=== PATIENT | male | born 1960 | race African-American/Black ===

== ENCOUNTER 2016-11-19 23:02 | Inpatient (IN) | payer OTHER ==
[2016-11-19 23:34] VITALS: BMI 23.3
--- NOTE | 2016-11-19 23:43 | HP ---
COWS - Scale Resting Pulse: 1= [place] 81-100 Sweatin=Flushed/Facial Moisture Restless Observation: 5= Unable to Sit Still Pupil Size: 1= Pupils >than Normal Bone or Joint Aches: 4=Acute Joint/Muscle Pain Runny Nose/ Eye Tearin= None GI Upset > 30mins: 2= Nausea/Diarrhea Tremor Observation: 2= Slight Tremor Visible Yawning Observation: 1= 1-2x During Session Anxiety or Irritability: 2=Irritable/Anxious Goose Flesh Skin: 0=Smooth Skin COWS Score: 20 CIWA Score - CIWA Score Nausea/Vomitin-Mild Nausea/No Vomiting Muscle Tremors: 4-Moderate,w/Arms Extend Anxiety: 4-Mod. Anxious/Guarded Agitation: 4-Moderately Restless Paroxysmal Sweats: 3 Orientation: 2-Disoriented Date<2 days Tacttile Disturbances: 0-None Auditory Disturbances: 0-None Visual Disturbances: 0-None Headache: 0-None Present CIWA-Ar Total Score: 18 Admission ROS [facility] Chief Complaint: C/O WITHDRAWAL SX'S. SEEKING DETOX TXMENT. Allergies/Adverse Reactions: Allergies Allergy/AdvReac Type Severity Reaction Status Date / Time Fish Containing Products Allergy Severe Rash Verified 11/19/16 23:38 penicillin V [Penicillin V] Allergy Intermediate Hives Verified 11/19/16 23:38 Pork/Porcine Containing Allergy Mild Nausea Verified 11/19/16 23:38 Products History of Present Illness: 56 Y.O. MALE WITH ALCOHOLISM/XANAX/ opioid DEPENDENCE ADMITTED FOR DETOX TXMENT. CLIENT IS KNOWN TO [facility]. IT IS NOTED THAT HE SIGNED OUT AMA ON THE LAST 2 VISITS. D/W CLIENT THAT HIS LOS WILL BE 7 DAYS. HE HAS AGREED TO COMPLETE TXMENT. Exam Limitations: No Limitations - Ebola screening Have you traveled outside of the country in the last 21 days: No (N) Have you had contact with anyone from an Ebola affected area: No Have you been sick,other than usual withdrawal symptoms: No Do you have a fever: No - Review of Systems Constitutional: Chills, Loss of Appetite, Malaise, Unintentional Wgt. Loss EENT: reports: Dental Problems (DENTURES) Respiratory: reports: No Symptoms reported Cardiac: reports: No Symptoms Reported GI: reports: Nausea, Poor Appetite, Poor Fluid Intake : reports: No Symptoms Reported Musculoskeletal: reports: Back Pain Integumentary: reports: No Symptoms Reported Neuro: reports: Seizure (R/T DRUG WITHDRAWAL), Tremors Endocrine: reports: No Symptoms Reported Hematology: reports: No Symptoms Reported Psychiatric: reports: Anxious Other Systems: Reviewed and Negative Patient History - Patient Medical History Hx Anemia: No Hx Asthma: No Hx Chronic Obstructive Pulmonary Disease (COPD): No Hx Cancer: No Hx Cardiac Disorders: No Hx Congestive Heart Failure: No Hx Hypertension: Yes (ON NORVASC) Hx Hypercholesterolemia: No Hx Pacemaker: No HX Cerebrovascular Accident: No Hx Seizures: Yes (ETOH/BENZO INDUCED SEIZURE 11/2015) Hx Dementia: No Hx Diabetes: No Hx Gastrointestinal Disorders: Yes (ACID REFLUX) Hx Liver Disease: No Hx Genitourinary Disorders: No Hx Sexually Transmitted Disorders: No Hx Renal Disease (ESRD): No Hx Thyroid Disease: No Hx Human Immunodeficiency Virus (HIV): No Hx Hepatitis C: No Hx Depression: Yes Hx Suicide Attempt: No Hx Bipolar Disorder: No Hx Schizophrenia: No - Patient Surgical History Past Surgical History: Yes Hx Neurologic Surgery: No Hx Cataract Extraction: No Hx Cardiac Surgery: No Hx Lung Surgery: No Hx Breast Surgery: No Hx Breast Biopsy: No Hx Abdominal Surgery: No Hx Appendectomy: No Hx Cholecystectomy: No Hx Genitourinary Surgery: No Hx Section: No Hx Orthopedic Surgery: No Other Surgical History: removal of GI polyps in 1999 Anesthesia Reaction: No - PPD History Previous Implant?: Yes Documented Results: Positive w/o proof Implanted On Prior [facility] Admission?: No Results: CXR ON 12/01/15 PPD to be Administered?: No - Smoking Cessation Smoking history: Current every day smoker Have you smoked in the past 12 months: Yes Aproximately how many cigarettes per day: 30 Cigars Per Day: 0 Hx Chewing Tobacco Use: No Initiated information on smoking cessation: Yes 'Breaking Loose' booklet given: 11/19/16 - Substance & Tx. History Hx Alcohol Use: Yes Hx Substance Use: Yes Substance Use Type: Alcohol, Tranquilizers (XANAX) Hx Substance Use Treatment: Yes ([facility]) - Substances Abused VODKA Route: Oral Frequency: Daily Amount used: 1 LITER Age of first use: 15 Date of Last Use: 11/19/16 XANAX Route: Oral Frequency: Daily Amount used: 6MG Age of first use: 25 Date of Last Use: 11/18/16 OXYCODONE Route: Oral Frequency: Daily Amount used: 80MG Age of first use: 31 Date of Last Use: 11/19/16 COCAINE Route: Inhalation Frequency: 1-3 times last 30 days Amount used: 1GM Age of first use: 19 Date of Last Use: 11/15/16 Family Disease History - Family Disease History Family Disease History: [place]: Grandparent, Other: Father (DEPENDENT ON HEROIN AND ETOH), Mother (ALCOHOLIC AND ) Admission Physical Exam [facility] - Vital Signs Vital Signs: Vital Signs - 24 hr 11/19/16 23:31 Temperature 92.6 F L Pulse Rate 83 Respiratory 20 Rate Blood Pressure 149/93 - Physical General Appearance: Yes: Appropriately Dressed, Irritable, Anxious HEENTM: Yes: EOMI, Normocephalic, Normal Voice, ROMINA, Pharynx Normal Respiratory: Yes: Chest Non-Tender, Lungs Clear, Normal Breath Sounds, No Respiratory Distress, No Accessory Muscle Use Neck: Yes: No masses,lesions,Nodules, Supple, Trachea in good position Breast: Yes: Breast Exam Deferred Cardiology: Yes: Regular Rhythm, Regular Rate, S1, S2 Abdominal: Yes: Normal Bowel Sounds, Non Tender, Soft Genitourinary: Yes: Within Normal Limits Back: Yes: Within Normal Limits Musculoskeletal: Yes: full range of Motion, Gait Steady Extremities: Yes: Normal Capillary Refill, Normal Range of Motion, Non-Tender, Tremors Neurological: Yes: Alert, Motor Strength 5/5 Integumentary: Yes: Normal Color, Warm, Moist Lymphatic: Yes: Within Normal Limits - Diagnostic (1) Alcohol dependence with uncomplicated withdrawal Current Visit: Yes Status: Chronic (2) Nicotine dependence Current Visit: Yes Status: Chronic Qualifiers: Nicotine product type: cigarettes Substance use status: uncomplicated Qualified Code(s): F17.210 - Nicotine dependence, cigarettes, uncomplicated (3) Sedative/hypnotic withdrawal without complication Current Visit: No Status: Acute (4) Withdrawal seizures Current Visit: No Status: Acute Qualifiers: Complication of substance-induced condition: uncomplicated Qualified Code(s): F19.230 - Other psychoactive substance dependence with withdrawal, uncomplicated (5) Essential hypertension Current Visit: Yes Status: Chronic (6) GERD (gastroesophageal reflux disease) Current Visit: Yes Status: Chronic Qualifiers: Esophagitis presence: without esophagitis Qualified Code(s): K21.9 - Gastro-esophageal reflux disease without esophagitis (7) Cocaine dependence Current Visit: Yes Status: Chronic Qualifiers: Substance use status: uncomplicated Qualified Code(s): F14.20 - Cocaine dependence, uncomplicated (8) Opioid dependence with withdrawal Current Visit: Yes Status: Chronic Cleared for Admission S - Detox or Rehab S Level of Care: Medically Managed Detox Regimen/Protocol: Methadone/Valium, Valium S Breath Alcohol Content Breath Alcohol Content: 0.100 Urine Drug Screen - Results Drug Screen Negative: No Urine Drug Screen Results: ANGIE-Cocaine, BZO-Benzodiazepines, OXY-Oxycodone
[2016-11-19] MEDS ORDERED: P-EPHED 60MG/TRIPROLIDI 2.5MG TABLET PO PRN (23:50)
[2016-11-19] MEDS ORDERED: diazePAM 5 MG TABLET PO PRN (23:50)
[2016-11-19] MEDS ORDERED: MAGNESIUM CITRATE 300 ML BOTTLE PO PRN (23:50)
[2016-11-19] MEDS ORDERED: MENTHOL/PHENOL 1 EACH UD MM PRN (23:50)
[2016-11-19] MEDS ORDERED: NICOTINE POLACRILEX 4 MG GUM BC PRN (23:50)
[2016-11-19] MEDS ORDERED: IBUPROFEN 400 MG TABLET (FP) PO PRN (23:50)
[2016-11-19] MEDS ORDERED: LOPERAMIDE HCL 2 MG CAPSULE PO PRN (23:50)
[2016-11-19] MEDS ORDERED: hydrOXYzine PAMOATE 50 MG CAPSULE (FP) PO PRN (23:50)
[2016-11-19] MEDS ORDERED: MAGNESIUM HYDROX 2400MG/30ML ORAL SUSPENSION 30 ML CUP PO PRN (23:50)
[2016-11-19] MEDS ORDERED: ACETAMINOPHEN 325 MG TABLET (FP) PO PRN (23:50)
[2016-11-19] MEDS ORDERED: guaiFENesin/D-METHORPHAN HB 10 ML UNIT-DOSE CUPS PO PRN (23:50)
[2016-11-19] MEDS ORDERED: diazePAM 5 MG TABLET PO ONE (23:50)
[2016-11-20] MEDS ORDERED: METHADONE HCL 10 MG TABLET (FOR DETOX USE ONLY) PO ONE ×2 (00:08→23:00)
[2016-11-20] MEDS ORDERED: diazePAM 5 MG TABLET PO ONE (00:08)
[2016-11-20] MEDS: diphenhydrAMINE HCL 50 MG CAPSULE PO PRN (01:12)
[2016-11-20] MEDS: diazePAM 5 MG TABLET PO SCH ×5 (05:48→22:13)
[2016-11-20] MEDS ORDERED: METHADONE HCL 10 MG TABLET (FOR DETOX USE ONLY) PO SCH (10:00)
--- NOTE | 2016-11-20 10:05 | CONSULT ---
[facility] Psychiatric Consult - Data Date of interview: 11/20/16 Admission source: [facility] Identifying data: This is another admission to [facility] for this 56 y/o AA male seeking detox treatment on for alcohol,cocaine,heroin and benzodiazepine (xanax) dependence.Patient is single,a father of one,domiciled, unemployed and deprived of any source of income.. Substance Abuse History: - Smoking Cessation. Smoking history: Current every day smoker. Have you smoked in the past 12 months: Yes. Aproximately how many cigarettes per day: 30. Cigars Per Day: 0. Hx Chewing Tobacco Use: No. Initiated information on smoking cessation: Yes. 'Breaking Loose' booklet given : 11/19/16. - Substance & Tx. History. Hx Alcohol Use: Yes. Hx Substance Use : Yes. Substance Use Type: Alcohol, Tranquilizers (XANAX). Hx Substance Use Treatment: Yes ([facility]). - Substances Abused. VODKA. Route: Oral. Frequency : Daily. Amount used: 1 LITER. Age of first use: 15. Date of Last Use: . XANAX. Route: Oral. Frequency: Daily. Amount used: 6MG. Age of first use: 25. Date of Last Use: 11/18/16. OXYCODONE. Route: Oral. Frequency: Daily. Amount used: 80MG. Age of first use: 31. Date of Last Use: 11/19/16. COCAINE. Route: Inhalation. Frequency: 1-3 times last 30 days. Amount used: 1GM. Age of first use: 19. Date of Last Use: 11/15/16. Confirmed by the patient in this interview. Medical History: Significant for GERD,hypertension,withdrawal seizures and a history of surgery for removal of intestinal polyps (1999). Psychiatric History: No reported history of psychiatric hospitalizations.Diagnosed with Bipolar Disorder and Sleep Disorder.Patient states that he has resumed OPD care under the supervision of Dr Murray,his psychiatrist at the [facility] in [facility].Medication : seroquel 200 mg/hs.Patient denies history of suicide attempts. Physical/Sexual Abuse/Trauma History: No history. Additional Comment: Urine Drug Screen Results: ANGIE-Cocaine, BZO-Benzodiazepines , OXY-Oxycodone.Noted. Mental Status Exam - Mental Status Exam Alert and Oriented to: Time, Place, Person Cognitive Function: Good Patient Appearance: Well Groomed Mood: Anxious, Apprehensive, Hopeful Affect: Mood Congruent Patient Behavior: Fatigued, Appropriate, Cooperative Speech Pattern: Clear Voice Loudness: Normal Thought Process: Goal Oriented Thought Disorder: Not Present Hallucinations: Denies Suicidal Ideation: Denies Homicidal Ideation: Denies Insight/Judgement: Poor Sleep: Poorly, Difficulty falling asleep Appetite: Good Muscle strength/Tone: Normal Gait/Station: Normal Psychiatric Findings - Problem List ([place] 1, 2,3) (1) Alcohol dependence with uncomplicated withdrawal Current Visit: Yes Status: Acute (2) Opioid dependence with withdrawal Current Visit: Yes Status: Chronic (3) Sedative/hypnotic withdrawal without complication Current Visit: No Status: Acute (4) Nicotine dependence Current Visit: Yes Status: Acute Qualifiers: Nicotine product type: cigarettes Substance use status: uncomplicated Qualified Code(s): F17.210 - Nicotine dependence, cigarettes, uncomplicated (5) Cocaine dependence, uncomplicated Current Visit: Yes Status: Acute (6) Bipolar disorder Current Visit: Yes Status: Chronic Comment: By history. (7) Drug-induced mood disorder Current Visit: Yes Status: Suspected (8) Essential hypertension Current Visit: Yes Status: Chronic (9) GERD (gastroesophageal reflux disease) Current Visit: Yes Status: Chronic Qualifiers: Esophagitis presence: without esophagitis Qualified Code(s): K21.9 - Gastro-esophageal reflux disease without esophagitis (10) Alopecia Current Visit: Yes Status: Chronic (11) Eczema Current Visit: Yes Status: Chronic Qualifiers: Eczema type: flexural Qualified Code(s): L20.82 - Flexural eczema (12) History of seizure Current Visit: No Status: Suspected (13) Insomnia Current Visit: Yes Status: Chronic - Initial Treatment Plan Initial Treatment Plan: Psychoeducation.Detoxification.Seroquel 200 mg po hs.Side effects/benefits discussed with the patient.He agrees with this plan.Observation.
[2016-11-20 10:15] LABS: MCH 29.5 pg (25.7-33.7); MCHC 32.8 g/dl (32.0-35.9); MEAN CELL VOLUME 89.9 fl (80-96); MEAN PLT VOLUME 7.7 fl (7.5-11.1); PLATELET COUNT 196 K/MM3 (134-434); RDW 14.8 % (11.9-15.9); WHITE BLOOD COUNT 4.1 K/mm3 (4.0-10.0)
[2016-11-20 10:17] LABS: URINE APPEARANCE CLEAR; URINE BILIRUBIN NEGATIVE (NEGATIVE); URINE BLOOD NEGATIVE (NEGATIVE); URINE COLOR YELLOW; URINE GLUCOSE (UA) NEGATIVE (NEGATIVE); URINE KETONE NEGATIVE (NEGATIVE); URINE LEUK ESTERASE NEGATIVE (NEGATIVE); URINE NITRITE NEGATIVE (NEGATIVE); URINE PROTEIN NEGATIVE (NEGATIVE); URINE UROBILINOGEN NEGATIVE E.U./dl (0.2-1.0)
[2016-11-20 10:25] LABS: ALBUMIN 4.1 g/dl (3.4-5.0); ALK PHOS 58 U/L (45-117); ANION GAP 10 (8-16); BILIRUBIN,TOTAL 0.5 mg/dL (0.2-1.0); CALCIUM 8.4 mg/dL (8.5-10.1); CO2 30 mmol/L (21-32); CREATININE 0.9 mg/dL (0.7-1.3); GLUCOSE,RANDOM 77 mg/dL (74-106); SGOT/AST 15 U/L (15-37); SGPT/ALT 29 U/L (12-78)
[2016-11-20] MEDS: PANTOPRAZOLE 40 MG TABLET (FP) PO SCH (10:44)
[2016-11-20] MEDS: diazePAM 5 MG TABLET PO PRN ×2 (10:45→17:31)
[2016-11-20] MEDS: amLODIPine BESYLATE 10 MG TABLET (FP) PO SCH (10:45)
[2016-11-20] MEDS: PRENATAL VITAMINS W/ FOLIC ACID TABLET (FP) PO SCH (10:45)
[2016-11-20] MEDS: NICOTINE 21 MG/24 HOURS TOPICAL PATCH TD SCH (10:46)
--- NOTE | 2016-11-20 12:26 | PN ---
[facility] CIWA - CIWA Score Nausea/Vomitin-Mild Nausea/No Vomiting Muscle Tremors: 4-Moderate,w/Arms Extend Anxiety: 3 Agitation: 3 Paroxysmal Sweats: 3 Orientation: 0-Oriented Tacttile Disturbances: 0-None Auditory Disturbances: 0-None Visual Disturbances: 0-None Headache: 0-None Present CIWA-Ar Total Score: 14 [facility] COWS - Scale Resting Pulse: 0= [place] 80 or Below Sweatin=Flushed/Facial Moisture Restless Observation: 1= Difficult to Sit Still Pupil Size: 0= Normal to Room Light Bone or Joint Aches: 2= Severe Diffuse Aches Runny Nose/ Eye Tearin= Runny Nose/Eyes GI Upset > 30mins: 2= Nausea/Diarrhea Tremor Observation of Outstretched Hands: 2= Slight Tremor Visible Yawning Observation: 1= 1-2x During Session Anxiety or Irritability: 2=Irritable/Anxious Goose Flesh Skin: 0=Smooth Skin COWS Score: 14 [facility] Progress Note (SOAP) Subjective: Anxiety,tremors,sweating,interrupted sleep,restless. Objective: 11/20/16 12:25 Vital Signs - 8 hr 11/20/16 11/20/16 06:29 10:41 Temperature 97.5 F L 97.0 F L Pulse Rate 80 80 Respiratory 18 18 Rate Blood Pressure 136/92 127/84 Laboratory Tests 11/20/16 11/20/16 11/20/16 07:50 07:50 07:50 WBC 4.1 RBC 4.62 Hgb 13.6 Hct 41.6 MCV 89.9 MCHC 32.8 RDW 14.8 Plt Count 196 D MPV 7.7 Sodium 141 Potassium 3.5 Chloride 101 Carbon Dioxide 30 Anion Gap 10 BUN 10 D Creatinine 0.9 Creat Clearance w eGFR > 60 Random Glucose 77 D Calcium 8.4 L Total Bilirubin 0.5 AST 15 D ALT 29 D Alkaline Phosphatase 58 Total Protein 7.0 Albumin 4.1 Urine Color Urine Appearance Urine pH Ur Specific [place] Urine Protein Urine Glucose (UA) Urine Ketones Urine Blood Urine Nitrite Urine Bilirubin Urine Urobilinogen Ur Leukocyte Esterase RPR Titer Nonreactive 11/20/16 08:20 WBC RBC Hgb Hct MCV MCHC RDW Plt Count MPV Sodium Potassium Chloride Carbon Dioxide Anion Gap BUN Creatinine Creat Clearance w eGFR Random Glucose Calcium Total Bilirubin AST ALT Alkaline Phosphatase Total Protein Albumin Urine Color Yellow Urine Appearance Clear Urine pH 6.0 Ur Specific [place] 1.018 Urine Protein Negative Urine Glucose (UA) Negative Urine Ketones Negative Urine Blood Negative Urine Nitrite Negative Urine Bilirubin Negative Urine Urobilinogen Negative Ur Leukocyte Esterase Negative RPR Titer labs noted Assessment: 11/20/16 12:25 withdrawal sx. Plan: Continue detox
[2016-11-20] MEDS: HYDROCORTISONE 1% TOPICAL OINT 30 GM TUBE TP SCH ×2 (15:39→22:13)
--- NOTE | 2016-11-20 16:11 | EKG ---
Test Reason : Blood Pressure : / mmHG Vent. Rate : 082 BPM Atrial Rate : 082 BPM P-R Int : 176 ms QRS Dur : 088 ms QT Int : 390 ms P-R-T Axes : 077 -08 057 degrees QTc Int : 455 ms NORMAL SINUS RHYTHM NORMAL ECG NO PREVIOUS ECGS AVAILABLE Confirmed by DEEPA WEBSTER MD ([id number]) on 11/20/2016 4:11:20 PM Referred By: Confirmed By:DEEPA WEBSTER MD
[2016-11-20] MEDS: THIAMINE HCL 100 MG TABLET (FP) PO SCH (22:12)
[2016-11-20] MEDS: QUEtiapine FUMARATE 200 MG TABLET PO SCH (22:12)
[2016-11-21] MEDS: diphenhydrAMINE HCL 50 MG CAPSULE PO PRN (01:03)
[2016-11-21] MEDS: diazePAM 5 MG TABLET PO SCH ×3 (05:35→22:42)
[2016-11-21] MEDS ORDERED: METHADONE HCL 10 MG TABLET (FOR DETOX USE ONLY) PO SCH (10:00)
[2016-11-21] MEDS ORDERED: diazePAM 5 MG TABLET PO SCH (10:00)
[2016-11-21] MEDS: NICOTINE 21 MG/24 HOURS TOPICAL PATCH TD SCH (10:57)
[2016-11-21] MEDS: PANTOPRAZOLE 40 MG TABLET (FP) PO SCH (10:57)
[2016-11-21] MEDS: amLODIPine BESYLATE 10 MG TABLET (FP) PO SCH (10:57)
[2016-11-21] MEDS: PRENATAL VITAMINS W/ FOLIC ACID TABLET (FP) PO SCH (10:57)
[2016-11-21] MEDS: diazePAM 5 MG TABLET PO PRN ×2 (11:01→17:18)
--- NOTE | 2016-11-21 11:23 | PN ---
S CIWA - CIWA Score Nausea/Vomitin-No Nausea/No Vomiting Muscle Tremors: 4-Moderate,w/Arms Extend Anxiety: 4-Mod. Anxious/Guarded Agitation: 4-Moderately Restless Paroxysmal Sweats: 3 Orientation: 0-Oriented Tacttile Disturbances: 0-None Auditory Disturbances: 0-None Visual Disturbances: 0-None Headache: 0-None Present CIWA-Ar Total Score: 15 [facility] COWS - Scale Resting Pulse: 0= [place] 80 or Below Sweatin=Flushed/Facial Moisture Restless Observation: 1= Difficult to Sit Still Pupil Size: 0= Normal to Room Light Bone or Joint Aches: 1= Mild Discomfort Runny Nose/ Eye Tearin= Runny Nose/Eyes GI Upset > 30mins: 2= Nausea/Diarrhea Tremor Observation of Outstretched Hands: 2= Slight Tremor Visible Yawning Observation: 1= 1-2x During Session Anxiety or Irritability: 2=Irritable/Anxious Goose Flesh Skin: 0=Smooth Skin COWS Score: 13 S Progress Note (SOAP) Subjective: Anxiety,tremors,sweating,interrupted sleep,restless Objective: 11/21/16 11:22 Vital Signs - 8 hr 11/21/16 11/21/16 06:43 09:44 Temperature 96.8 F L 96.3 F L Pulse Rate 69 77 Respiratory 18 20 Rate Blood Pressure 119/79 114/78 Laboratory Tests 11/20/16 11/20/16 11/20/16 07:50 07:50 07:50 WBC 4.1 RBC 4.62 Hgb 13.6 Hct 41.6 MCV 89.9 MCHC 32.8 RDW 14.8 Plt Count 196 D MPV 7.7 Sodium 141 Potassium 3.5 Chloride 101 Carbon Dioxide 30 Anion Gap 10 BUN 10 D Creatinine 0.9 Creat Clearance w eGFR > 60 Random Glucose 77 D Calcium 8.4 L Total Bilirubin 0.5 AST 15 D ALT 29 D Alkaline Phosphatase 58 Total Protein 7.0 Albumin 4.1 Urine Color Urine Appearance Urine pH Ur Specific [place] Urine Protein Urine Glucose (UA) Urine Ketones Urine Blood Urine Nitrite Urine Bilirubin Urine Urobilinogen Ur Leukocyte Esterase RPR Titer Nonreactive 11/20/16 08:20 WBC RBC Hgb Hct MCV MCHC RDW Plt Count MPV Sodium Potassium Chloride Carbon Dioxide Anion Gap BUN Creatinine Creat Clearance w eGFR Random Glucose Calcium Total Bilirubin AST ALT Alkaline Phosphatase Total Protein Albumin Urine Color Yellow Urine Appearance Clear Urine pH 6.0 Ur Specific [place] 1.018 Urine Protein Negative Urine Glucose (UA) Negative Urine Ketones Negative Urine Blood Negative Urine Nitrite Negative Urine Bilirubin Negative Urine Urobilinogen Negative Ur Leukocyte Esterase Negative RPR Titer labs noted Assessment: 11/21/16 11:22 withdrawal sx. Plan: continue detox
[2016-11-21] MEDS: HYDROCORTISONE 1% TOPICAL OINT 30 GM TUBE TP SCH ×2 (12:03→22:43)
[2016-11-21] MEDS: QUEtiapine FUMARATE 200 MG TABLET PO SCH (22:42)
[2016-11-21] MEDS: THIAMINE HCL 100 MG TABLET (FP) PO SCH (22:42)
[2016-11-22] MEDS: diazePAM 5 MG TABLET PO PRN (05:28)
[2016-11-22] MEDS ORDERED: METHADONE HCL 5 MG TABLET (FOR DETOX USE ONLY) PO SCH (10:00)
[2016-11-22] MEDS: HYDROCORTISONE 1% TOPICAL OINT 30 GM TUBE TP SCH ×2 (10:53→22:59)
[2016-11-22] MEDS: NICOTINE 21 MG/24 HOURS TOPICAL PATCH TD SCH (10:53)
[2016-11-22] MEDS: PRENATAL VITAMINS W/ FOLIC ACID TABLET (FP) PO SCH (10:54)
[2016-11-22] MEDS: PANTOPRAZOLE 40 MG TABLET (FP) PO SCH (10:54)
[2016-11-22] MEDS: amLODIPine BESYLATE 10 MG TABLET (FP) PO SCH (10:54)
[2016-11-22] MEDS: diazePAM 5 MG TABLET PO SCH ×2 (10:54→22:04)
--- NOTE | 2016-11-22 11:11 | PN ---
[facility] Progress Note (SOAP) Subjective: Sweating,interrupted sleep,restless Objective: 11/22/16 11:10 Vital Signs - 8 hr 11/22/16 11/22/16 11/22/16 03:30 06:34 10:38 Temperature 97.7 F 96.8 F L Pulse Rate 84 83 Respiratory 18 18 18 Rate Blood Pressure 119/82 119/86 Laboratory Last Values WBC 4.1 K/mm3 (4.0-10.0) 11/20/16 07:50 RBC 4.62 M/mm3 (4.00-5.60) 11/20/16 07:50 Hgb 13.6 GM/dL (11.7-16.9) 11/20/16 07:50 Hct 41.6 % (35.4-49) 11/20/16 07:50 MCV 89.9 fl (80-96) 11/20/16 07:50 MCHC 32.8 g/dl (32.0-35.9) 11/20/16 07:50 RDW 14.8 % (11.9-15.9) 11/20/16 07:50 Plt Count 196 K/MM3 (134-434) D 11/20/16 07:50 MPV 7.7 fl (7.5-11.1) 11/20/16 07:50 Sodium 141 mmol/L (136-145) 11/20/16 07:50 Potassium 3.5 mmol/L (3.5-5.1) 11/20/16 07:50 Chloride 101 mmol/L (98-107) 11/20/16 07:50 Carbon Dioxide 30 mmol/L (21-32) 11/20/16 07:50 Anion Gap 10 (8-16) 11/20/16 07:50 BUN 10 mg/dL (7-18) D 11/20/16 07:50 Creatinine 0.9 mg/dL (0.7-1.3) 11/20/16 07:50 Creat Clearance w eGFR > 60 (>60) 11/20/16 07:50 Random Glucose 77 mg/dL (74-106) D 11/20/16 07:50 Calcium 8.4 mg/dL (8.5-10.1) L 11/20/16 07:50 Total Bilirubin 0.5 mg/dL (0.2-1.0) 11/20/16 07:50 AST 15 U/L (15-37) D 11/20/16 07:50 ALT 29 U/L (12-78) D 11/20/16 07:50 Alkaline Phosphatase 58 U/L (45-117) 11/20/16 07:50 Total Protein 7.0 g/dl (6.4-8.2) 11/20/16 07:50 Albumin 4.1 g/dl (3.4-5.0) 11/20/16 07:50 Urine Color Yellow 11/20/16 08:20 Urine Appearance Clear 11/20/16 08:20 Urine pH 6.0 (5.0-8.0) 11/20/16 08:20 Ur Specific [place] 1.018 (1.001-1.035) 11/20/16 08:20 Urine Protein Negative (NEGATIVE) 11/20/16 08:20 Urine Glucose (UA) Negative (NEGATIVE) 11/20/16 08:20 Urine Ketones Negative (NEGATIVE) 11/20/16 08:20 Urine Blood Negative (NEGATIVE) 11/20/16 08:20 Urine Nitrite Negative (NEGATIVE) 11/20/16 08:20 Urine Bilirubin Negative (NEGATIVE) 11/20/16 08:20 Urine Urobilinogen Negative E.U./dl (0.2-1.0) 11/20/16 08:20 Ur Leukocyte Esterase Negative (NEGATIVE) 11/20/16 08:20 RPR Titer Nonreactive (NONREACTIVE) 11/20/16 07:50 labs noted Assessment: 11/22/16 11:11 withdrawal sx. Plan: Continue detox
[2016-11-22] MEDS: MAG HYDROX/AL HYDROX/SIMETH 30 ML UNIT-DOSE CUP PO PRN (20:27)
[2016-11-22] MEDS: QUEtiapine FUMARATE 200 MG TABLET PO SCH (22:03)
[2016-11-22] MEDS: THIAMINE HCL 100 MG TABLET (FP) PO SCH (22:04)
[2016-11-23] MEDS ORDERED: diazePAM 5 MG TABLET PO SCH (10:00)
[2016-11-23] MEDS ORDERED: METHADONE HCL 10 MG TABLET (FOR DETOX USE ONLY) PO SCH (10:00)
[2016-11-23] MEDS: NICOTINE 21 MG/24 HOURS TOPICAL PATCH TD SCH (10:51)
[2016-11-23] MEDS: PANTOPRAZOLE 40 MG TABLET (FP) PO SCH (10:51)
[2016-11-23] MEDS: amLODIPine BESYLATE 10 MG TABLET (FP) PO SCH (10:51)
[2016-11-23] MEDS: HYDROCORTISONE 1% TOPICAL OINT 30 GM TUBE TP SCH ×2 (10:51→22:30)
[2016-11-23] MEDS: diazePAM 5 MG TABLET PO SCH ×2 (10:51→22:31)
[2016-11-23] MEDS: PRENATAL VITAMINS W/ FOLIC ACID TABLET (FP) PO SCH (10:51)
--- NOTE | 2016-11-23 11:47 | PN ---
[facility] Progress Note (SOAP) Subjective: Restlessness, anxious, interrupted sleep, reports feeling better Objective: Vital Signs Temperature 98.3 F 11/23/16 09:52 Pulse Rate 89 11/23/16 09:52 Respiratory Rate 18 11/23/16 09:52 Blood Pressure 111/77 11/23/16 09:52 O2 Sat by Pulse Oximetry (%) Lab Results WBC 4.1 K/mm3 (4.0-10.0) 11/20/16 07:50 RBC 4.62 M/mm3 (4.00-5.60) 11/20/16 07:50 Hgb 13.6 GM/dL (11.7-16.9) 11/20/16 07:50 Hct 41.6 % (35.4-49) 11/20/16 07:50 MCV 89.9 fl (80-96) 11/20/16 07:50 MCHC 32.8 g/dl (32.0-35.9) 11/20/16 07:50 RDW 14.8 % (11.9-15.9) 11/20/16 07:50 Plt Count 196 K/MM3 (134-434) D 11/20/16 07:50 Sodium 141 mmol/L (136-145) 11/20/16 07:50 Potassium 3.5 mmol/L (3.5-5.1) 11/20/16 07:50 Chloride 101 mmol/L (98-107) 11/20/16 07:50 Carbon Dioxide 30 mmol/L (21-32) 11/20/16 07:50 Anion Gap 10 (8-16) 11/20/16 07:50 BUN 10 mg/dL (7-18) D 11/20/16 07:50 Creatinine 0.9 mg/dL (0.7-1.3) 11/20/16 07:50 Random Glucose 77 mg/dL (74-106) D 11/20/16 07:50 Calcium 8.4 mg/dL (8.5-10.1) L 11/20/16 07:50 labs noted Assessment: Withdrawal symptoms Plan: Continue Detox
[2016-11-23] MEDS: MAG HYDROX/AL HYDROX/SIMETH 30 ML UNIT-DOSE CUP PO PRN (22:31)
[2016-11-23] MEDS: QUEtiapine FUMARATE 200 MG TABLET PO SCH (22:31)
[2016-11-23] MEDS: THIAMINE HCL 100 MG TABLET (FP) PO SCH (22:31)
[2016-11-24] MEDS ORDERED: METHADONE HCL 5 MG TABLET (FOR DETOX USE ONLY) PO SCH (06:00)
[2016-11-24 07:03] VITALS: BP 115/81; PULSE 78; TEMP 95.8
[2016-11-24] MEDS ORDERED: METHADONE HCL 10 MG TABLET (FOR DETOX USE ONLY) PO SCH (10:00)
[2016-11-24] MEDS ORDERED: diazePAM 5 MG TABLET PO SCH (10:00)
--- NOTE | 2016-11-24 12:14 | DS ---
[facility] Detox Discharge Summary Admission Date: 11/19/16 Discharge Date: 11/24/16 - History Present History: Alcohol Dependence, Opioid Dependence, Sedative Dependence Pertinent Past History: HTN, GERD, ALCOHOL/BENZO RELATED SEIZURE, POSITIVE PPD - Physical Exam Results Vital Signs: Vital Signs Temperature 95.8 F L 11/24/16 07:02 Pulse Rate 78 11/24/16 07:02 Respiratory Rate 16 11/24/16 07:02 Blood Pressure 115/81 11/24/16 07:02 O2 Sat by Pulse Oximetry (%) Pertinent Admission Physical Exam Findings: WITHDRAWAL SYMPTOMS Laboratory Tests 11/20/16 11/20/16 11/20/16 07:50 07:50 07:50 WBC 4.1 RBC 4.62 Hgb 13.6 Hct 41.6 MCV 89.9 MCHC 32.8 RDW 14.8 Plt Count 196 D MPV 7.7 Sodium 141 Potassium 3.5 Chloride 101 Carbon Dioxide 30 Anion Gap 10 BUN 10 D Creatinine 0.9 Creat Clearance w eGFR > 60 Random Glucose 77 D Calcium 8.4 L Total Bilirubin 0.5 AST 15 D ALT 29 D Alkaline Phosphatase 58 Total Protein 7.0 Albumin 4.1 Urine Color Urine Appearance Urine pH Ur Specific [place] Urine Protein Urine Glucose (UA) Urine Ketones Urine Blood Urine Nitrite Urine Bilirubin Urine Urobilinogen Ur Leukocyte Esterase RPR Titer Nonreactive 11/20/16 08:20 WBC RBC Hgb Hct MCV MCHC RDW Plt Count MPV Sodium Potassium Chloride Carbon Dioxide Anion Gap BUN Creatinine Creat Clearance w eGFR Random Glucose Calcium Total Bilirubin AST ALT Alkaline Phosphatase Total Protein Albumin Urine Color Yellow Urine Appearance Clear Urine pH 6.0 Ur Specific [place] 1.018 Urine Protein Negative Urine Glucose (UA) Negative Urine Ketones Negative Urine Blood Negative Urine Nitrite Negative Urine Bilirubin Negative Urine Urobilinogen Negative Ur Leukocyte Esterase Negative RPR Titer Labs noted - Treatment Hospital Course: Detox Protocol Followed, Detoxed Safely, Responded well, Discharged Condition Good - Medication Discharge Medications: Ambulatory Orders Amlodipine Besylate [Norvasc -] 10 mg PO DAILY 11/30/15 Esomeprazole Mag Trihydrate [Nexium] 40 mg PO DAILY 11/30/15 Quetiapine Fumarate [Seroquel -] 200 mg PO HS #30 tab 08/20/16 Quetiapine Fumarate [Seroquel -] 200 mg PO HS #30 tab 11/20/16 Pantoprazole Sodium [Protonix -] 40 mg PO DAILY #30 tablet.ec 11/23/16 - Diagnosis (1) Sedative/hypnotic withdrawal without complication Status: Acute (2) Withdrawal seizures Status: Acute Qualifiers: Complication of substance-induced condition: uncomplicated Qualified Code(s): F19.230 - Other psychoactive substance dependence with withdrawal, uncomplicated (3) Anxiety and depression Status: Chronic (4) Essential hypertension Status: Chronic (5) GERD (gastroesophageal reflux disease) Status: Chronic Qualifiers: Esophagitis presence: without esophagitis Qualified Code(s): K21.9 - Gastro-esophageal reflux disease without esophagitis (6) Opioid dependence with withdrawal Status: Acute - AMA Did Patient Leave Against Medical Advice: No
[2016-11-25] MEDS ORDERED: METHADONE HCL 5 MG TABLET (FOR DETOX USE ONLY) PO SCH (06:00)
== END 2016-11-24 08:58 | disposition home or self-care (01) | DRG 773 ==
LOC: YASAS 23:02 → Y3N 23:44
PROVIDERS: ADMIT Internal Medicine; ATTEND Internal Medicine
PROC: HZ2ZZZZ Detoxification Services for Substance Abuse Treatment (ICD-10-PCS; principal; 2016-11-24)
DX: F11.23 Opioid dependence with withdrawal (principal); F13.230 Sedative, hypnotic or anxiolytic dependence with withdrawal, uncomplicated; F14.20 Cocaine dependence, uncomplicated; F17.210 Nicotine dependence, cigarettes, uncomplicated; F41.8 Other specified anxiety disorders; G40.509 Epileptic seizures related to external causes, not intractable, without status epilepticus; F31.9 Bipolar disorder, unspecified; I10 Essential (primary) hypertension; K21.9 Gastro-esophageal reflux disease without esophagitis; Z59.0 Homelessness
CPT/HCPCS: 36415; 80053; 81003; 85027; 86593; 93005; 93010

== ENCOUNTER 2017-01-21 15:52 | Inpatient (IN) | payer OTHER ==
[2017-01-21 18:03] VITALS: BMI 21.5
--- NOTE | 2017-01-21 18:22 | HP ---
[id number] 4d 4-Moderate,w/Arms Extend Anxiety: 4-Mod. Anxious/Guarded Agitation: 4-Moderately Restless Paroxysmal Sweats: 1-Minimal Palms Moist Orientation: 1-Uncertain about Date Tacttile Disturbances: 0-None Auditory Disturbances: 0-None Visual Disturbances: 0-None Headache: 0-None Present CIWA-Ar Total Score: 15 Admission ROS S - HPI Chief Complaint: withdrawal sx Allergies/Adverse Reactions: Allergies Allergy/AdvReac Type Severity Reaction Status Date / Time Fish Containing Products Allergy Severe Rash Verified 01/21/17 18:59 penicillin V [Penicillin V] Allergy Intermediate Hives Verified 01/21/17 18:59 Pork/Porcine Containing Allergy Mild Nausea Verified 01/21/17 18:59 Products History of Present Illness: 56 years old male with long history of alcohol cocaine nicotine dependence has hypertension gerd positive ppd and weight loss and depression is admitted to detox alcohol related seizure 2014 Exam Limitations: No Limitations - Ebola screening Have you traveled outside of the country in the last 21 days: No Have you had contact with anyone from an Ebola affected area: No Have you been sick,other than usual withdrawal symptoms: No Do you have a fever: No - Review of Systems Constitutional: Chills, Loss of Appetite, Changes in sleep, Unintentional Wgt. Loss, Unexplained wgt Loss EENT: reports: Dental Problems (upper denture) Respiratory: reports: No Symptoms reported Cardiac: reports: No Symptoms Reported GI: reports: Diarrhea, Nausea, Poor Appetite, Poor Fluid Intake, Indigestion, Abdominal cramping : reports: No Symptoms Reported Musculoskeletal: reports: Back Pain Integumentary: reports: No Symptoms Reported Neuro: reports: Seizure (alcohol induced 2014), Tremors Endocrine: reports: No Symptoms Reported Hematology: reports: No Symptoms Reported Psychiatric: reports: Judgement Intact, Orientated x3, Depressed Other Systems: Reviewed and Negative Patient History - Patient Medical History Hx Anemia: No Hx Asthma: No Hx Chronic Obstructive Pulmonary Disease (COPD): No Hx Cancer: No Hx Cardiac Disorders: No Hx Congestive Heart Failure: No Hx Hypertension: Yes Hx Hypercholesterolemia: No Hx Pacemaker: No HX Cerebrovascular Accident: No Hx Seizures: Yes (alcohol induced 2014) Hx Dementia: No Hx Diabetes: No Hx Gastrointestinal Disorders: Yes Hx Liver Disease: No Hx Genitourinary Disorders: No Hx Sexually Transmitted Disorders: No Hx Renal Disease (ESRD): No Hx Thyroid Disease: No Hx Human Immunodeficiency Virus (HIV): No Hx Hepatitis C: No Hx Depression: Yes Hx Suicide Attempt: No Hx Bipolar Disorder: No Hx Schizophrenia: No - Patient Surgical History Past Surgical History: Yes Hx Neurologic Surgery: No Hx Cataract Extraction: No Hx Cardiac Surgery: No Hx Lung Surgery: No Hx Breast Surgery: No Hx Breast Biopsy: No Hx Abdominal Surgery: No Hx Appendectomy: No Hx Cholecystectomy: No Hx Genitourinary Surgery: No Hx Orthopedic Surgery: No Other Surgical History: removal of GI polyps in 1999 Anesthesia Reaction: No - PPD History Previous Implant?: Yes Documented Results: Positive w/o proof Implanted On Prior [facility] Admission?: No Results: CXR ON 12/01/15 PPD to be Administered?: No - Smoking Cessation Smoking history: Current every day smoker Have you smoked in the past 12 months: Yes Aproximately how many cigarettes per day: 30 Cigars Per Day: 0 Hx Chewing Tobacco Use: No Initiated information on smoking cessation: Yes 'Breaking Loose' booklet given: 01/21/17 - Substance & Tx. History Hx Alcohol Use: Yes Hx Substance Use: Yes Substance Use Type: Alcohol, Cocaine Hx Substance Use Treatment: Yes - Substances Abused Alcohol Route: Oral Frequency: Daily Amount used: 1/5 volka + 40ozx3 beer Age of first use: 15 Date of Last Use: 01/21/17 Family Disease History - Family Disease History Family Disease History: [place]: Grandparent, Other: Father (DEPENDENT ON HEROIN AND ETOH), Mother (ALCOHOLIC AND ) Admission Physical Exam [facility] - Vital Signs Vital Signs: Vital Signs - 24 hr 01/21/17 18:02 Temperature 97.6 F Pulse Rate 87 Respiratory 20 Rate Blood Pressure 163/109 - Physical General Appearance: Yes: Appropriately Dressed, Mild Distress, Alcohol on Breath , Thin, Tremorous, Irritable, Sweating, Anxious HEENTM: Yes: Hearing grossly Normal, Normal ENT Inspection, Normocephalic, Normal Voice Respiratory: Yes: Chest Non-Tender, Lungs Clear, Normal Breath Sounds, No Respiratory Distress, No Accessory Muscle Use Neck: Yes: Supple, Trachea in good position Breast: Yes: Breasts Symetrical Cardiology: Yes: Regular Rhythm, Regular Rate, S1, S2 Abdominal: Yes: Non Tender, Soft, Increased Bowel Sounds Genitourinary: Yes: Within Normal Limits Back: Yes: Normal Inspection Musculoskeletal: Yes: full range of Motion, Gait Steady, Back pain Extremities: Yes: Normal Inspection, Normal Range of Motion, Non-Tender, Tremors Neurological: Yes: Fully Oriented, Alert, Motor Strength 5/5, Normal Response, Depressed Affect Integumentary: Yes: Warm Lymphatic: Yes: Within Normal Limits - Diagnostic (1) Alcohol dependence with uncomplicated withdrawal Current Visit: Yes Status: Acute (2) Cocaine dependence, uncomplicated Current Visit: Yes Status: Chronic (3) Nicotine dependence Current Visit: Yes Status: Acute Qualifiers: Nicotine product type: cigarettes Substance use status: in withdrawal Qualified Code(s): F17.213 - Nicotine dependence, cigarettes, with withdrawal (4) Withdrawal seizures Current Visit: Yes Status: Suspected Qualifiers: Complication of substance-induced condition: with perceptual disturbance Qualified Code(s): F19.232 - Other psychoactive substance dependence with withdrawal with perceptual disturbance (5) GERD (gastroesophageal reflux disease) Current Visit: Yes Status: Chronic Qualifiers: Esophagitis presence: without esophagitis Qualified Code(s): K21.9 - Gastro-esophageal reflux disease without esophagitis (6) Positive PPD, treated Current Visit: Yes Status: Resolved Cleared for Admission [facility] - Detox or Rehab [facility] Level of Care: Medically Managed Detox Regimen/Protocol: Valium S Breath Alcohol Content Breath Alcohol Content: 0.165 Urine Drug Screen - Results Drug Screen Negative: No Urine Drug Screen Results: ANGIE-Cocaine
[2017-01-21] MEDS ORDERED: IBUPROFEN 400 MG TABLET (FP) PO PRN (18:29)
[2017-01-21] MEDS ORDERED: MENTHOL/PHENOL 1 EACH UD MM PRN (18:29)
[2017-01-21] MEDS ORDERED: diazePAM 5 MG TABLET PO ONE (18:29)
[2017-01-21] MEDS ORDERED: MAGNESIUM HYDROX 2400MG/30ML ORAL SUSPENSION 30 ML CUP PO PRN (18:29)
[2017-01-21] MEDS ORDERED: LOPERAMIDE HCL 2 MG CAPSULE PO PRN (18:29)
[2017-01-21] MEDS ORDERED: MAGNESIUM CITRATE 300 ML BOTTLE PO PRN (18:29)
[2017-01-21] MEDS ORDERED: ACETAMINOPHEN 325 MG TABLET (FP) PO PRN (18:29)
[2017-01-21] MEDS ORDERED: diphenhydrAMINE HCL 50 MG CAPSULE PO PRN (18:29)
[2017-01-21] MEDS ORDERED: guaiFENesin/D-METHORPHAN HB 10 ML UNIT-DOSE CUPS PO PRN (18:29)
[2017-01-21] MEDS ORDERED: P-EPHED 60MG/TRIPROLIDI 2.5MG TABLET PO PRN (18:29)
[2017-01-21] MEDS ORDERED: cloNIDine HCL 0.1 MG TABLET PO PRN (18:33)
[2017-01-21] MEDS: amLODIPine BESYLATE 10 MG TABLET (FP) PO SCH (19:54)
[2017-01-21] MEDS: diazePAM 5 MG TABLET PO SCH (22:22)
[2017-01-21] MEDS: THIAMINE HCL 100 MG TABLET (FP) PO SCH (22:23)
[2017-01-21] MEDS: PANTOPRAZOLE 40 MG TABLET (FP) PO SCH (22:23)
[2017-01-21 22:47] LABS: URINE APPEARANCE CLEAR; URINE BILIRUBIN NEGATIVE (NEGATIVE); URINE BLOOD NEGATIVE (NEGATIVE); URINE COLOR LTYELLOW; URINE GLUCOSE (UA) NEGATIVE (NEGATIVE); URINE KETONE TRACE (NEGATIVE); URINE LEUK ESTERASE NEGATIVE (NEGATIVE); URINE NITRITE NEGATIVE (NEGATIVE); URINE PROTEIN NEGATIVE (NEGATIVE); URINE UROBILINOGEN NEGATIVE E.U./dl (0.2-1.0)
[2017-01-22] MEDS: diazePAM 5 MG TABLET PO SCH ×3 (05:31→22:55)
--- NOTE | 2017-01-22 08:25 | EKG ---
Test Reason : Blood Pressure : / mmHG Vent. Rate : 093 BPM Atrial Rate : 093 BPM P-R Int : 160 ms QRS Dur : 088 ms QT Int : 374 ms P-R-T Axes : 080 -60 031 degrees QTc Int : 465 ms NORMAL SINUS RHYTHM POSSIBLE LEFT ATRIAL ENLARGEMENT LEFT AXIS DEVIATION SEPTAL INFARCT , AGE UNDETERMINED ABNORMAL ECG WHEN COMPARED WITH ECG OF 20-NOV-2016 00:50, QRS AXIS SHIFTED LEFT SEPTAL INFARCT IS NOW PRESENT Confirmed by ISABELL AC MD ([id number]) on 01/22/2017 8:24:48 AM Referred By: Confirmed By:ISABELL AC MD
--- NOTE | 2017-01-22 10:05 | CONSULT ---
[facility] Psychiatric Consult - Data Date of interview: 01/22/17 Admission source: [facility] Identifying data: This is 56 years old male with no psychiatric hospitalization history iontoxicated with : Alcohol and Nicotine Substance Abuse History: - Smoking Cessation. Smoking history: Current every day smoker. Have you smoked in the past 12 months: Yes. Aproximately how many cigarettes per day: 30. Cigars Per Day: 0. Hx Chewing Tobacco Use: No. Initiated information on smoking cessation: Yes. 'Breaking Loose' booklet given : 01/21/17. - Substance & Tx. History. Hx Alcohol Use: Yes. Hx Substance Use : Yes. Substance Use Type: Alcohol, Cocaine. Hx Substance Use Treatment: Yes. - Substances Abused. Alcohol. Route: Oral. Frequency: Daily. Amount used: 1/5 volka + 40ozx3 beer. Age of first use: 15. Date of Last Use: Medical History: GERD, Seizure history, Asthma, Eczema history, HTN Psychiatric History: Patioent reports hisotry of anxiety and insomnia, reports taking prior to admission: Seroquel 150mg po qhs Physical/Sexual Abuse/Trauma History: Denies Additional Comment: Seroquel 150mg po qhs Mental Status Exam - Mental Status Exam Alert and Oriented to: Person Cognitive Function: Fair Mood: Sad Affect: Mood Congruent Patient Behavior: Cooperative Speech Pattern: Appropriate Voice Loudness: Mildly Soft/Quiet Thought Process: Goal Oriented Thought Disorder: Being Controlled Hallucinations: Denies Suicidal Ideation: Denies Homicidal Ideation: Denies Insight/Judgement: Fair Sleep: Difficulty falling asleep Appetite: Weight loss Muscle strength/Tone: Normal Gait/Station: Normal Additional Comments: Seroquel 150mg po qhs Psychiatric Findings - Problem List ([place] 1, 2,3) (1) Alcohol dependence with uncomplicated withdrawal Current Visit: Yes Status: Acute (2) Nicotine dependence Current Visit: Yes Status: Acute Qualifiers: Nicotine product type: cigarettes Substance use status: in withdrawal Qualified Code(s): F17.213 - Nicotine dependence, cigarettes, with withdrawal (3) Cocaine dependence, uncomplicated Current Visit: Yes Status: Suspected (4) Cannabis dependence Current Visit: No Status: Acute (5) Mood disorder Current Visit: No Status: Acute (6) Opioid dependence with withdrawal Current Visit: No Status: Acute (7) Alcohol dependence Current Visit: No Status: Chronic (8) Anxiety and depression Current Visit: No Status: Chronic (9) Bipolar affective disorder, depressed, moderate Current Visit: No Status: Chronic (10) Cannabis abuse Current Visit: No Status: Chronic (11) Cocaine abuse Current Visit: No Status: Chronic (12) Cocaine dependence Current Visit: No Status: Chronic Qualifiers: Substance use status: uncomplicated Qualified Code(s): F14.20 - Cocaine dependence, uncomplicated (13) Drug-induced mood disorder Current Visit: No Status: Suspected - Initial Treatment Plan Initial Treatment Plan: Seroquel 150mg po qhs
[2017-01-22 10:24] LABS: ALBUMIN 4.5 g/dl (3.4-5.0); ALK PHOS 63 U/L (45-117); ANION GAP 10 (8-16); BILIRUBIN,TOTAL 0.5 mg/dL (0.2-1.0); CALCIUM 9.4 mg/dL (8.5-10.1); CO2 31 mmol/L (21-32); COCKROFT - GAULT 97.72; CREATININE 0.8 mg/dL (0.7-1.3); GLUCOSE,RANDOM 90 mg/dL (74-106); SGOT/AST 23 U/L (15-37); SGPT/ALT 27 U/L (12-78); TOT PROT 7.9 g/dl (6.4-8.2)
[2017-01-22] MEDS: PRENATAL VITAMINS W/ FOLIC ACID TABLET (FP) PO SCH (10:54)
[2017-01-22] MEDS: amLODIPine BESYLATE 10 MG TABLET (FP) PO SCH (10:54)
[2017-01-22 10:56] LABS: MCH 29.9 pg (25.7-33.7); MEAN CELL VOLUME 90.8 fl (80-96); MEAN PLT VOLUME 7.8 fl (7.5-11.1); PLATELET COUNT 243 K/MM3 (134-434); WHITE BLOOD COUNT 3.7 K/mm3 (4.0-10.0)
[2017-01-22] MEDS: diazePAM 5 MG TABLET PO PRN ×2 (10:56→17:49)
[2017-01-22] MEDS ORDERED: NICOTINE POLACRILEX 4 MG GUM BUC PRN (11:31)
--- NOTE | 2017-01-22 11:45 | PN ---
[facility] Progress Note (SOAP) Subjective: INTERRUPTED SLEEP, SWEATS ,SHAKES , LBP Objective: 01/22/17 11:33 Vital Signs Temperature 98.1 F 01/22/17 10:36 Pulse Rate 81 01/22/17 10:36 Respiratory Rate 20 01/22/17 10:36 Blood Pressure 137/98 01/22/17 10:36 O2 Sat by Pulse Oximetry (%) Laboratory Tests 01/21/17 01/22/17 01/22/17 20:00 07:00 07:00 WBC 3.7 L RBC 4.84 Hgb 14.5 Hct 44.0 MCV 90.8 MCHC 33.0 RDW 16.0 H Plt Count 243 D MPV 7.8 Sodium 139 Potassium 3.7 Chloride 98 Carbon Dioxide 31 Anion Gap 10 BUN 10 Creatinine 0.8 Creat Clearance w eGFR > 60 Random Glucose 90 Calcium 9.4 Total Bilirubin 0.5 AST 23 D ALT 27 Alkaline Phosphatase 63 Total Protein 7.9 Albumin 4.5 Urine Color Ltyellow Urine Appearance Clear Urine pH 7.0 Ur Specific [place] 1.010 Urine Protein Negative Urine Glucose (UA) Negative Urine Ketones Trace H Urine Blood Negative Urine Nitrite Negative Urine Bilirubin Negative Urine Urobilinogen Negative Ur Leukocyte Esterase Negative 01/22/17 16:13 PT AOX3 IN NAD Assessment: 01/22/17 11:33 withdrawal sx's 01/22/17 16:13 LBP Plan: cont detox increase fluids may wear own shoes 21 MG LA PATCH
[2017-01-22] MEDS: THIAMINE HCL 100 MG TABLET (FP) PO SCH (22:55)
[2017-01-22] MEDS: PANTOPRAZOLE 40 MG TABLET (FP) PO SCH (22:55)
[2017-01-22] MEDS: QUEtiapine FUMARATE 50 MG TABLET PO SCH (22:55)
[2017-01-23] MEDS: NICOTINE 21 MG/24 HOURS TOPICAL PATCH TD SCH (10:52)
[2017-01-23] MEDS: diazePAM 5 MG TABLET PO SCH ×2 (10:52→23:04)
[2017-01-23] MEDS: amLODIPine BESYLATE 10 MG TABLET (FP) PO SCH (10:52)
[2017-01-23] MEDS: PRENATAL VITAMINS W/ FOLIC ACID TABLET (FP) PO SCH (10:52)
[2017-01-23] MEDS: MAG HYDROX/AL HYDROX/SIMETH 30 ML UNIT-DOSE CUP PO PRN (10:53)
--- NOTE | 2017-01-23 12:14 | PN ---
[facility] CIWA - CIWA Score Nausea/Vomitin-No Nausea/No Vomiting Muscle Tremors: 3 Anxiety: 3 Agitation: 3 Paroxysmal Sweats: 3 Orientation: 0-Oriented Tacttile Disturbances: 0-None Auditory Disturbances: 0-None Visual Disturbances: 0-None Headache: 1-Very Mild CIWA-Ar Total Score: 13 [facility] Progress Note (SOAP) Subjective: agitation anxiety sweats irritable Objective: 01/23/17 12:13 Vital Signs Temperature 97.3 F L 01/23/17 09:44 Pulse Rate 80 01/23/17 09:44 Respiratory Rate 18 01/23/17 09:44 Blood Pressure 129/81 01/23/17 09:44 O2 Sat by Pulse Oximetry (%) Laboratory Tests 01/21/17 01/22/17 01/22/17 20:00 07:00 07:00 WBC 3.7 L RBC 4.84 Hgb 14.5 Hct 44.0 MCV 90.8 MCHC 33.0 RDW 16.0 H Plt Count 243 D MPV 7.8 Sodium 139 Potassium 3.7 Chloride 98 Carbon Dioxide 31 Anion Gap 10 BUN 10 Creatinine 0.8 Creat Clearance w eGFR > 60 Random Glucose 90 Calcium 9.4 Total Bilirubin 0.5 AST 23 D ALT 27 Alkaline Phosphatase 63 Total Protein 7.9 Albumin 4.5 Urine Color Ltyellow Urine Appearance Clear Urine pH 7.0 Ur Specific [place] 1.010 Urine Protein Negative Urine Glucose (UA) Negative Urine Ketones Trace H Urine Blood Negative Urine Nitrite Negative Urine Bilirubin Negative Urine Urobilinogen Negative Ur Leukocyte Esterase Negative RPR Titer 01/22/17 07:00 WBC RBC Hgb Hct MCV MCHC RDW Plt Count MPV Sodium Potassium Chloride Carbon Dioxide Anion Gap BUN Creatinine Creat Clearance w eGFR Random Glucose Calcium Total Bilirubin AST ALT Alkaline Phosphatase Total Protein Albumin Urine Color Urine Appearance Urine pH Ur Specific [place] Urine Protein Urine Glucose (UA) Urine Ketones Urine Blood Urine Nitrite Urine Bilirubin Urine Urobilinogen Ur Leukocyte Esterase RPR Titer Nonreactive awake/alert ambulating no acute distress Assessment: 01/23/17 12:13 withdrawal sx Plan: continue detox increase fluids
--- NOTE | 2017-01-23 13:35 | EKG ---
Test Reason : Blood Pressure : / mmHG Vent. Rate : 064 BPM Atrial Rate : 064 BPM P-R Int : 164 ms QRS Dur : 090 ms QT Int : 434 ms P-R-T Axes : 039 -04 051 degrees QTc Int : 447 ms NORMAL SINUS RHYTHM NORMAL ECG WHEN COMPARED WITH ECG OF 21-JAN-2017 19:04, QRS AXIS SHIFTED RIGHT CRITERIA FOR SEPTAL INFARCT ARE NO LONGER PRESENT NONSPECIFIC T WAVE ABNORMALITY NOW EVIDENT IN LATERAL LEADS Confirmed by HAIR VEE MD ([id number]) on 01/23/2017 1:35:43 PM Referred By: Confirmed By:HAIR VEE MD
[2017-01-23] MEDS: QUEtiapine FUMARATE 50 MG TABLET PO SCH (23:05)
[2017-01-23] MEDS: PANTOPRAZOLE 40 MG TABLET (FP) PO SCH (23:05)
[2017-01-23] MEDS: THIAMINE HCL 100 MG TABLET (FP) PO SCH (23:16)
[2017-01-24] MEDS: MAG HYDROX/AL HYDROX/SIMETH 30 ML UNIT-DOSE CUP PO PRN (06:29)
--- NOTE | 2017-01-24 10:55 | PN ---
S Progress Note (SOAP) Subjective: alert,irritable,anxious,interrupted sleep Objective: 01/24/17 10:54 Vital Signs Temperature 97.9 F 01/24/17 10:50 Pulse Rate 91 H 01/24/17 10:50 Respiratory Rate 18 01/24/17 10:50 Blood Pressure 134/96 01/24/17 10:50 O2 Sat by Pulse Oximetry (%) Assessment: 01/24/17 10:54 withdrawal symptom Plan: continue detox,discharge in am
[2017-01-24] MEDS: PRENATAL VITAMINS W/ FOLIC ACID TABLET (FP) PO SCH (10:58)
[2017-01-24] MEDS: amLODIPine BESYLATE 10 MG TABLET (FP) PO SCH (10:58)
[2017-01-24] MEDS: diazePAM 5 MG TABLET PO SCH ×2 (10:58→22:12)
[2017-01-24] MEDS: NICOTINE 21 MG/24 HOURS TOPICAL PATCH TD SCH (11:00)
[2017-01-24] MEDS: PANTOPRAZOLE 40 MG TABLET (FP) PO SCH (22:12)
[2017-01-24] MEDS: QUEtiapine FUMARATE 50 MG TABLET PO SCH (22:12)
[2017-01-24] MEDS: THIAMINE HCL 100 MG TABLET (FP) PO SCH (22:12)
--- NOTE | 2017-01-25 08:40 | PN ---
S Progress Note (SOAP) Subjective: ALERT,NO COMPLAINT Objective: 01/25/17 08:38 Vital Signs Temperature 98.2 F 01/25/17 06:37 Pulse Rate 79 01/25/17 06:37 Respiratory Rate 16 01/25/17 06:37 Blood Pressure 126/73 01/25/17 06:37 O2 Sat by Pulse Oximetry (%) Assessment: 01/25/17 08:39 DETOX COMPLETED,NO WITHDRAWAL SYMPTOM Plan: DISCHARGE TODAY,FOLLOW UP WITH AFTER CARE PROGRAM ARRANGEMENT
--- NOTE | 2017-01-25 08:44 | DS ---
[facility] Detox Discharge Summary Admission Date: 01/21/17 Discharge Date: 01/25/17 - History Present History: Alcohol Dependence, Cocaine Dependence Additional Comments: FOLLOW UP WITH AFTER CARE PROGRAM ARRANGEMENT Pertinent Past History: GERD SEIZURE - Physical Exam Results Vital Signs: Vital Signs Temperature 98.2 F 01/25/17 06:37 Pulse Rate 79 01/25/17 06:37 Respiratory Rate 16 01/25/17 06:37 Blood Pressure 126/73 01/25/17 06:37 O2 Sat by Pulse Oximetry (%) Pertinent Admission Physical Exam Findings: WITHDRAWAL SYMPTOM - Treatment Hospital Course: Detox Protocol Followed, Detoxed Safely, Responded well, Discharged Condition Good Patient has Accepted a Rehab Referral to: DECLINED - Medication Discharge Medications: Ambulatory Orders Amlodipine Besylate [Norvasc -] 10 mg PO DAILY 11/30/15 Esomeprazole Mag Trihydrate [Nexium] 40 mg PO DAILY 11/30/15 Quetiapine Fumarate [Seroquel -] 200 mg PO HS #30 tab 08/20/16 Quetiapine Fumarate [Seroquel -] 200 mg PO HS #30 tab 11/20/16 Pantoprazole Sodium [Protonix -] 40 mg PO DAILY #30 tablet.ec 11/23/16 Quetiapine Fumarate [Seroquel] 150 mg PO HS #30 tablet 01/22/17 - Diagnosis (1) Alcohol dependence with uncomplicated withdrawal Current Visit: Yes Status: Acute (2) Nicotine dependence Current Visit: Yes Status: Acute Qualifiers: Nicotine product type: cigarettes Substance use status: in withdrawal Qualified Code(s): F17.213 - Nicotine dependence, cigarettes, with withdrawal (3) Cocaine dependence, uncomplicated Current Visit: Yes Status: Chronic (4) GERD (gastroesophageal reflux disease) Current Visit: Yes Status: Chronic Qualifiers: Esophagitis presence: without esophagitis Qualified Code(s): K21.9 - Gastro-esophageal reflux disease without esophagitis (5) Withdrawal seizures Current Visit: Yes Status: Suspected Qualifiers: Complication of substance-induced condition: with perceptual disturbance Qualified Code(s): F19.232 - Other psychoactive substance dependence with withdrawal with perceptual disturbance (6) Bipolar disorder Current Visit: No Status: Chronic - AMA Did Patient Leave Against Medical Advice: No
[2017-01-25] MEDS: amLODIPine BESYLATE 10 MG TABLET (FP) PO SCH (09:02)
[2017-01-25] MEDS: PRENATAL VITAMINS W/ FOLIC ACID TABLET (FP) PO SCH (09:02)
[2017-01-25] MEDS: MAG HYDROX/AL HYDROX/SIMETH 30 ML UNIT-DOSE CUP PO PRN (09:04)
[2017-01-25] MEDS ORDERED: diazePAM 5 MG TABLET PO SCH (10:00)
[2017-01-25 11:10] VITALS: BP 141/69; PULSE 76; TEMP 97.9
== END 2017-01-25 09:38 | disposition home or self-care (01) | DRG 774 ==
LOC: YASAS 15:52 → Y6N 18:59
PROVIDERS: ADMIT Internal Medicine Addiction Medicine; ATTEND Internal Medicine Addiction Medicine
PROC: HZ2ZZZZ Detoxification Services for Substance Abuse Treatment (ICD-10-PCS; principal; 2017-01-25)
DX: F10.230 Alcohol dependence with withdrawal, uncomplicated (principal); F14.20 Cocaine dependence, uncomplicated; F12.20 Cannabis dependence, uncomplicated; F17.210 Nicotine dependence, cigarettes, uncomplicated; F19.24 Other psychoactive substance dependence with psychoactive substance-induced mood disorder; F19.232 Other psychoactive substance dependence with withdrawal with perceptual disturbance; F31.9 Bipolar disorder, unspecified; F39 Unspecified mood [affective] disorder; F41.8 Other specified anxiety disorders; K21.9 Gastro-esophageal reflux disease without esophagitis; Z59.0 Homelessness
CPT/HCPCS: 36415; 71020-TC; 80053; 81003; 85027; 86593; 93005; 93010

== ENCOUNTER 2017-07-11 21:49 | Inpatient (IN) | payer OTHER ==
--- NOTE | 2017-07-11 22:51 | HP ---
COWS - Scale Resting Pulse: 2= [place] 101-120 Sweatin= Chills/Flushing Restless Observation: 3= Extraneous Movement Pupil Size: 0= Normal to Room Light Bone or Joint Aches: 1= Mild Discomfort Runny Nose/ Eye Tearin= Runny Nose/Eyes GI Upset > 30mins: 2= Nausea/Diarrhea Tremor Observation: 1= Tremor [place], Not Seen Yawning Observation: 1= 1-2x During Session Anxiety or Irritability: 1=Feels Anxious/Irritable Goose Flesh Skin: 0=Smooth Skin COWS Score: 14 CIWA Score - CIWA Score Nausea/Vomitin-Mild Nausea/No Vomiting Muscle Tremors: 4-Moderate,w/Arms Extend Anxiety: 4-Mod. Anxious/Guarded Agitation: 4-Moderately Restless Paroxysmal Sweats: 1-Minimal Palms Moist Orientation: 0-Oriented Tacttile Disturbances: 0-None Auditory Disturbances: 0-None Visual Disturbances: 0-None Headache: 0-None Present CIWA-Ar Total Score: 14 Admission [facility] Chief Complaint: withdrawal sx Allergies/Adverse Reactions: Allergies Allergy/AdvReac Type Severity Reaction Status Date / Time Fish Containing Products Allergy Severe Rash Verified 07/11/17 22:58 penicillin V [Penicillin V] Allergy Intermediate Hives Verified 07/11/17 22:58 Pork/Porcine Containing Allergy Mild Nausea Verified 07/11/17 22:58 Products History of Present Illness: 57 years old male with long history of alcohol opiate nicotine dependence has hypertensin gerd weight loss positive ppd and depression is admitted to detox Exam Limitations: No Limitations - Ebola screening Have you traveled outside of the country in the last 21 days: No (N) Have you had contact with anyone from an Ebola affected area: No Have you been sick,other than usual withdrawal symptoms: No Do you have a fever: No - Review of Systems Constitutional: Loss of Appetite, Changes in sleep, Unintentional Wgt. Loss, Unexplained wgt Loss EENT: reports: No Symptoms Reported Respiratory: reports: No Symptoms reported Cardiac: reports: No Symptoms Reported GI: reports: Nausea, Poor Appetite, Poor Fluid Intake, Indigestion, Abdominal cramping : reports: No Symptoms Reported Musculoskeletal: reports: Back Pain, Joint Pain, Muscle Pain, Neck Pain Integumentary: reports: No Symptoms Reported Neuro: reports: Seizure (2014 alcohol or xanax withdrawal related), Tremors Endocrine: reports: No Symptoms Reported Hematology: reports: No Symptoms Reported Psychiatric: reports: Judgement Intact, Orientated x3, Anxious, Depressed Other Systems: Reviewed and Negative Patient History - Patient Medical History Hx Anemia: No Hx Asthma: No Hx Chronic Obstructive Pulmonary Disease (COPD): No Hx Cancer: No Hx Cardiac Disorders: No Hx Congestive Heart Failure: No Hx Hypertension: Yes Hx Hypercholesterolemia: No Hx Pacemaker: No HX Cerebrovascular Accident: No Hx Seizures: Yes (2014) Hx Dementia: No Hx Diabetes: No Hx Gastrointestinal Disorders: Yes Hx Liver Disease: No Hx Genitourinary Disorders: No Hx Sexually Transmitted Disorders: No Hx Renal Disease (ESRD): No Hx Thyroid Disease: No Hx Human Immunodeficiency Virus (HIV): No Hx Hepatitis C: No Hx Depression: Yes Hx Suicide Attempt: No Hx Bipolar Disorder: No Hx Schizophrenia: No - Patient Surgical History Past Surgical History: Yes Hx Neurologic Surgery: No Hx Cataract Extraction: No Hx Cardiac Surgery: No Hx Lung Surgery: No Hx Breast Surgery: No Hx Breast Biopsy: No Hx Abdominal Surgery: No Hx Appendectomy: No Hx Cholecystectomy: No Hx Genitourinary Surgery: No Hx Orthopedic Surgery: No Other Surgical History: removal of GI polyps in 1999 Anesthesia Reaction: No - PPD History Previous Implant?: Yes Documented Results: Positive w/o proof Implanted On Prior [facility] Admission?: No Results: CXR ON 01/22/17 PPD to be Administered?: No - Smoking Cessation Smoking history: Current every day smoker Have you smoked in the past 12 months: Yes Aproximately how many cigarettes per day: 30 Cigars Per Day: 0 Hx Chewing Tobacco Use: No Initiated information on smoking cessation: Yes 'Breaking Loose' booklet given: 07/11/17 - Substance & Tx. History Hx Alcohol Use: Yes Hx Substance Use: Yes Substance Use Type: Alcohol, Cocaine, Heroin, Marijuana, Opiates, Tranquilizers Hx Substance Use Treatment: Yes (01/21-01/25/17 [facility] - Substances Abused Alcohol Route: Oral Frequency: Daily Amount used: fifth volka Age of first use: 15 Date of Last Use: 07/11/17 Heroin Route: Inhalation Frequency: Daily Amount used: 3 bags Age of first use: 22 Date of Last Use: 07/11/17 Alprazolam (Xanax) Route: Oral Frequency: Daily Amount used: 6-8 mg Age of first use: 22 Date of Last Use: 07/10/17 Family Disease History - Family Disease History Family Disease History: [place]: Grandparent, Other: Father (DEPENDENT ON HEROIN AND ETOH), Mother (ALCOHOLIC AND ) Admission Physical Exam [facility] - Physical General Appearance: Yes: Appropriately Dressed, Thin, Tremorous, Irritable, Sweating, Anxious HEENTM: Yes: Hearing grossly Normal, Normal ENT Inspection, Normocephalic, Normal Voice Respiratory: Yes: Chest Non-Tender, Lungs Clear, Normal Breath Sounds, No Respiratory Distress, No Accessory Muscle Use Neck: Yes: Supple, Trachea in good position Breast: Yes: Breasts Symetrical Cardiology: Yes: Regular Rhythm, S1, S2, Tachycardia Abdominal: Yes: Normal Bowel Sounds, Non Tender, Soft Genitourinary: Yes: Within Normal Limits Back: Yes: Normal Inspection Musculoskeletal: Yes: full range of Motion, Gait Steady, Back pain, Muscle Pain Extremities: Yes: Normal Inspection, Normal Range of Motion, Non-Tender, Tremors Neurological: Yes: Fully Oriented, Alert, Motor Strength 5/5, Normal Response, Depressed Affect Integumentary: Yes: Warm Lymphatic: Yes: Within Normal Limits - Diagnostic (1) Alcohol dependence with uncomplicated withdrawal Current Visit: Yes Status: Acute (2) Nicotine dependence Current Visit: Yes Status: Acute Qualifiers: Nicotine product type: cigarettes Substance use status: in withdrawal Qualified Code(s): F17.213 - Nicotine dependence, cigarettes, with withdrawal; F17.213 - Nicotine dependence, cigarettes, with withdrawal (3) Opioid dependence with withdrawal Current Visit: Yes Status: Acute (4) Sedative/hypnotic withdrawal without complication Current Visit: Yes Status: Acute (5) Bipolar affective disorder, depressed, moderate Current Visit: Yes Status: Suspected (6) Cocaine dependence, uncomplicated Current Visit: Yes Status: Chronic (7) Essential hypertension Current Visit: Yes Status: Chronic (8) GERD (gastroesophageal reflux disease) Current Visit: Yes Status: Chronic Qualifiers: Esophagitis presence: without esophagitis Qualified Code(s): K21.9 - Gastro-esophageal reflux disease without esophagitis; K21.9 - Gastro-esophageal reflux disease without esophagitis; K21.9 - Gastro-esophageal reflux disease without esophagitis Cleared for Admission [facility] - Detox or Rehab [facility] Level of Care: Medically Managed Detox Regimen/Protocol: Methadone/Valium S Breath Alcohol Content Breath Alcohol Content: 0.141 Vital Signs - Vital Signs Vital Signs Refused: No Temperature: 98.8 F Temperature Source: Oral Pulse Rate: 102 Respiratory Rate: 20 Blood Pressure: 116/75 BP Location: Left Arm Blood Pressure Position: Sitting - Height Height: 5 ft 9 in - Weight Weight: 160 lb Weight Measurement Method: Standing Scale Body Mass Index (BMI): 23.6 - Bowel Function Bowel Movement: Yes Urine Drug Screen - Test Device Lot Number: [id number] Expiration Date: 02/26/19 - Control Is Test Valid: Yes - Results Drug Screen Negative: No Urine Drug Screen Results: THC-Marijuana, ANGIE-Cocaine, OPI-Opiates, BZO- Benzodiazepines, MTD-Methadone
[2017-07-11 22:55] VITALS: BMI 23.6
[2017-07-11] MEDS ORDERED: MENTHOL/PHENOL 1 EACH UD MM PRN (22:55)
[2017-07-11] MEDS ORDERED: diphenhydrAMINE HCL 50 MG CAPSULE PO PRN (22:55)
[2017-07-11] MEDS ORDERED: MAG HYDROX/AL HYDROX/SIMETH 30 ML UNIT-DOSE CUP PO PRN (22:55)
[2017-07-11] MEDS ORDERED: LOPERAMIDE HCL 2 MG CAPSULE PO PRN (22:55)
[2017-07-11] MEDS ORDERED: NICOTINE POLACRILEX 4 MG GUM BUC PRN (22:55)
[2017-07-11] MEDS ORDERED: diazePAM 5 MG TABLET PO ONE (22:55)
[2017-07-11] MEDS ORDERED: MAGNESIUM CITRATE 300 ML BOTTLE PO PRN (22:55)
[2017-07-11] MEDS ORDERED: MAGNESIUM HYDROX 2400MG/30ML ORAL SUSPENSION 30 ML CUP PO PRN (22:55)
[2017-07-11] MEDS ORDERED: P-EPHED 60MG/TRIPROLIDI 2.5MG TABLET PO PRN (22:55)
[2017-07-11] MEDS ORDERED: METHADONE HCL 10 MG TABLET (FOR DETOX USE ONLY) PO ONE ×2 (22:55→23:00)
[2017-07-11] MEDS ORDERED: ACETAMINOPHEN 325 MG TABLET (FP) PO PRN (22:55)
[2017-07-11] MEDS ORDERED: guaiFENesin/D-METHORPHAN HB 10 ML UNIT-DOSE CUPS PO PRN (22:55)
[2017-07-11] MEDS: diazePAM 5 MG TABLET PO SCH (23:41)
[2017-07-12] MEDS: diazePAM 5 MG TABLET PO SCH ×3 (05:04→22:03)
[2017-07-12] MEDS ORDERED: METHADONE HCL 10 MG TABLET (FOR DETOX USE ONLY) PO SCH (10:00)
[2017-07-12] MEDS: PANTOPRAZOLE 40 MG TABLET (FP) PO SCH (10:09)
[2017-07-12] MEDS: PRENATAL VITAMINS W/ FOLIC ACID TABLET (FP) PO SCH (10:09)
[2017-07-12] MEDS: amLODIPine BESYLATE 10 MG TABLET (FP) PO SCH (10:09)
[2017-07-12] MEDS: NICOTINE 21 MG/24 HOURS TOPICAL PATCH TD SCH (10:09)
[2017-07-12] MEDS: diazePAM 5 MG TABLET PO PRN ×2 (10:10→17:17)
[2017-07-12 11:01] LABS: MCH 29.7 pg (25.7-33.7); MCHC 33.1 g/dl (32.0-35.9); MEAN CELL VOLUME 89.6 fl (80-96); MEAN PLT VOLUME 7.8 fl (7.5-11.1); PLATELET COUNT 219 K/MM3 (134-434)
[2017-07-12 11:08] LABS: SGOT/AST 19 U/L (15-37); SGPT/ALT 33 U/L (12-78)
[2017-07-12 11:12] LABS: ALBUMIN 3.5 g/dl (3.4-5.0); ALK PHOS 57 U/L (45-117); ANION GAP 8 (8-16); BILIRUBIN,TOTAL 0.5 mg/dL (0.2-1.0); CALCIUM 8.2 mg/dL (8.5-10.1); CO2 30 mmol/L (21-32); CREATININE 0.7 mg/dL (0.7-1.3); GLUCOSE,RANDOM 79 mg/dL (74-106); TOT PROT 6.3 g/dl (6.4-8.2)
--- NOTE | 2017-07-12 12:51 | EKG ---
Test Reason : Blood Pressure : / mmHG Vent. Rate : 089 BPM Atrial Rate : 089 BPM P-R Int : 174 ms QRS Dur : 090 ms QT Int : 388 ms P-R-T Axes : 069 -20 055 degrees QTc Int : 472 ms NORMAL SINUS RHYTHM NORMAL ECG WHEN COMPARED WITH ECG OF 22-JAN-2017 13:40, NO SIGNIFICANT CHANGE WAS FOUND Confirmed by GEMMA OLEARY MD ([id number]) on 07/12/2017 12:51:38 PM Referred By: Confirmed By:GEMMA OLEARY MD
--- NOTE | 2017-07-12 13:45 | CONSULT ---
[facility] Psychiatric Consult - Data Date of interview: 07/12/17 Admission source: [facility] Identifying data: Readmission to [facility] for this 57 y/o AA male seeking detox treatment on for alcohol,cocaine,heroin,marijuana and benzodiazepine (xanax) dependence.Patient is single,a father of one,domiciled, unemployed and supported on food stamps. Substance Abuse History: Discussed with the patient.Addictions confirmed. Smoking Cessation. Smoking history: Current every day smoker. Have you smoked in the past 12 months: Yes. Aproximately how many cigarettes per day: 30. Cigars Per Day: 0. Hx Chewing Tobacco Use: No. Initiated information on smoking cessation: Yes. 'Breaking Loose' booklet given: 07/11/17. - Substance & Tx. History. Hx Alcohol Use: Yes. Hx Substance Use: Yes. Substance Use Type : Alcohol, Cocaine, Heroin, Marijuana, Opiates, Tranquilizers. Hx Substance Use [facility]: [facility] - Substances Abused. Alcohol. Route: Oral. Frequency: Daily. Amount used: fifth volka. Age of first use: 15. Date of Last Use: 07/11/17. Heroin. Route: Inhalation. Frequency: Daily. Amount used: 3 bags. Age of first use: 22. Date of Last Use: . Alprazolam (Xanax). Route: Oral. Frequency: Daily. Amount used: 6-8 mg. Age of first use: 22. Date of Last Use: 07/10/17 Medical History: GERD,hypertension,withdrawal seizures and a history of surgery for removal of intestinal polyps (1999). Psychiatric History: No reported history of psychiatric hospitalizations.Diagnosed with Bipolar Disorder and Sleep Disorder.Mr Willams indicates that he is under the care of a private psychiatrist in the [place].Currently prescribed seroquel 150 mg/hs.Patient denies history of suicide attempts. Physical/Sexual Abuse/Trauma History: Patient denies. Additional Comment: Urine Drug Screen Results: THC-Marijuana, ANGIE-Cocaine, OPI- Opiates, BZO-Benzodiazepines, MTD-Methadone.Noted. Mental Status Exam - Mental Status Exam Alert and Oriented to: Time, Place, Person Cognitive Function: Good Patient Appearance: Well Groomed Mood: Hopeful, Euthymic Affect: Appropriate, Normal Range Patient Behavior: Cooperative Speech Pattern: Clear Voice Loudness: Normal Thought Process: Intact, Goal Oriented Thought Disorder: Not Present Hallucinations: Denies Suicidal Ideation: Denies Homicidal Ideation: Denies Insight/Judgement: Poor Sleep: Poorly, Difficulty falling asleep Appetite: Good Muscle strength/Tone: Normal Gait/Station: Normal Psychiatric Findings - Problem List ([place] 1, 2,3) (1) Alcohol dependence with uncomplicated withdrawal Current Visit: Yes Status: Acute (2) Opioid dependence with withdrawal Current Visit: Yes Status: Acute (3) Sedative/hypnotic withdrawal without complication Current Visit: Yes Status: Acute (4) Cocaine dependence, uncomplicated Current Visit: Yes Status: Acute (5) Cannabis abuse Current Visit: Yes Status: Acute (6) Nicotine dependence Current Visit: Yes Status: Acute Qualifiers: Nicotine product type: cigarettes Substance use status: in withdrawal Qualified Code(s): F17.213 - Nicotine dependence, cigarettes, with withdrawal; F17.213 - Nicotine dependence, cigarettes, with withdrawal (7) Drug-induced mood disorder Current Visit: Yes Status: Acute (8) Essential hypertension Current Visit: Yes Status: Chronic (9) Insomnia Current Visit: Yes Status: Acute - Initial Treatment Plan Initial Treatment Plan: Psychoeducation.Detoxification.Seroquel 150 mg po hs.Side effects/benefits are discussed with the patient.He agrees with this careplan.Observation.
--- NOTE | 2017-07-12 14:04 | PN ---
S CIWA - CIWA Score Nausea/Vomitin Muscle Tremors: 3 Anxiety: 4-Mod. Anxious/Guarded Agitation: 2 Paroxysmal Sweats: 3 Orientation: 0-Oriented Tacttile Disturbances: 0-None Auditory Disturbances: 0-None Visual Disturbances: 2-Mild Sensitivity Headache: 0-None Present CIWA-Ar Total Score: 19 BHS COWS - Scale Resting Pulse: 0= [place] 80 or Below Sweatin= Chills/Flushing Restless Observation: 1= Difficult to Sit Still Pupil Size: 0= Normal to Room Light Bone or Joint Aches: 2= Severe Diffuse Aches Runny Nose/ Eye Tearin= None GI Upset > 30mins: 3= Vomiting/Diarrhea Tremor Observation of Outstretched Hands: 2= Slight Tremor Visible Yawning Observation: 1= 1-2x During Session Anxiety or Irritability: 2=Irritable/Anxious Goose Flesh Skin: 3=Piloerection COWS Score: 15 BHS Progress Note (SOAP) Subjective: Sweating, Vomiting, Body aches, Diarrhea, Tremors. Objective: PT. A & O X 3, OBSERVED AMBULATING ON UNIT. NO ACUTE DISTRESS. 07/12/17 14:04 Vital Signs Temperature 96.2 F L 07/12/17 13:27 Pulse Rate 71 07/12/17 13:27 Respiratory Rate 18 07/12/17 13:27 Blood Pressure 128/60 07/12/17 13:27 O2 Sat by Pulse Oximetry (%) Laboratory Tests 07/12/17 07/12/17 07/12/17 08:00 08:00 08:00 WBC 4.0 RBC 4.17 Hgb 12.4 D Hct 37.4 MCV 89.6 MCH 29.7 MCHC 33.1 RDW 15.0 Plt Count 219 MPV 7.8 Sodium 140 Potassium 3.7 Chloride 102 Carbon Dioxide 30 Anion Gap 8 BUN 14 D Creatinine 0.7 Creat Clearance w eGFR > 60 Random Glucose 79 Calcium 8.2 L Total Bilirubin 0.5 AST 19 ALT 33 D Alkaline Phosphatase 57 Total Protein 6.3 L D Albumin 3.5 D RPR Titer Nonreactive LABS NOTED. UA RESULTS PENDING. 07/12/17 14:05 Assessment: 07/12/17 14:04 WITHDRAWAL SYMPTOMS. Plan: CONTINUE DETOX.
[2017-07-12] MEDS: QUEtiapine FUMARATE 100 MG TABLET (FP) PO SCH (22:03)
[2017-07-12] MEDS: THIAMINE HCL 100 MG TABLET (FP) PO SCH (22:03)
[2017-07-13] MEDS: diazePAM 5 MG TABLET PO PRN ×2 (05:32→17:24)
[2017-07-13] MEDS: PRENATAL VITAMINS W/ FOLIC ACID TABLET (FP) PO SCH (10:04)
[2017-07-13] MEDS: METHADONE HCL 5 MG TABLET (FOR DETOX USE ONLY) PO SCH (10:04)
[2017-07-13] MEDS: NICOTINE 21 MG/24 HOURS TOPICAL PATCH TD SCH (10:04)
[2017-07-13] MEDS: diazePAM 5 MG TABLET PO SCH ×2 (10:04→22:07)
[2017-07-13] MEDS: PANTOPRAZOLE 40 MG TABLET (FP) PO SCH (10:05)
[2017-07-13] MEDS: amLODIPine BESYLATE 10 MG TABLET (FP) PO SCH (10:05)
--- NOTE | 2017-07-13 10:53 | PN ---
[facility] CIWA - CIWA Score Nausea/Vomitin-No Nausea/No Vomiting Muscle Tremors: 4-Moderate,w/Arms Extend Anxiety: 4-Mod. Anxious/Guarded Agitation: 4-Moderately Restless Paroxysmal Sweats: 1-Minimal Palms Moist Orientation: 0-Oriented Tacttile Disturbances: 3-Moderate Itch/Numb/Burn Auditory Disturbances: 0-None Visual Disturbances: 0-None Headache: 0-None Present CIWA-Ar Total Score: 16 S COWS - Scale Resting Pulse: 0= [place] 80 or Below Sweatin= Chills/Flushing Restless Observation: 3= Extraneous Movement Pupil Size: 0= Normal to Room Light Bone or Joint Aches: 4=Acute Joint/Muscle Pain Runny Nose/ Eye Tearin= Nasal Congestion GI Upset > 30mins: 0= None Tremor Observation of Outstretched Hands: 2= Slight Tremor Visible Yawning Observation: 1= 1-2x During Session Anxiety or Irritability: 2=Irritable/Anxious Goose Flesh Skin: 0=Smooth Skin COWS Score: 14 S Progress Note (SOAP) Subjective: ANXIETY,SWEATS,TREMORS,FATIGUE. Objective: 07/13/17 10:53 Vital Signs Temperature 97.2 F L 07/13/17 09:48 Pulse Rate 67 07/13/17 09:48 Respiratory Rate 18 07/13/17 09:48 Blood Pressure 129/89 07/13/17 09:48 O2 Sat by Pulse Oximetry (%) Laboratory Last Values WBC 4.0 K/mm3 (4.0-10.0) 07/12/17 08:00 RBC 4.17 M/mm3 (4.00-5.60) 07/12/17 08:00 Hgb 12.4 GM/dL (11.7-16.9) D 07/12/17 08:00 Hct 37.4 % (35.4-49) 07/12/17 08:00 MCV 89.6 fl (80-96) 07/12/17 08:00 MCH 29.7 pg (25.7-33.7) 07/12/17 08:00 MCHC 33.1 g/dl (32.0-35.9) 07/12/17 08:00 RDW 15.0 % (11.9-15.9) 07/12/17 08:00 Plt Count 219 K/MM3 (134-434) 07/12/17 08:00 MPV 7.8 fl (7.5-11.1) 07/12/17 08:00 Sodium 140 mmol/L (136-145) 07/12/17 08:00 Potassium 3.7 mmol/L (3.5-5.1) 07/12/17 08:00 Chloride 102 mmol/L (98-107) 07/12/17 08:00 Carbon Dioxide 30 mmol/L (21-32) 07/12/17 08:00 Anion Gap 8 (8-16) 07/12/17 08:00 BUN 14 mg/dL (7-18) D 07/12/17 08:00 Creatinine 0.7 mg/dL (0.7-1.3) 07/12/17 08:00 Creat Clearance w eGFR > 60 (>60) 07/12/17 08:00 Random Glucose 79 mg/dL (74-106) 07/12/17 08:00 Calcium 8.2 mg/dL (8.5-10.1) L 07/12/17 08:00 Total Bilirubin 0.5 mg/dL (0.2-1.0) 07/12/17 08:00 AST 19 U/L (15-37) 07/12/17 08:00 ALT 33 U/L (12-78) D 07/12/17 08:00 Alkaline Phosphatase 57 U/L (45-117) 07/12/17 08:00 Total Protein 6.3 g/dl (6.4-8.2) L D 07/12/17 08:00 Albumin 3.5 g/dl (3.4-5.0) D 07/12/17 08:00 RPR Titer Nonreactive (NONREACTIVE) 07/12/17 08:00 Assessment: 07/13/17 10:53 WITHDRAWAL SX Plan: CONTINUE DETOX
[2017-07-13 15:54] LABS: URINE APPEARANCE CLEAR; URINE BILIRUBIN NEGATIVE (NEGATIVE); URINE BLOOD NEGATIVE (NEGATIVE); URINE COLOR LTYELLOW; URINE GLUCOSE (UA) NEGATIVE (NEGATIVE); URINE KETONE NEGATIVE (NEGATIVE); URINE NITRITE NEGATIVE (NEGATIVE); URINE PROTEIN NEGATIVE (NEGATIVE); URINE UROBILINOGEN NEGATIVE mg/dL (0.2-1.0)
[2017-07-13 17:17] LABS: URINE LEUK ESTERASE Negative (NEGATIVE)
[2017-07-13] MEDS: QUEtiapine FUMARATE 100 MG TABLET (FP) PO SCH (22:07)
[2017-07-13] MEDS: THIAMINE HCL 100 MG TABLET (FP) PO SCH (22:07)
[2017-07-14] MEDS: NICOTINE 21 MG/24 HOURS TOPICAL PATCH TD SCH (10:11)
[2017-07-14] MEDS: PANTOPRAZOLE 40 MG TABLET (FP) PO SCH (10:11)
[2017-07-14] MEDS: PRENATAL VITAMINS W/ FOLIC ACID TABLET (FP) PO SCH (10:11)
[2017-07-14] MEDS: diazePAM 5 MG TABLET PO SCH ×2 (10:11→22:02)
[2017-07-14] MEDS: METHADONE HCL 5 MG TABLET (FOR DETOX USE ONLY) PO SCH (10:11)
[2017-07-14] MEDS: amLODIPine BESYLATE 10 MG TABLET (FP) PO SCH (10:11)
--- NOTE | 2017-07-14 11:30 | PN ---
BHS Progress Note (SOAP) Subjective: Interrupted sleep, Nausea, Fatigue, Sweating, Body Aches, Tremors. Objective: PT. A & O X 2 (DISORIENTED ABOUT DAY / DATE). PT. OBSERVED AMBULATING ON UNIT. NO ACUTE DISTRESS. 07/14/17 11:28 Vital Signs Temperature 97.6 F 07/14/17 09:43 Pulse Rate 82 07/14/17 09:43 Respiratory Rate 17 07/14/17 09:43 Blood Pressure 115/67 07/14/17 09:43 O2 Sat by Pulse Oximetry (%) Laboratory Tests 07/12/17 07/12/17 07/12/17 08:00 08:00 08:00 WBC 4.0 RBC 4.17 Hgb 12.4 D Hct 37.4 MCV 89.6 MCH 29.7 MCHC 33.1 RDW 15.0 Plt Count 219 MPV 7.8 Sodium 140 Potassium 3.7 Chloride 102 Carbon Dioxide 30 Anion Gap 8 BUN 14 D Creatinine 0.7 Creat Clearance w eGFR > 60 Random Glucose 79 Calcium 8.2 L Total Bilirubin 0.5 AST 19 ALT 33 D Alkaline Phosphatase 57 Total Protein 6.3 L D Albumin 3.5 D Urine Color Urine Appearance Urine pH Ur Specific [place] Urine Protein Urine Glucose (UA) Urine Ketones Urine Blood Urine Nitrite Urine Bilirubin Urine Urobilinogen Ur Leukocyte Esterase RPR Titer Nonreactive 07/13/17 11:49 WBC RBC Hgb Hct MCV MCH MCHC RDW Plt Count MPV Sodium Potassium Chloride Carbon Dioxide Anion Gap BUN Creatinine Creat Clearance w eGFR Random Glucose Calcium Total Bilirubin AST ALT Alkaline Phosphatase Total Protein Albumin Urine Color Ltyellow Urine Appearance Clear Urine pH 5.0 D Ur Specific [place] <= 1.005 Urine Protein Negative Urine Glucose (UA) Negative Urine Ketones Negative Urine Blood Negative Urine Nitrite Negative Urine Bilirubin Negative Urine Urobilinogen Negative Ur Leukocyte Esterase Negative RPR Titer LABS NOTED. Assessment: 07/14/17 11:30 WITHDRAWAL SYMPTOMS. Plan: CONTINUE DETOX.
[2017-07-14] MEDS ORDERED: CYCLOBENZAPRINE HCL 10 MG TABLET (FP) PO PRN (11:32)
[2017-07-14] MEDS ORDERED: hydrOXYzine PAMOATE 50 MG CAPSULE (FP) PO PRN (21:56)
[2017-07-14] MEDS: THIAMINE HCL 100 MG TABLET (FP) PO SCH (22:02)
[2017-07-14] MEDS: QUEtiapine FUMARATE 100 MG TABLET (FP) PO SCH (22:03)
[2017-07-15] MEDS ORDERED: diazePAM 5 MG TABLET PO SCH (10:00)
[2017-07-15] MEDS ORDERED: METHADONE HCL 10 MG TABLET (FOR DETOX USE ONLY) PO SCH (10:00)
[2017-07-15] MEDS: amLODIPine BESYLATE 10 MG TABLET (FP) PO SCH (10:07)
[2017-07-15] MEDS: NICOTINE 21 MG/24 HOURS TOPICAL PATCH TD SCH (10:07)
[2017-07-15] MEDS: PANTOPRAZOLE 40 MG TABLET (FP) PO SCH (10:07)
[2017-07-15] MEDS: PRENATAL VITAMINS W/ FOLIC ACID TABLET (FP) PO SCH (10:07)
--- NOTE | 2017-07-15 10:35 | PN ---
[facility] Progress Note Note: Psychiatry Attending's note : Called by pharmacist ([phone]) from [facility]. Reason : re-write scripts for seroquel as 100 mg tab/50 mg tab (# 30). Search shows that this patient is getting seroquel from different providers. Most recent refill is dated 07/06/17. Plan : My scripts for seroquel 150 mg / hs are cancelled. Pharmacist agrees.
--- NOTE | 2017-07-15 11:51 | PN ---
BHS Progress Note (SOAP) Subjective: Tremors, Interrupted sleep, Anxious. Objective: PT. A & O X 3. NO ACUTE DISTRESS. 07/15/17 11:49 Vital Signs Temperature 97 F L 07/15/17 09:06 Pulse Rate 78 07/15/17 09:06 Respiratory Rate 18 07/15/17 09:06 Blood Pressure 141/88 07/15/17 09:06 O2 Sat by Pulse Oximetry (%) Laboratory Tests 07/12/17 07/12/17 07/12/17 08:00 08:00 08:00 WBC 4.0 RBC 4.17 Hgb 12.4 D Hct 37.4 MCV 89.6 MCH 29.7 MCHC 33.1 RDW 15.0 Plt Count 219 MPV 7.8 Sodium 140 Potassium 3.7 Chloride 102 Carbon Dioxide 30 Anion Gap 8 BUN 14 D Creatinine 0.7 Creat Clearance w eGFR > 60 Random Glucose 79 Calcium 8.2 L Total Bilirubin 0.5 AST 19 ALT 33 D Alkaline Phosphatase 57 Total Protein 6.3 L D Albumin 3.5 D Urine Color Urine Appearance Urine pH Ur Specific [place] Urine Protein Urine Glucose (UA) Urine Ketones Urine Blood Urine Nitrite Urine Bilirubin Urine Urobilinogen Ur Leukocyte Esterase RPR Titer Nonreactive 07/13/17 11:49 WBC RBC Hgb Hct MCV MCH MCHC RDW Plt Count MPV Sodium Potassium Chloride Carbon Dioxide Anion Gap BUN Creatinine Creat Clearance w eGFR Random Glucose Calcium Total Bilirubin AST ALT Alkaline Phosphatase Total Protein Albumin Urine Color Ltyellow Urine Appearance Clear Urine pH 5.0 D Ur Specific [place] <= 1.005 Urine Protein Negative Urine Glucose (UA) Negative Urine Ketones Negative Urine Blood Negative Urine Nitrite Negative Urine Bilirubin Negative Urine Urobilinogen Negative Ur Leukocyte Esterase Negative RPR Titer LABS NOTED. Assessment: 07/15/17 11:49 WITHDRAWAL SYMPTOMS. Plan: CONTINUE DETOX.
[2017-07-15] MEDS: QUEtiapine FUMARATE 100 MG TABLET (FP) PO SCH (21:41)
[2017-07-15] MEDS: THIAMINE HCL 100 MG TABLET (FP) PO SCH (21:41)
[2017-07-16] MEDS ORDERED: METHADONE HCL 5 MG TABLET (FOR DETOX USE ONLY) PO SCH (06:00)
[2017-07-16 06:14] VITALS: BP 117/58; PULSE 78; TEMP 97.7
--- NOTE | 2017-07-16 15:12 | DS ---
[facility] Detox Discharge Summary Admission Date: 07/11/17 Discharge Date: 07/16/17 - History Present History: Alcohol Dependence, Cannabis Dependence, Cocaine Dependence, Opioid Dependence, Sedative Dependence Additional Comments: PATIENT GOING HOME AND REPORTS THAT HE WILL ATTEND AA / NA SUPPORT GROUP MEETINGS. PATIENT WAS DISCHARGED FROM DETOX UNIT IN STABLE MEDICAL CONDITION. Pertinent Past History: HTN, Nicotine Dependence, Bipolar Disorder, GERD, History of seizures, Insomnia. - Physical Exam Results Vital Signs: Vital Signs Temperature 97.7 F 07/16/17 06:13 Pulse Rate 78 07/16/17 06:13 Respiratory Rate 18 07/16/17 06:13 Blood Pressure 117/58 07/16/17 06:13 O2 Sat by Pulse Oximetry (%) Pertinent Admission Physical Exam Findings: WITHDRAWAL SYMPTOMS. Laboratory Tests 07/12/17 07/12/17 07/12/17 08:00 08:00 08:00 WBC 4.0 RBC 4.17 Hgb 12.4 D Hct 37.4 MCV 89.6 MCH 29.7 MCHC 33.1 RDW 15.0 Plt Count 219 MPV 7.8 Sodium 140 Potassium 3.7 Chloride 102 Carbon Dioxide 30 Anion Gap 8 BUN 14 D Creatinine 0.7 Creat Clearance w eGFR > 60 Random Glucose 79 Calcium 8.2 L Total Bilirubin 0.5 AST 19 ALT 33 D Alkaline Phosphatase 57 Total Protein 6.3 L D Albumin 3.5 D Urine Color Urine Appearance Urine pH Ur Specific [place] Urine Protein Urine Glucose (UA) Urine Ketones Urine Blood Urine Nitrite Urine Bilirubin Urine Urobilinogen Ur Leukocyte Esterase RPR Titer Nonreactive 07/13/17 11:49 WBC RBC Hgb Hct MCV MCH MCHC RDW Plt Count MPV Sodium Potassium Chloride Carbon Dioxide Anion Gap BUN Creatinine Creat Clearance w eGFR Random Glucose Calcium Total Bilirubin AST ALT Alkaline Phosphatase Total Protein Albumin Urine Color Ltyellow Urine Appearance Clear Urine pH 5.0 D Ur Specific [place] <= 1.005 Urine Protein Negative Urine Glucose (UA) Negative Urine Ketones Negative Urine Blood Negative Urine Nitrite Negative Urine Bilirubin Negative Urine Urobilinogen Negative Ur Leukocyte Esterase Negative RPR Titer LABS NOTED. - Treatment Hospital Course: Detox Protocol Followed, Detoxed Safely, Responded well, Discharged Condition Good Patient has Accepted a Rehab Referral to: PT GOING HOME AND WILL RETURN TO NA/ AA SUPPORT GROUP MEETINGS. - Medication Discharge Medications: Ambulatory Orders Quetiapine Fumarate [Seroquel] 150 mg PO HS #30 tablet 04/26/17 Amlodipine Besylate [Norvasc -] 10 mg PO DAILY #30 tab 07/16/17 Pantoprazole Sodium [Protonix -] 40 mg PO DAILY #30 tablet.ec 07/16/17 - Diagnosis (1) Alcohol dependence with uncomplicated withdrawal Status: Acute (2) Cocaine dependence, uncomplicated Status: Acute (3) Nicotine dependence Status: Chronic Qualifiers: Nicotine product type: cigarettes Substance use status: in withdrawal Qualified Code(s): F17.213 - Nicotine dependence, cigarettes, with withdrawal; F17.213 - Nicotine dependence, cigarettes, with withdrawal (4) Opioid dependence with withdrawal Status: Acute (5) Sedative/hypnotic withdrawal without complication Status: Acute (6) Essential hypertension Status: Chronic (7) GERD (gastroesophageal reflux disease) Status: Chronic Qualifiers: Esophagitis presence: without esophagitis Qualified Code(s): K21.9 - Gastro-esophageal reflux disease without esophagitis; K21.9 - Gastro-esophageal reflux disease without esophagitis; K21.9 - Gastro-esophageal reflux disease without esophagitis (8) Bipolar affective disorder, depressed, moderate Status: Suspected (9) History of seizure Status: Suspected (10) Bipolar disorder Status: Chronic (11) Drug-induced mood disorder Status: Acute (12) Cocaine dependence Status: Chronic Qualifiers: Substance use status: uncomplicated Qualified Code(s): F14.20 - Cocaine dependence, uncomplicated; F14.20 - Cocaine dependence, uncomplicated; F14.20 - Cocaine dependence, uncomplicated - AMA Did Patient Leave Against Medical Advice: No
== END 2017-07-16 08:50 | disposition home or self-care (01) | DRG 773 ==
LOC: YASAS 21:49 → Y3N 22:57
PROVIDERS: ADMIT Internal Medicine; ATTEND Internal Medicine
PROC: HZ2ZZZZ Detoxification Services for Substance Abuse Treatment (ICD-10-PCS; principal; 2017-07-11)
DX: F11.23 Opioid dependence with withdrawal (principal); F13.230 Sedative, hypnotic or anxiolytic dependence with withdrawal, uncomplicated; F10.230 Alcohol dependence with withdrawal, uncomplicated; F14.20 Cocaine dependence, uncomplicated; F12.20 Cannabis dependence, uncomplicated; F17.210 Nicotine dependence, cigarettes, uncomplicated; F31.9 Bipolar disorder, unspecified; G47.00 Insomnia, unspecified; I10 Essential (primary) hypertension; K21.9 Gastro-esophageal reflux disease without esophagitis; Z86.69 Personal history of other diseases of the nervous system and sense organs; Z59.0 Homelessness
CPT/HCPCS: 36415; 80053; 81003; 85027; 86593; 93005; 93010

== ENCOUNTER 2017-09-22 22:08 | Inpatient (IN) | payer OTHER ==
[2017-09-22 22:12] VITALS: BMI 22.4
--- NOTE | 2017-09-22 22:25 | HP ---
CIWA Score - CIWA Score Nausea/Vomitin Muscle Tremors: 4-Moderate,w/Arms Extend Anxiety: 4-Mod. Anxious/Guarded Agitation: 4-Moderately Restless Paroxysmal Sweats: 1-Minimal Palms Moist Orientation: 0-Oriented Tacttile Disturbances: 0-None Auditory Disturbances: 0-None Visual Disturbances: 0-None Headache: 0-None Present CIWA-Ar Total Score: 16 Admission ROS S - HPI Chief Complaint: C/O WITHDRAWAL SX'S . SEKING DETOX TXMENT Allergies/Adverse Reactions: Allergies Allergy/AdvReac Type Severity Reaction Status Date / Time Fish Containing Products Allergy Severe Rash Verified 09/22/17 22:19 penicillin V [Penicillin V] Allergy Intermediate Hives Verified 09/22/17 22:19 Pork/Porcine Containing Allergy Mild Nausea Verified 09/22/17 22:19 Products History of Present Illness: Y.O. MALE WITH HX/O ALCOHOLISM KNOWN TO THIS DETOX. PRESENT FOR TXMENT. CLIENT WAS LAST HERE 06/2017. DENIES ANY DETOX TXMENT SINCE. SELF REFERRED. REPORTS LONGEST CLEAN TIME 27 MONTHS RELAPSING IN 2013. Exam Limitations: No Limitations - Ebola screening Have you traveled outside of the country in the last 21 days: No (N) Have you had contact with anyone from an Ebola affected area: No Have you been sick,other than usual withdrawal symptoms: No Do you have a fever: No - Review of Systems Constitutional: Chills, Loss of Appetite, Malaise, Night Sweats, Changes in sleep EENT: reports: Blurred Vision (READING GLASSES), Dental Problems (UPPER DENTURES MISSING TEETH), Other Respiratory: reports: No Symptoms reported Cardiac: reports: No Symptoms Reported GI: reports: Nausea, Poor Appetite, Poor Fluid Intake : reports: No Symptoms Reported Musculoskeletal: reports: Back Pain Integumentary: reports: No Symptoms Reported Neuro: reports: Seizure (DRUG RELATED, LAST EPISODE 2014) Endocrine: reports: No Symptoms Reported Hematology: reports: No Symptoms Reported Psychiatric: reports: Anxious, Depressed, other (INSOMNIA) Other Systems: Reviewed and Negative Patient History - Patient Medical History Hx Anemia: No Hx Asthma: No Hx Chronic Obstructive Pulmonary Disease (COPD): No Hx Cancer: No Hx Cardiac Disorders: No Hx Congestive Heart Failure: No Hx Hypertension: Yes ([facility]) Hx Hypercholesterolemia: No Hx Pacemaker: No HX Cerebrovascular Accident: No Hx Seizures: Yes (2014) Hx Dementia: No Hx Diabetes: No Hx Gastrointestinal Disorders: Yes (GERD/ PROTONIX) Hx Liver Disease: No Hx Genitourinary Disorders: No Hx Sexually Transmitted Disorders: No Hx Renal Disease (ESRD): No Hx Thyroid Disease: No Hx Human Immunodeficiency Virus (HIV): No Hx Hepatitis C: No Hx Depression: Yes (DENIES SI/HI) Hx Suicide Attempt: No Hx Bipolar Disorder: No Hx Schizophrenia: No - Patient Surgical History Past Surgical History: Yes Hx Neurologic Surgery: No Hx Cataract Extraction: No Hx Cardiac Surgery: No Hx Lung Surgery: No Hx Breast Surgery: No Hx Breast Biopsy: No Hx Abdominal Surgery: No Hx Appendectomy: No Hx Cholecystectomy: No Hx Genitourinary Surgery: No Hx Section: No Hx Orthopedic Surgery: No Other Surgical History: removal of GI polyps in 1999 Anesthesia Reaction: No - PPD History Previous Implant?: Yes Documented Results: Negative w/proof Implanted On Prior [facility] Admission?: Yes Results: CXR ON 01/22/17 PPD to be Administered?: No - Smoking Cessation Smoking history: Current every day smoker Have you smoked in the past 12 months: Yes Aproximately how many cigarettes per day: 30 Cigars Per Day: 0 Hx Chewing Tobacco Use: No Initiated information on smoking cessation: Yes 'Breaking Loose' booklet given: 09/22/17 - Substance & Tx. History Hx Alcohol Use: Yes Hx Substance Use: Yes Substance Use Type: Alcohol, Cocaine Hx Substance Use Treatment: Yes ([facility]) - Substances Abused VODKA Route: Oral Frequency: Daily Amount used: 1/2 GALLON Age of first use: 15 Date of Last Use: 09/22/17 COCAINE Route: Inhalation Frequency: 1-3 times last 30 days Amount used: $60 Age of first use: 22 Date of Last Use: 09/18/17 THC Route: Smoking Frequency: 1-3 times last 30 days Amount used: 1 BLUNT Age of first use: 15 Date of Last Use: 09/21/17 Family Disease History - Family Disease History Family Disease History: [place]: Grandparent, Other: Father (DEPENDENT ON HEROIN AND ETOH), Mother (ALCOHOLIC AND ) Admission Physical Exam BHS - Vital Signs Vital Signs: Vital Signs - 24 hr 09/22/17 22:10 Temperature 98.6 F Pulse Rate 97 H Respiratory 18 Rate Blood Pressure 125/72 - Physical General Appearance: Yes: Appropriately Dressed, Alcohol on Breath, Intoxicated, Tremorous, Anxious HEENTM: Yes: EOMI, Normocephalic, Normal Voice, ROMINA, Pharynx Normal, Other ( UPPER DENTURES) Respiratory: Yes: Chest Non-Tender, Lungs Clear, Normal Breath Sounds, No Respiratory Distress, No Accessory Muscle Use Neck: Yes: No masses,lesions,Nodules, Supple, Trachea in good position Breast: Yes: Breast Exam Deferred Cardiology: Yes: Regular Rhythm, Regular Rate, S1, S2 Abdominal: Yes: Normal Bowel Sounds, Non Tender, Flat, Soft Genitourinary: Yes: Within Normal Limits Back: Yes: Normal Inspection Musculoskeletal: Yes: full range of Motion, Gait Steady Extremities: Yes: Normal Range of Motion, Non-Tender, Tremors Neurological: Yes: forms examiner II-XII NML intact, Fully Oriented, Alert, Motor Strength 5/5 Integumentary: Yes: Normal Color, Dry, Warm, Rash, Other (EXCEMA TO R FOREARM) Lymphatic: Yes: Within Normal Limits - Diagnostic (1) Alcohol dependence with uncomplicated withdrawal Current Visit: Yes Status: Chronic (2) Cannabis dependence Current Visit: Yes Status: Chronic (3) Cocaine dependence, uncomplicated Current Visit: Yes Status: Chronic (4) Eczema Current Visit: Yes Status: Chronic Qualifiers: Eczema type: unspecified Qualified Code(s): L30.9 - Dermatitis, unspecified (5) Essential hypertension Current Visit: Yes Status: Chronic (6) GERD (gastroesophageal reflux disease) Current Visit: Yes Status: Chronic Qualifiers: Esophagitis presence: esophagitis presence not specified Qualified Code(s) : K21.9 - Gastro-esophageal reflux disease without esophagitis (7) Nicotine dependence Current Visit: Yes Status: Chronic Qualifiers: Nicotine product type: cigarettes Substance use status: uncomplicated Qualified Code(s): F17.210 - Nicotine dependence, cigarettes, uncomplicated (8) Withdrawal seizures Current Visit: Yes Status: Suspected Qualifiers: Complication of substance-induced condition: uncomplicated Qualified Code(s ): F19.230 - Other psychoactive substance dependence with withdrawal, uncomplicated Cleared for Admission S - Detox or Rehab [facility] Level of Care: Medically Managed Detox Regimen/Protocol: Librium S Breath Alcohol Content Breath Alcohol Content: 0.090 Urine Drug Screen - Results Drug Screen Negative: No Urine Drug Screen Results: THC-Marijuana, ANGIE-Cocaine
[2017-09-22] MEDS ORDERED: MAGNESIUM CITRATE 300 ML BOTTLE PO PRN (22:33)
[2017-09-22] MEDS ORDERED: hydrOXYzine PAMOATE 50 MG CAPSULE (FP) PO PRN (22:33)
[2017-09-22] MEDS ORDERED: MENTHOL/PHENOL 1 EACH UD MM PRN (22:33)
[2017-09-22] MEDS ORDERED: guaiFENesin/D-METHORPHAN HB 10 ML UNIT-DOSE CUPS PO PRN (22:33)
[2017-09-22] MEDS ORDERED: chlordiazePOXIDE HCL 25 MG CAPSULE PO PRN (22:33)
[2017-09-22] MEDS ORDERED: P-EPHED 60MG/TRIPROLIDI 2.5MG TABLET PO PRN (22:33)
[2017-09-22] MEDS ORDERED: LOPERAMIDE HCL 2 MG CAPSULE PO PRN (22:33)
[2017-09-22] MEDS ORDERED: MAG HYDROX/AL HYDROX/SIMETH 30 ML UNIT-DOSE CUP PO PRN (22:33)
[2017-09-22] MEDS ORDERED: MAGNESIUM HYDROX 2400MG/30ML ORAL SUSPENSION 30 ML CUP PO PRN (22:33)
[2017-09-22] MEDS ORDERED: IBUPROFEN 400 MG TABLET (FP) PO PRN (22:33)
[2017-09-22] MEDS ORDERED: NICOTINE POLACRILEX 4 MG GUM BC PRN (22:33)
[2017-09-22] MEDS ORDERED: ACETAMINOPHEN 325 MG TABLET (FP) PO PRN (22:33)
[2017-09-22 23:39] LABS: URINE APPEARANCE CLEAR; URINE BILIRUBIN NEGATIVE (NEGATIVE); URINE BLOOD 1+ (NEGATIVE); URINE COLOR YELLOW; URINE GLUCOSE (UA) NEGATIVE (NEGATIVE); URINE KETONE TRACE (NEGATIVE); URINE LEUK ESTERASE NEGATIVE (NEGATIVE); URINE NITRITE NEGATIVE (NEGATIVE); URINE PROTEIN NEGATIVE (NEGATIVE)
[2017-09-22 23:43] LABS: URINE MUCUS RARE; URINE RBC 2 /hpf (0-3); URINE WBC <1 /hpf (3-5)
[2017-09-22] MEDS: chlordiazePOXIDE HCL 25 MG CAPSULE PO SCH (23:54)
[2017-09-23] MEDS: chlordiazePOXIDE HCL 25 MG CAPSULE PO SCH ×4 (05:46→22:36)
[2017-09-23 09:44] LABS: MCH 29.4 pg (25.7-33.7); MCHC 32.6 g/dl (32.0-35.9); MEAN CELL VOLUME 90.2 fl (80-96); MEAN PLT VOLUME 8.2 fl (7.5-11.1); PLATELET COUNT 204 K/MM3 (134-434); RDW 15.1 % (11.9-15.9); WHITE BLOOD COUNT 3.5 K/mm3 (4.0-10.0)
[2017-09-23 09:59] LABS: ALBUMIN 3.8 g/dl (3.4-5.0); ANION GAP 9 (8-16); CALCIUM 8.6 mg/dL (8.5-10.1); CO2 25 mmol/L (21-32); GLUCOSE,RANDOM 135 mg/dL (74-106)
[2017-09-23] MEDS: amLODIPine BESYLATE 10 MG TABLET (FP) PO SCH (10:01)
[2017-09-23] MEDS: PANTOPRAZOLE 40 MG TABLET (FP) PO SCH (10:01)
[2017-09-23] MEDS: PRENATAL VITAMINS W/ FOLIC ACID TABLET (FP) PO SCH (10:02)
[2017-09-23] MEDS: NICOTINE 21 MG/24 HOURS TOPICAL PATCH TD SCH (10:02)
[2017-09-23 10:03] LABS: ALK PHOS 54 U/L (45-117); BILIRUBIN,TOTAL 0.5 mg/dL (0.2-1.0); CREATININE 0.9 mg/dL (0.7-1.3); SGOT/AST 21 U/L (15-37); SGPT/ALT 28 U/L (12-78); TOT PROT 6.8 g/dl (6.4-8.2)
--- NOTE | 2017-09-23 11:08 | PN ---
[facility] CIWA - CIWA Score Nausea/Vomitin-No Nausea/No Vomiting Muscle Tremors: 4-Moderate,w/Arms Extend Anxiety: 4-Mod. Anxious/Guarded Agitation: 4-Moderately Restless Paroxysmal Sweats: 1-Minimal Palms Moist Orientation: 0-Oriented Tacttile Disturbances: 3-Moderate Itch/Numb/Burn Auditory Disturbances: 0-None Visual Disturbances: 0-None Headache: 0-None Present CIWA-Ar Total Score: 16 S Progress Note (SOAP) Subjective: ANXIETY,SWEATS,TREMORS,INTERMITTENT SLEEP. Objective: 09/23/17 11:06 Vital Signs Temperature 97.1 F L 09/23/17 08:57 Pulse Rate 73 09/23/17 08:57 Respiratory Rate 18 09/23/17 08:57 Blood Pressure 135/85 09/23/17 08:57 O2 Sat by Pulse Oximetry (%) Laboratory Last Values WBC 3.5 K/mm3 (4.0-10.0) L 09/23/17 06:00 RBC 4.53 M/mm3 (4.00-5.60) 09/23/17 06:00 Hgb 13.3 GM/dL (11.7-16.9) 09/23/17 06:00 Hct 40.8 % (35.4-49) 09/23/17 06:00 MCV 90.2 fl (80-96) 09/23/17 06:00 MCH 29.4 pg (25.7-33.7) 09/23/17 06:00 MCHC 32.6 g/dl (32.0-35.9) 09/23/17 06:00 RDW 15.1 % (11.9-15.9) 09/23/17 06:00 Plt Count 204 K/MM3 (134-434) 09/23/17 06:00 MPV 8.2 fl (7.5-11.1) 09/23/17 06:00 Sodium 137 mmol/L (136-145) 09/23/17 06:00 Potassium 3.2 mmol/L (3.5-5.1) L 09/23/17 06:00 Chloride 103 mmol/L (98-107) 09/23/17 06:00 Carbon Dioxide 25 mmol/L (21-32) 09/23/17 06:00 Anion Gap 9 (8-16) 09/23/17 06:00 BUN 16 mg/dL (7-18) 09/23/17 06:00 Creatinine 0.9 mg/dL (0.7-1.3) D 09/23/17 06:00 Creat Clearance w eGFR > 60 (>60) 09/23/17 06:00 Random Glucose 135 mg/dL (74-106) H D 09/23/17 06:00 Calcium 8.6 mg/dL (8.5-10.1) 09/23/17 06:00 Total Bilirubin 0.5 mg/dL (0.2-1.0) 09/23/17 06:00 AST 21 U/L (15-37) 09/23/17 06:00 ALT 28 U/L (12-78) 09/23/17 06:00 Alkaline Phosphatase 54 U/L (45-117) 09/23/17 06:00 Total Protein 6.8 g/dl (6.4-8.2) 09/23/17 06:00 Albumin 3.8 g/dl (3.4-5.0) 09/23/17 06:00 Urine Color Yellow 09/22/17 23:00 Urine Appearance Clear 09/22/17 23:00 Urine pH 5.0 (5.0-8.0) 09/22/17 23:00 Ur Specific [place] 1.023 (1.001-1.035) 09/22/17 23:00 Urine Protein Negative (NEGATIVE) 09/22/17 23:00 Urine Glucose (UA) Negative (NEGATIVE) 09/22/17 23:00 Urine Ketones Trace (NEGATIVE) H 09/22/17 23:00 Urine Blood 1+ (NEGATIVE) H 09/22/17 23:00 Urine Nitrite Negative (NEGATIVE) 09/22/17 23:00 Urine Bilirubin Negative (NEGATIVE) 09/22/17 23:00 Urine Urobilinogen 2.0 mg/dL (0.2-1.0) 09/22/17 23:00 Urine WBC (Auto) <1 /hpf (3-5) 09/22/17 23:00 Urine RBC (Auto) 2 /hpf (0-3) 09/22/17 23:00 Urine Mucus Rare 09/22/17 23:00 RPR Titer Nonreactive (NONREACTIVE) 09/23/17 06:00 K+ = 3.2 Assessment: 09/23/17 11:07 WITHDRAWAL SX Plan: CONTINUE DETOX KCL LIQUID 20 MEQ PO BID
[2017-09-23] MEDS: POTASSIUM CHLORIDE ORAL LIQUID 20 MEQ/15 ML PO SCH ×2 (11:47→22:35)
[2017-09-23 12:19] LABS: URINE LEUK ESTERASE Negative (NEGATIVE)
--- NOTE | 2017-09-23 13:20 | EKG ---
Test Reason : Blood Pressure : / mmHG Vent. Rate : 076 BPM Atrial Rate : 076 BPM P-R Int : 172 ms QRS Dur : 088 ms QT Int : 402 ms P-R-T Axes : 072 010 067 degrees QTc Int : 452 ms NORMAL SINUS RHYTHM RIGHT ATRIAL ENLARGEMENT BORDERLINE ECG WHEN COMPARED WITH ECG OF 11-JUL-2017 22:47, NO SIGNIFICANT CHANGE WAS FOUND Confirmed by MD Wills Daniel ([id number]) on 09/23/2017 1:20:23 PM Referred By: Confirmed By:Mathew Wills MD
--- NOTE | 2017-09-23 13:29 | CONSULT ---
[facility] Psychiatric Consult - Data Date of interview: 09/23/17 Admission source: [facility] Identifying data: Another admission to [facility] for this 57 y/o AA male seeking detox treatment on for alcohol,cocaine,heroin,marijuana and benzodiazepine (xanax) dependence.Patient is single,a father of one,domiciled, unemployed and supported on food stamps. Substance Abuse History: Confirmed by patient in this interview.See current [facility] report for details : Smoking history: Current every day smoker. Have you smoked in the past 12 months: Yes. Aproximately how many cigarettes per day: 30. Cigars Per Day: 0. Hx Chewing Tobacco Use: No. Initiated information on smoking cessation: Yes. 'Breaking Loose' booklet given: 09/22/17. - Substance & Tx. History. Hx Alcohol Use: Yes. Hx Substance Use: Yes. Substance Use Type : Alcohol, Cocaine. Hx Substance Use Treatment: Yes ([facility]). - Substances Abused. VODKA. Route: Oral. Frequency: Daily. Amount used: 1/2 GALLON. Age of first use: 15. Date of Last Use: 09/22/17. COCAINE. Route: Inhalation. Frequency: 1-3 times last 30 days. Amount used: $60. Age of first use: 22. Date of Last Use: 09/18/17. THC. Route: Smoking. Frequency : 1-3 times last 30 days. Amount used: 1 BLUNT. Age of first use: 15. Date of Last Use: 09/21/17 Medical History: No changes since encounter of 07/12/17 : GERD,hypertension, withdrawal seizures and a history of surgery for removal of intestinal polyps ( 1999). Psychiatric History: In this interview,the patient admits to a history of two psychiatric hospitalizations ([facility] and [facility]) .Diagnosed with Bipolar Disorder.No contact with psychiatric OPD providers.Mr Willams requests to be on seroquel 150 mg/hs (uses refills from past providers) .Patient denies history of suicide attempts. Physical/Sexual Abuse/Trauma History: Patient denies. Additional Comment: Urine Drug Screen Results: THC-Marijuana, ANGIE-Cocaine.Noted. Mental Status Exam - Mental Status Exam Alert and Oriented to: Time, Place, Person Cognitive Function: Good Patient Appearance: Well Groomed Mood: Hopeful, Euthymic Affect: Appropriate, Normal Range Patient Behavior: Appropriate, Cooperative Speech Pattern: Clear, Appropriate Voice Loudness: Normal Thought Process: Intact, Goal Oriented Thought Disorder: Not Present Hallucinations: Denies Suicidal Ideation: Denies Homicidal Ideation: Denies Insight/Judgement: Poor Sleep: Poorly, Difficulty falling asleep Appetite: Good Muscle strength/Tone: Normal Gait/Station: Normal Psychiatric Findings - Problem List ([place] 1, 2,3) (1) Alcohol dependence with uncomplicated withdrawal Current Visit: Yes Status: Acute (2) Cannabis dependence Current Visit: Yes Status: Acute (3) Cocaine dependence, uncomplicated Current Visit: Yes Status: Acute (4) Nicotine dependence Current Visit: Yes Status: Acute Qualifiers: Nicotine product type: cigarettes Substance use status: in withdrawal Qualified Code(s): F17.213 - Nicotine dependence, cigarettes, with withdrawal (5) Drug-induced mood disorder Current Visit: Yes Status: Acute (6) Insomnia Current Visit: Yes Status: Acute - Initial Treatment Plan Initial Treatment Plan: Psychoeducation.Sleep hygiene.Detoxification in effect.Seroquel 150 mg po hs.Side effects/benefits are discussed with the patient.Mr Willams expressed his agreement with this careplan.Observation.
[2017-09-23] MEDS: QUEtiapine FUMARATE 50 MG TABLET PO SCH (22:35)
[2017-09-23] MEDS: THIAMINE HCL 100 MG TABLET (FP) PO SCH (22:36)
[2017-09-24] MEDS: chlordiazePOXIDE HCL 25 MG CAPSULE PO SCH ×3 (05:18→16:56)
[2017-09-24] MEDS: PRENATAL VITAMINS W/ FOLIC ACID TABLET (FP) PO SCH (10:16)
[2017-09-24] MEDS: POTASSIUM CHLORIDE ORAL LIQUID 20 MEQ/15 ML PO SCH ×2 (10:16→22:16)
[2017-09-24] MEDS: PANTOPRAZOLE 40 MG TABLET (FP) PO SCH (10:16)
[2017-09-24] MEDS: amLODIPine BESYLATE 10 MG TABLET (FP) PO SCH (10:17)
[2017-09-24] MEDS: NICOTINE 21 MG/24 HOURS TOPICAL PATCH TD SCH (10:17)
--- NOTE | 2017-09-24 10:50 | PN ---
[facility] CIWA - CIWA Score Nausea/Vomitin-No Nausea/No Vomiting Muscle Tremors: 4-Moderate,w/Arms Extend Anxiety: 4-Mod. Anxious/Guarded Agitation: 4-Moderately Restless Paroxysmal Sweats: 1-Minimal Palms Moist Orientation: 0-Oriented Tacttile Disturbances: 3-Moderate Itch/Numb/Burn Auditory Disturbances: 0-None Visual Disturbances: 0-None Headache: 0-None Present CIWA-Ar Total Score: 16 BHS Progress Note (SOAP) Subjective: ANXIETY,SWEATS,DECREASED TREMORS. Objective: 09/24/17 10:47 Vital Signs Temperature 97.0 F L 09/24/17 09:15 Pulse Rate 86 09/24/17 09:15 Respiratory Rate 18 09/24/17 09:15 Blood Pressure 109/72 09/24/17 09:15 O2 Sat by Pulse Oximetry (%) Laboratory Last Values WBC 3.5 K/mm3 (4.0-10.0) L 09/23/17 06:00 RBC 4.53 M/mm3 (4.00-5.60) 09/23/17 06:00 Hgb 13.3 GM/dL (11.7-16.9) 09/23/17 06:00 Hct 40.8 % (35.4-49) 09/23/17 06:00 MCV 90.2 fl (80-96) 09/23/17 06:00 MCH 29.4 pg (25.7-33.7) 09/23/17 06:00 MCHC 32.6 g/dl (32.0-35.9) 09/23/17 06:00 RDW 15.1 % (11.9-15.9) 09/23/17 06:00 Plt Count 204 K/MM3 (134-434) 09/23/17 06:00 MPV 8.2 fl (7.5-11.1) 09/23/17 06:00 Sodium 137 mmol/L (136-145) 09/23/17 06:00 Potassium 3.2 mmol/L (3.5-5.1) L 09/23/17 06:00 Chloride 103 mmol/L (98-107) 09/23/17 06:00 Carbon Dioxide 25 mmol/L (21-32) 09/23/17 06:00 Anion Gap 9 (8-16) 09/23/17 06:00 BUN 16 mg/dL (7-18) 09/23/17 06:00 Creatinine 0.9 mg/dL (0.7-1.3) D 09/23/17 06:00 Creat Clearance w eGFR > 60 (>60) 09/23/17 06:00 Random Glucose 135 mg/dL (74-106) H D 09/23/17 06:00 Calcium 8.6 mg/dL (8.5-10.1) 09/23/17 06:00 Total Bilirubin 0.5 mg/dL (0.2-1.0) 09/23/17 06:00 AST 21 U/L (15-37) 09/23/17 06:00 ALT 28 U/L (12-78) 09/23/17 06:00 Alkaline Phosphatase 54 U/L (45-117) 09/23/17 06:00 Total Protein 6.8 g/dl (6.4-8.2) 09/23/17 06:00 Albumin 3.8 g/dl (3.4-5.0) 09/23/17 06:00 Urine Color Yellow 09/22/17 23:00 Urine Appearance Clear 09/22/17 23:00 Urine pH 5.0 (5.0-8.0) 09/22/17 23:00 Ur Specific [place] 1.023 (1.001-1.035) 09/22/17 23:00 Urine Protein Negative (NEGATIVE) 09/22/17 23:00 Urine Glucose (UA) Negative (NEGATIVE) 09/22/17 23:00 Urine Ketones Trace (NEGATIVE) H 09/22/17 23:00 Urine Blood 1+ (NEGATIVE) H 09/22/17 23:00 Urine Nitrite Negative (NEGATIVE) 09/22/17 23:00 Urine Bilirubin Negative (NEGATIVE) 09/22/17 23:00 Urine Urobilinogen 2.0 mg/dL (0.2-1.0) 09/22/17 23:00 Ur Leukocyte Esterase Negative (NEGATIVE) 09/22/17 23:00 Urine WBC (Auto) <1 /hpf (3-5) 09/22/17 23:00 Urine RBC (Auto) 2 /hpf (0-3) 09/22/17 23:00 Urine Mucus Rare 09/22/17 23:00 RPR Titer Nonreactive (NONREACTIVE) 09/23/17 06:00 Assessment: 09/24/17 10:49 WITHDRAWAL SX Plan: CONTINUE DETOX REPEAT CMP IN AM
[2017-09-24] MEDS: THIAMINE HCL 100 MG TABLET (FP) PO SCH (22:17)
[2017-09-24] MEDS: chlordiazePOXIDE 5 MG CAPSULE PO SCH (22:17)
[2017-09-24] MEDS: QUEtiapine FUMARATE 50 MG TABLET PO SCH (23:32)
[2017-09-25] MEDS: chlordiazePOXIDE 5 MG CAPSULE PO SCH ×3 (06:00→17:27)
[2017-09-25 09:56] LABS: ALBUMIN 3.9 g/dl (3.4-5.0)
[2017-09-25 10:06] LABS: ALK PHOS 61 U/L (45-117); ANION GAP 6 (8-16); BILIRUBIN,TOTAL 0.2 mg/dL (0.2-1.0); CALCIUM 8.7 mg/dL (8.5-10.1); CO2 29 mmol/L (21-32); CREATININE 0.7 mg/dL (0.7-1.3); GLUCOSE,RANDOM 88 mg/dL (74-106); SGPT/ALT 28 U/L (12-78)
[2017-09-25 10:11] LABS: SGOT/AST 13 U/L (15-37)
[2017-09-25] MEDS: PANTOPRAZOLE 40 MG TABLET (FP) PO SCH (10:18)
[2017-09-25] MEDS: PRENATAL VITAMINS W/ FOLIC ACID TABLET (FP) PO SCH (10:18)
[2017-09-25] MEDS: amLODIPine BESYLATE 10 MG TABLET (FP) PO SCH (10:18)
[2017-09-25] MEDS: POTASSIUM CHLORIDE ORAL LIQUID 20 MEQ/15 ML PO SCH ×2 (10:18→22:24)
[2017-09-25] MEDS: NICOTINE 21 MG/24 HOURS TOPICAL PATCH TD SCH (10:19)
--- NOTE | 2017-09-25 11:21 | PN ---
[facility] Progress Note (SOAP) Subjective: ANXIETY, DECREASED IRRITABILITY, SWEATS,TREMORS. Objective: 09/25/17 11:21 Vital Signs Temperature 96.7 F L 09/25/17 09:11 Pulse Rate 75 09/25/17 09:11 Respiratory Rate 18 09/25/17 09:11 Blood Pressure 120/79 09/25/17 09:11 O2 Sat by Pulse Oximetry (%) Laboratory Last Values WBC 3.5 K/mm3 (4.0-10.0) L 09/23/17 06:00 RBC 4.53 M/mm3 (4.00-5.60) 09/23/17 06:00 Hgb 13.3 GM/dL (11.7-16.9) 09/23/17 06:00 Hct 40.8 % (35.4-49) 09/23/17 06:00 MCV 90.2 fl (80-96) 09/23/17 06:00 MCH 29.4 pg (25.7-33.7) 09/23/17 06:00 MCHC 32.6 g/dl (32.0-35.9) 09/23/17 06:00 RDW 15.1 % (11.9-15.9) 09/23/17 06:00 Plt Count 204 K/MM3 (134-434) 09/23/17 06:00 MPV 8.2 fl (7.5-11.1) 09/23/17 06:00 Sodium 140 mmol/L (136-145) 09/25/17 08:00 Potassium 4.2 mmol/L (3.5-5.1) D 09/25/17 08:00 Chloride 105 mmol/L (98-107) 09/25/17 08:00 Carbon Dioxide 29 mmol/L (21-32) 09/25/17 08:00 Anion Gap 6 (8-16) L 09/25/17 08:00 BUN 14 mg/dL (7-18) 09/25/17 08:00 Creatinine 0.7 mg/dL (0.7-1.3) D 09/25/17 08:00 Creat Clearance w eGFR > 60 (>60) 09/25/17 08:00 Random Glucose 88 mg/dL (74-106) D 09/25/17 08:00 Calcium 8.7 mg/dL (8.5-10.1) 09/25/17 08:00 Total Bilirubin 0.2 mg/dL (0.2-1.0) D 09/25/17 08:00 AST 13 U/L (15-37) L D 09/25/17 08:00 ALT 28 U/L (12-78) 09/25/17 08:00 Alkaline Phosphatase 61 U/L (45-117) 09/25/17 08:00 Total Protein 7.0 g/dl (6.4-8.2) 09/25/17 08:00 Albumin 3.9 g/dl (3.4-5.0) 09/25/17 08:00 Urine Color Yellow 09/22/17 23:00 Urine Appearance Clear 09/22/17 23:00 Urine pH 5.0 (5.0-8.0) 09/22/17 23:00 Ur Specific [place] 1.023 (1.001-1.035) 09/22/17 23:00 Urine Protein Negative (NEGATIVE) 09/22/17 23:00 Urine Glucose (UA) Negative (NEGATIVE) 09/22/17 23:00 Urine Ketones Trace (NEGATIVE) H 09/22/17 23:00 Urine Blood 1+ (NEGATIVE) H 09/22/17 23:00 Urine Nitrite Negative (NEGATIVE) 09/22/17 23:00 Urine Bilirubin Negative (NEGATIVE) 09/22/17 23:00 Urine Urobilinogen 2.0 mg/dL (0.2-1.0) 09/22/17 23:00 Ur Leukocyte Esterase Negative (NEGATIVE) 09/22/17 23:00 Urine WBC (Auto) <1 /hpf (3-5) 09/22/17 23:00 Urine RBC (Auto) 2 /hpf (0-3) 09/22/17 23:00 Urine Mucus Rare 09/22/17 23:00 RPR Titer Nonreactive (NONREACTIVE) 09/23/17 06:00 Assessment: 09/25/17 11:21 DECREASED WITHDRAWAL SX Plan: CONTINUE DETOX
[2017-09-25] MEDS: THIAMINE HCL 100 MG TABLET (FP) PO SCH (22:24)
[2017-09-25] MEDS: QUEtiapine FUMARATE 50 MG TABLET PO SCH (22:24)
[2017-09-25] MEDS: chlordiazePOXIDE HCL 10 MG CAPSULE PO SCH (22:24)
[2017-09-26] MEDS: chlordiazePOXIDE HCL 10 MG CAPSULE PO SCH (05:31)
[2017-09-26 06:20] VITALS: BP 110/71; PULSE 81; TEMP 98.6
--- NOTE | 2017-09-26 16:34 | DS ---
[facility] Detox Discharge Summary Admission Date: 09/22/17 Discharge Date: 09/26/17 - History Present History: Alcohol Dependence, Cannabis Dependence, Cocaine Dependence Additional Comments: DETOX COMPLETED. Pertinent Past History: SEE DX BELOW - Physical Exam Results Vital Signs: Vital Signs Temperature 98.6 F 09/26/17 06:19 Pulse Rate 81 09/26/17 06:19 Respiratory Rate 18 09/26/17 06:19 Blood Pressure 110/71 09/26/17 06:19 O2 Sat by Pulse Oximetry (%) Pertinent Admission Physical Exam Findings: WITHDRAWAL SX Laboratory Last Values WBC 3.5 K/mm3 (4.0-10.0) L 09/23/17 06:00 RBC 4.53 M/mm3 (4.00-5.60) 09/23/17 06:00 Hgb 13.3 GM/dL (11.7-16.9) 09/23/17 06:00 Hct 40.8 % (35.4-49) 09/23/17 06:00 MCV 90.2 fl (80-96) 09/23/17 06:00 MCH 29.4 pg (25.7-33.7) 09/23/17 06:00 MCHC 32.6 g/dl (32.0-35.9) 09/23/17 06:00 RDW 15.1 % (11.9-15.9) 09/23/17 06:00 Plt Count 204 K/MM3 (134-434) 09/23/17 06:00 MPV 8.2 fl (7.5-11.1) 09/23/17 06:00 Sodium 140 mmol/L (136-145) 09/25/17 08:00 Potassium 4.2 mmol/L (3.5-5.1) D 09/25/17 08:00 Chloride 105 mmol/L (98-107) 09/25/17 08:00 Carbon Dioxide 29 mmol/L (21-32) 09/25/17 08:00 Anion Gap 6 (8-16) L 09/25/17 08:00 BUN 14 mg/dL (7-18) 09/25/17 08:00 Creatinine 0.7 mg/dL (0.7-1.3) D 09/25/17 08:00 Creat Clearance w eGFR > 60 (>60) 09/25/17 08:00 Random Glucose 88 mg/dL (74-106) D 09/25/17 08:00 Calcium 8.7 mg/dL (8.5-10.1) 09/25/17 08:00 Total Bilirubin 0.2 mg/dL (0.2-1.0) D 09/25/17 08:00 AST 13 U/L (15-37) L D 09/25/17 08:00 ALT 28 U/L (12-78) 09/25/17 08:00 Alkaline Phosphatase 61 U/L (45-117) 09/25/17 08:00 Total Protein 7.0 g/dl (6.4-8.2) 09/25/17 08:00 Albumin 3.9 g/dl (3.4-5.0) 09/25/17 08:00 Urine Color Yellow 09/22/17 23:00 Urine Appearance Clear 09/22/17 23:00 Urine pH 5.0 (5.0-8.0) 09/22/17 23:00 Ur Specific [place] 1.023 (1.001-1.035) 09/22/17 23:00 Urine Protein Negative (NEGATIVE) 09/22/17 23:00 Urine Glucose (UA) Negative (NEGATIVE) 09/22/17 23:00 Urine Ketones Trace (NEGATIVE) H 09/22/17 23:00 Urine Blood 1+ (NEGATIVE) H 09/22/17 23:00 Urine Nitrite Negative (NEGATIVE) 09/22/17 23:00 Urine Bilirubin Negative (NEGATIVE) 09/22/17 23:00 Urine Urobilinogen 2.0 mg/dL (0.2-1.0) 09/22/17 23:00 Ur Leukocyte Esterase Negative (NEGATIVE) 09/22/17 23:00 Urine WBC (Auto) <1 /hpf (3-5) 09/22/17 23:00 Urine RBC (Auto) 2 /hpf (0-3) 09/22/17 23:00 Urine Mucus Rare 09/22/17 23:00 RPR Titer Nonreactive (NONREACTIVE) 09/23/17 06:00 - Treatment Hospital Course: Detox Protocol Followed, Detoxed Safely, Responded well, Discharged Condition Good - Medication Discharge Medications: Ambulatory Orders Quetiapine Fumarate [Seroquel] 150 mg PO HS #30 tablet 01/22/17 Quetiapine Fumarate [Seroquel] 150 mg PO HS #30 tablet 09/23/17 Amlodipine Besylate [Norvasc -] 10 mg PO DAILY #30 tab 09/25/17 Pantoprazole Sodium [Protonix -] 40 mg PO DAILY #30 tablet.ec 09/25/17 - Diagnosis (1) Alcohol dependence with uncomplicated withdrawal Status: Acute (2) Cocaine dependence, uncomplicated Status: Acute (3) Eczema Status: Chronic Qualifiers: Eczema type: unspecified Qualified Code(s): L30.9 - Dermatitis, unspecified (4) Essential hypertension Status: Chronic (5) GERD (gastroesophageal reflux disease) Status: Chronic Qualifiers: Esophagitis presence: esophagitis presence not specified Qualified Code(s) : K21.9 - Gastro-esophageal reflux disease without esophagitis (6) Nicotine dependence Status: Acute Qualifiers: Nicotine product type: cigarettes Substance use status: in withdrawal Qualified Code(s): F17.213 - Nicotine dependence, cigarettes, with withdrawal (7) History of seizure Status: Suspected (8) Cannabis dependence Status: Acute (9) Withdrawal seizures Status: Suspected Qualifiers: Complication of substance-induced condition: uncomplicated Qualified Code(s ): F19.230 - Other psychoactive substance dependence with withdrawal, uncomplicated - AMA Did Patient Leave Against Medical Advice: No
== END 2017-09-26 06:44 | disposition home or self-care (01) | DRG 774 ==
LOC: YASAS 22:08 → UNDOADMIN 22:30 → Y6N 22:30 → Y3N 23:02
PROVIDERS: ADMIT Internal Medicine; ATTEND Internal Medicine
PROC: HZ2ZZZZ Detoxification Services for Substance Abuse Treatment (ICD-10-PCS; principal; 2017-09-22)
DX: F10.230 Alcohol dependence with withdrawal, uncomplicated (principal); F14.20 Cocaine dependence, uncomplicated; F12.20 Cannabis dependence, uncomplicated; F17.213 Nicotine dependence, cigarettes, with withdrawal; F19.24 Other psychoactive substance dependence with psychoactive substance-induced mood disorder; I10 Essential (primary) hypertension; K21.9 Gastro-esophageal reflux disease without esophagitis; G47.00 Insomnia, unspecified; L30.9 Dermatitis, unspecified; Z91.018 Allergy to other foods; Z91.013 Allergy to seafood; Z88.0 Allergy status to penicillin; Z86.69 Personal history of other diseases of the nervous system and sense organs; Z59.0 Homelessness
CPT/HCPCS: 36415; 80053; 81003; 81015; 85027; 86593; 93005; 93010

== ENCOUNTER 2018-03-17 22:37 | Inpatient (IN) | payer OTHER ==
--- NOTE | 2018-03-17 22:32 | HP ---
COWS - Scale Resting Pulse: 1= CO 81-100 Sweatin= No chills or Flushing Restless Observation: 5= Unable to Sit Still Pupil Size: 0= Normal to Room Light Bone or Joint Aches: 4=Acute Joint/Muscle Pain Runny Nose/ Eye Tearin= Runny Nose/Eyes GI Upset > 30mins: 2= Nausea/Diarrhea Tremor Observation: 2= Slight Tremor Visible Yawning Observation: 0= None Anxiety or Irritability: 2=Irritable/Anxious Goose Flesh Skin: 0=Smooth Skin COWS Score: 18 CIWA Score - CIWA Score Nausea/Vomitin-Mild Nausea/No Vomiting Muscle Tremors: 3 Anxiety: 4-Mod. Anxious/Guarded Agitation: 4-Moderately Restless Paroxysmal Sweats: No Perspiration Orientation: 1-Uncertain about Date Tacttile Disturbances: 0-None Auditory Disturbances: 0-None Visual Disturbances: 0-None Headache: 0-None Present CIWA-Ar Total Score: 13 Admission ROS S - HPI Chief Complaint: C/O OF WITHDRAWAL SX'S. SEEKING DETOX TXMENT FOR BENZO/ETOH AND HEROIN ABUSE Allergies/Adverse Reactions: Allergies Allergy/AdvReac Type Severity Reaction Status Date / Time Fish Containing Products Allergy Severe Rash Verified 01/13/18 00:05 penicillin V [Penicillin V] Allergy Intermediate Hives Verified 01/13/18 00:05 Pork/Porcine Containing Allergy Mild Nausea Verified 01/13/18 00:05 Products History of Present Illness: 58 Y.O. MALE WITH HX/O POLYSUBSTANCE ABUSE HERE FOR DETOX FROM ALCOHOL, HEROIN, XANAX. CLIENT IS KNOWN TO THIS PROGRAM. SELF REFERRED. REPORTS LONGEST CLEAN TIME 27 MONTHS. DENIES HX/O DRUG OVERDOSE, A/V HALLUCINATIONS, SI/HI. REPORTS HX /O SEIZURE LAST EPISODE "YEARS AGO" Exam Limitations: No Limitations - Ebola screening Have you traveled outside of the country in the last 21 days: No Have you had contact with anyone from an Ebola affected area: No Have you been sick,other than usual withdrawal symptoms: No Do you have a fever: No - Review of Systems Constitutional: Chills, Loss of Appetite, Malaise, Night Sweats EENT: reports: Tearing, Dental Problems (MISSING TEETH) Respiratory: reports: No Symptoms reported Cardiac: reports: No Symptoms Reported GI: reports: Nausea, Poor Appetite : reports: No Symptoms Reported Musculoskeletal: reports: Back Pain Integumentary: reports: No Symptoms Reported Neuro: reports: Seizure Endocrine: reports: No Symptoms Reported Hematology: reports: No Symptoms Reported Psychiatric: reports: Agitated Other Systems: Reviewed and Negative Patient History - Patient Medical History Hx Anemia: No Hx Asthma: No Hx Chronic Obstructive Pulmonary Disease (COPD): No Hx Cancer: No Hx Cardiac Disorders: No Hx Congestive Heart Failure: No Hx Hypertension: Yes Hx Hypercholesterolemia: No Hx Pacemaker: No HX Cerebrovascular Accident: No Hx Seizures: No Hx Dementia: No Hx Diabetes: No Hx Gastrointestinal Disorders: Yes (GERD) Hx Liver Disease: No Hx Genitourinary Disorders: No Hx Sexually Transmitted Disorders: No Hx Renal Disease (ESRD): No Hx Thyroid Disease: No Hx Human Immunodeficiency Virus (HIV): No Hx Hepatitis C: No Hx Depression: Yes (SEROQUEL) Hx Suicide Attempt: No Hx Bipolar Disorder: No Hx Schizophrenia: No Other Medical History: INSOMNIA - Patient Surgical History Past Surgical History: Yes Hx Neurologic Surgery: No Hx Cataract Extraction: No Hx Cardiac Surgery: No Hx Lung Surgery: No Hx Breast Surgery: No Hx Breast Biopsy: No Hx Abdominal Surgery: No Hx Appendectomy: No Hx Cholecystectomy: No Hx Genitourinary Surgery: No Hx Section: No Hx Orthopedic Surgery: No Other Surgical History: removal of GI polyps in 1999 Anesthesia Reaction: No - PPD History Previous Implant?: Yes Documented Results: Positive w/o proof Implanted On Prior [facility] Admission?: No Results: CXR ON 01/22/17 PPD to be Administered?: No - Smoking Cessation Smoking history: Current every day smoker Have you smoked in the past 12 months: Yes Aproximately how many cigarettes per day: 30 Cigars Per Day: 0 Hx Chewing Tobacco Use: No Initiated information on smoking cessation: Yes 'Breaking Loose' booklet given: 03/17/18 - Substance & Tx. History Hx Alcohol Use: Yes Hx Substance Use: Yes Substance Use Type: Alcohol, Heroin, Marijuana, Tranquilizers (XANAX) Hx Substance Use Treatment: Yes ([facility]) - Substances Abused HEROIN Route: Inhalation Frequency: 1-2 times per week Amount used: 3 BAGS Age of first use: 17 Date of Last Use: 03/15/18 VODKA Route: Oral Frequency: Daily Amount used: FIFTH Age of first use: 15 Date of Last Use: 03/17/18 THC Route: Smoking Frequency: 1-2 times per week Amount used: 1 BLUNT Age of first use: 15 Date of Last Use: 03/17/18 XANAX Route: Oral Frequency: Daily Amount used: 6MG Age of first use: 31 Date of Last Use: 03/16/18 COCAINE Route: Inhalation Frequency: 1-2 times per week Amount used: $60 Age of first use: 19 Date of Last Use: 03/12/18 Family Disease History - Family Disease History Family Disease History: [place]: Grandparent, Other: Father (DEPENDENT ON HEROIN AND ETOH), Mother (ALCOHOLIC AND ) Admission Physical Exam [facility] - Physical General Appearance: Yes: Appropriately Dressed, Mild Distress, Alcohol on Breath , Irritable HEENTM: Yes: EOMI, Normocephalic, Normal Voice, ROMINA, Pharynx Normal, Other ( MISSING TEETH) Respiratory: Yes: Chest Non-Tender, Lungs Clear, Normal Breath Sounds, No Respiratory Distress, No Accessory Muscle Use Neck: Yes: No masses,lesions,Nodules, Supple, Trachea in good position Breast: Yes: Breast Exam Deferred Cardiology: Yes: Regular Rhythm, Regular Rate, S1, S2 Abdominal: Yes: Normal Bowel Sounds, Non Tender, Flat, Soft Genitourinary: Yes: Within Normal Limits Back: Yes: Normal Inspection Musculoskeletal: Yes: full range of Motion, Gait Steady Extremities: Yes: Tremors (FELT) Neurological: Yes: carpenter repair II-XII NML intact, Alert, Motor Strength 5/5 Integumentary: Yes: Normal Color, Dry, Warm Lymphatic: Yes: Within Normal Limits - Diagnostic (1) Alcohol dependence with uncomplicated withdrawal Status: Acute (2) Cannabis dependence Status: Chronic (3) Drug-induced mood disorder Status: Suspected (4) Sedative/hypnotic withdrawal without complication Status: Acute (5) Alopecia Status: Chronic (6) Cocaine dependence Status: Chronic Qualifiers: Substance use status: uncomplicated Qualified Code(s): F14.20 - Cocaine dependence, uncomplicated (7) Depression Status: Chronic Qualifiers: Depression Type: unspecified Qualified Code(s): F32.9 - Major depressive disorder, single episode, unspecified (8) Essential hypertension Status: Chronic (9) GERD (gastroesophageal reflux disease) Status: Chronic Qualifiers: Esophagitis presence: esophagitis presence not specified Qualified Code(s) : K21.9 - Gastro-esophageal reflux disease without esophagitis (10) Nicotine dependence Status: Chronic Qualifiers: Nicotine product type: cigarettes Substance use status: in withdrawal Qualified Code(s): F17.213 - Nicotine dependence, cigarettes, with withdrawal (11) History of seizure Status: Chronic Cleared for Admission S - Detox or Rehab [facility] Level of Care: Medically Managed Detox Regimen/Protocol: Valium Claeared for Rehab Admission: No [facility] Breath Alcohol Content Breath Alcohol Content: 0.100
[~2018-03-17 22:37] MED LIST: MELATONIN 5 MG TABLETS PO PRN
[2018-03-17 22:46] VITALS: BMI 22.4
[2018-03-17] MEDS ORDERED: IBUPROFEN 400 MG TABLET (FP) PO PRN (22:50)
[2018-03-17] MEDS ORDERED: guaiFENesin/D-METHORPHAN HB 10 ML UNIT-DOSE CUPS PO PRN (22:50)
[2018-03-17] MEDS ORDERED: MAGNESIUM CITRATE 300 ML BOTTLE PO PRN (22:50)
[2018-03-17] MEDS ORDERED: MAG HYDROX/AL HYDROX/SIMETH 30 ML UNIT-DOSE CUP PO PRN (22:50)
[2018-03-17] MEDS ORDERED: ACETAMINOPHEN 325 MG TABLET (FP) PO PRN (22:50)
[2018-03-17] MEDS ORDERED: MAGNESIUM HYDROX 2400MG/30ML ORAL SUSPENSION 30 ML CUP PO PRN (22:50)
[2018-03-17] MEDS ORDERED: P-EPHED 60MG/TRIPROLIDI 2.5MG TABLET PO PRN (22:50)
[2018-03-17] MEDS ORDERED: diazePAM 5 MG TABLET PO ONE (22:50)
[2018-03-17] MEDS ORDERED: NICOTINE POLACRILEX 2 MG GUM BC PRN (22:50)
[2018-03-17] MEDS ORDERED: MENTHOL/PHENOL 1 EACH UD MM PRN (22:50)
[2018-03-17] MEDS: diazePAM 5 MG TABLET PO SCH (23:57)
[2018-03-18] MEDS: diazePAM 5 MG TABLET PO SCH ×3 (05:30→22:21)
[2018-03-18] MEDS ORDERED: ONDANSETRON *ODT* 4 MG TABLET SL PRN (08:51)
[2018-03-18] MEDS: PRENATAL VITAMINS W/ FOLIC ACID TABLET (FP) PO SCH (10:08)
[2018-03-18] MEDS: NICOTINE 21 MG/24 HOURS TOPICAL PATCH TD SCH (10:08)
[2018-03-18] MEDS: PANTOPRAZOLE 40 MG TABLET (FP) PO SCH (10:08)
[2018-03-18] MEDS: diazePAM 5 MG TABLET PO PRN (10:08)
[2018-03-18] MEDS: amLODIPine BESYLATE 10 MG TABLET (FP) PO SCH (10:08)
--- NOTE | 2018-03-18 10:24 | PN ---
S CIWA - CIWA Score Nausea/Vomitin-Int. Nausea w/Dry Heave Muscle Tremors: 4-Moderate,w/Arms Extend Anxiety: 4-Mod. Anxious/Guarded Agitation: 3 Paroxysmal Sweats: 1-Minimal Palms Moist Orientation: 0-Oriented Tacttile Disturbances: 0-None Auditory Disturbances: 0-None Visual Disturbances: 0-None Headache: 0-None Present CIWA-Ar Total Score: 16 BHS COWS - Scale Resting Pulse: 0= CA 80 or Below Sweatin= Chills/Flushing Restless Observation: 3= Extraneous Movement Pupil Size: 2= Moderately Dilated Bone or Joint Aches: 4=Acute Joint/Muscle Pain Runny Nose/ Eye Tearin= Nasal Congestion GI Upset > 30mins: 0= None Tremor Observation of Outstretched Hands: 2= Slight Tremor Visible Yawning Observation: 0= None Anxiety or Irritability: 1=Feels Anxious/Irritable Goose Flesh Skin: 0=Smooth Skin COWS Score: 14 BHS Progress Note (SOAP) Subjective: ANXIETY,SWEATS,BODY ACHES,NAUSEA,INTERMITTENT SLEEP. Objective: 03/18/18 10:21 Vital Signs 03/18/18 03/18/18 03/18/18 03:30 06:24 09:16 Temperature 97.6 F 97.1 F L Pulse Rate 77 70 Respiratory 18 18 18 Rate Blood Pressure 118/66 120/75 OTHER LABS PENDING Assessment: 03/18/18 10:23 WITHDRAWAL SX Plan: CONTINUE DETOX [facility] SL DIRECTED
--- NOTE | 2018-03-18 10:47 | EKG ---
Test Reason : Blood Pressure : / mmHG Vent. Rate : 080 BPM Atrial Rate : 080 BPM P-R Int : 174 ms QRS Dur : 092 ms QT Int : 402 ms P-R-T Axes : 075 -18 055 degrees QTc Int : 463 ms NORMAL SINUS RHYTHM NORMAL ECG WHEN COMPARED WITH ECG OF 13-JAN-2018 02:16, NO SIGNIFICANT CHANGE WAS FOUND Confirmed by KENNEDY MARTINEZ MD ([id number]) on 03/18/2018 10:46:45 AM Referred By: Confirmed By:KENNEDY MARTINEZ MD
[2018-03-18 11:05] LABS: HEMATOCRIT 38.5 % (35.4-49); HEMOGLOBIN 12.8 GM/dL (11.7-16.9); MCH 30.2 pg (25.7-33.7); MCHC 33.3 g/dl (32.0-35.9); MEAN CELL VOLUME 90.7 fl (80-96); MEAN PLT VOLUME 7.9 fl (7.5-11.1); PLATELET COUNT 217 K/MM3 (134-434); RBC 4.25 M/mm3 (4.00-5.60); RDW 14.6 % (11.9-15.9); WHITE BLOOD COUNT 3.3 K/mm3 (4.0-10.0)
[2018-03-18 11:34] LABS: URINE APPEARANCE CLEAR; URINE BILIRUBIN NEGATIVE (<2.0 mg/dL); URINE COLOR LTYELLOW; URINE GLUCOSE (UA) NEGATIVE (NEGATIVE); URINE KETONE NEGATIVE (NEGATIVE); URINE LEUK ESTERASE NEGATIVE (NEGATIVE); URINE NITRITE NEGATIVE (NEGATIVE); URINE PROTEIN NEGATIVE (NEGATIVE)
[2018-03-18 12:37] LABS: ALBUMIN 3.8 g/dl (3.4-5.0); ALK PHOS 57 U/L (45-117); ANION GAP 9 (8-16); BILIRUBIN,TOTAL 0.5 mg/dL (0.2-1.0); BLOOD UREA NITROGEN 10 mg/dL (7-18); CALCIUM 8.7 mg/dL (8.5-10.1); CHLORIDE 102 mmol/L (98-107); CO2 29 mmol/L (21-32); CREATININE 0.8 mg/dL (0.7-1.3); GLUCOSE,RANDOM 109 mg/dL (74-106); POTASSIUM 3.4 mmol/L (3.5-5.1); SGOT/AST 29 U/L (15-37); SGPT/ALT 35 U/L (12-78); SODIUM 140 mmol/L (136-145)
--- NOTE | 2018-03-18 13:27 | CONSULT ---
[facility] Psychiatric Consult - Data Date of interview: 03/18/18 Admission source: [facility] Identifying data: Patient is a 58 year old single male, without kids, unemployed (not receiving financial assistance), and currently homeless. This is one of multiple admissions for patient. Pt. admitted to for alcohol dependence. Substance Abuse History: - Smoking Cessation. Smoking history: Current every day smoker. Have you smoked in the past 12 months: Yes. Aproximately how many cigarettes per day: 30. Cigars Per Day: 0. Hx Chewing Tobacco Use: No. Initiated information on smoking cessation: Yes. 'Breaking Loose' booklet given : 03/17/18. - Substance & Tx. History. Hx Alcohol Use: Yes. Hx Substance Use : Yes. Substance Use Type: Alcohol, Heroin, Marijuana, Tranquilizers (XANAX). Hx Substance Use Treatment: Yes ([facility]). - Substances Abused. HEROIN. Route : Inhalation. Frequency: 1-2 times per week. Amount used: 3 BAGS. Age of first use: 17. Date of Last Use: 03/15/18. VODKA. Route: Oral. Frequency : Daily. Amount used: FIFTH. Age of first use: 15. Date of Last Use: . THC. Route: Smoking. Frequency: 1-2 times per week. Amount used: 1 BLUNT. Age of first use: 15. Date of Last Use: 03/17/18. XANAX. Route: Oral. Frequency: Daily. Amount used: 6MG. Age of first use: 31. Date of Last Use: 03/16/18. COCAINE. Route: Inhalation. Frequency: 1-2 times per week. Amount used: $60. Age of first use: 19. Date of Last Use: 03/12/18. Family Disease History Medical History: hypertension, GERD Psychiatric History: Patient slight irritable. Patient denies h/o psychiatric hospitalizations despite previous records stating patient has reported several psychiatric hospitalization. OPD is provided in the [place] and states he is prescribed seroquel 150mg qhs. Chart reviewed. Pt. reports poor sleep. Pt. denies h/o suicide attempt. Physical/Sexual Abuse/Trauma History: Denies. Mental Status Exam - Mental Status Exam Alert and Oriented to: Time, Place, Person Cognitive Function: Good Patient Appearance: Well Groomed Mood: Euthymic, Irritable Affect: Mood Congruent Patient Behavior: Cooperative Speech Pattern: Appropriate Voice Loudness: Normal Thought Process: Intact, Goal Oriented Thought Disorder: Not Present Hallucinations: Denies Suicidal Ideation: Denies Homicidal Ideation: Denies Insight/Judgement: Poor Sleep: Poorly Appetite: Fair Muscle strength/Tone: Normal Gait/Station: Normal Psychiatric Findings - Problem List ([place] 1, 2,3) (1) Substance induced mood disorder Current Visit: Yes Status: Acute (2) Alcohol dependence with uncomplicated withdrawal Current Visit: Yes Status: Acute (3) Alopecia Current Visit: Yes Status: Chronic (4) Essential hypertension Current Visit: Yes Status: Chronic (5) GERD (gastroesophageal reflux disease) Current Visit: Yes Status: Chronic Qualifiers: Esophagitis presence: esophagitis presence not specified Qualified Code(s) : K21.9 - Gastro-esophageal reflux disease without esophagitis (6) Insomnia Current Visit: Yes Status: Acute (7) Cannabis dependence Current Visit: Yes Status: Chronic (8) Cocaine dependence, uncomplicated Current Visit: Yes Status: Chronic - Initial Treatment Plan Initial Treatment Plan: Psychoeducation provided. Detoxification in progress. Seroquel 150mg qhs ordered. Benefits and side effects discussed. Verbal consent given. Will continue to monitor.
[2018-03-18] MEDS: QUEtiapine FUMARATE 50 MG TABLET PO SCH (22:21)
[2018-03-18] MEDS: THIAMINE HCL 100 MG TABLET (FP) PO SCH (22:23)
[2018-03-19] MEDS: PRENATAL VITAMINS W/ FOLIC ACID TABLET (FP) PO SCH (10:04)
[2018-03-19] MEDS: PANTOPRAZOLE 40 MG TABLET (FP) PO SCH (10:04)
[2018-03-19] MEDS: amLODIPine BESYLATE 10 MG TABLET (FP) PO SCH (10:04)
[2018-03-19] MEDS: diazePAM 5 MG TABLET PO SCH ×2 (10:05→22:32)
[2018-03-19] MEDS: NICOTINE 21 MG/24 HOURS TOPICAL PATCH TD SCH (10:05)
--- NOTE | 2018-03-19 10:08 | PN ---
S CIWA - CIWA Score Nausea/Vomitin-No Nausea/No Vomiting Muscle Tremors: 4-Moderate,w/Arms Extend Anxiety: 4-Mod. Anxious/Guarded Agitation: 2 Paroxysmal Sweats: 1-Minimal Palms Moist Orientation: 0-Oriented Tacttile Disturbances: 0-None Auditory Disturbances: 0-None Visual Disturbances: 0-None Headache: 0-None Present CIWA-Ar Total Score: 11 BHS Progress Note (SOAP) Subjective: REPORTS DECREASED ANXIETY,SWEATS,TREMORS,NAUSEA. Objective: 03/19/18 10:07 Vital Signs 03/19/18 03/19/18 03/19/18 03:30 06:19 06:30 Temperature 97.7 F Pulse Rate 79 Respiratory 18 18 18 Rate Blood Pressure 133/88 03/19/18 09:31 Temperature 96.8 F L Pulse Rate 77 Respiratory 18 Rate Blood Pressure 111/77 Laboratory Tests 03/18/18 03/18/18 03/18/18 07:00 07:00 07:00 WBC 3.3 L RBC 4.25 Hgb 12.8 Hct 38.5 MCV 90.7 MCH 30.2 MCHC 33.3 RDW 14.6 Plt Count 217 MPV 7.9 Sodium 140 Potassium 3.4 L Chloride 102 Carbon Dioxide 29 Anion Gap 9 BUN 10 D Creatinine 0.8 Creat Clearance w eGFR > 60 Random Glucose 109 H D Calcium 8.7 Total Bilirubin 0.5 D AST 29 D ALT 35 Alkaline Phosphatase 57 Total Protein 7.0 Albumin 3.8 Urine Color Urine Appearance Urine pH Ur Specific [place] Urine Protein Urine Glucose (UA) Urine Ketones Urine Blood Urine Nitrite Urine Bilirubin Urine Urobilinogen Ur Leukocyte Esterase RPR Titer Nonreactive 03/18/18 08:30 WBC RBC Hgb Hct MCV MCH MCHC RDW Plt Count MPV Sodium Potassium Chloride Carbon Dioxide Anion Gap BUN Creatinine Creat Clearance w eGFR Random Glucose Calcium Total Bilirubin AST ALT Alkaline Phosphatase Total Protein Albumin Urine Color Ltyellow Urine Appearance Clear Urine pH 7.0 Ur Specific [place] 1.011 Urine Protein Negative Urine Glucose (UA) Negative Urine Ketones Negative Urine Blood Negative Urine Nitrite Negative Urine Bilirubin Negative Urine Urobilinogen 2.0 Ur Leukocyte Esterase Negative RPR Titer K+ =3.4 Assessment: 03/19/18 10:07 WITHDRAWAL SX BORDERLINE HYPOKALEMIA Plan: CONTINUE DETOX KDUR 20 MEQ PO BID
[2018-03-19] MEDS ORDERED: POTASSIUM CHLORIDE TABS 20 MEQ TABLET.ER (FP) PO ONE ×2 (10:25→13:00)
[2018-03-19] MEDS: LOPERAMIDE HCL 2 MG CAPSULE PO PRN ×2 (15:05→21:23)
[2018-03-19] MEDS: diazePAM 5 MG TABLET PO PRN (19:56)
[2018-03-19] MEDS: QUEtiapine FUMARATE 50 MG TABLET PO SCH (21:24)
[2018-03-19] MEDS: POTASSIUM CHLORIDE TABS 20 MEQ TABLET.ER (FP) PO SCH (21:24)
[2018-03-19] MEDS: THIAMINE HCL 100 MG TABLET (FP) PO SCH (21:29)
[2018-03-20] MEDS: POTASSIUM CHLORIDE TABS 20 MEQ TABLET.ER (FP) PO SCH ×2 (10:15→22:26)
[2018-03-20] MEDS: PANTOPRAZOLE 40 MG TABLET (FP) PO SCH (10:15)
[2018-03-20] MEDS: amLODIPine BESYLATE 10 MG TABLET (FP) PO SCH (10:15)
[2018-03-20] MEDS: hydrOXYzine PAMOATE 50 MG CAPSULE (FP) PO PRN ×2 (10:17→17:27)
[2018-03-20] MEDS: PRENATAL VITAMINS W/ FOLIC ACID TABLET (FP) PO SCH (10:18)
[2018-03-20] MEDS: diazePAM 5 MG TABLET PO SCH ×2 (10:18→22:26)
[2018-03-20] MEDS: NICOTINE 21 MG/24 HOURS TOPICAL PATCH TD SCH (10:18)
--- NOTE | 2018-03-20 17:07 | PN ---
BHS Progress Note (SOAP) Subjective: Anxious, Sweating. Objective: PATIENT A & O X 3, OBSERVED AMBULATING ON UNIT. NO ACUTE DISTRESS. 03/20/18 17:05 Vital Signs Temperature 97.5 F L 03/20/18 13:31 Pulse Rate 84 03/20/18 13:31 Respiratory Rate 18 03/20/18 13:31 Blood Pressure 129/87 03/20/18 13:31 O2 Sat by Pulse Oximetry (%) Laboratory Tests 03/18/18 03/18/18 03/18/18 07:00 07:00 07:00 WBC 3.3 L RBC 4.25 Hgb 12.8 Hct 38.5 MCV 90.7 MCH 30.2 MCHC 33.3 RDW 14.6 Plt Count 217 MPV 7.9 Sodium 140 Potassium 3.4 L Chloride 102 Carbon Dioxide 29 Anion Gap 9 BUN 10 D Creatinine 0.8 Creat Clearance w eGFR > 60 Random Glucose 109 H D Calcium 8.7 Total Bilirubin 0.5 D AST 29 D ALT 35 Alkaline Phosphatase 57 Total Protein 7.0 Albumin 3.8 Urine Color Urine Appearance Urine pH Ur Specific [place] Urine Protein Urine Glucose (UA) Urine Ketones Urine Blood Urine Nitrite Urine Bilirubin Urine Urobilinogen Ur Leukocyte Esterase RPR Titer Nonreactive 03/18/18 08:30 WBC RBC Hgb Hct MCV MCH MCHC RDW Plt Count MPV Sodium Potassium Chloride Carbon Dioxide Anion Gap BUN Creatinine Creat Clearance w eGFR Random Glucose Calcium Total Bilirubin AST ALT Alkaline Phosphatase Total Protein Albumin Urine Color Ltyellow Urine Appearance Clear Urine pH 7.0 Ur Specific [place] 1.011 Urine Protein Negative Urine Glucose (UA) Negative Urine Ketones Negative Urine Blood Negative Urine Nitrite Negative Urine Bilirubin Negative Urine Urobilinogen 2.0 Ur Leukocyte Esterase Negative RPR Titer LABS NOTED. Assessment: 03/20/18 17:05 WITHDRAWAL SYMPTOMS. HYPOKALEMIA. LEUKOPENIA. 03/20/18 17:06 Plan: CONTINUE DETOX. CONTINUE K-DUR. PATIENT SCHEDULED FOR D/C TOMORROW.
[2018-03-20] MEDS: THIAMINE HCL 100 MG TABLET (FP) PO SCH (22:26)
[2018-03-20] MEDS: QUEtiapine FUMARATE 50 MG TABLET PO SCH (22:26)
[2018-03-20 22:52] VITALS: TEMP 97.9
[2018-03-21 06:25] VITALS: BP 104/67; PULSE 69
[2018-03-21] MEDS: POTASSIUM CHLORIDE TABS 20 MEQ TABLET.ER (FP) PO SCH (09:06)
[2018-03-21] MEDS: PANTOPRAZOLE 40 MG TABLET (FP) PO SCH (09:06)
[2018-03-21] MEDS: amLODIPine BESYLATE 10 MG TABLET (FP) PO SCH (09:06)
[2018-03-21] MEDS: PRENATAL VITAMINS W/ FOLIC ACID TABLET (FP) PO SCH (09:06)
[2018-03-21] MEDS ORDERED: diazePAM 5 MG TABLET PO SCH (10:00)
--- NOTE | 2018-03-21 18:23 | PN ---
BHS Progress Note (SOAP) Subjective: Patient denies current Detox symptoms and reports that he feels well overall. Objective: PATIENT A & O X 3, OBSERVED AMBULATING ON UNIT. NO ACUTE DISTRESS. 03/21/18 18:22 Vital Signs Temperature 97.9 F 03/21/18 06:24 Pulse Rate 69 03/21/18 06:24 Respiratory Rate 18 03/21/18 06:24 Blood Pressure 104/67 03/21/18 06:24 O2 Sat by Pulse Oximetry (%) Laboratory Tests 03/18/18 03/18/18 03/18/18 07:00 07:00 07:00 WBC 3.3 L RBC 4.25 Hgb 12.8 Hct 38.5 MCV 90.7 MCH 30.2 MCHC 33.3 RDW 14.6 Plt Count 217 MPV 7.9 Sodium 140 Potassium 3.4 L Chloride 102 Carbon Dioxide 29 Anion Gap 9 BUN 10 D Creatinine 0.8 Creat Clearance w eGFR > 60 Random Glucose 109 H D Calcium 8.7 Total Bilirubin 0.5 D AST 29 D ALT 35 Alkaline Phosphatase 57 Total Protein 7.0 Albumin 3.8 Urine Color Urine Appearance Urine pH Ur Specific [place] Urine Protein Urine Glucose (UA) Urine Ketones Urine Blood Urine Nitrite Urine Bilirubin Urine Urobilinogen Ur Leukocyte Esterase RPR Titer Nonreactive 03/18/18 08:30 WBC RBC Hgb Hct MCV MCH MCHC RDW Plt Count MPV Sodium Potassium Chloride Carbon Dioxide Anion Gap BUN Creatinine Creat Clearance w eGFR Random Glucose Calcium Total Bilirubin AST ALT Alkaline Phosphatase Total Protein Albumin Urine Color Ltyellow Urine Appearance Clear Urine pH 7.0 Ur Specific [place] 1.011 Urine Protein Negative Urine Glucose (UA) Negative Urine Ketones Negative Urine Blood Negative Urine Nitrite Negative Urine Bilirubin Negative Urine Urobilinogen 2.0 Ur Leukocyte Esterase Negative RPR Titer LABS NOTED. Assessment: 03/21/18 18:24 COMPLETION OF DETOX REGIMEN. Plan: PATIENT SCHEDULED FOR DISCHARGE FROM DETOX UNIT TODAY.
--- NOTE | 2018-03-21 18:30 | DS ---
[facility] Detox Discharge Summary Admission Date: 03/17/18 Discharge Date: 03/21/18 - History Present History: Alcohol Dependence, Cannabis Dependence, Cocaine Dependence Additional Comments: PATIENT GOING TO [facility] ([place] FOR AFTERCARE. PATIENT WAS DISCHARGED FROM DETOX UNIT IN STABLE MEDICAL CONDITION. Pertinent Past History: History of Alopecia, HTN, GERD, Depression, History of Seizure, Hypokalemia, Weight Loss, Insomnia. - Physical Exam Results Vital Signs: Vital Signs Temperature 97.9 F 03/21/18 06:24 Pulse Rate 69 03/21/18 06:24 Respiratory Rate 18 03/21/18 06:24 Blood Pressure 104/67 03/21/18 06:24 O2 Sat by Pulse Oximetry (%) Pertinent Admission Physical Exam Findings: WITHDRAWAL SYMPTOMS. Laboratory Tests 03/18/18 03/18/18 03/18/18 07:00 07:00 07:00 WBC 3.3 L RBC 4.25 Hgb 12.8 Hct 38.5 MCV 90.7 MCH 30.2 MCHC 33.3 RDW 14.6 Plt Count 217 MPV 7.9 Sodium 140 Potassium 3.4 L Chloride 102 Carbon Dioxide 29 Anion Gap 9 BUN 10 D Creatinine 0.8 Creat Clearance w eGFR > 60 Random Glucose 109 H D Calcium 8.7 Total Bilirubin 0.5 D AST 29 D ALT 35 Alkaline Phosphatase 57 Total Protein 7.0 Albumin 3.8 Urine Color Urine Appearance Urine pH Ur Specific [place] Urine Protein Urine Glucose (UA) Urine Ketones Urine Blood Urine Nitrite Urine Bilirubin Urine Urobilinogen Ur Leukocyte Esterase RPR Titer Nonreactive 03/18/18 08:30 WBC RBC Hgb Hct MCV MCH MCHC RDW Plt Count MPV Sodium Potassium Chloride Carbon Dioxide Anion Gap BUN Creatinine Creat Clearance w eGFR Random Glucose Calcium Total Bilirubin AST ALT Alkaline Phosphatase Total Protein Albumin Urine Color Ltyellow Urine Appearance Clear Urine pH 7.0 Ur Specific [place] 1.011 Urine Protein Negative Urine Glucose (UA) Negative Urine Ketones Negative Urine Blood Negative Urine Nitrite Negative Urine Bilirubin Negative Urine Urobilinogen 2.0 Ur Leukocyte Esterase Negative RPR Titer LABS NOTED. - Treatment Hospital Course: Detox Protocol Followed, Detoxed Safely, Responded well, Discharged Condition Good Patient has Accepted a Rehab Referral to: PT. GOING TO [facility] ([place] - Medication Discharge Medications: Ambulatory Orders Pantoprazole Sodium [Protonix -] 40 mg PO DAILY #30 tablet.ec 01/15/18 Quetiapine Fumarate [Seroquel] 150 mg PO HS 03/17/18 Amlodipine Besylate [Norvasc -] 10 mg PO DAILY #30 tablet 03/20/18 - Diagnosis (1) Alcohol dependence with uncomplicated withdrawal Status: Acute (2) Hypokalemia Status: Acute (3) Nicotine dependence Status: Acute Qualifiers: Nicotine product type: cigarettes Substance use status: in withdrawal Qualified Code(s): F17.213 - Nicotine dependence, cigarettes, with withdrawal (4) Sedative/hypnotic withdrawal without complication Status: Acute (5) Substance induced mood disorder Status: Acute (6) Weight loss Status: Acute (7) Alopecia Status: Chronic (8) Cannabis dependence Status: Chronic (9) Cocaine dependence, uncomplicated Status: Chronic (10) Essential hypertension Status: Chronic (11) History of seizure Status: Suspected (12) Drug-induced mood disorder Status: Suspected (13) Depression Status: Chronic Qualifiers: Depression Type: unspecified Qualified Code(s): F32.9 - Major depressive disorder, single episode, unspecified (14) Substance induced mood disorder Status: Acute - AMA Did Patient Leave Against Medical Advice: No
== END 2018-03-21 09:18 | disposition home or self-care (01) | DRG 774 ==
LOC: YASAS 22:37 → Y3N 23:23
PROVIDERS: ADMIT Family Medicine Addiction Medicine; ATTEND Family Medicine Addiction Medicine
PROC: HZ2ZZZZ Detoxification Services for Substance Abuse Treatment (ICD-10-PCS; principal; 2018-03-17)
DX: F10.230 Alcohol dependence with withdrawal, uncomplicated (principal); F13.230 Sedative, hypnotic or anxiolytic dependence with withdrawal, uncomplicated; F14.20 Cocaine dependence, uncomplicated; F12.20 Cannabis dependence, uncomplicated; F19.24 Other psychoactive substance dependence with psychoactive substance-induced mood disorder; F32.9 Major depressive disorder, single episode, unspecified; I10 Essential (primary) hypertension; E87.6 Hypokalemia; G47.00 Insomnia, unspecified; R63.4 Abnormal weight loss; Z68.22 Body mass index [BMI] 22.0-22.9, adult; L65.9 Nonscarring hair loss, unspecified; Z88.0 Allergy status to penicillin; Z91.018 Allergy to other foods; Z59.0 Homelessness
CPT/HCPCS: 36415; 71046-TC-FY; 80053; 81003; 85027; 86593; 93005; 93010; Q0162

== ENCOUNTER 2018-06-19 10:37 | Inpatient (IN) | payer OTHER ==
[2018-06-19 11:59] VITALS: BMI 22.8
--- NOTE | 2018-06-19 16:56 | HP ---
CIWA Score - CIWA Score Nausea/Vomitin Muscle Tremors: 3 Anxiety: 4-Mod. Anxious/Guarded Agitation: 1-Slight > Activity Paroxysmal Sweats: 2 Orientation: 0-Oriented Tacttile Disturbances: 0-None Auditory Disturbances: 2-Mild Harshness/Frighten Visual Disturbances: 0-None Headache: 0-None Present CIWA-Ar Total Score: 14 Admission ROS S - HPI Allergies/Adverse Reactions: Allergies Allergy/AdvReac Type Severity Reaction Status Date / Time Fish Containing Products Allergy Severe Rash Verified 06/19/18 15:09 penicillin V [Penicillin V] Allergy Intermediate Hives Verified 06/19/18 15:09 Pork/Porcine Containing Allergy Mild Nausea Verified 06/19/18 15:09 Products History of Present Illness: patient here for detox from etoh use , reports 1/5 and 6 x 40 oz /day, reports tremors if not drinking , + w/d seizures most recently 8 yrs ago , + blackouts , denies recent falls , starts drinking as soon as he wakes up , latest this morning . benzo : xanax 3 sticks every other day , most recently yesterday utox + thc, + leia , + bzo cocaine : once a week cannabis : once a week heroin : once or twice a week tobacco : 1 / ppd , requesting nrt w/ patch pmhx /pshx : htn , gerd allergies : as above, confirmed Exam Limitations: No Limitations - Ebola screening Have you traveled outside of the country in the last 21 days: No Have you had contact with anyone from an Ebola affected area: No Have you been sick,other than usual withdrawal symptoms: No - Review of Systems Constitutional: See HPI EENT: reports: See HPI Respiratory: reports: See HPI Cardiac: reports: See HPI GI: reports: See HPI : reports: No Symptoms Reported Musculoskeletal: reports: See HPI, Back Pain Integumentary: reports: No Symptoms Reported Neuro: reports: Tremors Psychiatric: reports: Judgement Intact, Orientated x3, Depressed Patient History - Patient Medical History Hx Anemia: No Hx Asthma: No Hx Chronic Obstructive Pulmonary Disease (COPD): No Hx Cancer: No Hx Cardiac Disorders: No Hx Congestive Heart Failure: No Hx Hypertension: Yes (ON MEDICATION) Hx Hypercholesterolemia: No Hx Pacemaker: No HX Cerebrovascular Accident: No Hx Seizures: Yes (5 YEARS AGO, DRUG INDUCED) Hx Dementia: No Hx Diabetes: No Hx Gastrointestinal Disorders: Yes (GERD) Hx Liver Disease: No Hx Genitourinary Disorders: No Hx Sexually Transmitted Disorders: No Hx Renal Disease (ESRD): No Hx Thyroid Disease: No Hx Human Immunodeficiency Virus (HIV): No Hx Hepatitis C: No Hx Depression: Yes (SEROQUEL) Hx Suicide Attempt: No Hx Bipolar Disorder: No Hx Schizophrenia: No - Patient Surgical History Past Surgical History: Yes Hx Neurologic Surgery: No Hx Cataract Extraction: No Hx Cardiac Surgery: No Hx Lung Surgery: No Hx Breast Surgery: No Hx Breast Biopsy: No Hx Abdominal Surgery: No Hx Appendectomy: No Hx Cholecystectomy: No Hx Genitourinary Surgery: No Hx Section: No Hx Orthopedic Surgery: No Other Surgical History: removal of GI polyps in 1999 Anesthesia Reaction: No - PPD History Previous Implant?: No Documented Results: Positive w/o proof Implanted On Prior R Admission?: No Results: CXR NEG - Smoking Cessation Smoking history: Current every day smoker Have you smoked in the past 12 months: Yes Aproximately how many cigarettes per day: 30 Cigars Per Day: 0 Hx Chewing Tobacco Use: No Initiated information on smoking cessation: No - Substances Abused Alcohol Route: Oral Frequency: Daily Amount used: 1/5 OF VODKA AND 3 40 OUNCES OF BEER Age of first use: 15 Date of Last Use: 06/19/18 Alprazolam (Xanax) Route: Oral Frequency: 3-6 times per week Amount used: 3 2 MG TABLETS Age of first use: 22 Date of Last Use: 06/17/18 Family Disease History - Family Disease History Family Disease History: CA: Grandparent, Other: Father (DEPENDENT ON HEROIN AND ETOH), Mother (ALCOHOLIC AND ) Admission Physical Exam S - Vital Signs Vital Signs: Vital Signs - 24 hr 06/19/18 11:55 Temperature 97.7 F Pulse Rate 71 Respiratory 20 Rate Blood Pressure 156/105 - Physical General Appearance: Yes: No Apparent Distress, Nourished, Appropriately Dressed , Anxious HEENTM: Yes: EOMI, Hearing grossly Normal, Normal ENT Inspection, Normocephalic , Normal Voice, ROMINA, Pharynx Normal, Other (reading glasses upper dentures) Respiratory: Yes: Within Normal Limits, Chest Non-Tender, Lungs Clear, Normal Breath Sounds, No Respiratory Distress, No Accessory Muscle Use Neck: Yes: Within Normal Limits, No masses,lesions,Nodules, Trachea in good position Cardiology: Yes: Within Normal Limits, Regular Rhythm, Regular Rate Abdominal: Yes: Within Normal Limits, Normal Bowel Sounds, Non Tender, Flat, Soft Genitourinary: Yes: Within Normal Limits Back: Yes: Within Normal Limits, Normal Inspection Musculoskeletal: Yes: Within Normal Limits, full range of Motion, Gait Steady, Pelvis Stable Extremities: Yes: Normal Capillary Refill, Normal Inspection, Normal Range of Motion, Non-Tender, Tremors Neurological: Yes: Within Normal Limits, Fully Oriented, Alert, Motor Strength 5 /5, Normal Mood/Affect, Normal Response Integumentary: Yes: Within Normal Limits, Normal Color, Dry, Warm - Diagnostic (1) Alcohol dependence with uncomplicated withdrawal Current Visit: Yes Status: Acute BHS Breath Alcohol Content Breath Alcohol Content: 0.037 Urine Drug Screen - Results Drug Screen Negative: No Urine Drug Screen Results: THC-Marijuana, LEIA-Cocaine, BZO-Benzodiazepines
[2018-06-19] MEDS ORDERED: MENTHOL/PHENOL 1 EACH UD MM PRN (17:07)
[2018-06-19] MEDS ORDERED: IBUPROFEN 400 MG TABLET (FP) PO PRN (17:07)
[2018-06-19] MEDS ORDERED: MAGNESIUM HYDROX 2400MG/30ML ORAL SUSPENSION 30 ML CUP PO PRN (17:07)
[2018-06-19] MEDS ORDERED: ACETAMINOPHEN 325 MG TABLET (FP) PO PRN (17:07)
[2018-06-19] MEDS ORDERED: guaiFENesin/D-METHORPHAN HB 10 ML UNIT-DOSE CUPS PO PRN (17:07)
[2018-06-19] MEDS ORDERED: P-EPHED 60MG/TRIPROLIDI 2.5MG TABLET PO PRN (17:07)
[2018-06-19] MEDS ORDERED: MAG HYDROX/AL HYDROX/SIMETH 30 ML UNIT-DOSE CUP PO PRN (17:07)
[2018-06-19] MEDS ORDERED: chlordiazePOXIDE HCL 25 MG CAPSULE PO PRN (17:07)
[2018-06-19] MEDS ORDERED: LOPERAMIDE HCL 2 MG CAPSULE PO PRN (17:07)
[2018-06-19] MEDS ORDERED: MAGNESIUM CITRATE 300 ML BOTTLE PO PRN (17:07)
[2018-06-19] MEDS: amLODIPine BESYLATE 10 MG TABLET (FP) PO SCH (18:59)
[2018-06-19] MEDS: PANTOPRAZOLE 40 MG TABLET (FP) PO SCH (18:59)
[2018-06-19] MEDS: NICOTINE 21 MG/24 HOURS TOPICAL PATCH TD SCH (19:00)
[2018-06-19] MEDS ORDERED: MELATONIN 5 MG TABLETS PO PRN (22:00)
[2018-06-19] MEDS: chlordiazePOXIDE HCL 25 MG CAPSULE PO SCH (22:25)
[2018-06-19] MEDS: THIAMINE HCL 100 MG TABLET (FP) PO SCH (22:25)
[2018-06-20] MEDS: chlordiazePOXIDE HCL 25 MG CAPSULE PO SCH ×4 (05:42→22:32)
[2018-06-20] MEDS: NICOTINE 21 MG/24 HOURS TOPICAL PATCH TD SCH (10:35)
[2018-06-20] MEDS: amLODIPine BESYLATE 10 MG TABLET (FP) PO SCH (10:36)
[2018-06-20] MEDS: PRENATAL VITAMINS W/ FOLIC ACID TABLET (FP) PO SCH (10:36)
[2018-06-20] MEDS: PANTOPRAZOLE 40 MG TABLET (FP) PO SCH (10:36)
[2018-06-20 10:49] LABS: HEMATOCRIT 40.7 % (35.4-49); HEMOGLOBIN 13.3 GM/dL (11.7-16.9); MCH 29.6 pg (25.7-33.7); MCHC 32.8 g/dl (32.0-35.9); MEAN CELL VOLUME 90.1 fl (80-96); MEAN PLT VOLUME 7.7 fl (7.5-11.1); PLATELET COUNT 227 K/MM3 (134-434); RBC 4.51 M/mm3 (4.00-5.60); RDW 15.2 % (11.9-15.9); WHITE BLOOD COUNT 3.5 K/mm3 (4.0-10.0)
[2018-06-20 10:59] LABS: URINE APPEARANCE CLEAR; URINE BILIRUBIN NEGATIVE (<2.0 mg/dL); URINE GLUCOSE (UA) NEGATIVE (NEGATIVE); URINE KETONE NEGATIVE (NEGATIVE); URINE LEUK ESTERASE NEGATIVE (NEGATIVE); URINE NITRITE NEGATIVE (NEGATIVE); URINE PROTEIN NEGATIVE (NEGATIVE); URINE UROBILINOGEN NEGATIVE mg/dL (0.2-1.0)
[2018-06-20 11:11] LABS: URINE COLOR YELLOW
[2018-06-20 11:33] LABS: ALBUMIN 3.9 g/dl (3.4-5.0); ALK PHOS 54 U/L (45-117); ANION GAP 12 MMOL/L (8-16); BILIRUBIN,TOTAL 0.8 mg/dL (0.2-1); BLOOD UREA NITROGEN 9 mg/dL (7-18); CALCIUM 9.2 mg/dL (8.5-10.1); CHLORIDE 103 mmol/L (98-107); CO2 26 mmol/L (21-32); CREATININE 0.7 mg/dL (0.55-1.3); GLUCOSE,RANDOM 87 mg/dL (74-106); POTASSIUM 3.7 mmol/L (3.5-5.1); SGOT/AST 20 U/L (15-37); SGPT/ALT 31 U/L (13-61); SODIUM 141 mmol/L (136-145); TOT PROT 6.9 g/dl (6.4-8.2)
--- NOTE | 2018-06-20 13:01 | PN ---
S CIWA - CIWA Score Nausea/Vomitin Muscle Tremors: 2 Anxiety: 2 Agitation: 2 Paroxysmal Sweats: 2 Orientation: 0-Oriented Tacttile Disturbances: 2-Mild Itch/Numbness/Burn Auditory Disturbances: 1-Very Mild Visual Disturbances: 1-Very Mild Sensitivity Headache: 2-Mild CIWA-Ar Total Score: 16 BHS COWS - Scale Resting Pulse: 0= OR 80 or Below Sweatin= Chills/Flushing Restless Observation: 1= Difficult to Sit Still Pupil Size: 0= Normal to Room Light Bone or Joint Aches: 2= Severe Diffuse Aches Runny Nose/ Eye Tearin= Nasal Congestion GI Upset > 30mins: 2= Nausea/Diarrhea Tremor Observation of Outstretched Hands: 2= Slight Tremor Visible Yawning Observation: 1= 1-2x During Session Anxiety or Irritability: 2=Irritable/Anxious Goose Flesh Skin: 3=Piloerection COWS Score: 15 BHS Progress Note (SOAP) Subjective: Tremors, sweats, generalized pain and interrupted sleep Objective: 06/20/18 13:00 Vital Signs 06/20/18 06/20/18 06:00 10:14 Temperature 97.7 F 97.9 F Pulse Rate 68 70 Respiratory 18 108 H Rate Blood Pressure 130/74 134/52 L Laboratory Last Values WBC 3.5 K/mm3 (4.0-10.0) L 06/20/18 07:50 RBC 4.51 M/mm3 (4.00-5.60) 06/20/18 07:50 Hgb 13.3 GM/dL (11.7-16.9) 06/20/18 07:50 Hct 40.7 % (35.4-49) 06/20/18 07:50 MCV 90.1 fl (80-96) 06/20/18 07:50 MCH 29.6 pg (25.7-33.7) 06/20/18 07:50 MCHC 32.8 g/dl (32.0-35.9) 06/20/18 07:50 RDW 15.2 % (11.9-15.9) 06/20/18 07:50 Plt Count 227 K/MM3 (134-434) 06/20/18 07:50 MPV 7.7 fl (7.5-11.1) 06/20/18 07:50 Sodium 141 mmol/L (136-145) 06/20/18 07:50 Potassium 3.7 mmol/L (3.5-5.1) 06/20/18 07:50 Chloride 103 mmol/L (98-107) 06/20/18 07:50 Carbon Dioxide 26 mmol/L (21-32) 06/20/18 07:50 Anion Gap 12 MMOL/L (8-16) 06/20/18 07:50 BUN 9 mg/dL (7-18) 06/20/18 07:50 Creatinine 0.7 mg/dL (0.55-1.3) 06/20/18 07:50 Creat Clearance w eGFR > 60 (>60) 06/20/18 07:50 Random Glucose 87 mg/dL (74-106) 06/20/18 07:50 Calcium 9.2 mg/dL (8.5-10.1) 06/20/18 07:50 Total Bilirubin 0.8 mg/dL (0.2-1) 06/20/18 07:50 AST 20 U/L (15-37) 06/20/18 07:50 ALT 31 U/L (13-61) 06/20/18 07:50 Alkaline Phosphatase 54 U/L (45-117) 06/20/18 07:50 Total Protein 6.9 g/dl (6.4-8.2) 06/20/18 07:50 Albumin 3.9 g/dl (3.4-5.0) 06/20/18 07:50 Urine Color Yellow 06/20/18 08:50 Urine Appearance Clear 06/20/18 08:50 Urine pH 6.0 (5.0-8.0) 06/20/18 08:50 Ur Specific [place] 1.011 (1.001-1.035) 06/20/18 08:50 Urine Protein Negative (NEGATIVE) 06/20/18 08:50 Urine Glucose (UA) Negative (NEGATIVE) 06/20/18 08:50 Urine Ketones Negative (NEGATIVE) 06/20/18 08:50 Urine Blood Negative (NEGATIVE) 06/20/18 08:50 Urine Nitrite Negative (NEGATIVE) 06/20/18 08:50 Urine Bilirubin Negative (<2.0 mg/dL) 06/20/18 08:50 Urine Urobilinogen Negative mg/dL (0.2-1.0) 06/20/18 08:50 Ur Leukocyte Esterase Negative (NEGATIVE) 06/20/18 08:50 Labs noted Assessment: 06/20/18 13:00 Withdrawal sx Plan: Continue detox
--- NOTE | 2018-06-20 15:41 | EKG ---
Test Reason : Blood Pressure : / mmHG Vent. Rate : 088 BPM Atrial Rate : 088 BPM P-R Int : 170 ms QRS Dur : 094 ms QT Int : 398 ms P-R-T Axes : 077 -67 064 degrees QTc Int : 481 ms POOR DATA QUALITY, INTERPRETATION MAY BE ADVERSELY AFFECTED NORMAL SINUS RHYTHM LEFT AXIS DEVIATION PROLONGED QT ABNORMAL ECG WHEN COMPARED WITH ECG OF 17-MAR-2018 23:44, NO SIGNIFICANT CHANGE WAS FOUND Confirmed by MD Johann, Mathew ([id number]) on 06/20/2018 3:41:29 PM Referred By: Confirmed By:Mtahew Wills MD
--- NOTE | 2018-06-20 16:30 | CONSULT ---
[facility] Psychiatric Consult - Data Date of interview: 06/20/18 Admission source: [facility] Identifying data: Readmission to [facility] for this 58 y/o AA male self- referred for detoxification treatment (alcohol,xanax,cannabis,cocaine).Admitted to [address] [place] [address].Patient is single,a father of one,undomiciled,unemployed and supported on food stamps. Substance Abuse History: Confirmed by the patient in this interview.Details in current [facility] interview : Smoking history: Current every day smoker. Have you smoked in the past 12 months: Yes. Aproximately how many cigarettes per day: 30. Cigars Per Day: 0. Hx Chewing Tobacco Use: No. Initiated information on smoking cessation: No. - Substances Abused. Alcohol. Route: Oral. Frequency: Daily. Amount used: 1/5 OF VODKA AND 3 40 OUNCES OF BEER. Age of first use: 15. Date of Last Use: 06/19/18. Alprazolam (Xanax). Route: Oral. Frequency: 3-6 times per week. Amount used: 3 2 MG TABLETS. Age of first use: 22. Date of Last Use: 06/17/18 Medical History: GERD,hypertension,withdrawal seizures and a history of surgery for removal of intestinal polyps (1999). Psychiatric History: Patient denies history of psychiatric hospitalizations.States that he received treatment at [facility] and [facility] (detoxification wards).Reportedly diagnosed with Bipolar Disorder.Patient is not adherent to psychiatric OPD care.Mr Willams requests the addition of seroquel (150 mg/hs) to the current regimen of medications. Patient denies history of suicide attempts. Physical/Sexual Abuse/Trauma History: Patient denies. Additional Comment: Urine Drug Screen Results: THC-Marijuana, ANGIE-Cocaine, BZO- Benzodiazepines.Noted. Mental Status Exam - Mental Status Exam Alert and Oriented to: Time, Place, Person Cognitive Function: Good Patient Appearance: Well Groomed Mood: Hopeful, Euthymic Affect: Appropriate, Normal Range Patient Behavior: Fatigued, Appropriate, Cooperative Speech Pattern: Clear, Appropriate Voice Loudness: Normal Thought Process: Intact, Goal Oriented Thought Disorder: Not Present Hallucinations: Denies Suicidal Ideation: Denies Homicidal Ideation: Denies Insight/Judgement: Poor Sleep: Poorly, Difficulty falling asleep Appetite: Good Muscle strength/Tone: Normal Psychiatric Findings - Problem List ([place] 1, 2,3) (1) Sedative/hypnotic withdrawal without complication Current Visit: Yes Status: Acute (2) Alcohol dependence with uncomplicated withdrawal Current Visit: Yes Status: Acute (3) Cannabis dependence Current Visit: Yes Status: Acute (4) Cocaine dependence Current Visit: Yes Status: Acute Qualifiers: Substance use status: uncomplicated Qualified Code(s): F14.20 - Cocaine dependence, uncomplicated (5) Nicotine dependence Current Visit: Yes Status: Acute Qualifiers: Nicotine product type: cigarettes Substance use status: uncomplicated Qualified Code(s): F17.210 - Nicotine dependence, cigarettes, uncomplicated (6) Insomnia Current Visit: Yes Status: Acute (7) Bipolar disorder Current Visit: No Status: Chronic Comment: As per history and records. - Initial Treatment Plan Initial Treatment Plan: Psychoeducation.Sleep hygiene.Detoxification in progress.Seroquel 150 mg po hs.Side effects/benefits discussed with the patient.Mr Willams agrees to this careplan.Observation.
[2018-06-20] MEDS: THIAMINE HCL 100 MG TABLET (FP) PO SCH (22:31)
[2018-06-20] MEDS: QUEtiapine FUMARATE 100 MG TABLET (FP) PO SCH (22:47)
[2018-06-21] MEDS: chlordiazePOXIDE HCL 25 MG CAPSULE PO SCH ×3 (05:39→16:36)
[2018-06-21] MEDS: PRENATAL VITAMINS W/ FOLIC ACID TABLET (FP) PO SCH (10:13)
[2018-06-21] MEDS: PANTOPRAZOLE 40 MG TABLET (FP) PO SCH (10:13)
[2018-06-21] MEDS: NICOTINE 21 MG/24 HOURS TOPICAL PATCH TD SCH (10:13)
[2018-06-21] MEDS: amLODIPine BESYLATE 10 MG TABLET (FP) PO SCH (10:13)
[2018-06-21] MEDS: hydrOXYzine PAMOATE 25 MG CAPSULE (FP) PO PRN ×2 (16:36→21:03)
--- NOTE | 2018-06-21 17:25 | PN ---
S CIWA - CIWA Score Nausea/Vomitin-Mild Nausea/No Vomiting Muscle Tremors: 4-Moderate,w/Arms Extend Anxiety: 3 Agitation: 3 Paroxysmal Sweats: 1-Minimal Palms Moist Orientation: 0-Oriented Tacttile Disturbances: 0-None Auditory Disturbances: 1-Very Mild Visual Disturbances: 0-None Headache: 0-None Present CIWA-Ar Total Score: 13 BHS Progress Note (SOAP) Subjective: sweat tremor gi distress restlessness Objective: 06/21/18 17:26 Vital Signs Temperature 97.7 F 06/21/18 16:50 Pulse Rate 73 06/21/18 16:50 Respiratory Rate 19 06/21/18 16:50 Blood Pressure 117/72 06/21/18 16:50 O2 Sat by Pulse Oximetry (%) Laboratory Last Values WBC 3.5 K/mm3 (4.0-10.0) L 06/20/18 07:50 RBC 4.51 M/mm3 (4.00-5.60) 06/20/18 07:50 Hgb 13.3 GM/dL (11.7-16.9) 06/20/18 07:50 Hct 40.7 % (35.4-49) 06/20/18 07:50 MCV 90.1 fl (80-96) 06/20/18 07:50 MCH 29.6 pg (25.7-33.7) 06/20/18 07:50 MCHC 32.8 g/dl (32.0-35.9) 06/20/18 07:50 RDW 15.2 % (11.9-15.9) 06/20/18 07:50 Plt Count 227 K/MM3 (134-434) 06/20/18 07:50 MPV 7.7 fl (7.5-11.1) 06/20/18 07:50 Sodium 141 mmol/L (136-145) 06/20/18 07:50 Potassium 3.7 mmol/L (3.5-5.1) 06/20/18 07:50 Chloride 103 mmol/L (98-107) 06/20/18 07:50 Carbon Dioxide 26 mmol/L (21-32) 06/20/18 07:50 Anion Gap 12 MMOL/L (8-16) 06/20/18 07:50 BUN 9 mg/dL (7-18) 06/20/18 07:50 Creatinine 0.7 mg/dL (0.55-1.3) 06/20/18 07:50 Creat Clearance w eGFR > 60 (>60) 06/20/18 07:50 Random Glucose 87 mg/dL (74-106) 06/20/18 07:50 Calcium 9.2 mg/dL (8.5-10.1) 06/20/18 07:50 Total Bilirubin 0.8 mg/dL (0.2-1) 06/20/18 07:50 AST 20 U/L (15-37) 06/20/18 07:50 ALT 31 U/L (13-61) 06/20/18 07:50 Alkaline Phosphatase 54 U/L (45-117) 06/20/18 07:50 Total Protein 6.9 g/dl (6.4-8.2) 06/20/18 07:50 Albumin 3.9 g/dl (3.4-5.0) 06/20/18 07:50 Urine Color Yellow 06/20/18 08:50 Urine Appearance Clear 06/20/18 08:50 Urine pH 6.0 (5.0-8.0) 06/20/18 08:50 Ur Specific Stevenson 1.011 (1.001-1.035) 06/20/18 08:50 Urine Protein Negative (NEGATIVE) 06/20/18 08:50 Urine Glucose (UA) Negative (NEGATIVE) 06/20/18 08:50 Urine Ketones Negative (NEGATIVE) 06/20/18 08:50 Urine Blood Negative (NEGATIVE) 06/20/18 08:50 Urine Nitrite Negative (NEGATIVE) 06/20/18 08:50 Urine Bilirubin Negative (<2.0 mg/dL) 06/20/18 08:50 Urine Urobilinogen Negative mg/dL (0.2-1.0) 06/20/18 08:50 Ur Leukocyte Esterase Negative (NEGATIVE) 06/20/18 08:50 RPR Titer Nonreactive (NONREACTIVE) 06/20/18 07:50 lab noted Assessment: 06/21/18 17:26 withdrawal sx Plan: continue detox
[2018-06-21] MEDS: THIAMINE HCL 100 MG TABLET (FP) PO SCH (22:51)
[2018-06-21] MEDS: chlordiazePOXIDE 5 MG CAPSULE PO SCH (22:51)
[2018-06-21] MEDS: QUEtiapine FUMARATE 100 MG TABLET (FP) PO SCH (22:53)
[2018-06-22] MEDS: chlordiazePOXIDE 5 MG CAPSULE PO SCH ×2 (05:30→10:18)
[2018-06-22 09:20] VITALS: BP 128/60; PULSE 66; TEMP 97.2
[2018-06-22] MEDS: amLODIPine BESYLATE 10 MG TABLET (FP) PO SCH (10:18)
[2018-06-22] MEDS: PANTOPRAZOLE 40 MG TABLET (FP) PO SCH (10:18)
[2018-06-22] MEDS: NICOTINE 21 MG/24 HOURS TOPICAL PATCH TD SCH (10:18)
[2018-06-22] MEDS: PRENATAL VITAMINS W/ FOLIC ACID TABLET (FP) PO SCH (10:18)
--- NOTE | 2018-06-22 15:00 | DS ---
[facility] Detox Discharge Summary Admission Date: 06/19/18 Discharge Date: 06/22/18 - History Present History: Alcohol Dependence Additional Comments: Admitted for alcohol withdrawal complaints. Alcohol use disorder began at age 15. - Physical Exam Results Vital Signs: Vital Signs Temperature 97.2 F L 06/22/18 09:19 Pulse Rate 66 06/22/18 09:19 Respiratory Rate 16 06/22/18 09:19 Blood Pressure 128/60 06/22/18 09:19 O2 Sat by Pulse Oximetry (%) Pertinent Admission Physical Exam Findings: Admitted with symptoms of alcohol withdrawal. Lab Results WBC 3.5 K/mm3 (4.0-10.0) L 06/20/18 07:50 RBC 4.51 M/mm3 (4.00-5.60) 06/20/18 07:50 Hgb 13.3 GM/dL (11.7-16.9) 06/20/18 07:50 Hct 40.7 % (35.4-49) 06/20/18 07:50 MCV 90.1 fl (80-96) 06/20/18 07:50 MCHC 32.8 g/dl (32.0-35.9) 06/20/18 07:50 RDW 15.2 % (11.9-15.9) 06/20/18 07:50 Plt Count 227 K/MM3 (134-434) 06/20/18 07:50 Sodium 141 mmol/L (136-145) 06/20/18 07:50 Potassium 3.7 mmol/L (3.5-5.1) 06/20/18 07:50 Chloride 103 mmol/L (98-107) 06/20/18 07:50 Carbon Dioxide 26 mmol/L (21-32) 06/20/18 07:50 Anion Gap 12 MMOL/L (8-16) 06/20/18 07:50 BUN 9 mg/dL (7-18) 06/20/18 07:50 Creatinine 0.7 mg/dL (0.55-1.3) 06/20/18 07:50 Random Glucose 87 mg/dL (74-106) 06/20/18 07:50 Calcium 9.2 mg/dL (8.5-10.1) 06/20/18 07:50 Labs reviewed. - Treatment Hospital Course: Detox Protocol Followed, Detoxed Safely, Responded well, Discharged Condition Good - Medication Discharge Medications: Ambulatory Orders Pantoprazole Sodium [Protonix -] 40 mg PO DAILY #30 tablet.ec 01/15/18 Quetiapine Fumarate [Seroquel] 150 mg PO HS 03/17/18 Amlodipine Besylate [Norvasc -] 10 mg PO DAILY #30 tablet 03/20/18 - Diagnosis (1) Alcohol dependence with uncomplicated withdrawal Status: Acute - AMA Did Patient Leave Against Medical Advice: No
--- NOTE | 2018-06-22 18:10 | EKG ---
Test Reason : Blood Pressure : / mmHG Vent. Rate : 060 BPM Atrial Rate : 060 BPM P-R Int : 192 ms QRS Dur : 098 ms QT Int : 430 ms P-R-T Axes : 071 -26 057 degrees QTc Int : 430 ms NORMAL SINUS RHYTHM NONSPECIFIC T WAVE ABNORMALITY ABNORMAL ECG WHEN COMPARED WITH ECG OF 19-JUN-2018 18:31, QT HAS SHORTENED Confirmed by ISABELL AC MD ([id number]) on 06/22/2018 6:10:10 PM Referred By: Confirmed By:ISABELL AC MD
[2018-06-22] MEDS ORDERED: chlordiazePOXIDE HCL 10 MG CAPSULE PO SCH (23:00)
== END 2018-06-22 12:54 | disposition home or self-care (01) | DRG 774 ==
LOC: YASAS 10:37 → Y6N 17:00
PROC: HZ2ZZZZ Detoxification Services for Substance Abuse Treatment (ICD-10-PCS; principal; 2018-06-19)
DX: F10.230 Alcohol dependence with withdrawal, uncomplicated (principal); F13.230 Sedative, hypnotic or anxiolytic dependence with withdrawal, uncomplicated; F14.20 Cocaine dependence, uncomplicated; F12.20 Cannabis dependence, uncomplicated; F17.210 Nicotine dependence, cigarettes, uncomplicated; F31.9 Bipolar disorder, unspecified; F41.9 Anxiety disorder, unspecified; F32.9 Major depressive disorder, single episode, unspecified; G47.00 Insomnia, unspecified; Z91.013 Allergy to seafood; Z86.69 Personal history of other diseases of the nervous system and sense organs; Z59.0 Homelessness; K21.9 Gastro-esophageal reflux disease without esophagitis
CPT/HCPCS: 36415; 80053; 81003; 85027; 86593; 93005; 93010

== ENCOUNTER 2018-11-12 13:39 | Inpatient (IN) | payer OTHER ==
[2018-11-12 13:59] VITALS: BMI 23.3
--- NOTE | 2018-11-12 15:01 | HP ---
COWS - Scale Resting Pulse: 1= [place] 81-100 Sweatin=Flushed/Facial Moisture Restless Observation: 1= Difficult to Sit Still Pupil Size: 0= Normal to Room Light Bone or Joint Aches: 2= Severe Diffuse Aches Runny Nose/ Eye Tearin= Runny Nose/Eyes GI Upset > 30mins: 1= Stomach Cramp Tremor Observation: 2= Slight Tremor Visible Yawning Observation: 2= >3x During Session Anxiety or Irritability: 2=Irritable/Anxious Goose Flesh Skin: 0=Smooth Skin COWS Score: 15 CIWA Score Nausea/Vomitin-Mild Nausea/No Vomiting Muscle Tremors: 4-Moderate,w/Arms Extend Anxiety: 4-Mod. Anxious/Guarded Agitation: 4-Moderately Restless Paroxysmal Sweats: 3 Orientation: 0-Oriented Tacttile Disturbances: 0-None Auditory Disturbances: 0-None Visual Disturbances: 0-None Headache: 0-None Present CIWA-Ar Total Score: 16 - Admission Criteria OASAS Guidelines: Admission for Medically Managed Detox: Requires at least one of the followin. CIWA greater than 12 2. Seizures within the past 24 hours 3. Delirium tremens within the past 24 hours 4. Hallucinations within the past 24 hours 5. Acute intervention needed for co occurring medical disorder 6. Acute intervention needed for co occurring psychiatric disorder 7. Severe withdrawal that cannot be handled at a lower level of care (continued vomiting, continued diarrhea, abnormal vital signs) requiring intravenous medication and/or fluids 8. Admission ROS BHS - HPI Chief Complaint: i had a small time of sober time and i liked the way it felt. I need to get clean. Allergies/Adverse Reactions: Allergies Allergy/AdvReac Type Severity Reaction Status Date / Time Fish Containing Products Allergy Severe Rash Verified 06/19/18 15:09 penicillin V [Penicillin V] Allergy Intermediate Hives Verified 06/19/18 15:09 Pork/Porcine Containing Allergy Mild Nausea Verified 06/19/18 15:09 Products History of Present Illness: pt is a 58yr old male with a history of alcohol, heroin, cocaine, xanax seeking detox for treatment. Exam Limitations: No Limitations - Ebola screening Have you traveled outside of the country in the last 21 days: No Have you had contact with anyone from an Ebola affected area: No Have you been sick,other than usual withdrawal symptoms: No Do you have a fever: No - Review of Systems Constitutional: Chills, Diaphoresis, Loss of Appetite, Night Sweats, Changes in sleep EENT: reports: Tearing, Nose Congestion Respiratory: reports: No Symptoms reported Cardiac: reports: Syncope GI: reports: Diarrhea, Nausea, Poor Appetite, Poor Fluid Intake, Vomiting, Indigestion, Abdominal cramping : reports: No Symptoms Reported Musculoskeletal: reports: Back Pain Integumentary: reports: Flushing, Rash (right forearm eczema/psoriosis), Sweating Neuro: reports: Tremors, Dizziness Endocrine: reports: Excessive Sweating, Flushing, Intolerance to Cold, Intolerance to Heat Hematology: reports: No Symptoms Reported Psychiatric: reports: Judgement Intact, Mood/Affect Appropiate, Orientated x3, Agitated, Anxious Other Systems: Reviewed and Negative Patient History - Patient Medical History Hx Anemia: No Hx Asthma: No Hx Chronic Obstructive Pulmonary Disease (COPD): No Hx Cancer: No Hx Cardiac Disorders: No Hx Congestive Heart Failure: No Hx Hypertension: Yes (ON MEDICATION) Hx Hypercholesterolemia: No Hx Pacemaker: No HX Cerebrovascular Accident: No Hx Seizures: Yes (5 YEARS AGO, DRUG INDUCED) Hx Dementia: No Hx Diabetes: No Hx Gastrointestinal Disorders: Yes (GERD) Hx Liver Disease: No Hx Genitourinary Disorders: No Hx Sexually Transmitted Disorders: No Hx Renal Disease (ESRD): No Hx Thyroid Disease: No Hx Human Immunodeficiency Virus (HIV): No Hx Hepatitis C: No Hx Depression: Yes (SEROQUEL) Hx Suicide Attempt: No Hx Bipolar Disorder: No Hx Schizophrenia: No - Patient Surgical History Past Surgical History: Yes Hx Neurologic Surgery: No Hx Cataract Extraction: No Hx Cardiac Surgery: No Hx Lung Surgery: No Hx Breast Surgery: No Hx Breast Biopsy: No Hx Abdominal Surgery: No Hx Appendectomy: No Hx Cholecystectomy: No Hx Genitourinary Surgery: No Hx Section: No Hx Orthopedic Surgery: No Other Surgical History: removal of GI polyps in 1999 Anesthesia Reaction: No - PPD History Documented Results: Positive w/proof Results: CXR NEG 11/04/17 PPD to be Administered?: No - Reproductive History Patient is a Female of Child Bearing Age (11 -55 yrs old): No - Smoking Cessation Smoking history: Current every day smoker Have you smoked in the past 12 months: Yes Aproximately how many cigarettes per day: 25 Cigars Per Day: 0 Hx Chewing Tobacco Use: No Initiated information on smoking cessation: Yes 'Breaking Loose' booklet given: 11/12/18 - Substance & Tx. History Hx Alcohol Use: Yes Hx Substance Use: Yes Substance Use Type: Alcohol, Cocaine, Heroin, Marijuana Hx Substance Use Treatment: Yes (last detox [facility] 07/2018) - Substances Abused Alcohol Frequency: Daily Amount used: a fifth of vodka, 2 40oz beer Age of first use: 13 Date of Last Use: 11/12/18 Heroin Route: Inhalation Frequency: Daily Amount used: 3 bags Age of first use: 25 Date of Last Use: 11/11/18 Cocaine Route: Inhalation Frequency: 1-3 times last 30 days Amount used: $60 Age of first use: 19 Date of Last Use: 11/09/18 Alprazolam (Xanax) Route: Oral Frequency: Daily Amount used: 3 sticks/15mg Age of first use: 51 Date of Last Use: 11/11/18 suboxone Route: Oral Frequency: 1-3 times last 30 days Amount used: 1 strip/ 8mg/2mg Age of first use: 41 Date of Last Use: 11/10/18 Family Disease History - Family Disease History Family Disease History: [place]: Grandparent, Other: Father (DEPENDENT ON HEROIN AND ETOH), Mother (ALCOHOLIC AND ) Admission Physical Exam [facility] - Vital Signs Vital Signs: Vital Signs - 24 hr 11/12/18 13:58 Temperature 98.3 F Pulse Rate 87 Respiratory 18 Rate Blood Pressure 147/80 - Physical General Appearance: Yes: Appropriately Dressed, Moderate Distress, Tremorous, Irritable, Sweating, Anxious HEENTM: Yes: Hearing grossly Normal, Normal Voice, Nasal Congestion, Rhinorrhea Respiratory: Yes: Lungs Clear, Normal Breath Sounds, No Respiratory Distress Neck: Yes: No masses,lesions,Nodules Breast: Yes: Within Normal Limits Cardiology: Yes: Regular Rhythm, Regular Rate, S1, S2 Abdominal: Yes: Normal Bowel Sounds, Non Tender, Soft Genitourinary: Yes: Within Normal Limits Back: Yes: Normal Inspection Musculoskeletal: Yes: full range of Motion, Back pain Extremities: Yes: Normal Capillary Refill, Normal Inspection, Non-Tender, Tremors Neurological: Yes: ux specialist II-XII NML intact, Fully Oriented, Alert, Normal Response Integumentary: Yes: Normal Color, Diaphoresis Lymphatic: Yes: Within Normal Limits - Diagnostic (1) Alcohol dependence with uncomplicated withdrawal Current Visit: Yes Status: Acute (2) Cannabis dependence Current Visit: Yes Status: Chronic (3) Cocaine dependence Current Visit: Yes Status: Chronic Qualifiers: Substance use status: uncomplicated Qualified Code(s): F14.20 - Cocaine dependence, uncomplicated (4) Insomnia Current Visit: Yes Status: Chronic Qualifiers: Insomnia type: unspecified Qualified Code(s): G47.00 - Insomnia, unspecified (5) Nicotine dependence Current Visit: Yes Status: Chronic Qualifiers: Nicotine product type: cigarettes Substance use status: uncomplicated Qualified Code(s): F17.210 - Nicotine dependence, cigarettes, uncomplicated (6) Opioid dependence with withdrawal Current Visit: Yes Status: Chronic (7) Sedative/hypnotic withdrawal without complication Current Visit: Yes Status: Chronic (8) Weight loss Current Visit: Yes Status: Acute (9) Alopecia Current Visit: Yes Status: Chronic (10) Bipolar disorder Current Visit: Yes Status: Chronic Comment: As per history and records. (11) Cocaine dependence, uncomplicated Current Visit: Yes Status: Chronic (12) Depression Current Visit: No Status: Chronic Qualifiers: Depression Type: unspecified Qualified Code(s): F32.9 - Major depressive disorder, single episode, unspecified (13) Eczema Current Visit: Yes Status: Chronic Qualifiers: Eczema type: unspecified Qualified Code(s): L30.9 - Dermatitis, unspecified (14) Essential hypertension Current Visit: Yes Status: Chronic (15) GERD (gastroesophageal reflux disease) Current Visit: Yes Status: Chronic Qualifiers: Esophagitis presence: without esophagitis Qualified Code(s): K21.9 - Gastro -esophageal reflux disease without esophagitis (16) Anxiety and depression Current Visit: No Status: Suspected (17) History of seizure Current Visit: Yes Status: Suspected Cleared for Admission BHS - Detox or Rehab S Level of Care: Medically Managed Detox Regimen/Protocol: Methadone/Valium BHS Breath Alcohol Content Breath Alcohol Content: 0 Urine Drug Screen - Results Drug Screen Negative: No Urine Drug Screen Results: THC-Marijuana, ANGIE-Cocaine, OPI-Opiates, BZO- Benzodiazepines, BUP-Suboxone Inpatient Rehab Admission - Rehab Decision to Admit Inpatient rehab admission?: No
[2018-11-12] MEDS ORDERED: ACETAMINOPHEN 325 MG TABLET (FP) PO PRN (15:23)
[2018-11-12] MEDS ORDERED: MAG HYDROX/AL HYDROX/SIMETH 30 ML UNIT-DOSE CUP PO PRN (15:23)
[2018-11-12] MEDS ORDERED: MAGNESIUM CITRATE 300 ML BOTTLE PO PRN (15:23)
[2018-11-12] MEDS ORDERED: diazePAM 5 MG TABLET PO PRN (15:23)
[2018-11-12] MEDS ORDERED: IBUPROFEN 400 MG TABLET (FP) PO PRN (15:23)
[2018-11-12] MEDS ORDERED: MAGNESIUM HYDROX 2400MG/30ML ORAL SUSPENSION 30 ML CUP PO PRN (15:23)
[2018-11-12] MEDS ORDERED: P-EPHED 60MG/TRIPROLIDI 2.5MG TABLET PO PRN (15:23)
[2018-11-12] MEDS ORDERED: LOPERAMIDE HCL 2 MG CAPSULE PO PRN (15:23)
[2018-11-12] MEDS ORDERED: guaiFENesin/D-METHORPHAN HB 10 ML UNIT-DOSE CUPS PO PRN (15:23)
[2018-11-12] MEDS ORDERED: MENTHOL/PHENOL 1 EACH UD MM PRN (15:23)
[2018-11-12] MEDS ORDERED: NICOTINE POLACRILEX 4 MG GUM BC PRN (15:23)
[2018-11-12] MEDS ORDERED: METHADONE HCL 10 MG TABLET (FOR DETOX USE ONLY) PO ONE ×2 (18:15→23:00)
[2018-11-12] MEDS ORDERED: diazePAM 5 MG TABLET PO ONE (18:15)
[2018-11-12] MEDS ORDERED: MELATONIN 5 MG TABLETS PO PRN (22:00)
[2018-11-12] MEDS: diazePAM 5 MG TABLET PO SCH (22:10)
[2018-11-12] MEDS: QUEtiapine FUMARATE 100 MG TABLET (FP) PO SCH (22:10)
[2018-11-12] MEDS: THIAMINE HCL 100 MG TABLET (FP) PO SCH (22:10)
[2018-11-13] MEDS: diazePAM 5 MG TABLET PO SCH ×3 (05:17→22:00)
[2018-11-13] MEDS ORDERED: METHADONE HCL 10 MG TABLET (FOR DETOX USE ONLY) PO SCH (10:00)
[2018-11-13] MEDS: PRENATAL VITAMINS W/ FOLIC ACID TABLET (FP) PO SCH (10:12)
[2018-11-13] MEDS: amLODIPine BESYLATE 10 MG TABLET (FP) PO SCH (10:13)
[2018-11-13] MEDS: PANTOPRAZOLE 40 MG TABLET (FP) PO SCH (10:13)
[2018-11-13 11:25] LABS: HEMATOCRIT 39.7 % (35.4-49); HEMOGLOBIN 13.7 GM/dL (11.7-16.9); MCH 31.6 pg (25.7-33.7); MCHC 34.6 g/dl (32.0-35.9); MEAN CELL VOLUME 91.6 fl (80-96); MEAN PLT VOLUME 8.3 fl (7.5-11.1); PLATELET COUNT 230 K/MM3 (134-434); RBC 4.33 M/mm3 (4.00-5.60); WHITE BLOOD COUNT 3.6 K/mm3 (4.0-10.0)
[2018-11-13] MEDS: LIDOCAINE 5% TOPICAL PATCH TP SCH (12:08)
[2018-11-13] MEDS: NICOTINE 21 MG/24 HOURS TOPICAL PATCH TD SCH (12:09)
[2018-11-13 12:20] LABS: ALBUMIN 4.2 g/dl (3.4-5.0); ALK PHOS 61 U/L (45-117); ANION GAP 9 MMOL/L (8-16); BILIRUBIN,TOTAL 0.4 mg/dL (0.2-1); BLOOD UREA NITROGEN 12 mg/dL (7-18); CALCIUM 9.1 mg/dL (8.5-10.1); CHLORIDE 101 mmol/L (98-107); CO2 29 mmol/L (21-32); CREATININE 0.9 mg/dL (0.55-1.3); GLUCOSE,RANDOM 87 mg/dL (74-106); POTASSIUM 3.8 mmol/L (3.5-5.1); SGOT/AST 18 U/L (15-37); SGPT/ALT 24 U/L (13-61); SODIUM 139 mmol/L (136-145); TOT PROT 7.6 g/dl (6.4-8.2)
[2018-11-13] MEDS: MINERAL OIL/PETROLAT/WATER TOPICAL CREAM 113 GM JAR TP SCH ×2 (13:58→22:01)
--- NOTE | 2018-11-13 17:53 | PN ---
S CIWA - CIWA Score Nausea/Vomitin-No Nausea/No Vomiting Muscle Tremors: 3 Anxiety: 3 Agitation: 1-Slight > Activity Paroxysmal Sweats: 3 Orientation: 0-Oriented Tacttile Disturbances: 2-Mild Itch/Numbness/Burn Auditory Disturbances: 0-None Visual Disturbances: 2-Mild Sensitivity Headache: 0-None Present CIWA-Ar Total Score: 14 BHS COWS - Scale Resting Pulse: 0= [place] 80 or Below Sweatin= Chills/Flushing Restless Observation: 1= Difficult to Sit Still Pupil Size: 0= Normal to Room Light Bone or Joint Aches: 4=Acute Joint/Muscle Pain Runny Nose/ Eye Tearin= Nasal Congestion GI Upset > 30mins: 1= Stomach Cramp Tremor Observation of Outstretched Hands: 2= Slight Tremor Visible Yawning Observation: 0= None Anxiety or Irritability: 2=Irritable/Anxious Goose Flesh Skin: 3=Piloerection COWS Score: 15 S Progress Note (SOAP) Subjective: Sweating, Tremors, Stomach Cramping, Body Aches, Nasal Congestion. Objective: PATIENT A & O X 3, OBSERVED AMBULATING ON UNIT. IN NO ACUTE DISTRESS. 11/13/18 17:51 Vital Signs Temperature 97.7 F 11/13/18 17:48 Pulse Rate 58 L 11/13/18 17:48 Respiratory Rate 18 11/13/18 17:48 Blood Pressure 136/82 11/13/18 17:48 O2 Sat by Pulse Oximetry (%) Laboratory Tests 11/13/18 11/13/18 11/13/18 06:00 06:00 06:00 WBC 3.6 L RBC 4.33 Hgb 13.7 Hct 39.7 MCV 91.6 MCH 31.6 MCHC 34.6 RDW 15.0 Plt Count 230 MPV 8.3 Sodium 139 Potassium 3.8 Chloride 101 Carbon Dioxide 29 Anion Gap 9 BUN 12 Creatinine 0.9 Creat Clearance w eGFR > 60 Random Glucose 87 Calcium 9.1 Total Bilirubin 0.4 AST 18 ALT 24 Alkaline Phosphatase 61 Total Protein 7.6 Albumin 4.2 RPR Titer Nonreactive LABS NOTED. PATIENT HAS HAD WBC LEVELS ON PREVIOUS ADMISSIONS. 11/13/18 17:52 Assessment: 11/13/18 17:52 WITHDRAWAL SYMPTOMS. LEUKOPENIA. Plan: CONTINUE DETOX. INCREASE DAILY PO FLUID INTAKE. PRN ACTIFED PO FOR NASAL CONGESTION. LIDODERM PATCH FOR BACK PAIN.
[2018-11-13] MEDS: LORATADINE 10 MG TABLET PO PRN (18:25)
[2018-11-13] MEDS: THIAMINE HCL 100 MG TABLET (FP) PO SCH (22:00)
[2018-11-13] MEDS: QUEtiapine FUMARATE 100 MG TABLET (FP) PO SCH (22:00)
[2018-11-13] MEDS: LIDOCAINE PATCH REMOVAL MC SCH (22:01)
[2018-11-14] MEDS: PANTOPRAZOLE 40 MG TABLET (FP) PO SCH (10:34)
[2018-11-14] MEDS: amLODIPine BESYLATE 10 MG TABLET (FP) PO SCH (10:34)
[2018-11-14] MEDS: NICOTINE 21 MG/24 HOURS TOPICAL PATCH TD SCH (10:34)
[2018-11-14] MEDS: PRENATAL VITAMINS W/ FOLIC ACID TABLET (FP) PO SCH (10:34)
[2018-11-14] MEDS: diazePAM 5 MG TABLET PO SCH ×2 (10:34→22:03)
[2018-11-14] MEDS: MINERAL OIL/PETROLAT/WATER TOPICAL CREAM 113 GM JAR TP SCH ×2 (10:35→22:03)
[2018-11-14] MEDS: METHADONE HCL 5 MG TABLET (FOR DETOX USE ONLY) PO SCH (10:35)
[2018-11-14] MEDS: LIDOCAINE 5% TOPICAL PATCH TP SCH (14:07)
--- NOTE | 2018-11-14 15:46 | PN ---
[facility] CIWA - CIWA Score Nausea/Vomitin-No Nausea/No Vomiting Muscle Tremors: 3 Anxiety: 3 Agitation: 2 Paroxysmal Sweats: 3 Orientation: 0-Oriented Tacttile Disturbances: 1-Very Mild Itch/Numbness Auditory Disturbances: 0-None Visual Disturbances: 1-Very Mild Sensitivity Headache: 0-None Present CIWA-Ar Total Score: 13 BHS COWS - Scale Resting Pulse: 0= [place] 80 or Below Sweatin= Chills/Flushing Restless Observation: 1= Difficult to Sit Still Pupil Size: 0= Normal to Room Light Bone or Joint Aches: 2= Severe Diffuse Aches Runny Nose/ Eye Tearin= Nasal Congestion GI Upset > 30mins: 0= None Tremor Observation of Outstretched Hands: 2= Slight Tremor Visible Yawning Observation: 1= 1-2x During Session Anxiety or Irritability: 2=Irritable/Anxious Goose Flesh Skin: 0=Smooth Skin COWS Score: 10 BHS Progress Note (SOAP) Subjective: Sweating, Tremors, Body Aches, Nasal Congestion. Patient Reports Frequent Urination X approx. 2 weeks. Patient Denies any other unusual Urinary Symptoms (Burning, Pain, Hesitancy). Objective: PATIENT A & O X 3, OBSERVED AMBULATING ON UNIT. IN NO ACUTE DISTRESS. 11/14/18 15:44 Vital Signs Temperature 96.4 F L 11/14/18 14:49 Pulse Rate 66 11/14/18 14:49 Respiratory Rate 18 11/14/18 14:49 Blood Pressure 115/80 11/14/18 14:49 O2 Sat by Pulse Oximetry (%) Laboratory Tests 11/13/18 11/13/18 11/13/18 06:00 06:00 06:00 WBC 3.6 L RBC 4.33 Hgb 13.7 Hct 39.7 MCV 91.6 MCH 31.6 MCHC 34.6 RDW 15.0 Plt Count 230 MPV 8.3 Sodium 139 Potassium 3.8 Chloride 101 Carbon Dioxide 29 Anion Gap 9 BUN 12 Creatinine 0.9 Creat Clearance w eGFR > 60 Random Glucose 87 Calcium 9.1 Total Bilirubin 0.4 AST 18 ALT 24 Alkaline Phosphatase 61 Total Protein 7.6 Albumin 4.2 RPR Titer Nonreactive LABS NOTED. Assessment: 11/14/18 15:45 WITHDRAWAL SYMPTOMS. LEUKOPENIA. Plan: CONTINUE DETOX. INCREASE DAILY PO FLUID INTAKE. UA ORDERED FOR REPORTED URINARY FREQUENCY. RESULTS PENDING.
[2018-11-14] MEDS: hydrOXYzine PAMOATE 50 MG CAPSULE (FP) PO PRN (17:02)
[2018-11-14] MEDS: THIAMINE HCL 100 MG TABLET (FP) PO SCH (22:03)
[2018-11-14] MEDS: QUEtiapine FUMARATE 100 MG TABLET (FP) PO SCH (22:03)
[2018-11-14] MEDS: LIDOCAINE PATCH REMOVAL MC SCH (22:04)
[2018-11-15] MEDS: amLODIPine BESYLATE 10 MG TABLET (FP) PO SCH (10:02)
[2018-11-15] MEDS: PANTOPRAZOLE 40 MG TABLET (FP) PO SCH (10:02)
[2018-11-15] MEDS: MINERAL OIL/PETROLAT/WATER TOPICAL CREAM 113 GM JAR TP SCH ×2 (10:02→23:00)
[2018-11-15] MEDS: PRENATAL VITAMINS W/ FOLIC ACID TABLET (FP) PO SCH (10:02)
[2018-11-15] MEDS: METHADONE HCL 5 MG TABLET (FOR DETOX USE ONLY) PO SCH (10:02)
[2018-11-15] MEDS: NICOTINE 21 MG/24 HOURS TOPICAL PATCH TD SCH (10:03)
[2018-11-15] MEDS: LIDOCAINE 5% TOPICAL PATCH TP SCH (10:03)
[2018-11-15] MEDS: diazePAM 5 MG TABLET PO SCH ×2 (10:04→23:00)
--- NOTE | 2018-11-15 10:50 | PN ---
[facility] CIWA - CIWA Score Nausea/Vomitin-Mild Nausea/No Vomiting Muscle Tremors: 3 Anxiety: 2 Agitation: 3 Paroxysmal Sweats: 1-Minimal Palms Moist Orientation: 0-Oriented Tacttile Disturbances: 0-None Auditory Disturbances: 0-None Visual Disturbances: 0-None Headache: 1-Very Mild CIWA-Ar Total Score: 11 BHS COWS - Scale Resting Pulse: 0= [place] 80 or Below Sweatin= Chills/Flushing Restless Observation: 0= Sits Still Pupil Size: 0= Normal to Room Light Bone or Joint Aches: 1= Mild Discomfort Runny Nose/ Eye Tearin= Nasal Congestion GI Upset > 30mins: 1= Stomach Cramp Tremor Observation of Outstretched Hands: 1= Tremor Elbert, Not Seen Yawning Observation: 1= 1-2x During Session Anxiety or Irritability: 1=Feels Anxious/Irritable Goose Flesh Skin: 0=Smooth Skin COWS Score: 7 S Progress Note (SOAP) Subjective: irritable tremor sweating body aches reported sleep better with seroquel strong recommend the patient provide urine sample for "urinating every 15 minutes" Objective: 11/15/18 10:52 Vital Signs Temperature 96.8 F L 11/15/18 09:44 Pulse Rate 62 11/15/18 09:44 Respiratory Rate 18 11/15/18 09:44 Blood Pressure 130/80 11/15/18 09:44 O2 Sat by Pulse Oximetry (%) Laboratory Last Values WBC 3.6 K/mm3 (4.0-10.0) L 11/13/18 06:00 RBC 4.33 M/mm3 (4.00-5.60) 11/13/18 06:00 Hgb 13.7 GM/dL (11.7-16.9) 11/13/18 06:00 Hct 39.7 % (35.4-49) 11/13/18 06:00 MCV 91.6 fl (80-96) 11/13/18 06:00 MCH 31.6 pg (25.7-33.7) 11/13/18 06:00 MCHC 34.6 g/dl (32.0-35.9) 11/13/18 06:00 RDW 15.0 % (11.9-15.9) 11/13/18 06:00 Plt Count 230 K/MM3 (134-434) 11/13/18 06:00 MPV 8.3 fl (7.5-11.1) 11/13/18 06:00 Sodium 139 mmol/L (136-145) 11/13/18 06:00 Potassium 3.8 mmol/L (3.5-5.1) 11/13/18 06:00 Chloride 101 mmol/L (98-107) 11/13/18 06:00 Carbon Dioxide 29 mmol/L (21-32) 11/13/18 06:00 Anion Gap 9 MMOL/L (8-16) 11/13/18 06:00 BUN 12 mg/dL (7-18) 11/13/18 06:00 Creatinine 0.9 mg/dL (0.55-1.3) 11/13/18 06:00 Creat Clearance w eGFR > 60 (>60) 11/13/18 06:00 Random Glucose 87 mg/dL (74-106) 11/13/18 06:00 Calcium 9.1 mg/dL (8.5-10.1) 11/13/18 06:00 Total Bilirubin 0.4 mg/dL (0.2-1) 11/13/18 06:00 AST 18 U/L (15-37) 11/13/18 06:00 ALT 24 U/L (13-61) 11/13/18 06:00 Alkaline Phosphatase 61 U/L (45-117) 11/13/18 06:00 Total Protein 7.6 g/dl (6.4-8.2) 11/13/18 06:00 Albumin 4.2 g/dl (3.4-5.0) 11/13/18 06:00 RPR Titer Nonreactive (NONREACTIVE) 11/13/18 06:00 lab noted urine result pending strong recommend the patient provide urine sample Assessment: 11/15/18 10:53 withdrawal sx Plan: continue detox
[2018-11-15] MEDS: LORATADINE 10 MG TABLET PO PRN (19:53)
[2018-11-15] MEDS: QUEtiapine FUMARATE 100 MG TABLET (FP) PO SCH (23:00)
[2018-11-15] MEDS: LIDOCAINE PATCH REMOVAL MC SCH (23:00)
[2018-11-15] MEDS: THIAMINE HCL 100 MG TABLET (FP) PO SCH (23:00)
[2018-11-16] MEDS ORDERED: METHADONE HCL 10 MG TABLET (FOR DETOX USE ONLY) PO SCH (10:00)
[2018-11-16] MEDS ORDERED: diazePAM 5 MG TABLET PO SCH (10:00)
[2018-11-16] MEDS: PANTOPRAZOLE 40 MG TABLET (FP) PO SCH (10:10)
[2018-11-16] MEDS: LIDOCAINE 5% TOPICAL PATCH TP SCH (10:10)
[2018-11-16] MEDS: PRENATAL VITAMINS W/ FOLIC ACID TABLET (FP) PO SCH (10:11)
[2018-11-16] MEDS: NICOTINE 21 MG/24 HOURS TOPICAL PATCH TD SCH (10:11)
[2018-11-16] MEDS: MINERAL OIL/PETROLAT/WATER TOPICAL CREAM 113 GM JAR TP SCH ×2 (10:11→21:35)
[2018-11-16] MEDS: amLODIPine BESYLATE 10 MG TABLET (FP) PO SCH (10:11)
[2018-11-16] MEDS: hydrOXYzine PAMOATE 50 MG CAPSULE (FP) PO PRN ×2 (13:27→22:52)
--- NOTE | 2018-11-16 14:48 | PN ---
S CIWA - CIWA Score Nausea/Vomitin-No Nausea/No Vomiting Muscle Tremors: 2 Anxiety: 1-Mildly Anxious Agitation: 1-Slight > Activity Paroxysmal Sweats: 1-Minimal Palms Moist Orientation: 1-Uncertain about Date Tacttile Disturbances: 0-None Auditory Disturbances: 0-None Visual Disturbances: 0-None Headache: 1-Very Mild CIWA-Ar Total Score: 7 BHS COWS - Scale Resting Pulse: 0= [place] 80 or Below Sweatin= Chills/Flushing Restless Observation: 0= Sits Still Pupil Size: 0= Normal to Room Light Bone or Joint Aches: 1= Mild Discomfort Runny Nose/ Eye Tearin= Nasal Congestion GI Upset > 30mins: 0= None Tremor Observation of Outstretched Hands: 1= Tremor [place], Not Seen Yawning Observation: 0= None Anxiety or Irritability: 1=Feels Anxious/Irritable Goose Flesh Skin: 0=Smooth Skin COWS Score: 5 S Progress Note (SOAP) Subjective: feeling better mild tremor less sweating sleep better at night encourage the patient bring medication list to aftercare appointment along with lab report Objective: 11/16/18 14:50 Vital Signs Temperature 97.1 F L 11/16/18 13:51 Pulse Rate 52 L 11/16/18 13:51 Respiratory Rate 20 11/16/18 13:51 Blood Pressure 140/88 11/16/18 13:51 O2 Sat by Pulse Oximetry (%) Laboratory Last Values WBC 3.6 K/mm3 (4.0-10.0) L 11/13/18 06:00 RBC 4.33 M/mm3 (4.00-5.60) 11/13/18 06:00 Hgb 13.7 GM/dL (11.7-16.9) 11/13/18 06:00 Hct 39.7 % (35.4-49) 11/13/18 06:00 MCV 91.6 fl (80-96) 11/13/18 06:00 MCH 31.6 pg (25.7-33.7) 11/13/18 06:00 MCHC 34.6 g/dl (32.0-35.9) 11/13/18 06:00 RDW 15.0 % (11.9-15.9) 11/13/18 06:00 Plt Count 230 K/MM3 (134-434) 11/13/18 06:00 MPV 8.3 fl (7.5-11.1) 11/13/18 06:00 Sodium 139 mmol/L (136-145) 11/13/18 06:00 Potassium 3.8 mmol/L (3.5-5.1) 11/13/18 06:00 Chloride 101 mmol/L (98-107) 11/13/18 06:00 Carbon Dioxide 29 mmol/L (21-32) 11/13/18 06:00 Anion Gap 9 MMOL/L (8-16) 11/13/18 06:00 BUN 12 mg/dL (7-18) 11/13/18 06:00 Creatinine 0.9 mg/dL (0.55-1.3) 11/13/18 06:00 Creat Clearance w eGFR > 60 (>60) 11/13/18 06:00 Random Glucose 87 mg/dL (74-106) 11/13/18 06:00 Calcium 9.1 mg/dL (8.5-10.1) 11/13/18 06:00 Total Bilirubin 0.4 mg/dL (0.2-1) 11/13/18 06:00 AST 18 U/L (15-37) 11/13/18 06:00 ALT 24 U/L (13-61) 11/13/18 06:00 Alkaline Phosphatase 61 U/L (45-117) 11/13/18 06:00 Total Protein 7.6 g/dl (6.4-8.2) 11/13/18 06:00 Albumin 4.2 g/dl (3.4-5.0) 11/13/18 06:00 RPR Titer Nonreactive (NONREACTIVE) 11/13/18 06:00 lab noted Assessment: 11/16/18 14:50 mild withdrawal sx Plan: continue detox
[2018-11-16] MEDS: QUEtiapine FUMARATE 100 MG TABLET (FP) PO SCH (21:36)
[2018-11-16] MEDS: THIAMINE HCL 100 MG TABLET (FP) PO SCH (21:36)
[2018-11-16] MEDS: LIDOCAINE PATCH REMOVAL MC SCH (21:36)
[2018-11-17] MEDS ORDERED: METHADONE HCL 5 MG TABLET (FOR DETOX USE ONLY) PO SCH (06:00)
[2018-11-17 06:43] VITALS: TEMP 97.6
[2018-11-17] MEDS: NICOTINE 21 MG/24 HOURS TOPICAL PATCH TD SCH (09:04)
[2018-11-17] MEDS: PRENATAL VITAMINS W/ FOLIC ACID TABLET (FP) PO SCH (09:04)
[2018-11-17] MEDS: MINERAL OIL/PETROLAT/WATER TOPICAL CREAM 113 GM JAR TP SCH (09:04)
[2018-11-17] MEDS: LIDOCAINE 5% TOPICAL PATCH TP SCH (09:04)
[2018-11-17] MEDS: PANTOPRAZOLE 40 MG TABLET (FP) PO SCH (09:04)
[2018-11-17] MEDS: amLODIPine BESYLATE 10 MG TABLET (FP) PO SCH (09:04)
[2018-11-17 09:37] VITALS: BP 114/78; PULSE 53
--- NOTE | 2018-11-17 13:07 | DS ---
[facility] Detox Discharge Summary Admission Date: 11/12/18 Discharge Date: 11/17/18 - History Present History: Alcohol Dependence, Opioid Dependence, Sedative Dependence Additional Comments: 58 years old male admitted on 11/12/18 for alcohol benzo opiate withdrawal stabilization [facility] Pertinent Past History: encourage keep medication list in wallet update medication list when medication changed strong recommend bring medication list and lab report to aftercare appointment - Physical Exam Results Vital Signs: Vital Signs Temperature 97.6 F 11/17/18 09:36 Pulse Rate 53 L 11/17/18 09:36 Respiratory Rate 18 11/17/18 09:36 Blood Pressure 114/78 11/17/18 09:36 O2 Sat by Pulse Oximetry (%) Pertinent Admission Physical Exam Findings: alcohol benzo opiate withdrawal sx Laboratory Last Values WBC 3.6 K/mm3 (4.0-10.0) L 11/13/18 06:00 RBC 4.33 M/mm3 (4.00-5.60) 11/13/18 06:00 Hgb 13.7 GM/dL (11.7-16.9) 11/13/18 06:00 Hct 39.7 % (35.4-49) 11/13/18 06:00 MCV 91.6 fl (80-96) 11/13/18 06:00 MCH 31.6 pg (25.7-33.7) 11/13/18 06:00 MCHC 34.6 g/dl (32.0-35.9) 11/13/18 06:00 RDW 15.0 % (11.9-15.9) 11/13/18 06:00 Plt Count 230 K/MM3 (134-434) 11/13/18 06:00 MPV 8.3 fl (7.5-11.1) 11/13/18 06:00 Sodium 139 mmol/L (136-145) 11/13/18 06:00 Potassium 3.8 mmol/L (3.5-5.1) 11/13/18 06:00 Chloride 101 mmol/L (98-107) 11/13/18 06:00 Carbon Dioxide 29 mmol/L (21-32) 11/13/18 06:00 Anion Gap 9 MMOL/L (8-16) 11/13/18 06:00 BUN 12 mg/dL (7-18) 11/13/18 06:00 Creatinine 0.9 mg/dL (0.55-1.3) 11/13/18 06:00 Creat Clearance w eGFR > 60 (>60) 11/13/18 06:00 Random Glucose 87 mg/dL (74-106) 11/13/18 06:00 Calcium 9.1 mg/dL (8.5-10.1) 11/13/18 06:00 Total Bilirubin 0.4 mg/dL (0.2-1) 11/13/18 06:00 AST 18 U/L (15-37) 11/13/18 06:00 ALT 24 U/L (13-61) 11/13/18 06:00 Alkaline Phosphatase 61 U/L (45-117) 11/13/18 06:00 Total Protein 7.6 g/dl (6.4-8.2) 11/13/18 06:00 Albumin 4.2 g/dl (3.4-5.0) 11/13/18 06:00 RPR Titer Nonreactive (NONREACTIVE) 11/13/18 06:00 lab noted - Treatment Hospital Course: Detox Protocol Followed, Detoxed Safely, Responded well, Discharged Condition Good, Rehab Referral Accepted Patient has Accepted a Rehab Referral to: [facility] - Medication Discharge Medications: Ambulatory Orders Pantoprazole Sodium [Protonix -] 40 mg PO DAILY #30 tablet.ec 01/15/18 Quetiapine Fumarate [Seroquel] 150 mg PO HS 03/17/18 Amlodipine Besylate [Norvasc -] 10 mg PO DAILY #14 tablet 11/16/18 Naloxone HCl [Narcan] 4 mg NS ASDIR #1 spray 11/16/18 - Diagnosis (1) Alcohol dependence with uncomplicated withdrawal Status: Acute (2) Weight loss Status: Acute (3) Essential hypertension Status: Chronic (4) GERD (gastroesophageal reflux disease) Status: Chronic Qualifiers: Esophagitis presence: without esophagitis Qualified Code(s): K21.9 - Gastro -esophageal reflux disease without esophagitis (5) Nicotine dependence Status: Acute Qualifiers: Nicotine product type: cigarettes Substance use status: in withdrawal Qualified Code(s): F17.213 - Nicotine dependence, cigarettes, with withdrawal (6) Opioid dependence with withdrawal Status: Acute (7) Sedative/hypnotic withdrawal without complication Status: Acute - AMA Did Patient Leave Against Medical Advice: No
== END 2018-11-17 09:16 | disposition home or self-care (01) | DRG 773 ==
LOC: YASAS 13:39 → Y3N 18:05
PROVIDERS: ADMIT Surgery; ATTEND Surgery
PROC: HZ2ZZZZ Detoxification Services for Substance Abuse Treatment (ICD-10-PCS; principal; 2018-11-12)
DX: F11.23 Opioid dependence with withdrawal (principal); F13.230 Sedative, hypnotic or anxiolytic dependence with withdrawal, uncomplicated; F10.230 Alcohol dependence with withdrawal, uncomplicated; F14.20 Cocaine dependence, uncomplicated; F12.20 Cannabis dependence, uncomplicated; F17.210 Nicotine dependence, cigarettes, uncomplicated; F32.9 Major depressive disorder, single episode, unspecified; F31.9 Bipolar disorder, unspecified; I10 Essential (primary) hypertension; G47.00 Insomnia, unspecified; K21.9 Gastro-esophageal reflux disease without esophagitis; L30.9 Dermatitis, unspecified; R35.0 Frequency of micturition; R63.4 Abnormal weight loss; Z68.23 Body mass index [BMI] 23.0-23.9, adult; Z86.69 Personal history of other diseases of the nervous system and sense organs; Z59.0 Homelessness
CPT/HCPCS: 36415; 80053; 85027; 86593

== ENCOUNTER 2019-02-06 09:03 | Inpatient (IN) | payer OTHER | END 2019-02-10 09:25 | disposition home or self-care (01) | LOC: YASAS 09:03 → Y6N 11:38 ==

== ENCOUNTER 2019-04-24 08:26 | Inpatient (IN) | payer OTHER ==
[2019-04-24 09:06] VITALS: BMI 22.4
--- NOTE | 2019-04-24 09:39 | HP ---
COWS - Scale Resting Pulse: 0= [place] 80 or Below Sweatin=Flushed/Facial Moisture Restless Observation: 1= Difficult to Sit Still Pupil Size: 0= Normal to Room Light Bone or Joint Aches: 2= Severe Diffuse Aches Runny Nose/ Eye Tearin= Runny Nose/Eyes GI Upset > 30mins: 2= Nausea/Diarrhea Tremor Observation: 1= Tremor [place], Not Seen Yawning Observation: 1= 1-2x During Session Anxiety or Irritability: 1=Feels Anxious/Irritable Goose Flesh Skin: 3=Piloerection COWS Score: 15 CIWA Score Nausea/Vomitin Muscle Tremors: 2 Anxiety: 2 Agitation: 2 Paroxysmal Sweats: 2 Orientation: 0-Oriented Tacttile Disturbances: 2-Mild Itch/Numbness/Burn Auditory Disturbances: 1-Very Mild Visual Disturbances: 1-Very Mild Sensitivity Headache: 2-Mild CIWA-Ar Total Score: 16 - Admission Criteria OASAS Guidelines: Admission for Medically Managed Detox: Requires at least one of the followin. CIWA greater than 12 2. Seizures within the past 24 hours 3. Delirium tremens within the past 24 hours 4. Hallucinations within the past 24 hours 5. Acute intervention needed for co occurring medical disorder 6. Acute intervention needed for co occurring psychiatric disorder 7. Severe withdrawal that cannot be handled at a lower level of care (continued vomiting, continued diarrhea, abnormal vital signs) requiring intravenous medication and/or fluids 8. Patient presents the following: CIWA greater than 12 Admission Criteria Met: Admission criteria met Admission ROS S - [facility] Chief Complaint: I need help, I am drinking too much Allergies/Adverse Reactions: Allergies Allergy/AdvReac Type Severity Reaction Status Date / Time Fish Containing Products Allergy Severe Rash Verified 04/24/19 09:01 penicillin V [Penicillin V] Allergy Intermediate Hives Verified 04/24/19 09:01 Pork/Porcine Containing Allergy Mild Nausea Verified 04/24/19 09:01 Products History of Present Illness: 59 year old man presents for detox from alcohol and Xanax, his most recent treatment was 02/06/19-02/10/19 at this facility. He has history of seizures and black outs. Exam Limitations: No Limitations - Ebola screening Have you traveled outside of the country in the last 21 days: No Have you had contact with anyone from an Ebola affected area: No Have you been sick,other than usual withdrawal symptoms: No Do you have a fever: No - Review of Systems Constitutional: Chills, Loss of Appetite, Malaise, Changes in sleep, Unintentional Wgt. Loss EENT: reports: Nose Congestion, Other Respiratory: reports: No Symptoms reported Cardiac: reports: No Symptoms Reported GI: reports: Nausea, Poor Appetite, Poor Fluid Intake, Abdominal cramping : reports: No Symptoms Reported Musculoskeletal: reports: Back Pain, Joint Pain, Muscle Pain, Muscle Weakness Integumentary: reports: No Symptoms Reported Neuro: reports: Headache, Numbness, Tremors Endocrine: reports: No Symptoms Reported Hematology: reports: No Symptoms Reported Psychiatric: reports: Anxious Other Systems: Reviewed and Negative Patient History - Patient Medical History Hx Anemia: No Hx Asthma: No Hx Chronic Obstructive Pulmonary Disease (COPD): No Hx Cancer: No Hx Cardiac Disorders: No Hx Congestive Heart Failure: No Hx Hypertension: Yes (ON MEDICATION) Hx Hypercholesterolemia: No Hx Pacemaker: No HX Cerebrovascular Accident: No Hx Seizures: Yes (7 YEARS AGO, DRUG INDUCED) Hx Dementia: No Hx Diabetes: No Hx Gastrointestinal Disorders: Yes (GERD) Hx Liver Disease: No Hx Genitourinary Disorders: No Hx Sexually Transmitted Disorders: No Hx Renal Disease (ESRD): No Hx Thyroid Disease: No Hx Human Immunodeficiency Virus (HIV): No Hx Hepatitis C: No Hx Depression: No Hx Suicide Attempt: No Hx Bipolar Disorder: No Hx Schizophrenia: No Other Medical History: Insomnia - Patient Surgical History Past Surgical History: Yes Hx Neurologic Surgery: No Hx Cataract Extraction: No Hx Cardiac Surgery: No Hx Lung Surgery: No Hx Breast Surgery: No Hx Breast Biopsy: No Hx Abdominal Surgery: No Hx Appendectomy: No Hx Cholecystectomy: No Hx Genitourinary Surgery: No Hx Section: No Hx Orthopedic Surgery: No Other Surgical History: removal of GI polyps in 1999 Anesthesia Reaction: No - PPD History Previous Implant?: Yes Documented Results: Positive w/o proof Implanted On Prior [facility] Admission?: No Date: 09/29/90 Results: CXR neg 03/18/18 PPD to be Administered?: No - Smoking Cessation Smoking history: Current every day smoker Have you smoked in the past 12 months: Yes Aproximately how many cigarettes per day: 25 Cigars Per Day: 0 Hx Chewing Tobacco Use: No Initiated information on smoking cessation: Yes 'Breaking Loose' booklet given: 04/24/19 - Substance & Tx. History Hx Alcohol Use: Yes Hx Substance Use: Yes Substance Use Type: Alcohol, Cocaine, Marijuana, Tranquilizers - Substances abused Alcohol Other (specify): Vodka and beer Substance route: Oral Frequency: Daily Amount used: fifth vodka & five 40oz beer daily Age of first use: 17 Date of last use: 04/23/19 Cocaine Substance route: Inhalation Frequency: 1-2 times per week Amount used: $60 Age of first use: 21 Date of last use: 04/20/19 Marijuana/Hashish Substance route: Smoking Frequency: 1-2 times per week Amount used: 2 blunts Age of first use: 13 Date of last use: 04/23/19 Alprazolam (Xanax) Substance route: Oral Frequency: Daily Amount used: 2-3 sticks Age of first use: 24 Date of last use: 04/21/19 Family Disease History - Family Disease History Family Disease History: [place]: Grandparent, Other: Father (non contact -DEPENDENT ON HEROIN AND ETOH), Mother (ALCOHOLIC,cirrhosis, ), Brother (two - no contact), Sister (two sisters - sober), Son (one age 24 - healthy) Admission Physical Exam [facility] - Vital Signs Vital Signs: Vital Signs - 24 hr 04/24/19 09:03 Temperature 98.0 F Pulse Rate 71 Respiratory 16 Rate Blood Pressure 138/99 - Physical General Appearance: Yes: No Apparent Distress HEENTM: Yes: EOMI, Hearing grossly Normal, Normocephalic, Normal Voice, ROMINA, Pharynx Normal, Other (Full upper dentures, own teeth lower, missing some) Respiratory: Yes: Chest Non-Tender, Lungs Clear, Normal Breath Sounds, No Respiratory Distress, No Accessory Muscle Use Neck: Yes: No masses,lesions,Nodules, Supple Breast: Yes: Breast Exam Deferred Cardiology: Yes: Regular Rhythm, Regular Rate, S1, S2 Abdominal: Yes: Normal Bowel Sounds, Non Tender, Soft Genitourinary: Yes: Within Normal Limits Back: Yes: Normal Inspection Musculoskeletal: Yes: full range of Motion Extremities: Yes: Normal Range of Motion, Non-Tender, Tremors Neurological: Yes: culinary instructor II-XII NML intact, Fully Oriented, Alert, Motor Strength 5/5, Normal Response Integumentary: Yes: Normal Color, Clammy Lymphatic: Yes: Within Normal Limits - Diagnostic (1) Nicotine dependence Current Visit: Yes Status: Acute Qualifiers: Nicotine product type: cigarettes Substance use status: uncomplicated Qualified Code(s): F17.210 - Nicotine dependence, cigarettes, uncomplicated (2) Alcohol dependence with uncomplicated withdrawal Current Visit: Yes Status: Acute (3) Cannabis dependence Current Visit: Yes Status: Acute (4) Cocaine dependence, uncomplicated Current Visit: Yes Status: Acute (5) Essential hypertension Current Visit: No Status: Chronic (6) GERD (gastroesophageal reflux disease) Current Visit: No Status: Chronic Qualifiers: Esophagitis presence: without esophagitis Qualified Code(s): K21.9 - Gastro -esophageal reflux disease without esophagitis (7) Sedative/hypnotic withdrawal without complication Current Visit: Yes Status: Acute Cleared for Admission BHS - Detox or Rehab S Level of Care: Medically Managed Detox Regimen/Protocol: Valium Claeared for Rehab Admission: No Breathalyzer - Breathalyzer Breathalyzer: 0.005 Urine Drug Screen - Test Device Lot number: [id number] Expiration date: 01/27/20 - Control Is test valid?: Yes - Results Drug screen NEGATIVE: No Urine drug screen results: THC-Marijuana, ANGIE-Cocaine, BZO-Benzodiazepines Inpatient Rehab Admission - Rehab Decision to Admit Inpatient rehab admission?: No
[2019-04-24] MEDS ORDERED: MAGNESIUM HYDROX 2400MG/30ML ORAL SUSPENSION 30 ML CUP PO PRN (09:51)
[2019-04-24] MEDS ORDERED: MENTHOL/PHENOL 1 EACH UD MM PRN (09:51)
[2019-04-24] MEDS ORDERED: METHOCARBAMOL 500 MG TABLET PO PRN (09:51)
[2019-04-24] MEDS ORDERED: NICOTINE POLACRILEX 2 MG GUM BUC PRN (09:51)
[2019-04-24] MEDS ORDERED: IBUPROFEN 400 MG TABLET (FP) PO PRN (09:51)
[2019-04-24] MEDS ORDERED: hydrOXYzine PAMOATE 25 MG CAPSULE (FP) PO PRN (09:51)
[2019-04-24] MEDS ORDERED: ONDANSETRON *ODT* 4 MG TABLET SL PRN (09:51)
[2019-04-24] MEDS ORDERED: BISMUTH SUBSALICYLATE 524 MG/30 ML UD PO PRN (09:51)
[2019-04-24] MEDS ORDERED: ACETAMINOPHEN 325 MG TABLET (FP) PO PRN (09:51)
[2019-04-24] MEDS ORDERED: MAGNESIUM CITRATE 300 ML BOTTLE PO PRN (09:51)
[2019-04-24] MEDS ORDERED: diazePAM 5 MG TABLET PO PRN (09:51)
[2019-04-24] MEDS ORDERED: diazePAM 5 MG TABLET PO ONE (09:51)
[2019-04-24] MEDS ORDERED: MAG HYDROX/AL HYDROX/SIMETH 30 ML UNIT-DOSE CUP PO PRN (09:51)
[2019-04-24] MEDS: PANTOPRAZOLE 40 MG TABLET (FP) PO SCH (11:19)
[2019-04-24] MEDS: amLODIPine BESYLATE 10 MG TABLET (FP) PO SCH (11:20)
[2019-04-24] MEDS: NICOTINE 21 MG/24 HOURS TOPICAL PATCH TD SCH (11:22)
[2019-04-24] MEDS: PRENATAL VITAMINS W/ FOLIC ACID TABLET (FP) PO SCH (11:23)
[2019-04-24] MEDS: diazePAM 5 MG TABLET PO SCH ×2 (15:20→22:46)
[2019-04-24] MEDS: MELATONIN 5 MG TABLETS PO PRN (22:46)
[2019-04-24] MEDS: THIAMINE HCL 100 MG TABLET (FP) PO SCH (22:46)
[2019-04-25] MEDS: diazePAM 5 MG TABLET PO SCH ×3 (06:19→22:53)
[2019-04-25] MEDS: NICOTINE 21 MG/24 HOURS TOPICAL PATCH TD SCH (09:42)
[2019-04-25] MEDS: PRENATAL VITAMINS W/ FOLIC ACID TABLET (FP) PO SCH (09:44)
[2019-04-25] MEDS: PANTOPRAZOLE 40 MG TABLET (FP) PO SCH (09:44)
[2019-04-25] MEDS: amLODIPine BESYLATE 10 MG TABLET (FP) PO SCH (09:44)
[2019-04-25 09:46] LABS: HEMATOCRIT 39.3 % (35.4-49); HEMOGLOBIN 13.3 GM/dL (11.7-16.9); MCH 30.3 pg (25.7-33.7); MCHC 33.7 g/dl (32.0-35.9); MEAN CELL VOLUME 89.9 fl (80-96); MEAN PLT VOLUME 7.7 fl (7.5-11.1); PLATELET COUNT 251 K/MM3 (134-434); RBC 4.37 M/mm3 (4.00-5.60); RDW 14.6 % (11.9-15.9); WHITE BLOOD COUNT 3.4 K/mm3 (4.0-10.0)
[2019-04-25 09:57] LABS: BILIRUBIN,TOTAL 0.5 mg/dL (0.2-1); BLOOD UREA NITROGEN 10.9 mg/dL (7-18); CREATININE 0.9 mg/dL (0.55-1.3); POTASSIUM 3.3 mmol/L (3.5-5.1)
[2019-04-25] MEDS: ACETAMINOPHEN 325 MG TABLET (FP) PO PRN (11:43)
--- NOTE | 2019-04-25 14:24 | CONSULT ---
[facility] Psychiatric Consult - Data Date of interview: 04/25/19 Admission source: Self-referred Identifying data: Mr Willams is a 59 years old single Black male, father of a 30 years old son, unemployed receiving food stamp, homeless seeking detox treatment for alcohol, cocaine, benzodiazepine and cannabis Substance Abuse History: Reports history of alcohol, cocaine, xanax and marijuanause. Refer to addiction counselor's summary for further information Medical History: GERD,hypertension,withdrawal seizures and a history of surgery for removal of intestinal polyps (1999). Psychiatric History: Patient is very irritable, mildly hostile, uncooperative in providing information. He has had multiple previous admissions to this facility. Most of information is extracted from a recent encounter with Dr Garcia during an admission in May 2018. Reportedly, he is diagnosed with Bipolar Disorder. He denies previous psychiatric hospitalizations. [facility] abuse [facility] treatment. Patient is not adherent to psychiatric OPD care. When seen by Dr Garcia on 06/20/19 he was prescribed Seroquel 150 mg po HS. According to the record, he has had 2 subsequent admissions to this facility since that one in May 2018 without psychiatric contact and he was not prescribed any psychotropic medication. There is no evidence that he is currently taking any psychotropic medication. No reported history of suicide attempt. At present, patient is very irritable, hostile and uncooperative with interview Physical/Sexual Abuse/Trauma History: Denies history of physical or sexual abuse as well as DV relationship. Reportedly he served in the [employer] from to , receiving honorable discharge. 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 Mental Status Exam - Mental Status Exam Alert and Oriented to: Time, Place, Person Cognitive Function: Fair Patient Appearance: Well Groomed Mood: Irritable Affect: Appropriate Patient Behavior: Uncooperative Speech Pattern: Clear Voice Loudness: Normal Thought Process: Intact Thought Disorder: Not Present Suicidal Ideation: Denies Insight/Judgement: Poor Sleep: Poorly Appetite: Good Muscle strength/Tone: Normal Gait/Station: Normal Psychiatric Findings - Problem List ([place] 1, 2,3) (1) Bipolar disorder Current Visit: No Status: Chronic Comment: As per history and records. (2) Alcohol dependence with uncomplicated withdrawal Current Visit: Yes Status: Acute (3) Cocaine dependence, uncomplicated Current Visit: Yes Status: Acute (4) Sedative/hypnotic withdrawal without complication Current Visit: Yes Status: Acute (5) Cannabis dependence Current Visit: Yes Status: Acute (6) Nicotine dependence Current Visit: Yes Status: Chronic Qualifiers: Nicotine product type: cigarettes Substance use status: uncomplicated Qualified Code(s): F17.210 - Nicotine dependence, cigarettes, uncomplicated (7) Essential hypertension Current Visit: No Status: Chronic - Initial Treatment Plan Initial Treatment Plan: 1) Start Seroquel 100 mg po HS. 2) Continue inpatient detoxification
[2019-04-25] MEDS ORDERED: POTASSIUM CHLORIDE TABS 20 MEQ TABLET.ER (FP) PO ONE ×2 (15:22→21:00)
--- NOTE | 2019-04-25 15:22 | PN ---
S CIWA - CIWA Score Nausea/Vomitin-Mild Nausea/No Vomiting Muscle Tremors: 4-Moderate,w/Arms Extend Anxiety: 4-Mod. Anxious/Guarded Agitation: 3 Paroxysmal Sweats: 3 Orientation: 0-Oriented Tacttile Disturbances: 0-None Auditory Disturbances: 0-None Visual Disturbances: 0-None Headache: 0-None Present CIWA-Ar Total Score: 15 BHS Progress Note (SOAP) Subjective: Sweating, tremor, nausea, body feels uncomfortable Objective: 04/25/19 15:20 Last Vital Signs Temp Pulse Resp BP Pulse Ox 97.0 F L 64 18 128/84 04/25/19 13:39 04/25/19 13:39 04/25/19 13:39 04/25/19 13:39 Laboratory Tests 04/25/19 04/25/19 04/25/19 08:00 08:00 08:00 WBC 3.4 L RBC 4.37 Hgb 13.3 Hct 39.3 MCV 89.9 MCH 30.3 MCHC 33.7 RDW 14.6 Plt Count 251 D MPV 7.7 Sodium 139 Potassium 3.3 L Chloride 100 Carbon Dioxide 32 Anion Gap 7 L BUN 10.9 Creatinine 0.9 Est GFR (CKD-EPI)AfAm 108.73 Est GFR (CKD-EPI)NonAf 93.82 Random Glucose 91 Calcium 9.0 Total Bilirubin 0.5 AST 23 ALT 26 Alkaline Phosphatase 55 Total Protein 7.0 Albumin 4.0 RPR Titer Nonreactive Labs reviewed: K 3.3 Assessment: 04/25/19 15:20 Withdrawal sxs Noted with hypokalemia Plan: Continue detox Encouraged PO water intake Hypokalemia: K Dur 40 Meq PO x 2 doses (give at least 4 hrs apart), repeat serum K level in AM
[2019-04-25] MEDS: THIAMINE HCL 100 MG TABLET (FP) PO SCH (22:52)
[2019-04-25] MEDS: MELATONIN 5 MG TABLETS PO PRN (22:54)
[2019-04-26] MEDS: diazePAM 5 MG TABLET PO SCH ×2 (05:24→17:25)
[2019-04-26] MEDS: PANTOPRAZOLE 40 MG TABLET (FP) PO SCH (11:01)
[2019-04-26] MEDS: NICOTINE 21 MG/24 HOURS TOPICAL PATCH TD SCH (11:01)
[2019-04-26] MEDS: amLODIPine BESYLATE 10 MG TABLET (FP) PO SCH (11:01)
[2019-04-26] MEDS: PRENATAL VITAMINS W/ FOLIC ACID TABLET (FP) PO SCH (11:01)
--- NOTE | 2019-04-26 14:54 | PN ---
[facility] CIWA - CIWA Score Nausea/Vomitin-No Nausea/No Vomiting Muscle Tremors: 3 Anxiety: 4-Mod. Anxious/Guarded Agitation: 3 Paroxysmal Sweats: 3 Orientation: 0-Oriented Tacttile Disturbances: 3-Moderate Itch/Numb/Burn Auditory Disturbances: 0-None Visual Disturbances: 0-None Headache: 0-None Present CIWA-Ar Total Score: 16 BHS Progress Note (SOAP) Subjective: Sweating, Tremors, Anxious, Body Aches. Objective: PATIENT A & O X 3, OBSERVED AMBULATING ON UNIT UNASSISTED. IN NO ACUTE DISTRESS. 04/26/19 14:56 Vital Signs Temperature 97.9 F 04/26/19 13:25 Pulse Rate 57 L 04/26/19 13:25 Respiratory Rate 18 04/26/19 13:25 Blood Pressure 134/87 04/26/19 13:25 O2 Sat by Pulse Oximetry (%) Laboratory Tests 04/25/19 04/25/19 04/25/19 08:00 08:00 08:00 WBC 3.4 L RBC 4.37 Hgb 13.3 Hct 39.3 MCV 89.9 MCH 30.3 MCHC 33.7 RDW 14.6 Plt Count 251 D MPV 7.7 Sodium 139 Potassium 3.3 L Chloride 100 Carbon Dioxide 32 Anion Gap 7 L BUN 10.9 Creatinine 0.9 Est GFR (CKD-EPI)AfAm 108.73 Est GFR (CKD-EPI)NonAf 93.82 Random Glucose 91 Calcium 9.0 Total Bilirubin 0.5 AST 23 ALT 26 Alkaline Phosphatase 55 Total Protein 7.0 Albumin 4.0 RPR Titer Nonreactive 04/26/19 07:00 WBC RBC Hgb Hct MCV MCH MCHC RDW Plt Count MPV Sodium Potassium 3.8 Chloride Carbon Dioxide Anion Gap BUN Creatinine Est GFR (CKD-EPI)AfAm Est GFR (CKD-EPI)NonAf Random Glucose Calcium Total Bilirubin AST ALT Alkaline Phosphatase Total Protein Albumin RPR Titer LABS NOTED. PATIENT HAS HAD LOW WBC LEVELS ON SEVERAL PREVIOUS ADMISSIONS. RESULT OF REPEAT POTASSIUM LEVEL NOTED. POTASSIUM LEVEL NOW NOTED TO BE WITHIN NORMAL RANGE. 04/26/19 14:58 Assessment: 04/26/19 14:56 WITHDRAWAL SYMPTOMS. LEUKOPENIA. 04/26/19 15:00 Plan: PATIENT CONTINUE DETOX. INCREASE DAILY PO WATER INTAKE. DUE TO SEVERITY LEVEL OF WITHDRAWAL SYMPTOMS CURRENTLY REPORTED BY PATIENT, ADDITIONAL 1 DAY OF DETOX ADDED TO PATIENT'S CURRENT DETOX REGIMEN SO THAT PATIENT WILL BE DISCHARGED ON 04/28/2019. PATIENT VERBALIZED UNDERSTANDING AND VERBAL CONSENT FOR THIS MODIFICATION.
[2019-04-26] MEDS: QUEtiapine FUMARATE 100 MG TABLET (FP) PO SCH (22:32)
[2019-04-26] MEDS: THIAMINE HCL 100 MG TABLET (FP) PO SCH (22:32)
[2019-04-27] MEDS: diazePAM 5 MG TABLET PO SCH ×2 (05:47→17:23)
[2019-04-27] MEDS ORDERED: diazePAM 5 MG TABLET PO ONE (06:00)
[2019-04-27] MEDS: PRENATAL VITAMINS W/ FOLIC ACID TABLET (FP) PO SCH (10:09)
[2019-04-27] MEDS: PANTOPRAZOLE 40 MG TABLET (FP) PO SCH (10:09)
[2019-04-27] MEDS: NICOTINE 21 MG/24 HOURS TOPICAL PATCH TD SCH (10:09)
[2019-04-27] MEDS: amLODIPine BESYLATE 10 MG TABLET (FP) PO SCH (10:09)
--- NOTE | 2019-04-27 11:25 | PN ---
S CIWA - CIWA Score Nausea/Vomitin Muscle Tremors: 2 Anxiety: 1-Mildly Anxious Agitation: 2 Paroxysmal Sweats: No Perspiration Orientation: 0-Oriented Tacttile Disturbances: 1-Very Mild Itch/Numbness Auditory Disturbances: 0-None Visual Disturbances: 0-None Headache: 2-Mild CIWA-Ar Total Score: 10 S Progress Note (SOAP) Subjective: alert,irritable,anxious,interrupted sleep, Objective: 04/27/19 11:24 Vital Signs Temperature 98.1 F 04/27/19 09:15 Pulse Rate 63 04/27/19 09:15 Respiratory Rate 18 04/27/19 09:15 Blood Pressure 118/74 04/27/19 09:15 O2 Sat by Pulse Oximetry (%) Assessment: 04/27/19 11:24 withdrawal symptom Plan: continue detox valium regimen,discharge in am
[2019-04-27] MEDS: ACETAMINOPHEN 325 MG TABLET (FP) PO PRN (22:27)
[2019-04-27] MEDS: THIAMINE HCL 100 MG TABLET (FP) PO SCH (22:28)
[2019-04-27] MEDS: QUEtiapine FUMARATE 100 MG TABLET (FP) PO SCH (22:28)
[2019-04-27] MEDS: MELATONIN 5 MG TABLETS PO PRN (22:57)
[2019-04-28] MEDS ORDERED: diazePAM 5 MG TABLET PO ONE (06:00)
[2019-04-28 07:51] VITALS: BP 107/67; PULSE 62; TEMP 97.7
--- NOTE | 2019-04-28 08:35 | DS ---
[facility] Detox Discharge Summary Admission Date: 04/24/19 Discharge Date: 04/28/19 - History Present History: Alcohol Dependence, Cannabis Dependence, Cocaine Dependence, Opioid Dependence - Physical Exam Results Vital Signs: Vital Signs Temperature 97.7 F 04/28/19 07:51 Pulse Rate 62 04/28/19 07:51 Respiratory Rate 18 04/28/19 07:51 Blood Pressure 107/67 04/28/19 07:51 O2 Sat by Pulse Oximetry (%) Pertinent Admission Physical Exam Findings: pt arrived in withdrawals Laboratory Tests 04/25/19 04/25/19 04/25/19 08:00 08:00 08:00 WBC 3.4 L RBC 4.37 Hgb 13.3 Hct 39.3 MCV 89.9 MCH 30.3 MCHC 33.7 RDW 14.6 Plt Count 251 D MPV 7.7 Sodium 139 Potassium 3.3 L Chloride 100 Carbon Dioxide 32 Anion Gap 7 L BUN 10.9 Creatinine 0.9 Est GFR (CKD-EPI)AfAm 108.73 Est GFR (CKD-EPI)NonAf 93.82 Random Glucose 91 Calcium 9.0 Total Bilirubin 0.5 AST 23 ALT 26 Alkaline Phosphatase 55 Total Protein 7.0 Albumin 4.0 RPR Titer Nonreactive 04/26/19 07:00 WBC RBC Hgb Hct MCV MCH MCHC RDW Plt Count MPV Sodium Potassium 3.8 Chloride Carbon Dioxide Anion Gap BUN Creatinine Est GFR (CKD-EPI)AfAm Est GFR (CKD-EPI)NonAf Random Glucose Calcium Total Bilirubin AST ALT Alkaline Phosphatase Total Protein Albumin RPR Titer aaox3 ambulating no acute distress no s/s of withdrawal - Treatment Hospital Course: Detox Protocol Followed, Detoxed Safely, Responded well, Discharged Condition Good, Rehab Referral Accepted Patient has Accepted a Rehab Referral to: pt declined rehab - Medication Discharge Medications: Ambulatory Orders Pantoprazole Sodium [Protonix -] 40 mg PO DAILY #30 tablet.ec 01/15/18 Quetiapine Fumarate [Seroquel] 100 mg PO HS 03/17/18 Amlodipine Besylate [Norvasc -] 10 mg PO DAILY 30 Days #30 tablet 02/10/19 - Diagnosis (1) Alcohol dependence with uncomplicated withdrawal Current Visit: Yes Status: Chronic (2) Cannabis dependence Current Visit: Yes Status: Chronic (3) Cocaine dependence, uncomplicated Current Visit: Yes Status: Chronic (4) Sedative/hypnotic withdrawal without complication Current Visit: Yes Status: Chronic (5) Nicotine dependence Current Visit: Yes Status: Chronic Qualifiers: Nicotine product type: cigarettes Substance use status: uncomplicated Qualified Code(s): F17.210 - Nicotine dependence, cigarettes, uncomplicated (6) Bipolar disorder Current Visit: No Status: Chronic (7) Cocaine dependence Current Visit: Yes Status: Chronic Qualifiers: Substance use status: uncomplicated Qualified Code(s): F14.20 - Cocaine dependence, uncomplicated (8) Depression Current Visit: No Status: Chronic Qualifiers: Depression Type: unspecified Qualified Code(s): F32.9 - Major depressive disorder, single episode, unspecified (9) Essential hypertension Current Visit: No Status: Chronic (10) GERD (gastroesophageal reflux disease) Current Visit: No Status: Chronic Qualifiers: Esophagitis presence: without esophagitis Qualified Code(s): K21.9 - Gastro -esophageal reflux disease without esophagitis (11) Insomnia Current Visit: No Status: Chronic Qualifiers: Insomnia type: unspecified Qualified Code(s): G47.00 - Insomnia, unspecified (12) Opioid dependence with withdrawal Current Visit: Yes Status: Chronic (13) Anxiety and depression Current Visit: No Status: Suspected - AMA Did Patient Leave Against Medical Advice: No
[2019-04-28] MEDS: PRENATAL VITAMINS W/ FOLIC ACID TABLET (FP) PO SCH (09:03)
[2019-04-28] MEDS: amLODIPine BESYLATE 10 MG TABLET (FP) PO SCH (09:03)
[2019-04-28] MEDS: PANTOPRAZOLE 40 MG TABLET (FP) PO SCH (09:03)
[2019-04-28] MEDS: NICOTINE 21 MG/24 HOURS TOPICAL PATCH TD SCH (09:04)
== END 2019-04-28 09:23 | disposition home or self-care (01) | DRG 774 ==
LOC: YASAS 08:26 → Y6N 10:28
PROVIDERS: ADMIT Surgery; ATTEND Surgery
PROC: HZ2ZZZZ Detoxification Services for Substance Abuse Treatment (ICD-10-PCS; principal; 2019-04-24)
DX: F10.230 Alcohol dependence with withdrawal, uncomplicated (principal); F13.230 Sedative, hypnotic or anxiolytic dependence with withdrawal, uncomplicated; F14.20 Cocaine dependence, uncomplicated; F12.20 Cannabis dependence, uncomplicated; F17.210 Nicotine dependence, cigarettes, uncomplicated; F31.9 Bipolar disorder, unspecified; F41.9 Anxiety disorder, unspecified; I10 Essential (primary) hypertension; K21.9 Gastro-esophageal reflux disease without esophagitis; G47.00 Insomnia, unspecified; D72.819 Decreased white blood cell count, unspecified; E87.6 Hypokalemia; Z86.69 Personal history of other diseases of the nervous system and sense organs; Z88.0 Allergy status to penicillin; Z91.013 Allergy to seafood; Z59.0 Homelessness
CPT/HCPCS: 36415; 71046-TC-FY; 80053; 84132; 85027; 86593

== ENCOUNTER 2019-07-13 15:58 | Inpatient (IN) | payer OTHER ==
[2019-07-13 17:48] VITALS: BMI 22.7
--- NOTE | 2019-07-13 20:46 | HP ---
CIWA Score Nausea/Vomitin-Mild Nausea/No Vomiting Muscle Tremors: 1-None Visible, but [place] Anxiety: 4-Mod. Anxious/Guarded Agitation: 4-Moderately Restless Paroxysmal Sweats: 3 Orientation: 1-Uncertain about Date Tacttile Disturbances: 0-None Auditory Disturbances: 0-None Visual Disturbances: 2-Mild Sensitivity (bright lights) Headache: 1-Very Mild CIWA-Ar Total Score: 17 - Admission Criteria OASAS Guidelines: Admission for Medically Managed Detox: Requires at least one of the followin. CIWA greater than 12 2. Seizures within the past 24 hours 3. Delirium tremens within the past 24 hours 4. Hallucinations within the past 24 hours 5. Acute intervention needed for co occurring medical disorder 6. Acute intervention needed for co occurring psychiatric disorder 7. Severe withdrawal that cannot be handled at a lower level of care (continued vomiting, continued diarrhea, abnormal vital signs) requiring intravenous medication and/or fluids 8. Patient presents the following: CIWA greater than 12, Acute intervention needed for co-occurring med or psych disorder (htn) Admission Criteria Met: Admission criteria met Admitting History and Physical - Smoking History Smoking history: Current every day smoker Have you smoked in the past 12 months: Yes Aproximately how many cigarettes per day: 25 - Alcohol/Substance Use Hx Alcohol Use: Yes Admission ROS S - HPI Chief Complaint: SEEK ING DETOX FOR C/O WORSENING WITHDRAWAL SX'S Allergies/Adverse Reactions: Allergies Allergy/AdvReac Type Severity Reaction Status Date / Time Fish Containing Products Allergy Severe Rash Verified 04/24/19 09:01 penicillin V [Penicillin V] Allergy Intermediate Hives Verified 04/24/19 09:01 Pork/Porcine Containing Allergy Mild Nausea Verified 04/24/19 09:01 Products History of Present Illness: HERE FOR ALCOHOL DETOX. CLIENT IS SELF REFERRED. PRESENT WITH C/O WITHDRAWAL SX' S, STATES DEPENDENT ON ALCOHOL AND XANAX WITH DAILY USE. LAST USE EARLIER TODAY DUE TO WITHDRAWAL SX'S. + EYE OPENERS, + BLACKOUTS. lAST SEIZURE 7 YEARS AGO. ELEVATED B/P NOTED. DENIES SOB, C.P. DIZZINESS OR VISUAL CHANGES. DID NOT TAKE HIS NORVASC TODAY. REPORTS LONGEST CLEAN TIME 47 MONTHS. DENIES ANY SIGNIFICANT CLEAN TIME IN THE PAST YEAR. HOMELESS, UNEMPLOYED- PANHANDLING, DENIES LEGALS Exam Limitations: No Limitations - Ebola screening Have you traveled outside of the country in the last 21 days: No Have you had contact with anyone from an Ebola affected area: No Have you been sick,other than usual withdrawal symptoms: No Do you have a fever: No - Review of Systems Constitutional: Chills, Loss of Appetite, Night Sweats, Changes in sleep, Unintentional Wgt. Loss EENT: reports: Dental Problems (UPPER DENTURES) Respiratory: reports: No Symptoms reported Cardiac: reports: No Symptoms Reported GI: reports: Nausea : reports: No Symptoms Reported Musculoskeletal: reports: No Symptoms Reported Integumentary: reports: Sweating Neuro: reports: Headache, Seizure (HX/O), Tremors, Other (BLACK OUTS) Endocrine: reports: No Symptoms Reported Hematology: reports: No Symptoms Reported Psychiatric: reports: Orientated x3, Agitated (IRRITABLE), Anxious, Depressed ( DENIES SI/HI) Other Systems: Reviewed and Negative Patient History - Patient Medical History Hx Anemia: No Hx Asthma: No Hx Chronic Obstructive Pulmonary Disease (COPD): No Hx Cancer: No Hx Cardiac Disorders: No Hx Congestive Heart Failure: No Hx Hypertension: Yes (ON MEDICATION) Hx Hypercholesterolemia: No Hx Pacemaker: No HX Cerebrovascular Accident: No Hx Seizures: Yes (7 YEARS AGO, DRUG INDUCED) Hx Dementia: No Hx Diabetes: No Hx Gastrointestinal Disorders: Yes (GERD) Hx Liver Disease: No Hx Genitourinary Disorders: No Hx Sexually Transmitted Disorders: No Hx Renal Disease (ESRD): No Hx Thyroid Disease: No Hx Human Immunodeficiency Virus (HIV): No Hx Hepatitis C: No Hx Depression: No Hx Suicide Attempt: No Hx Bipolar Disorder: No Hx Schizophrenia: No Other Medical History: INSOMNIA - Patient Surgical History Past Surgical History: Yes Hx Neurologic Surgery: No Hx Cataract Extraction: No Hx Cardiac Surgery: No Hx Lung Surgery: No Hx Breast Surgery: No Hx Breast Biopsy: No Hx Abdominal Surgery: No Hx Appendectomy: No Hx Cholecystectomy: No Hx Genitourinary Surgery: No Hx Section: No Hx Orthopedic Surgery: No Other Surgical History: removal of GI polyps in 1999 Anesthesia Reaction: No - PPD History Previous Implant?: Yes Documented Results: Positive w/o proof Implanted On Prior [facility] Admission?: No Results: CXR neg 04/26/19 PPD to be Administered?: No - Smoking Cessation Smoking history: Current every day smoker Have you smoked in the past 12 months: Yes Aproximately how many cigarettes per day: 30 Cigars Per Day: 0 Hx Chewing Tobacco Use: No Initiated information on smoking cessation: Yes 'Breaking Loose' booklet given: 07/13/19 - Substance & Tx. History Hx Alcohol Use: Yes Hx Substance Use: Yes Substance Use Type: Alcohol, Cocaine, Tranquilizers (XANAX) Hx Substance Use Treatment: Yes ([facility]) - Substances abused Alcohol Other (specify): Vodka and beer Substance route: Oral Frequency: Daily Amount used: 2 L vodka & five 40oz beer daily Age of first use: 17 Date of last use: 07/13/19 Cocaine Substance route: Inhalation Frequency: 1-2 times per week Amount used: $60 Age of first use: 21 Date of last use: 07/11/19 Marijuana/Hashish Substance route: Smoking Frequency: 1-2 times per week Amount used: $60 Age of first use: 13 Date of last use: 07/12/19 Alprazolam (Xanax) Substance route: Oral Frequency: Daily Amount used: 3 sticks Age of first use: 24 Date of last use: 07/10/19 Admission Physical Exam [facility] - Vital Signs Vital Signs: Vital Signs - 24 hr 07/13/19 17:40 Temperature 97.4 F L Pulse Rate 95 H Respiratory 19 Rate Blood Pressure 158/107 H - Physical General Appearance: Yes: Alcohol on Breath, Tremorous (FELT), Anxious HEENTM: Yes: EOMI, Normocephalic, Normal Voice, ROMINA, Pharynx Normal, Other ( TOP DENTURES) Respiratory: Yes: Chest Non-Tender, Lungs Clear, Normal Breath Sounds, No Respiratory Distress, No Accessory Muscle Use Neck: Yes: No masses,lesions,Nodules, Supple, Trachea in good position Breast: Yes: Breast Exam Deferred Cardiology: Yes: Regular Rhythm, Regular Rate, S1, S2 Abdominal: Yes: Normal Bowel Sounds, Non Tender, Soft Genitourinary: Yes: Within Normal Limits Back: Yes: Normal Inspection Musculoskeletal: Yes: full range of Motion, Gait Steady Extremities: Yes: Normal Capillary Refill, Normal Range of Motion, Non-Tender, Tremors (FELT) Neurological: Yes: Fully Oriented, Alert, Motor Strength 5/5, Depressed Affect ( DENIES SI/HI) Integumentary: Yes: Dry, Warm Lymphatic: Yes: Within Normal Limits - Diagnostic (1) Alcohol dependence with uncomplicated withdrawal Current Visit: Yes Status: Acute (2) Cannabis dependence Current Visit: Yes Status: Acute (3) Cocaine dependence, uncomplicated Current Visit: Yes Status: Acute (4) Depression Current Visit: Yes Status: Chronic Qualifiers: Depression Type: unspecified Qualified Code(s): F32.9 - Major depressive disorder, single episode, unspecified (5) Essential hypertension Current Visit: Yes Status: Chronic (6) GERD (gastroesophageal reflux disease) Current Visit: Yes Status: Chronic Qualifiers: Esophagitis presence: without esophagitis Qualified Code(s): K21.9 - Gastro -esophageal reflux disease without esophagitis (7) Insomnia Current Visit: Yes Status: Chronic Qualifiers: Insomnia type: unspecified Qualified Code(s): G47.00 - Insomnia, unspecified (8) Nicotine dependence Current Visit: Yes Status: Chronic Qualifiers: Nicotine product type: cigarettes Substance use status: uncomplicated Qualified Code(s): F17.210 - Nicotine dependence, cigarettes, uncomplicated (9) Sedative/hypnotic withdrawal without complication Current Visit: Yes Status: Acute Cleared for Admission S - Detox or Rehab [facility] Level of Care: Medically Managed Detox Regimen/Protocol: Librium Claeared for Rehab Admission: No Breathalyzer - Breathalyzer Breathalyzer: 0.098 Urine Drug Screen - Test Device Lot number: [id number] Expiration date: 02/26/21 - Control Is test valid?: Yes - Results Drug screen NEGATIVE: Yes Urine drug screen results: THC-Marijuana, ANGIE-Cocaine, BZO-Benzodiazepines Inpatient Rehab Admission - Rehab Decision to Admit Inpatient rehab admission?: No
[2019-07-13] MEDS ORDERED: ONDANSETRON *ODT* 4 MG TABLET SL PRN (20:49)
[2019-07-13] MEDS ORDERED: hydrOXYzine PAMOATE 25 MG CAPSULE (FP) PO PRN (20:49)
[2019-07-13] MEDS ORDERED: NICOTINE POLACRILEX 2 MG GUM BUC PRN (20:49)
[2019-07-13] MEDS ORDERED: P-EPHED 60MG/TRIPROLIDI 2.5MG TABLET PO PRN (20:49)
[2019-07-13] MEDS ORDERED: IBUPROFEN 400 MG TABLET (FP) PO PRN (20:49)
[2019-07-13] MEDS ORDERED: guaiFENesin 200 MG/10 ML 10 ML UNIT-DOSE CUPS PO PRN (20:49)
[2019-07-13] MEDS ORDERED: MAGNESIUM CITRATE 300 ML BOTTLE PO PRN (20:49)
[2019-07-13] MEDS ORDERED: DICYCLOMINE HCL 10 MG CAPSULE PO PRN (20:49)
[2019-07-13] MEDS ORDERED: MELATONIN 5 MG TABLETS PO PRN (20:49)
[2019-07-13] MEDS ORDERED: MENTHOL/PHENOL 1 EACH UD MM PRN (20:49)
[2019-07-13] MEDS ORDERED: MAG HYDROX/AL HYDROX/SIMETH 30 ML UNIT-DOSE CUP PO PRN (20:49)
[2019-07-13] MEDS ORDERED: MAGNESIUM HYDROX 2400MG/30ML ORAL SUSPENSION 30 ML CUP PO PRN (20:49)
[2019-07-13] MEDS ORDERED: ACETAMINOPHEN 325 MG TABLET (FP) PO PRN ×2 (20:49)
[2019-07-13] MEDS ORDERED: BISMUTH SUBSALICYLATE 524 MG/30 ML UD PO PRN (20:49)
[2019-07-13] MEDS ORDERED: METHOCARBAMOL 500 MG TABLET PO PRN (20:49)
[2019-07-13] MEDS ORDERED: chlordiazePOXIDE HCL 25 MG CAPSULE PO PRN (20:52)
[2019-07-13] MEDS: chlordiazePOXIDE HCL 25 MG CAPSULE PO SCH (22:34)
[2019-07-13] MEDS: THIAMINE HCL 100 MG TABLET (FP) PO SCH (22:34)
[2019-07-13] MEDS ORDERED: cloNIDine HCL 0.1 MG TABLET PO ONE (23:01)
[2019-07-14] MEDS: chlordiazePOXIDE HCL 25 MG CAPSULE PO SCH ×4 (05:45→22:07)
--- NOTE | 2019-07-14 10:18 | PN ---
S CIWA - CIWA Score Nausea/Vomitin-Mild Nausea/No Vomiting Muscle Tremors: 2 Anxiety: 3 Agitation: 2 Paroxysmal Sweats: No Perspiration Orientation: 0-Oriented Tacttile Disturbances: 1-Very Mild Itch/Numbness Auditory Disturbances: 0-None Visual Disturbances: 1-Very Mild Sensitivity Headache: 1-Very Mild CIWA-Ar Total Score: 11 BHS Progress Note (SOAP) Subjective: c/o of interrupted sleep, back pain, chills, poor appetite, sweats Objective: 07/14/19 10:18 Vital Signs Temperature 97.7 F 07/14/19 09:51 Pulse Rate 65 07/14/19 09:51 Respiratory Rate 18 07/14/19 09:51 Blood Pressure 135/87 07/14/19 09:51 O2 Sat by Pulse Oximetry (%) labs reviewed Assessment: 07/14/19 12:19 Aox3 no acute distress no adventciosu breaht sounds full ROM no gait abnormaltiy withdrawal sx Plan: Continue detox psych consult pending re: insomnia and request for seroquel continue detox
--- NOTE | 2019-07-14 10:20 | CONSULT ---
[facility] Psychiatric Consult - Data Date of interview: 07/14/19 Admission source: Self-referred Identifying data: Mr Willams is a 59 years old single Black male, father of a 30 years old son, unemployed receiving food stamp, homeless seeking detox treatment for alcohol, cocaine, benzodiazepine and cannabis Substance Abuse History: Reports history of alcohol, cocaine, xanax and marijuanause. Refer to addiction counselor's summary for further information Medical History: Significant for GERD, hypertension, PPD+, history of withdrawal seizures and surgery for removal of intestinal polyps (1999). Smokes 1.5 cigarettes daily Psychiatric History: Patient is is known to internal communications writer from an encounter during a recent admission to this facilty in March 2019. He has had multiple previous admissions to this facility. Most recently seen by internal communications writer on 04/25/19 and prescribed Seroquel 100 mg/hs. Reportedly, he is diagnosed with Bipolar Disorder. He denies previous psychiatric hospitalizations. Reports that he is not currently receicing outpatient psychiatric treatment. However, he reports being prescribed Seroquel 100 mg/hs by his primary care physician. This confirmed by calling [phone] at [facility] [place] [address]. Denies previous suicide attempt. At present, patient is mildly irritable, reports feeling anxious and sleeping poorly Physical/Sexual Abuse/Trauma History: Denies history of physical or sexual abuse as well as DV relationship. Reportedly he served in the [employer] from to , receiving honorable discharge. 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 Mental Status Exam - Mental Status Exam Alert and Oriented to: Time, Place, Person Cognitive Function: Fair Patient Appearance: Well Groomed Mood: Anxious Affect: Appropriate Patient Behavior: Cooperative Speech Pattern: Clear Voice Loudness: Normal Thought Process: Intact, Goal Oriented Thought Disorder: Not Present Hallucinations: Denies Suicidal Ideation: Denies Homicidal Ideation: Denies Insight/Judgement: Poor Sleep: Poorly Appetite: Poor Muscle strength/Tone: Normal, Severe Hypotonicity Psychiatric Findings - Problem List ([place] 1, 2,3) (1) Mood disorder Current Visit: Yes Status: Chronic (2) Bipolar disorder Current Visit: No Status: Ruled-out Comment: As per history and records. (3) Substance induced mood disorder Current Visit: Yes Status: Acute (4) Substance-induced sleep disorder Current Visit: Yes Status: Acute (5) Alcohol dependence with uncomplicated withdrawal Current Visit: Yes Status: Acute (6) Cocaine dependence, uncomplicated Current Visit: Yes Status: Acute (7) Sedative/hypnotic withdrawal without complication Current Visit: Yes Status: Acute (8) Cannabis dependence Current Visit: Yes Status: Acute (9) Nicotine dependence Current Visit: Yes Status: Chronic Qualifiers: Nicotine product type: cigarettes Substance use status: uncomplicated Qualified Code(s): F17.210 - Nicotine dependence, cigarettes, uncomplicated (10) Essential hypertension Current Visit: Yes Status: Chronic (11) GERD (gastroesophageal reflux disease) Current Visit: Yes Status: Chronic Qualifiers: Esophagitis presence: without esophagitis Qualified Code(s): K21.9 - Gastro -esophageal reflux disease without esophagitis - Initial Treatment Plan Initial Treatment Plan: 1) Continue Seroquel 100 mg po HS. Benefit vs Risks( diabetes mellitus, tardive dyskinesia) of medication discussed with patient and he insists on taking it. 2) Continue inpatient detoxification
[2019-07-14] MEDS: PRENATAL VITAMINS W/ FOLIC ACID TABLET (FP) PO SCH (10:41)
[2019-07-14] MEDS: NICOTINE 21 MG/24 HOURS TOPICAL PATCH TD SCH (10:41)
[2019-07-14] MEDS: amLODIPine BESYLATE 10 MG TABLET (FP) PO SCH (10:41)
[2019-07-14] MEDS: PANTOPRAZOLE 40 MG TABLET (FP) PO SCH (10:41)
[2019-07-14 12:08] LABS: HEMATOCRIT 39.4 % (35.4-49); HEMOGLOBIN 13.2 GM/dL (11.7-16.9); MCH 30.4 pg (25.7-33.7); MCHC 33.6 g/dl (32.0-35.9); MEAN CELL VOLUME 90.5 fl (80-96); MEAN PLT VOLUME 7.7 fl (7.5-11.1); PLATELET COUNT 214 K/MM3 (134-434); RBC 4.35 M/mm3 (4.00-5.60); RDW 14.9 % (11.9-15.9); WHITE BLOOD COUNT 3.7 K/mm3 (4.0-10.0)
[2019-07-14 12:21] LABS: ALBUMIN 3.8 g/dl (3.4-5.0); BILIRUBIN,TOTAL 0.5 mg/dL (0.2-1); BLOOD UREA NITROGEN 10.9 mg/dL (7-18); CALCIUM 8.9 mg/dL (8.5-10.1); CREATININE 0.8 mg/dL (0.55-1.3); POTASSIUM 3.6 mmol/L (3.5-5.1); TOT PROT 6.8 g/dl (6.4-8.2)
[2019-07-14] MEDS: QUEtiapine FUMARATE 100 MG TABLET (FP) PO SCH (21:24)
[2019-07-14] MEDS: THIAMINE HCL 100 MG TABLET (FP) PO SCH (21:25)
[2019-07-15] MEDS: chlordiazePOXIDE HCL 25 MG CAPSULE PO SCH ×4 (05:45→22:26)
[2019-07-15] MEDS: NICOTINE 21 MG/24 HOURS TOPICAL PATCH TD SCH (10:11)
[2019-07-15] MEDS: PANTOPRAZOLE 40 MG TABLET (FP) PO SCH (10:11)
[2019-07-15] MEDS: PRENATAL VITAMINS W/ FOLIC ACID TABLET (FP) PO SCH (10:11)
[2019-07-15] MEDS: amLODIPine BESYLATE 10 MG TABLET (FP) PO SCH (10:11)
--- NOTE | 2019-07-15 13:07 | PN ---
[facility] CIWA - CIWA Score Nausea/Vomitin-No Nausea/No Vomiting Muscle Tremors: 1-None Visible, but [place] Anxiety: 3 Agitation: 1-Slight > Activity Paroxysmal Sweats: 2 Orientation: 0-Oriented Tacttile Disturbances: 1-Very Mild Itch/Numbness Auditory Disturbances: 0-None Visual Disturbances: 1-Very Mild Sensitivity Headache: 1-Very Mild CIWA-Ar Total Score: 10 S Progress Note (SOAP) Subjective: c/o chills, interrupted sleep, anxious Objective: 07/15/19 13:05 Vital Signs Temperature 97.9 F 07/15/19 09:51 Pulse Rate 66 07/15/19 09:51 Respiratory Rate 18 07/15/19 09:51 Blood Pressure 100/57 L 07/15/19 09:51 O2 Sat by Pulse Oximetry (%) Laboratory Last Values WBC 3.7 K/mm3 (4.0-10.0) L 07/14/19 08:20 RBC 4.35 M/mm3 (4.00-5.60) 07/14/19 08:20 Hgb 13.2 GM/dL (11.7-16.9) 07/14/19 08:20 Hct 39.4 % (35.4-49) 07/14/19 08:20 MCV 90.5 fl (80-96) 07/14/19 08:20 MCH 30.4 pg (25.7-33.7) 07/14/19 08:20 MCHC 33.6 g/dl (32.0-35.9) 07/14/19 08:20 RDW 14.9 % (11.9-15.9) 07/14/19 08:20 Plt Count 214 K/MM3 (134-434) 07/14/19 08:20 MPV 7.7 fl (7.5-11.1) 07/14/19 08:20 Sodium 138 mmol/L (136-145) 07/14/19 08:20 Potassium 3.6 mmol/L (3.5-5.1) 07/14/19 08:20 Chloride 102 mmol/L (98-107) 07/14/19 08:20 Carbon Dioxide 28 mmol/L (21-32) 07/14/19 08:20 Anion Gap 9 MMOL/L (8-16) 07/14/19 08:20 BUN 10.9 mg/dL (7-18) 07/14/19 08:20 Creatinine 0.8 mg/dL (0.55-1.3) 07/14/19 08:20 Est GFR (CKD-EPI)AfAm 114.13 07/14/19 08:20 Est GFR (CKD-EPI)NonAf 98.47 07/14/19 08:20 Random Glucose 82 mg/dL (74-106) 07/14/19 08:20 Calcium 8.9 mg/dL (8.5-10.1) 07/14/19 08:20 Total Bilirubin 0.5 mg/dL (0.2-1) 07/14/19 08:20 AST 24 U/L (15-37) 07/14/19 08:20 ALT 27 U/L (13-61) 07/14/19 08:20 Alkaline Phosphatase 58 U/L (45-117) 07/14/19 08:20 Total Protein 6.8 g/dl (6.4-8.2) 07/14/19 08:20 Albumin 3.8 g/dl (3.4-5.0) 07/14/19 08:20 Assessment: 07/15/19 13:05 AOx3 no acute distress EENT WNL Full ROM ambulating in the unit withdrawal sx Plan: increase PO fluids continue to monitor continue detox
[2019-07-15] MEDS ORDERED: LOPERAMIDE HCL 2 MG CAPSULE PO PRN (14:53)
[2019-07-15] MEDS: QUEtiapine FUMARATE 100 MG TABLET (FP) PO SCH (22:26)
[2019-07-15] MEDS: THIAMINE HCL 100 MG TABLET (FP) PO SCH (22:26)
[2019-07-16] MEDS ORDERED: chlordiazePOXIDE HCL 10 MG CAPSULE PO PRN
[2019-07-16] MEDS: chlordiazePOXIDE HCL 10 MG CAPSULE PO SCH ×4 (05:48→22:06)
[2019-07-16] MEDS: NICOTINE 21 MG/24 HOURS TOPICAL PATCH TD SCH (10:05)
[2019-07-16] MEDS: PRENATAL VITAMINS W/ FOLIC ACID TABLET (FP) PO SCH (10:06)
[2019-07-16] MEDS: amLODIPine BESYLATE 10 MG TABLET (FP) PO SCH (10:06)
[2019-07-16] MEDS: PANTOPRAZOLE 40 MG TABLET (FP) PO SCH (10:06)
--- NOTE | 2019-07-16 10:24 | PN ---
S CIWA - CIWA Score Nausea/Vomitin-Mild Nausea/No Vomiting Muscle Tremors: 2 Anxiety: 2 Agitation: 0-Normal Activity Paroxysmal Sweats: 2 Orientation: 0-Oriented Tacttile Disturbances: 1-Very Mild Itch/Numbness Auditory Disturbances: 0-None Visual Disturbances: 0-None Headache: 0-None Present CIWA-Ar Total Score: 8 BHS Progress Note (SOAP) Subjective: INTERRUPTED SLEEP, SWEATS, SHAKES DECREASED APPETITE, BUT BETTER, Objective: 07/16/19 10:23 Vital Signs Temperature 97.5 F L 07/16/19 09:16 Pulse Rate 69 07/16/19 09:16 Respiratory Rate 18 07/16/19 09:16 Blood Pressure 131/78 07/16/19 09:16 O2 Sat by Pulse Oximetry (%) Laboratory Tests 07/14/19 07/14/19 08:20 08:20 WBC 3.7 L RBC 4.35 Hgb 13.2 Hct 39.4 MCV 90.5 MCH 30.4 MCHC 33.6 RDW 14.9 Plt Count 214 MPV 7.7 Sodium 138 Potassium 3.6 Chloride 102 Carbon Dioxide 28 Anion Gap 9 BUN 10.9 Creatinine 0.8 Est GFR (CKD-EPI)AfAm 114.13 Est GFR (CKD-EPI)NonAf 98.47 Random Glucose 82 Calcium 8.9 Total Bilirubin 0.5 AST 24 ALT 27 Alkaline Phosphatase 58 Total Protein 6.8 Albumin 3.8 PT AOX3 IN NAD AMBULATING WELL Assessment: 07/16/19 10:23 WITHDRAWAL SX;S Plan: CONT. DETOX INCREASE FLUIDS D/C IN AM
[2019-07-16] MEDS: THIAMINE HCL 100 MG TABLET (FP) PO SCH (21:42)
[2019-07-16] MEDS: QUEtiapine FUMARATE 100 MG TABLET (FP) PO SCH (21:42)
[2019-07-17] MEDS ORDERED: chlordiazePOXIDE HCL 10 MG CAPSULE PO SCH (05:00)
[2019-07-17 06:53] VITALS: BP 117/67; PULSE 67; TEMP 97.7
[2019-07-17] MEDS: PRENATAL VITAMINS W/ FOLIC ACID TABLET (FP) PO SCH (09:14)
[2019-07-17] MEDS: amLODIPine BESYLATE 10 MG TABLET (FP) PO SCH (09:14)
[2019-07-17] MEDS: PANTOPRAZOLE 40 MG TABLET (FP) PO SCH (09:14)
[2019-07-17] MEDS: NICOTINE 21 MG/24 HOURS TOPICAL PATCH TD SCH (09:23)
--- NOTE | 2019-07-17 13:29 | DS ---
[facility] Detox Discharge Summary Admission Date: 07/13/19 Discharge Date: 07/17/19 - History Present History: Alcohol Dependence, Cannabis Dependence, Sedative Dependence Additional Comments: Pt is medically cleared and discharge today. Pt completed the detox protocol. pt is encouraged to follow-up with CD outpatient program and also to follow-up with his PMD. Pt verbalized understanding. Pt is alert and oriented x3 and in no acute distress. Pertinent Past History: H/O HTN, seizures, GERD, alcohol, cannabis, and benzo's use disorder. - Physical Exam Results Vital Signs: Vital Signs Temperature 97.7 F 07/17/19 06:00 Pulse Rate 67 07/17/19 06:00 Respiratory Rate 18 07/17/19 06:00 Blood Pressure 117/67 07/17/19 06:00 O2 Sat by Pulse Oximetry (%) Vital Signs 07/17/19 06:00 Temperature 97.7 F Pulse Rate 67 Respiratory 18 Rate Blood Pressure 117/67 Laboratory Last Values WBC 3.7 K/mm3 (4.0-10.0) L 07/14/19 08:20 RBC 4.35 M/mm3 (4.00-5.60) 07/14/19 08:20 Hgb 13.2 GM/dL (11.7-16.9) 07/14/19 08:20 Hct 39.4 % (35.4-49) 07/14/19 08:20 MCV 90.5 fl (80-96) 07/14/19 08:20 MCH 30.4 pg (25.7-33.7) 07/14/19 08:20 MCHC 33.6 g/dl (32.0-35.9) 07/14/19 08:20 RDW 14.9 % (11.9-15.9) 07/14/19 08:20 Plt Count 214 K/MM3 (134-434) 07/14/19 08:20 MPV 7.7 fl (7.5-11.1) 07/14/19 08:20 Sodium 138 mmol/L (136-145) 07/14/19 08:20 Potassium 3.6 mmol/L (3.5-5.1) 07/14/19 08:20 Chloride 102 mmol/L (98-107) 07/14/19 08:20 Carbon Dioxide 28 mmol/L (21-32) 07/14/19 08:20 Anion Gap 9 MMOL/L (8-16) 07/14/19 08:20 BUN 10.9 mg/dL (7-18) 07/14/19 08:20 Creatinine 0.8 mg/dL (0.55-1.3) 07/14/19 08:20 Est GFR (CKD-EPI)AfAm 114.13 07/14/19 08:20 Est GFR (CKD-EPI)NonAf 98.47 07/14/19 08:20 Random Glucose 82 mg/dL (74-106) 07/14/19 08:20 Calcium 8.9 mg/dL (8.5-10.1) 07/14/19 08:20 Total Bilirubin 0.5 mg/dL (0.2-1) 07/14/19 08:20 AST 24 U/L (15-37) 07/14/19 08:20 ALT 27 U/L (13-61) 07/14/19 08:20 Alkaline Phosphatase 58 U/L (45-117) 07/14/19 08:20 Total Protein 6.8 g/dl (6.4-8.2) 07/14/19 08:20 Albumin 3.8 g/dl (3.4-5.0) 07/14/19 08:20 Labs noted. Pertinent Admission Physical Exam Findings: withdrawal symptoms. - Treatment Hospital Course: Detox Protocol Followed, Detoxed Safely, Responded well, Discharged Condition Good - Medication Discharge Medications: Ambulatory Orders Quetiapine Fumarate [Seroquel -] 150 mg PO HS 03/17/18 Amlodipine Besylate [Norvasc -] 10 mg PO DAILY 30 Days #30 tablet 07/16/19 Pantoprazole Sodium [Protonix -] 40 mg PO DAILY #30 tablet.ec 07/16/19 - Diagnosis (1) Alcohol dependence with uncomplicated withdrawal Status: Acute (2) Cannabis dependence Status: Acute (3) Cocaine dependence, uncomplicated Status: Acute (4) Nicotine dependence Status: Chronic Qualifiers: Nicotine product type: cigarettes Substance use status: uncomplicated Qualified Code(s): F17.210 - Nicotine dependence, cigarettes, uncomplicated (5) Essential hypertension Status: Chronic (6) GERD (gastroesophageal reflux disease) Status: Chronic Qualifiers: Esophagitis presence: without esophagitis Qualified Code(s): K21.9 - Gastro -esophageal reflux disease without esophagitis - AMA Did Patient Leave Against Medical Advice: No [facility] CIWA - CIWA Score Nausea/Vomitin-No Nausea/No Vomiting Muscle Tremors: None Anxiety: 2 Agitation: 0-Normal Activity Paroxysmal Sweats: 1-Minimal Palms Moist Orientation: 0-Oriented Tacttile Disturbances: 0-None Auditory Disturbances: 0-None Visual Disturbances: 0-None Headache: 0-None Present CIWA-Ar Total Score: 3
== END 2019-07-17 09:15 | disposition home or self-care (01) | DRG 774 ==
LOC: YASAS 15:58 → Y6N 21:48
PROVIDERS: ADMIT Allergy & Immunology; ATTEND Allergy & Immunology
PROC: HZ2ZZZZ Detoxification Services for Substance Abuse Treatment (ICD-10-PCS; principal; 2019-07-13)
DX: F10.230 Alcohol dependence with withdrawal, uncomplicated (principal); F13.20 Sedative, hypnotic or anxiolytic dependence, uncomplicated; F14.20 Cocaine dependence, uncomplicated; F12.20 Cannabis dependence, uncomplicated; F17.210 Nicotine dependence, cigarettes, uncomplicated; F39 Unspecified mood [affective] disorder; F19.24 Other psychoactive substance dependence with psychoactive substance-induced mood disorder; F19.282 Other psychoactive substance dependence with psychoactive substance-induced sleep disorder; I10 Essential (primary) hypertension; K21.9 Gastro-esophageal reflux disease without esophagitis; Z86.69 Personal history of other diseases of the nervous system and sense organs; Z88.0 Allergy status to penicillin; Z91.013 Allergy to seafood; Z91.018 Allergy to other foods; Z59.0 Homelessness
CPT/HCPCS: 36415; 80053; 85027; J0735

== ENCOUNTER 2019-09-28 09:55 | Inpatient (IN) | payer OTHER ==
[2019-09-28 10:19] VITALS: BMI 25.8
--- NOTE | 2019-09-28 11:07 | HP ---
COWS - Scale Resting Pulse: 1= [place] 81-100 Sweatin= Chills/Flushing Restless Observation: 1= Difficult to Sit Still Pupil Size: 1= Pupils >than Normal Bone or Joint Aches: 4=Acute Joint/Muscle Pain Runny Nose/ Eye Tearin= Runny Nose/Eyes GI Upset > 30mins: 2= Nausea/Diarrhea Tremor Observation: 1= Tremor [place], Not Seen Yawning Observation: 1= 1-2x During Session Anxiety or Irritability: 1=Feels Anxious/Irritable Goose Flesh Skin: 0=Smooth Skin COWS Score: 15 CIWA Score Nausea/Vomitin Muscle Tremors: 4-Moderate,w/Arms Extend Anxiety: 4-Mod. Anxious/Guarded Agitation: 4-Moderately Restless Paroxysmal Sweats: 1-Minimal Palms Moist Orientation: 0-Oriented Tacttile Disturbances: 0-None Auditory Disturbances: 0-None Visual Disturbances: 0-None Headache: 1-Very Mild CIWA-Ar Total Score: 17 - Admission Criteria OASAS Guidelines: Admission for Medically Managed Detox: Requires at least one of the followin. CIWA greater than 12 2. Seizures within the past 24 hours 3. Delirium tremens within the past 24 hours 4. Hallucinations within the past 24 hours 5. Acute intervention needed for co occurring medical disorder 6. Acute intervention needed for co occurring psychiatric disorder 7. Severe withdrawal that cannot be handled at a lower level of care (continued vomiting, continued diarrhea, abnormal vital signs) requiring intravenous medication and/or fluids 8. Admitting History and Physical - Admission Chief Complaint: "I want to go to detox and this time go to rehab as well" History of Present Illness: 59 year old male with opioid dependence and alcohol dependence with withdrawals , cocaine use disorder, and cannibis use disorder. He is using 5-6 bags of heroin, intransal and intravenous use, last used yesterday. He never overdosed. 1 week ago he experienced a blackout. He did have a withdrawal seizure 8 months ago. He is still unwilling to stop completely. He is drinking 1/5 vodka daily, last drank at 2AM this morning. He is purchasing Xanax on the streets 4-5 sticks per day, last used yesterday. He is smoking marijuana 2 blunts once a week, last used 2 days. He is using cocaine $60 per every 2 weeks. He smokes 1.5 ppd and started smoking 17 years old. PMH: HTN on norvasc 10mg daily; GERD on protonix, Sleep disorder on Seroquel 100mg qhs. Psych: Depression but on no meds Psurg: None Homeless and not in detention system. He has poor support systems other than sister who is a [employer] counselor. History Source: Patient Limitations to Obtaining History: No Limitations - Past Medical History Cardiovascular: Yes: HTN Gastrointestinal: Yes: GERD Psych: Yes: Depression - Past Surgical History Past Surgical History: Yes: None - Smoking History Smoking history: Current every day smoker Have you smoked in the past 12 months: Yes Aproximately how many cigarettes per day: 30 - Alcohol/Substance Use Hx Alcohol Use: Yes (1/5 of vodka daily) Number of Drinks Daily: 10 History of Substance Use: reports: Cocaine, Heroin, Marijuana - Social History Usual Living Arrangement: Yes: Alone Do you think of yourself as: Straight/Heterosexual ADL: Independent Occupation: dispatcher, unemployed currently History of Recent Travel: No Admission [facility] Allergies/Adverse Reactions: Allergies Allergy/AdvReac Type Severity Reaction Status Date / Time Fish Containing Products Allergy Severe Rash Verified 09/28/19 10:11 penicillin V [Penicillin V] Allergy Intermediate Hives Verified 09/28/19 10:11 Pork/Porcine Containing Allergy Mild Nausea Verified 09/28/19 10:11 Products - Ebola screening Have you traveled outside of the country in the last 21 days: No Have you had contact with anyone from an Ebola affected area: No Have you been sick,other than usual withdrawal symptoms: No Do you have a fever: No - Review of Systems Constitutional: Chills, Diaphoresis, Loss of Appetite, Unintentional Wgt. Loss EENT: reports: No Symptoms Reported Respiratory: reports: No Symptoms reported Cardiac: reports: No Symptoms Reported GI: reports: Nausea, Abdominal cramping : reports: No Symptoms Reported Musculoskeletal: reports: Back Pain Integumentary: reports: No Symptoms Reported Neuro: reports: No Symptoms reported Endocrine: reports: No Symptoms Reported Hematology: reports: No Symptoms Reported Psychiatric: reports: Anxious Other Systems: Reviewed and Negative Patient History - Patient Medical History Hx Anemia: No Hx Asthma: No Hx Chronic Obstructive Pulmonary Disease (COPD): No Hx Cancer: No Hx Cardiac Disorders: No Hx Congestive Heart Failure: No Hx Hypertension: Yes (ON MEDICATION) Hx Hypercholesterolemia: No Hx Pacemaker: No HX Cerebrovascular Accident: No Hx Seizures: Yes (7 YEARS AGO, DRUG INDUCED) Hx Dementia: No Hx Diabetes: No Hx Gastrointestinal Disorders: Yes (GERD) Hx Liver Disease: No Hx Genitourinary Disorders: No Hx Sexually Transmitted Disorders: No Hx Renal Disease (ESRD): No Hx Thyroid Disease: No Hx Human Immunodeficiency Virus (HIV): No Hx Hepatitis C: No Hx Depression: No Hx Suicide Attempt: No Hx Bipolar Disorder: No Hx Schizophrenia: No - Patient Surgical History Past Surgical History: Yes Hx Neurologic Surgery: No Hx Cataract Extraction: No Hx Cardiac Surgery: No Hx Lung Surgery: No Hx Breast Surgery: No Hx Breast Biopsy: No Hx Abdominal Surgery: No Hx Appendectomy: No Hx Cholecystectomy: No Hx Genitourinary Surgery: No Hx Section: No Hx Orthopedic Surgery: No Other Surgical History: removal of GI polyps in 1999 Anesthesia Reaction: No - PPD History Previous Implant?: No Documented Results: Positive w/o proof Implanted On Prior [facility] Admission?: No Date: 09/29/90 Results: CXR neg 04/26/19 PPD to be Administered?: No - Smoking Cessation Smoking history: Current every day smoker Have you smoked in the past 12 months: Yes Aproximately how many cigarettes per day: 30 Cigars Per Day: 0 Hx Chewing Tobacco Use: No Initiated information on smoking cessation: Yes 'Breaking Loose' booklet given: 09/28/19 - Substances abused Alcohol Other (specify): Vodka and beer Substance route: Oral Frequency: Daily Amount used: 5th of vodka Age of first use: 17 Date of last use: 09/27/19 Cocaine Substance route: Inhalation Frequency: 1-2 times per week Amount used: $60 Age of first use: 21 Date of last use: 09/26/19 Marijuana/Hashish Substance route: Smoking Frequency: Daily Amount used: 2 blunts Age of first use: 13 Date of last use: 09/27/19 Alprazolam (Xanax) Substance route: Oral Frequency: Daily Amount used: 4-5 sticks Age of first use: 24 Date of last use: 09/27/19 Heroin Substance route: Inhalation Frequency: Daily Amount used: 4-5 bags Age of first use: 22 Date of last use: 09/27/19 Admission Physical Exam BHS - Vital Signs Vital Signs: Vital Signs - 24 hr 09/28/19 10:11 Temperature 97.4 F L Pulse Rate 86 Respiratory 20 Rate Blood Pressure 139/91 - Physical General Appearance: Yes: Moderate Distress, Alcohol on Breath, Tremorous, Irritable, Sweating HEENTM: Yes: EOMI, Hearing grossly Normal, Normal ENT Inspection, Normocephalic , Normal Voice, ROMINA, Pharynx Normal, Scleral Ictenus R Respiratory: Yes: Chest Non-Tender, Lungs Clear, Normal Breath Sounds, No Respiratory Distress, No Accessory Muscle Use, Accessory Muscle Use Neck: Yes: No masses,lesions,Nodules, Supple, Trachea in good position Breast: Yes: Within Normal Limits Cardiology: Yes: Regular Rhythm, S1, S2, Tachycardia Abdominal: Yes: Non Tender, Flat, Increased Bowel Sounds Genitourinary: Yes: Within Normal Limits Back: Yes: Normal Inspection Musculoskeletal: Yes: full range of Motion, Gait Steady, Pelvis Stable Extremities: Yes: Normal Capillary Refill, Normal Inspection, Normal Range of Motion, Non-Tender Neurological: Yes: behavioral health associate II-XII NML intact, Fully Oriented, Alert, Motor Strength 5/5, Normal Mood/Affect Integumentary: Yes: Normal Color, Warm Lymphatic: Yes: Within Normal Limits - Diagnostic (1) Alcohol dependence with uncomplicated withdrawal Current Visit: Yes Status: Acute (2) Cannabis dependence Current Visit: Yes Status: Acute (3) Cocaine dependence, uncomplicated Current Visit: Yes Status: Acute (4) Sedative/hypnotic withdrawal without complication Current Visit: Yes Status: Acute (5) Depression Current Visit: Yes Status: Chronic Qualifiers: Depression Type: unspecified Qualified Code(s): F32.9 - Major depressive disorder, single episode, unspecified (6) Essential hypertension Current Visit: Yes Status: Chronic (7) GERD (gastroesophageal reflux disease) Current Visit: Yes Status: Chronic Qualifiers: Esophagitis presence: without esophagitis Qualified Code(s): K21.9 - Gastro -esophageal reflux disease without esophagitis (8) Insomnia Current Visit: Yes Status: Chronic Qualifiers: Insomnia type: unspecified Qualified Code(s): G47.00 - Insomnia, unspecified (9) Nicotine dependence Current Visit: Yes Status: Chronic Qualifiers: Nicotine product type: cigarettes Substance use status: uncomplicated Qualified Code(s): F17.210 - Nicotine dependence, cigarettes, uncomplicated Screened but not Admitted - Documentation of Visit Screened but not Admitted: No Breathalyzer - Breathalyzer Breathalyzer: 0.68 Urine Drug Screen - Test Device Lot number: [id number] Expiration date: 04/28/21 - Control Is test valid?: Yes - Results Drug screen NEGATIVE: Yes Urine drug screen results: ANGIE-Cocaine, MET-Methamphetamine, BZO-Benzodiazepines Inpatient Rehab Admission - Rehab Decision to Admit Inpatient rehab admission?: No
[2019-09-28] MEDS ORDERED: MAG HYDROX/AL HYDROX/SIMETH 30 ML UNIT-DOSE CUP PO PRN (11:13)
[2019-09-28] MEDS ORDERED: chlordiazePOXIDE HCL 25 MG CAPSULE PO PRN (11:13)
[2019-09-28] MEDS ORDERED: METHOCARBAMOL 500 MG TABLET PO PRN (11:13)
[2019-09-28] MEDS ORDERED: MAGNESIUM CITRATE 300 ML BOTTLE PO PRN (11:13)
[2019-09-28] MEDS ORDERED: cloNIDine HCL 0.1 MG TABLET PO PRN (11:13)
[2019-09-28] MEDS ORDERED: ACETAMINOPHEN 325 MG TABLET (FP) PO PRN ×2 (11:13)
[2019-09-28] MEDS ORDERED: BISMUTH SUBSALICYLATE 524 MG/30 ML UD PO PRN (11:13)
[2019-09-28] MEDS ORDERED: MAGNESIUM HYDROX 2400MG/30ML ORAL SUSPENSION 30 ML CUP PO PRN (11:13)
[2019-09-28] MEDS ORDERED: hydrOXYzine PAMOATE 25 MG CAPSULE (FP) PO PRN (11:13)
[2019-09-28] MEDS ORDERED: IBUPROFEN 400 MG TABLET (FP) PO PRN (11:13)
[2019-09-28] MEDS ORDERED: MENTHOL/PHENOL 1 EACH UD MM PRN (11:13)
[2019-09-28] MEDS ORDERED: MELATONIN 5 MG TABLETS PO PRN (11:13)
[2019-09-28] MEDS ORDERED: PANTOPRAZOLE 40 MG TABLET (FP) PO SCH (11:30)
[2019-09-28] MEDS ORDERED: METHADONE HCL 10 MG TABLET (FOR DETOX USE ONLY) PO ONE (11:40)
[2019-09-28] MEDS: amLODIPine BESYLATE 10 MG TABLET (FP) PO SCH (12:23)
[2019-09-28] MEDS: chlordiazePOXIDE HCL 25 MG CAPSULE PO SCH ×3 (12:23→22:28)
[2019-09-28 14:46] LABS: HEMATOCRIT 42.3 % (35.4-49); MCH 29.9 pg (25.7-33.7); MCHC 33.2 g/dl (32.0-35.9); MEAN PLT VOLUME 7.7 fl (7.5-11.1); PLATELET COUNT 266 K/MM3 (134-434); RDW 14.5 % (11.9-15.9)
[2019-09-28 14:53] LABS: ALBUMIN 4.3 g/dl (3.4-5.0); BILIRUBIN,TOTAL 0.5 mg/dL (0.2-1); CALCIUM 9.3 mg/dL (8.5-10.1); CREATININE 0.9 mg/dL (0.55-1.3); POTASSIUM 4.1 mmol/L (3.5-5.1); TOT PROT 7.8 g/dl (6.4-8.2)
[2019-09-28] MEDS ORDERED: IBUPROFEN 600 MG TABLET (FP) PO PRN (15:36)
[2019-09-28] MEDS ORDERED: QUEtiapine FUMARATE 50 MG TABLET PO SCH (22:00)
[2019-09-28] MEDS: THIAMINE HCL 100 MG TABLET (FP) PO SCH (22:28)
[2019-09-29] MEDS: chlordiazePOXIDE HCL 25 MG CAPSULE PO SCH ×4 (06:06→22:10)
[2019-09-29] MEDS ORDERED: METHADONE HCL 10 MG TABLET (FOR DETOX USE ONLY) ONE (09:00)
[2019-09-29] MEDS ORDERED: METHADONE HCL 5 MG TABLET (FOR DETOX USE ONLY) ONE (09:00)
--- NOTE | 2019-09-29 09:21 | CONSULT ---
[facility] Psychiatric Consult - Data Date of interview: 09/29/19 Psychiatric History: Patient approached at bedsides. Told editorial writer:" I'm ok. I don 't need to see you"
--- NOTE | 2019-09-29 09:41 | CONSULT ---
[facility] Psychiatric Consult - Data Date of interview: 09/29/19 Admission source: Self-referred Identifying data: Mr Willams is a 59 years old single Black male, father of a 30 years old son, unemployed receiving food stamp, homeless seeking detox treatment for alcohol, cocaine, benzodiazepine and cannabis Substance Abuse History: Reports history of alcohol, cocaine, xanax and marijuanause. Refer to addiction counselor's summary for further information Medical History: Significant for GERD, hypertension, PPD+, history of withdrawal seizures and surgery for removal of intestinal polyps (1999). Smokes 1.5 cigarettes daily Psychiatric History: Patient is known to director underwriter sales from encounters during previous admissions to this facility in March 2019 and June 2019. Historical narrative remains consistent. Reportedly, he is diagnosed with Bipolar Disorder. He denies previous psychiatric hospitalizations. When seen by director underwriter sales on 07/14/19, he reported that he was not receiving outpatient psychiatric treatment but he was prescribed Seroquel 100 mg/hs by his primary care physician.This was confirmed by calling [phone] at [address] [place] [address]. So he was continued on that medication. Told director underwriter sales that he continued to take medication since his discharge from this facility on 07/17/19. Denies previous suicide attempt. At present, denies experiencing psychtic, manic or depressive symptoms, S/H ideations. However, reports feeling anxious and sleeping poorly Physical/Sexual Abuse/Trauma History: Denies history of physical or sexual abuse as well as DV relationship. Reportedly he served in the [employer] from to , receiving honorable discharge. 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 Mental Status Exam - Mental Status Exam Alert and Oriented to: Time, Place, Person Cognitive Function: Fair Patient Appearance: Well Groomed Mood: Anxious Affect: Appropriate Patient Behavior: Cooperative Speech Pattern: Clear Voice Loudness: Normal Thought Process: Intact, Goal Oriented Hallucinations: Denies Suicidal Ideation: Denies Homicidal Ideation: Denies Insight/Judgement: Poor Sleep: Poorly Appetite: Good Muscle strength/Tone: Normal Gait/Station: Normal Psychiatric Findings - Problem List ([place] 1, 2,3) (1) Mood disorder Current Visit: No Status: Chronic (2) Bipolar disorder Current Visit: No Status: Ruled-out Comment: As per history and records. (3) Substance-induced anxiety disorder Current Visit: Yes Status: Acute (4) Substance-induced sleep disorder Current Visit: No Status: Acute (5) Alcohol dependence with uncomplicated withdrawal Current Visit: Yes Status: Acute (6) Opioid dependence with withdrawal Current Visit: No Status: Chronic (7) Cocaine dependence, uncomplicated Current Visit: Yes Status: Acute (8) Sedative/hypnotic withdrawal without complication Current Visit: Yes Status: Acute (9) Cannabis dependence Current Visit: Yes Status: Acute (10) Nicotine dependence Current Visit: Yes Status: Chronic Qualifiers: Nicotine product type: cigarettes Substance use status: uncomplicated Qualified Code(s): F17.210 - Nicotine dependence, cigarettes, uncomplicated (11) Essential hypertension Current Visit: Yes Status: Chronic (12) GERD (gastroesophageal reflux disease) Current Visit: Yes Status: Chronic Qualifiers: Esophagitis presence: without esophagitis Qualified Code(s): K21.9 - Gastro -esophageal reflux disease without esophagitis - Initial Treatment Plan Initial Treatment Plan: 1) Continue Seroquel 100 mg po HS. 2) Continue inpatient detoxification
[2019-09-29] MEDS ORDERED: METHADONE (DETOX) 20 MG, METHADONE (DETOX) 5 MG PO ONE (10:00)
[2019-09-29] MEDS: NICOTINE 14 MG/24 HOURS TOPICAL PATCH TD SCH (10:11)
[2019-09-29] MEDS: amLODIPine BESYLATE 10 MG TABLET (FP) PO SCH (10:11)
[2019-09-29] MEDS: PRENATAL VITAMINS W/ FOLIC ACID TABLET (FP) PO SCH (10:11)
[2019-09-29] MEDS: PANTOPRAZOLE 20 MG TABLET (FP) PO SCH ×2 (10:11→22:10)
--- NOTE | 2019-09-29 11:58 | PN ---
S CIWA - CIWA Score Nausea/Vomitin Muscle Tremors: 2 Anxiety: 3 Agitation: 1-Slight > Activity Paroxysmal Sweats: 1-Minimal Palms Moist Orientation: 0-Oriented Tacttile Disturbances: 1-Very Mild Itch/Numbness Auditory Disturbances: 0-None Visual Disturbances: 0-None Headache: 1-Very Mild CIWA-Ar Total Score: 12 BHS COWS - Scale Resting Pulse: 0= [place] 80 or Below Sweatin= Chills/Flushing Restless Observation: 1= Difficult to Sit Still Pupil Size: 0= Normal to Room Light Bone or Joint Aches: 2= Severe Diffuse Aches Runny Nose/ Eye Tearin= Nasal Congestion GI Upset > 30mins: 2= Nausea/Diarrhea Tremor Observation of Outstretched Hands: 1= Tremor [place], Not Seen Yawning Observation: 1= 1-2x During Session Anxiety or Irritability: 2=Irritable/Anxious Goose Flesh Skin: 0=Smooth Skin COWS Score: 11 S Progress Note (SOAP) Subjective: c/o of back pain, chills, interrupted sleep, nausea Objective: 09/29/19 11:55 Vital Signs Temperature 97.7 F 09/29/19 10:09 Pulse Rate 76 09/29/19 10:09 Respiratory Rate 18 09/29/19 10:09 Blood Pressure 129/74 09/29/19 10:09 O2 Sat by Pulse Oximetry (%) Laboratory Last Values WBC 4.0 K/mm3 (4.0-10.0) 09/28/19 12:00 RBC 4.70 M/mm3 (4.00-5.60) 09/28/19 12:00 Hgb 14.0 GM/dL (11.7-16.9) 09/28/19 12:00 Hct 42.3 % (35.4-49) 09/28/19 12:00 MCV 90.0 fl (80-96) 09/28/19 12:00 MCH 29.9 pg (25.7-33.7) 09/28/19 12:00 MCHC 33.2 g/dl (32.0-35.9) 09/28/19 12:00 RDW 14.5 % (11.9-15.9) 09/28/19 12:00 Plt Count 266 K/MM3 (134-434) D 09/28/19 12:00 MPV 7.7 fl (7.5-11.1) 09/28/19 12:00 Sodium 141 mmol/L (136-145) 09/28/19 12:00 Potassium 4.1 mmol/L (3.5-5.1) 09/28/19 12:00 Chloride 105 mmol/L (98-107) 09/28/19 12:00 Carbon Dioxide 28 mmol/L (21-32) 09/28/19 12:00 Anion Gap 7 MMOL/L (8-16) L 09/28/19 12:00 BUN 9.0 mg/dL (7-18) 09/28/19 12:00 Creatinine 0.9 mg/dL (0.55-1.3) 09/28/19 12:00 Est GFR (CKD-EPI)AfAm 108.73 09/28/19 12:00 Est GFR (CKD-EPI)NonAf 93.82 09/28/19 12:00 Random Glucose 83 mg/dL (74-106) 09/28/19 12:00 Calcium 9.3 mg/dL (8.5-10.1) 09/28/19 12:00 Total Bilirubin 0.5 mg/dL (0.2-1) 09/28/19 12:00 AST 29 U/L (15-37) 09/28/19 12:00 ALT 61 U/L (13-61) 09/28/19 12:00 Alkaline Phosphatase 62 U/L (45-117) 09/28/19 12:00 Total Protein 7.8 g/dl (6.4-8.2) 09/28/19 12:00 Albumin 4.3 g/dl (3.4-5.0) 09/28/19 12:00 RPR Titer Nonreactive (NONREACTIVE) 09/28/19 12:00 Assessment: 09/29/19 11:57 Aox3 no acute distress EENT WNL Full ROM ambulating in the unit withdrawal sx Plan: increase PO fluids continue detox continue to monitor
[2019-09-29] MEDS: THIAMINE HCL 100 MG TABLET (FP) PO SCH (22:10)
[2019-09-29] MEDS: QUEtiapine FUMARATE 100 MG TABLET (FP) PO SCH (22:10)
[2019-09-30] MEDS: chlordiazePOXIDE HCL 25 MG CAPSULE PO SCH ×4 (05:47→22:00)
[2019-09-30] MEDS: PANTOPRAZOLE 20 MG TABLET (FP) PO SCH ×2 (09:25→22:00)
[2019-09-30] MEDS: PRENATAL VITAMINS W/ FOLIC ACID TABLET (FP) PO SCH (09:25)
[2019-09-30] MEDS: amLODIPine BESYLATE 10 MG TABLET (FP) PO SCH (09:25)
[2019-09-30] MEDS: NICOTINE 14 MG/24 HOURS TOPICAL PATCH TD SCH (09:28)
[2019-09-30] MEDS ORDERED: METHADONE HCL 10 MG TABLET (FOR DETOX USE ONLY) PO ONE (10:00)
--- NOTE | 2019-09-30 11:06 | PN ---
[facility] CIWA - CIWA Score Nausea/Vomitin-No Nausea/No Vomiting Muscle Tremors: 2 Anxiety: 3 Agitation: 0-Normal Activity Paroxysmal Sweats: 3 Orientation: 0-Oriented Tacttile Disturbances: 0-None Auditory Disturbances: 0-None Visual Disturbances: 0-None Headache: 2-Mild CIWA-Ar Total Score: 10 BHS COWS - Scale Resting Pulse: 0= [place] 80 or Below Sweatin= Chills/Flushing Restless Observation: 1= Difficult to Sit Still Pupil Size: 0= Normal to Room Light Bone or Joint Aches: 2= Severe Diffuse Aches Runny Nose/ Eye Tearin= None GI Upset > 30mins: 0= None Tremor Observation of Outstretched Hands: 2= Slight Tremor Visible Yawning Observation: 1= 1-2x During Session Anxiety or Irritability: 2=Irritable/Anxious Goose Flesh Skin: 0=Smooth Skin COWS Score: 9 BHS Progress Note (SOAP) Subjective: c/o anxiety, back pain, sweats, mild shakes, and muscle aches. Objective: 09/30/19 11:06 Vital Signs 09/30/19 09/30/19 09/30/19 03:30 07:29 09:37 Temperature 97.7 F 97.1 F L Pulse Rate 67 58 L Respiratory 18 18 17 Rate Blood Pressure 121/80 125/64 Laboratory Last Values WBC 4.0 K/mm3 (4.0-10.0) 09/28/19 12:00 RBC 4.70 M/mm3 (4.00-5.60) 09/28/19 12:00 Hgb 14.0 GM/dL (11.7-16.9) 09/28/19 12:00 Hct 42.3 % (35.4-49) 09/28/19 12:00 MCV 90.0 fl (80-96) 09/28/19 12:00 MCH 29.9 pg (25.7-33.7) 09/28/19 12:00 MCHC 33.2 g/dl (32.0-35.9) 09/28/19 12:00 RDW 14.5 % (11.9-15.9) 09/28/19 12:00 Plt Count 266 K/MM3 (134-434) D 09/28/19 12:00 MPV 7.7 fl (7.5-11.1) 09/28/19 12:00 Sodium 141 mmol/L (136-145) 09/28/19 12:00 Potassium 4.1 mmol/L (3.5-5.1) 09/28/19 12:00 Chloride 105 mmol/L (98-107) 09/28/19 12:00 Carbon Dioxide 28 mmol/L (21-32) 09/28/19 12:00 Anion Gap 7 MMOL/L (8-16) L 09/28/19 12:00 BUN 9.0 mg/dL (7-18) 09/28/19 12:00 Creatinine 0.9 mg/dL (0.55-1.3) 09/28/19 12:00 Est GFR (CKD-EPI)AfAm 108.73 09/28/19 12:00 Est GFR (CKD-EPI)NonAf 93.82 09/28/19 12:00 Random Glucose 83 mg/dL (74-106) 09/28/19 12:00 Calcium 9.3 mg/dL (8.5-10.1) 09/28/19 12:00 Total Bilirubin 0.5 mg/dL (0.2-1) 09/28/19 12:00 AST 29 U/L (15-37) 09/28/19 12:00 ALT 61 U/L (13-61) 09/28/19 12:00 Alkaline Phosphatase 62 U/L (45-117) 09/28/19 12:00 Total Protein 7.8 g/dl (6.4-8.2) 09/28/19 12:00 Albumin 4.3 g/dl (3.4-5.0) 09/28/19 12:00 RPR Titer Nonreactive (NONREACTIVE) 09/28/19 12:00 labs noted. Assessment: 09/30/19 11:06 AOX3, in no acute respiratory distress. Full ROM, ambulating in the unit. Withdrawal symptoms. Plan: continue detox.
[2019-09-30] MEDS ORDERED: P-EPHED 60MG/TRIPROLIDI 2.5MG TABLET PO PRN (18:32)
--- NOTE | 2019-09-30 18:36 | PN ---
S Progress Note Note: Patient complained of nasal congestion Vital Signs Temperature 97.7 F 09/30/19 17:12 Pulse Rate 58 L 09/30/19 17:12 Respiratory Rate 18 09/30/19 17:12 Blood Pressure 141/63 09/30/19 17:12 O2 Sat by Pulse Oximetry (%) Action:P-Ephed 60mg/ Trpolidi 2.5mg ()Actifed) 1 combo po Q6H prn ordered
[2019-09-30] MEDS: QUEtiapine FUMARATE 100 MG TABLET (FP) PO SCH (22:00)
[2019-09-30] MEDS: THIAMINE HCL 100 MG TABLET (FP) PO SCH (22:00)
[2019-10-01] MEDS ORDERED: chlordiazePOXIDE HCL 10 MG CAPSULE PO PRN
[2019-10-01] MEDS: chlordiazePOXIDE HCL 10 MG CAPSULE PO SCH ×4 (05:47→22:26)
[2019-10-01] MEDS ORDERED: METHADONE HCL 5 MG TABLET (FOR DETOX USE ONLY) ONE (09:42)
[2019-10-01] MEDS ORDERED: METHADONE HCL 10 MG TABLET (FOR DETOX USE ONLY) ONE (09:42)
[2019-10-01] MEDS ORDERED: METHADONE (DETOX) 10 MG, METHADONE (DETOX) 5 MG PO ONE (10:00)
[2019-10-01] MEDS: amLODIPine BESYLATE 10 MG TABLET (FP) PO SCH (10:07)
[2019-10-01] MEDS: PANTOPRAZOLE 20 MG TABLET (FP) PO SCH ×2 (10:07→22:25)
[2019-10-01] MEDS: PRENATAL VITAMINS W/ FOLIC ACID TABLET (FP) PO SCH (10:07)
[2019-10-01] MEDS: NICOTINE 14 MG/24 HOURS TOPICAL PATCH TD SCH (10:08)
--- NOTE | 2019-10-01 11:25 | PN ---
S CIWA - CIWA Score Nausea/Vomitin-Mild Nausea/No Vomiting Muscle Tremors: 2 Anxiety: 1-Mildly Anxious Agitation: 1-Slight > Activity Paroxysmal Sweats: No Perspiration Orientation: 0-Oriented Tacttile Disturbances: 0-None Auditory Disturbances: 0-None Visual Disturbances: 0-None Headache: 1-Very Mild CIWA-Ar Total Score: 6 BHS COWS - Scale Resting Pulse: 0= [place] 80 or Below Sweatin= Chills/Flushing Restless Observation: 0= Sits Still Pupil Size: 0= Normal to Room Light Bone or Joint Aches: 1= Mild Discomfort Runny Nose/ Eye Tearin= Nasal Congestion GI Upset > 30mins: 1= Stomach Cramp Tremor Observation of Outstretched Hands: 1= Tremor [employer], Not Seen Yawning Observation: 1= 1-2x During Session Anxiety or Irritability: 1=Feels Anxious/Irritable Goose Flesh Skin: 0=Smooth Skin COWS Score: 7 S Progress Note (SOAP) Subjective: pt states he is feeling better. O: Vital Signs - 24 hr 09/30/19 09/30/19 09/30/19 12:58 17:12 21:27 Temperature 98.1 F 97.7 F 97.7 F Pulse Rate 61 58 L 66 Respiratory 18 18 18 Rate Blood Pressure 128/92 141/63 132/75 10/01/19 10/01/19 10/01/19 00:30 06:00 09:40 Temperature 97.7 F 97.9 F Pulse Rate 90 75 Respiratory 18 18 18 Rate Blood Pressure 115/60 103/65 Laboratory Tests 09/28/19 09/28/19 09/28/19 12:00 12:00 12:00 WBC 4.0 RBC 4.70 Hgb 14.0 Hct 42.3 MCV 90.0 MCH 29.9 MCHC 33.2 RDW 14.5 Plt Count 266 D MPV 7.7 Sodium 141 Potassium 4.1 Chloride 105 Carbon Dioxide 28 Anion Gap 7 L BUN 9.0 Creatinine 0.9 Est GFR (CKD-EPI)AfAm 108.73 Est GFR (CKD-EPI)NonAf 93.82 Random Glucose 83 Calcium 9.3 Total Bilirubin 0.5 AST 29 ALT 61 Alkaline Phosphatase 62 Total Protein 7.8 Albumin 4.3 RPR Titer Nonreactive a/p: With opioid dependence and alcohol dependence with withdrawals, cocaine use disorder, and cannibis use disorder Continue detox protocols pt without complaints, refused to consider halfway MAT treatments wants to leave tomorrow
[2019-10-01] MEDS: THIAMINE HCL 100 MG TABLET (FP) PO SCH (22:25)
[2019-10-01] MEDS: QUEtiapine FUMARATE 100 MG TABLET (FP) PO SCH (22:26)
[2019-10-02] MEDS ORDERED: chlordiazePOXIDE HCL 10 MG CAPSULE PO SCH (05:00)
--- NOTE | 2019-10-02 08:40 | DS ---
[facility] Detox Discharge Summary Admission Date: 09/28/19 Discharge Date: 10/02/19 - History Present History: Alcohol Dependence, Cocaine Dependence, Opioid Dependence Pertinent Past History: Pt admitted with opioid dependence and alcohol dependence, cocaine use disorder , and cannibis use disorder for detox managment. Pt compeleted treatment and is going to f/u with NA and AA meetings. Does not want MAT at this time. Will consider this in the future. Vital Signs - 24 hr 10/01/19 10/01/19 10/01/19 09:40 13:26 17:31 Temperature 97.9 F 97.9 F 97.7 F Pulse Rate 75 69 67 Respiratory 18 18 18 Rate Blood Pressure 103/65 121/87 106/68 10/01/19 10/02/19 10/02/19 21:52 03:49 08:28 Temperature 97.9 F 97.5 F L Pulse Rate 67 72 Respiratory 18 16 18 Rate Blood Pressure 114/68 129/71 Laboratory Tests 09/28/19 09/28/19 09/28/19 12:00 12:00 12:00 WBC 4.0 RBC 4.70 Hgb 14.0 Hct 42.3 MCV 90.0 MCH 29.9 MCHC 33.2 RDW 14.5 Plt Count 266 D MPV 7.7 Sodium 141 Potassium 4.1 Chloride 105 Carbon Dioxide 28 Anion Gap 7 L BUN 9.0 Creatinine 0.9 Est GFR (CKD-EPI)AfAm 108.73 Est GFR (CKD-EPI)NonAf 93.82 Random Glucose 83 Calcium 9.3 Total Bilirubin 0.5 AST 29 ALT 61 Alkaline Phosphatase 62 Total Protein 7.8 Albumin 4.3 RPR Titer Nonreactive pt will f/u with PCP> Only needed refill of protonix- d/w pt side effects of mag depletions and general nutrient deficiencies. Pt has other meds at home Pt will f/u with outpt meetings NA/AA. - Physical Exam Results Vital Signs: Vital Signs Temperature 97.5 F L 10/02/19 08:28 Pulse Rate 72 10/02/19 08:28 Respiratory Rate 18 10/02/19 08:28 Blood Pressure 129/71 10/02/19 08:28 O2 Sat by Pulse Oximetry (%) - Treatment Hospital Course: Detox Protocol Followed, Detoxed Safely, Responded well, Discharged Condition Good - Medication Discharge Medications: Ambulatory Orders Quetiapine Fumarate [Seroquel -] 150 mg PO HS 03/17/18 Amlodipine Besylate [Norvasc -] 10 mg PO DAILY 30 Days #30 tablet 07/16/19 Pantoprazole Sodium [Protonix -] 40 mg PO DAILY #30 tablet.ec 07/16/19 Pantoprazole Sodium [Protonix -] 20 mg PO BID #30 tablet.ec 10/02/19
[2019-10-02] MEDS ORDERED: METHADONE HCL 10 MG TABLET (FOR DETOX USE ONLY) PO ONE (10:00)
[2019-10-02] MEDS: PANTOPRAZOLE 20 MG TABLET (FP) PO SCH (10:11)
[2019-10-02 10:12] VITALS: BP 143/87; PULSE 68; TEMP 97.3
[2019-10-02] MEDS: amLODIPine BESYLATE 10 MG TABLET (FP) PO SCH (10:12)
[2019-10-02] MEDS: PRENATAL VITAMINS W/ FOLIC ACID TABLET (FP) PO SCH (10:12)
[2019-10-02] MEDS: NICOTINE 14 MG/24 HOURS TOPICAL PATCH TD SCH (10:13)
[2019-10-03] MEDS ORDERED: chlordiazePOXIDE HCL 10 MG CAPSULE PO ONE (05:00)
[2019-10-03] MEDS ORDERED: METHADONE HCL 5 MG TABLET (FOR DETOX USE ONLY) PO ONE (06:00)
== END 2019-10-02 10:10 | disposition home or self-care (01) | DRG 773 ==
LOC: YASAS 09:55 → Y6N 11:36
PROVIDERS: ADMIT Allergy & Immunology; ATTEND Allergy & Immunology
PROC: HZ2ZZZZ Detoxification Services for Substance Abuse Treatment (ICD-10-PCS; principal; 2019-09-28)
DX: F11.23 Opioid dependence with withdrawal (principal); F10.230 Alcohol dependence with withdrawal, uncomplicated; F13.230 Sedative, hypnotic or anxiolytic dependence with withdrawal, uncomplicated; F14.20 Cocaine dependence, uncomplicated; F12.20 Cannabis dependence, uncomplicated; F17.210 Nicotine dependence, cigarettes, uncomplicated; F39 Unspecified mood [affective] disorder; F31.9 Bipolar disorder, unspecified; F19.280 Other psychoactive substance dependence with psychoactive substance-induced anxiety disorder; F19.282 Other psychoactive substance dependence with psychoactive substance-induced sleep disorder; I10 Essential (primary) hypertension; K21.9 Gastro-esophageal reflux disease without esophagitis; R00.0 Tachycardia, unspecified; G47.00 Insomnia, unspecified; Z88.0 Allergy status to penicillin; Z91.013 Allergy to seafood; Z91.018 Allergy to other foods; Z86.69 Personal history of other diseases of the nervous system and sense organs; Z59.0 Homelessness
CPT/HCPCS: 36415; 80053; 85027; 86593; J0735

== ENCOUNTER 2020-05-02 13:00 | Inpatient (IN) | payer OTHER ==
--- NOTE | 2020-05-02 13:10 | BHS.RME ---
Substance Use & Tx History - Substance Use History Alcohol Substance amount: 1/5 to 1/2 vodka Frequency of use: Daily Substance route: Oral Date of Last Use: 05/02/20 (2am) Xanax Substance amount: 2 mg 2-3 tabs Frequency of use: Daily Substance route: Oral Date of Last Use: 05/01/20 Cocaine- Powder Substance amount: $60 Frequency of use: Less than 3 times per week Substance route: Inhalation (ex: sniffing or snorting), Smoking Date of Last Use: 04/30/20 Nicotine Substance amount: 1.5 packs Frequency of use: Daily Substance route: Smoking Date of Last Use: 05/09/20 Physical/Psych/Mental Status - Behavior General Behavior: Increased activity (restlessness, agitation) Eye Contact: Normal - Cooperativeness Cooperativeness: Cooperative - Thinking Thought Processes: Tight, Logical, Goal Directed - Physical Health Problems Is patient presently having any pain?: No Does patient presently have any injuries (include location): No Does patient currently have a fever: No Is patient : No CIWA Nausea/Vomitin Muscle Tremors: 4-Moderate,w/Arms Extend Anxiety: 3 Agitation: 3 Paroxysmal Sweats: 3 Orientation: 1-Uncertain about Date Tacttile Disturbances: 0-None Auditory Disturbances: 0-None Visual Disturbances: 0-None Headache: 0-None Present CIWA-Ar Total Score: 16
--- NOTE | 2020-05-02 13:37 | HP ---
CIWA Score Nausea/Vomitin Muscle Tremors: 4-Moderate,w/Arms Extend Anxiety: 3 Agitation: 3 Paroxysmal Sweats: 3 Orientation: 1-Uncertain about Date Tacttile Disturbances: 0-None Auditory Disturbances: 0-None Visual Disturbances: 0-None Headache: 0-None Present CIWA-Ar Total Score: 16 - Admission Criteria OASAS Guidelines: Admission for Medically Managed Detox: Requires at least one of the followin. CIWA greater than 12 2. Seizures within the past 24 hours 3. Delirium tremens within the past 24 hours 4. Hallucinations within the past 24 hours 5. Acute intervention needed for co occurring medical disorder 6. Acute intervention needed for co occurring psychiatric disorder 7. Severe withdrawal that cannot be handled at a lower level of care (continued vomiting, continued diarrhea, abnormal vital signs) requiring intravenous medication and/or fluids 8. Admitting History and Physical - Admission Chief Complaint: Mr. Willams is a 60 yo man presenting to [facility] seeking detox from alcohol, benzos, cannabis History of Present Illness: Mr. Willams is a 60 yo man presenting to [facility] seeking detox from alcohol, benzos, cannabis and nicotine. He was last here between 03/02 and 03/06/20. He was referred to [facility], however, there were no beds and he relapsed 2 weeks later. PMH: HTN, GERD, alopecia PSH; none Psych: insomnia: on Seroquel 150 mg hs SOC: homeless on the streets Legal: none - Substance Use History Alcohol Substance amount: 1/5 to 1/2 vodka Frequency of use: Daily Substance route: Oral Date of Last Use: 05/02/20 (2am) First use age 15 y Seizure 7 y ago Blackout 2 days ago Admits to eye word processor Xanax Substance amount: 2 mg 2-3 tabs Frequency of use: Daily Substance route: Oral Date of Last Use: 05/01/20 First use age 26y Cocaine- Powder Substance amount: $60 Frequency of use: Less than 3 times per week Substance route: Inhalation (ex: sniffing or snorting), Smoking Date of Last Use: 04/30/20 First us Nicotine Substance amount: 1.5 packs Frequency of use: Daily Substance route: Smoking Date of Last Use: 05/09/20 First use age 15 y Cannabis: 2 blunts per week Last use 8/3 First use age 15 y Heroin 2 bags daily last use 2 days ago first use age 19 y. No OD. Has Narcan at home History Source: Patient Limitations to Obtaining History: No Limitations - Past Medical History Cardiovascular: Yes: HTN Gastrointestinal: Yes: GERD Psych: Yes: Depression - Past Surgical History Past Surgical History: Yes: None - Smoking History Smoking history: Current every day smoker Have you smoked in the past 12 months: Yes Aproximately how many cigarettes per day: 30 - Alcohol/Substance Use Hx Alcohol Use: Yes (1/5 of vodka daily) Number of Drinks Daily: 10 History of Substance Use: reports: Cocaine, Heroin, Marijuana - Social History ADL: Independent Occupation: dispatcher, unemployed currently History of Recent Travel: No Admission [facility] Allergies/Adverse Reactions: Allergies Allergy/AdvReac Type Severity Reaction Status Date / Time Fish Containing Products Allergy Severe Rash Verified 03/02/20 10:26 penicillin V [Penicillin V] Allergy Intermediate Hives Verified 03/02/20 10:26 Pork/Porcine Containing Allergy Mild Nausea Verified 03/02/20 10:26 Products Exam Limitations: No Limitations - Ebola screening Have you traveled outside of the country in the last 21 days: No Have you been sick,other than usual withdrawal symptoms: No Do you have a fever: No - Review of Systems Constitutional: No Symptoms Reported EENT: reports: Blurred Vision (has reading glasses with her) Respiratory: reports: No Symptoms reported Cardiac: reports: No Symptoms Reported GI: reports: Nausea : reports: No Symptoms Reported Musculoskeletal: reports: No Symptoms Reported Integumentary: reports: Other (eczema right elbow) Neuro: reports: Seizure (7 y ago). denies: Headache, Numbness Endocrine: reports: No Symptoms Reported Hematology: denies: Anemia, Blood Clots, Easy Bleeding Psychiatric: reports: Anxious Patient History - Patient Medical History Hx Anemia: No Hx Asthma: No Hx Chronic Obstructive Pulmonary Disease (COPD): No Hx Cancer: No Hx Cardiac Disorders: No Hx Congestive Heart Failure: No Hx Hypertension: Yes Hx Hypercholesterolemia: No Hx Pacemaker: No HX Cerebrovascular Accident: No Hx Seizures: Yes (8 months ago) Hx Dementia: No Hx Diabetes: No Hx Gastrointestinal Disorders: No Hx Liver Disease: No Hx Genitourinary Disorders: No Hx Sexually Transmitted Disorders: No Hx Renal Disease (ESRD): No Hx Thyroid Disease: No Hx Human Immunodeficiency Virus (HIV): No Hx Hepatitis C: No Hx Depression: Yes Hx Suicide Attempt: No Hx Bipolar Disorder: No Hx Schizophrenia: No - Patient Surgical History Past Surgical History: Yes Hx Neurologic Surgery: No Hx Cataract Extraction: No Hx Cardiac Surgery: No Hx Lung Surgery: No Hx Breast Surgery: No Hx Breast Biopsy: No Hx Abdominal Surgery: No Hx Appendectomy: No Hx Cholecystectomy: No Hx Genitourinary Surgery: No Hx Section: No Hx Orthopedic Surgery: No Other Surgical History: removal of GI polyps in 1999 Anesthesia Reaction: No - PPD History Date: 09/29/90 Results: CXR neg 04/26/19 - Smoking Cessation Smoking history: Current every day smoker Have you smoked in the past 12 months: Yes Aproximately how many cigarettes per day: 30 Cigars Per Day: 0 Hx Chewing Tobacco Use: No Initiated information on smoking cessation: Yes 'Breaking Loose' booklet given: 05/02/20 Admission Physical Exam [facility] - Physical General Appearance: Yes: No Apparent Distress, Thin HEENTM: Yes: EOMI, Hearing grossly Normal, Other (alopecia) Respiratory: Yes: Lungs Clear, Normal Breath Sounds, No Respiratory Distress, No Accessory Muscle Use Neck: Yes: Within Normal Limits, Supple Breast: Yes: Breast Exam Deferred Cardiology: Yes: Regular Rhythm, Regular Rate, S1, S2 Abdominal: Yes: Normal Bowel Sounds, Non Tender, Flat, Soft Genitourinary: Yes: Other (deferred) Back: Yes: Normal Inspection Musculoskeletal: Yes: Gait Steady Extremities: Yes: Normal Inspection, Non-Tender Neurological: Yes: Alert Integumentary: Yes: Other (right elbow eczema) - Diagnostic (1) Cocaine dependence, uncomplicated Current Visit: Yes Status: Acute (2) Nicotine dependence Current Visit: Yes Status: Acute Qualifiers: Nicotine product type: cigarettes Substance use status: in withdrawal Qualified Code(s): F17.213 - Nicotine dependence, cigarettes, with withdrawal (3) Opioid dependence Current Visit: Yes Status: Acute (4) Insomnia Current Visit: Yes Status: Chronic Qualifiers: Insomnia type: unspecified Qualified Code(s): G47.00 - Insomnia, unspecified Cleared for Admission [facility] - Detox or Rehab [facility] Level of Care: Medically Managed Detox Regimen/Protocol: Librium Breathalyzer - Breathalyzer Breathalyzer: 0.68 Urine Drug Screen - Test Device Lot number: [id number] Expiration date: 01/04/22 - Control Is test valid?: Yes - Results Drug screen NEGATIVE: Yes Urine drug screen results: THC-Marijuana, ANGIE-Cocaine, BZO-Benzodiazepines Inpatient Rehab Admission - Rehab Decision to Admit Inpatient rehab admission?: No
[2020-05-02] MEDS ORDERED: ACETAMINOPHEN 325 MG TABLET (FP) PO PRN ×2 (13:59)
[2020-05-02] MEDS ORDERED: NICOTINE POLACRILEX 2 MG GUM BUC PRN (13:59)
[2020-05-02] MEDS ORDERED: METHOCARBAMOL 500 MG TABLET PO PRN (13:59)
[2020-05-02] MEDS ORDERED: MAGNESIUM HYDROX 2400MG/30ML ORAL SUSPENSION 30 ML CUP PO PRN (13:59)
[2020-05-02] MEDS ORDERED: MENTHOL/PHENOL 1 EACH UD MM PRN (13:59)
[2020-05-02] MEDS ORDERED: IBUPROFEN 400 MG TABLET (FP) PO PRN (13:59)
[2020-05-02] MEDS ORDERED: BISMUTH SUBSALICYLATE 262 MG/15 ML BTL PO PRN (13:59)
[2020-05-02] MEDS ORDERED: ONDANSETRON *ODT* 4 MG TABLET SL PRN (13:59)
[2020-05-02] MEDS ORDERED: chlordiazePOXIDE HCL 25 MG CAPSULE PO PRN (13:59)
[2020-05-02] MEDS ORDERED: MAG HYDROX/AL HYDROX/SIMETH 30 ML UNIT-DOSE CUP PO PRN (13:59)
[2020-05-02] MEDS ORDERED: MAGNESIUM CITRATE 300 ML BOTTLE PO PRN (13:59)
[2020-05-02] MEDS ORDERED: AMMONIUM LACTATE 12% LOTION 225 GM BOTTLE TP PRN (14:02)
[2020-05-02 14:27] VITALS: BMI 23.0
[2020-05-02] MEDS: hydrOXYzine PAMOATE 25 MG CAPSULE (FP) PO SCH ×3 (15:23→22:05)
[2020-05-02] MEDS: NICOTINE 21 MG/24 HOURS TOPICAL PATCH TD SCH (15:24)
[2020-05-02 17:05] LABS: HEMATOCRIT 43.6 % (35.4-49); HEMOGLOBIN 14.3 GM/dL (11.7-16.9); MCH 29.9 pg (25.7-33.7); MCHC 32.7 g/dl (32.0-35.9); MEAN CELL VOLUME 91.3 fl (80-96); MEAN PLT VOLUME 8.2 fl (7.5-11.1); PLATELET COUNT 249 K/MM3 (134-434); RBC 4.77 M/mm3 (4.00-5.60); RDW 15.6 % (11.9-15.9); WHITE BLOOD COUNT 3.9 K/mm3 (4.0-10.0)
[2020-05-02] MEDS: chlordiazePOXIDE HCL 25 MG CAPSULE PO SCH ×2 (17:15→22:06)
[2020-05-02 17:20] LABS: ALBUMIN 4.4 g/dl (3.4-5.0); BLOOD UREA NITROGEN 8.7 mg/dL (7-18); CALCIUM 8.9 mg/dL (8.5-10.1); CREATININE 0.9 mg/dL (0.55-1.3); POTASSIUM 3.7 mmol/L (3.5-5.1); TOT PROT 7.9 g/dl (6.4-8.2)
[2020-05-02] MEDS: MELATONIN 5 MG TABLETS PO SCH (22:05)
[2020-05-02] MEDS: THIAMINE HCL 100 MG TABLET (FP) PO SCH (22:05)
[2020-05-02] MEDS ORDERED: MASKS NR ONE (22:08)
[2020-05-03] MEDS: hydrOXYzine PAMOATE 25 MG CAPSULE (FP) PO SCH ×5 (05:32→22:02)
[2020-05-03] MEDS: chlordiazePOXIDE HCL 25 MG CAPSULE PO SCH ×4 (05:32→22:03)
[2020-05-03] MEDS: PANTOPRAZOLE 40 MG TABLET PO SCH (10:15)
[2020-05-03] MEDS: NICOTINE 21 MG/24 HOURS TOPICAL PATCH TD SCH (10:16)
[2020-05-03] MEDS: amLODIPine BESYLATE 10 MG TABLET (FP) PO SCH (10:16)
[2020-05-03] MEDS: PRENATAL VITAMINS W/ FOLIC ACID TABLET (FP) PO SCH (10:16)
--- NOTE | 2020-05-03 12:18 | CONSULT ---
[facility] Psychiatric Consult - Data Date of interview: 05/03/20 Admission source: [facility] Identifying data: Readmission to [address] [place] [address] for this 60 y/o AA male, self-referred for detoxification treatment. CARLA issues : alcohol, xanax, cannabis, cocaine. Patient is single, a father of one, domiciled, unemployed and supported on Public Assistance. Substance Abuse History: Discussed with the patient. CARLA profile as follows : Smoking history: Current every day smoker. Have you smoked in the past 12 months: Yes. Aproximately how many cigarettes per day: 30. Cigars Per Day: 0. Hx Chewing Tobacco Use: No. Initiated information on smoking cessation: Yes. 'Breaking Loose' booklet given: 05/02/20. Alcohol. Substance amount: 1/5 to 1/2 vodka. Frequency of use: Daily. Substance route: Oral. Date of Last Use: 05/02/20 (2am). First use age 15 y. Seizure 7 y ago. Blackout 2 days ago. Admits to eye special events manager. Xanax. Substance amount: 2 mg 2-3 tabs. Frequency of use: Daily. Substance route: Oral. Date of Last Use: 05/01/20. First use age 26y. Cocaine- Powder. Substance amount: $60. Frequency of use: Less than 3 times per week. Substance route: Inhalation (ex: sniffing or snorting), Smoking. Date of Last Use: 04/30/20. First us. Nicotine. Substance amount: 1.5 packs. Frequency of use: Daily. Substance route: Smoking. Date of Last Use: 05/09/20. First use age 15 y. Cannabis: 2 blunts per week. Last use 05/01. First use age 15 y. Heroin. 2 bags daily. last use 2 days ago. first use age 19 y. No OD. Has Narcan at home. History Source: Patient. Limitations to Obtaining History: No Limitations Medical History: Medical profile is remarkable for GERD, hypertension, antecedent of withdrawal seizures and a history of surgery for removal of intestinal polyps (1999). Psychiatric History: History of psychiatric hospitalization ((discharged last week from [facility]). Diagnosed with Mood Disorder. Reportedly diagnosed with Bipolar Disorder. Patient is not adherent to psychiatric OPD care. Mr Willams was reportedly discharged on seroquel 50 mg/daily + 150 mg/hs. Patient denies history of suicide attempts. Physical/Sexual Abuse/Trauma History: No history of abuse. Additional Comment: Urine drug screen results: THC-Marijuana, ANGIE-Cocaine, BZO- Benzodiazepines. Noted. Mental Status Exam - Mental Status Exam Alert and Oriented to: Time, Place, Person Cognitive Function: Good Patient Appearance: Well Groomed Mood: Hopeful Affect: Appropriate, Normal Range Patient Behavior: Appropriate, Cooperative Speech Pattern: Clear, Appropriate Voice Loudness: Normal Thought Process: Intact, Goal Oriented Thought Disorder: Not Present Hallucinations: Denies Suicidal Ideation: Denies Homicidal Ideation: Denies Insight/Judgement: Poor Sleep: Poorly, Difficulty falling asleep Appetite: Good Gait/Station: Other Psychiatric Findings - Problem List ([place] 1, 2,3) (1) Alcohol dependence with uncomplicated withdrawal Current Visit: Yes Status: Acute (2) Cannabis dependence Current Visit: Yes Status: Chronic (3) Nicotine dependence Current Visit: Yes Status: Acute Qualifiers: Nicotine product type: cigarettes Substance use status: in withdrawal Qualified Code(s): F17.213 - Nicotine dependence, cigarettes, with withdrawal (4) Cocaine dependence Current Visit: Yes Status: Chronic Qualifiers: Substance use status: uncomplicated Qualified Code(s): F14.20 - Cocaine dependence, uncomplicated (5) Substance induced mood disorder Current Visit: Yes Status: Suspected (6) Insomnia Current Visit: Yes Status: Chronic - Initial Treatment Plan Initial Treatment Plan: Psychoeducation. Sleep hygiene. Detoxification. Resumed at patient's request : seroquel 50 mg po daily + 150 mg po hs. Side effects/benefits discussed with the patient. Informed consent (verbal) granted by patient to MD. Figueroa
[2020-05-03] MEDS: QUEtiapine FUMARATE 50 MG TABLET PO SCH ×2 (14:35→22:03)
--- NOTE | 2020-05-03 14:42 | PN ---
S CIWA - CIWA Score Nausea/Vomitin-Mild Nausea/No Vomiting Muscle Tremors: 2 Anxiety: 2 Agitation: 3 Paroxysmal Sweats: 1-Minimal Palms Moist Orientation: 0-Oriented Tacttile Disturbances: 0-None Auditory Disturbances: 0-None Visual Disturbances: 2-Mild Sensitivity Headache: 2-Mild CIWA-Ar Total Score: 13 BHS Progress Note (SOAP) Subjective: 60 years old male admitted on 05/02/20 for alcohol and benzo withdrawal sx bennettlauren ceron treating with librium detox regiment seen by psychiatrist resume seroquel feeling ok reports loose stool x 1 imodium 4 mg po x 1 Objective: 05/03/20 14:56 Vital Signs - 24 hr 05/02/20 05/02/20 05/02/20 15:15 16:48 20:55 Temperature 96.8 F L 97.3 F L 97.3 F L Pulse Rate 80 85 91 H Respiratory 20 18 18 Rate Blood Pressure 151/98 123/84 130/89 O2 Sat by Pulse 100 100 Oximetry (%) 05/03/20 05/03/20 05/03/20 06:14 08:30 12:30 Temperature 96.8 F L 96.2 F L 98.2 F Pulse Rate 69 67 72 Respiratory 18 18 18 Rate Blood Pressure 120/82 131/81 138/83 O2 Sat by Pulse 98 98 98 Oximetry (%) Laboratory Tests 05/02/20 05/02/20 05/02/20 13:50 13:50 13:50 WBC 3.9 L RBC 4.77 Hgb 14.3 Hct 43.6 MCV 91.3 MCH 29.9 MCHC 32.7 RDW 15.6 Plt Count 249 MPV 8.2 Sodium 140 Potassium 3.7 Chloride 103 Carbon Dioxide 28 Anion Gap 9 BUN 8.7 Creatinine 0.9 Est GFR (CKD-EPI)AfAm 107.97 Est GFR (CKD-EPI)NonAf 93.16 Random Glucose 76 Calcium 8.9 Total Bilirubin 1.0 AST 28 ALT 41 Alkaline Phosphatase 63 Total Protein 7.9 Albumin 4.4 Syphilis Serology Non-reactive COVID-19 (JUANY) 05/02/20 14:20 WBC RBC Hgb Hct MCV MCH MCHC RDW Plt Count MPV Sodium Potassium Chloride Carbon Dioxide Anion Gap BUN Creatinine Est GFR (CKD-EPI)AfAm Est GFR (CKD-EPI)NonAf Random Glucose Calcium Total Bilirubin AST ALT Alkaline Phosphatase Total Protein Albumin Syphilis Serology COVID-19 (JUANY) Not detected lab noted Assessment: 05/03/20 14:57 alcohol and benzo withdrawal Plan: librium regiment
[2020-05-03] MEDS ORDERED: LOPERAMIDE HCL 2 MG CAPSULE PO ONE (15:00)
[2020-05-03] MEDS: MELATONIN 5 MG TABLETS PO SCH (22:02)
[2020-05-03] MEDS: THIAMINE HCL 100 MG TABLET (FP) PO SCH (22:03)
[2020-05-04] MEDS: chlordiazePOXIDE HCL 25 MG CAPSULE PO SCH ×3 (05:37→17:41)
[2020-05-04] MEDS: hydrOXYzine PAMOATE 25 MG CAPSULE (FP) PO SCH ×6 (06:06→22:46)
[2020-05-04] MEDS: NICOTINE 21 MG/24 HOURS TOPICAL PATCH TD SCH (10:18)
[2020-05-04] MEDS: PANTOPRAZOLE 40 MG TABLET PO SCH (10:18)
[2020-05-04] MEDS: amLODIPine BESYLATE 10 MG TABLET (FP) PO SCH (10:18)
[2020-05-04] MEDS: PRENATAL VITAMINS W/ FOLIC ACID TABLET (FP) PO SCH (10:18)
[2020-05-04] MEDS: QUEtiapine FUMARATE 50 MG TABLET PO SCH ×2 (10:18→22:09)
--- NOTE | 2020-05-04 11:19 | PN ---
S CIWA - CIWA Score Nausea/Vomitin-Mild Nausea/No Vomiting Muscle Tremors: 3 Anxiety: 2 Agitation: 0-Normal Activity Paroxysmal Sweats: No Perspiration Orientation: 0-Oriented Tacttile Disturbances: 1-Very Mild Itch/Numbness Auditory Disturbances: 0-None Visual Disturbances: 2-Mild Sensitivity Headache: 1-Very Mild CIWA-Ar Total Score: 10 S Progress Note (SOAP) Subjective: 60 years old male admitted on 05/02/20 for alcohol and benzo withdrawal sx management treating with librium detox regiment feeling better today discussing aftercare with staff mr wallace prefers to go to [facility] out patient for alcohol and benzo recovery mr wallace prefers to go to rehab a day early instead of estimated date of 05/07/20 adjusting librium regiment Objective: 05/04/20 11:16 Vital Signs - 24 hr 05/03/20 05/03/20 05/03/20 12:30 16:32 20:49 Temperature 98.2 F 97.3 F L 97.3 F L Pulse Rate 72 76 78 Respiratory 18 18 18 Rate Blood Pressure 138/83 136/81 125/80 O2 Sat by Pulse 98 97 Oximetry (%) 05/04/20 05/04/20 06:16 08:55 Temperature 97.2 F L 97.3 F L Pulse Rate 55 L 76 Respiratory 18 18 Rate Blood Pressure 118/72 120/73 O2 Sat by Pulse 99 Oximetry (%) Laboratory Tests 05/02/20 05/02/20 05/02/20 13:50 13:50 13:50 WBC 3.9 L RBC 4.77 Hgb 14.3 Hct 43.6 MCV 91.3 MCH 29.9 MCHC 32.7 RDW 15.6 Plt Count 249 MPV 8.2 Sodium 140 Potassium 3.7 Chloride 103 Carbon Dioxide 28 Anion Gap 9 BUN 8.7 Creatinine 0.9 Est GFR (CKD-EPI)AfAm 107.97 Est GFR (CKD-EPI)NonAf 93.16 Random Glucose 76 Calcium 8.9 Total Bilirubin 1.0 AST 28 ALT 41 Alkaline Phosphatase 63 Total Protein 7.9 Albumin 4.4 Syphilis Serology Non-reactive COVID-19 (JUANY) 05/02/20 14:20 WBC RBC Hgb Hct MCV MCH MCHC RDW Plt Count MPV Sodium Potassium Chloride Carbon Dioxide Anion Gap BUN Creatinine Est GFR (CKD-EPI)AfAm Est GFR (CKD-EPI)NonAf Random Glucose Calcium Total Bilirubin AST ALT Alkaline Phosphatase Total Protein Albumin Syphilis Serology COVID-19 (JUANY) Not detected lab noted Assessment: 05/04/20 11:16 alcohol and benzo withdrawal Plan: librium regiment
[2020-05-04] MEDS: chlordiazePOXIDE HCL 10 MG CAPSULE PO SCH ×2 (18:14→22:09)
[2020-05-04] MEDS: THIAMINE HCL 100 MG TABLET (FP) PO SCH (22:09)
[2020-05-04] MEDS: MELATONIN 5 MG TABLETS PO SCH (22:11)
[2020-05-05] MEDS ORDERED: chlordiazePOXIDE HCL 10 MG CAPSULE PO PRN
[2020-05-05] MEDS ORDERED: chlordiazePOXIDE HCL 10 MG CAPSULE PO SCH (05:00)
[2020-05-05] MEDS: chlordiazePOXIDE HCL 10 MG CAPSULE PO SCH ×2 (06:11→17:34)
[2020-05-05] MEDS: hydrOXYzine PAMOATE 25 MG CAPSULE (FP) PO SCH ×5 (06:11→22:16)
[2020-05-05] MEDS: PRENATAL VITAMINS W/ FOLIC ACID TABLET (FP) PO SCH (10:12)
[2020-05-05] MEDS: NICOTINE 21 MG/24 HOURS TOPICAL PATCH TD SCH (10:12)
[2020-05-05] MEDS: amLODIPine BESYLATE 10 MG TABLET (FP) PO SCH (10:14)
[2020-05-05] MEDS: QUEtiapine FUMARATE 50 MG TABLET PO SCH ×2 (10:14→22:16)
[2020-05-05] MEDS: PANTOPRAZOLE 40 MG TABLET PO SCH (10:14)
--- NOTE | 2020-05-05 10:15 | PN ---
S CIWA - CIWA Score Nausea/Vomitin Muscle Tremors: None Anxiety: 0-No Anxiety, at Ease Agitation: 0-Normal Activity Paroxysmal Sweats: No Perspiration Orientation: 0-Oriented Tacttile Disturbances: 0-None Auditory Disturbances: 0-None Visual Disturbances: 0-None Headache: 0-None Present CIWA-Ar Total Score: 3 [facility] COWS - Scale Resting Pulse: 0= NM 80 or Below Restless Observation: 0= Sits Still Pupil Size: 0= Normal to Room Light Bone or Joint Aches: 0= None Runny Nose/ Eye Tearin= None GI Upset > 30mins: 0= None Tremor Observation of Outstretched Hands: 0= None Yawning Observation: 0= None Anxiety or Irritability: 0= None Goose Flesh Skin: 0=Smooth Skin S Progress Note (SOAP) Subjective: Mr. Willams is alert this morning eating breakfast. States he has some abdominal upset, nausea/vomiting, requesting Immodium. Objective: 05/05/20 10:13 General Appearance: Yes: No Apparent Distress HEENTM: Hearing grossly Normal, Normocephalic, Normal Voice Respiratory: No Accessory Muscle Use Musculoskeletal: Within Normal Limits Extremities: Normal Range of Motion Neurological: Alert, Motor Strength 5/5, Normal Response Integumentary: Dry, Warm Laboratory Tests 05/02/20 05/02/20 05/02/20 13:50 13:50 13:50 WBC 3.9 L RBC 4.77 Hgb 14.3 Hct 43.6 MCV 91.3 MCH 29.9 MCHC 32.7 RDW 15.6 Plt Count 249 MPV 8.2 Sodium 140 Potassium 3.7 Chloride 103 Carbon Dioxide 28 Anion Gap 9 BUN 8.7 Creatinine 0.9 Est GFR (CKD-EPI)AfAm 107.97 Est GFR (CKD-EPI)NonAf 93.16 Random Glucose 76 Calcium 8.9 Total Bilirubin 1.0 AST 28 ALT 41 Alkaline Phosphatase 63 Total Protein 7.9 Albumin 4.4 Syphilis Serology Non-reactive COVID-19 (JUANY) 05/02/20 14:20 WBC RBC Hgb Hct MCV MCH MCHC RDW Plt Count MPV Sodium Potassium Chloride Carbon Dioxide Anion Gap BUN Creatinine Est GFR (CKD-EPI)AfAm Est GFR (CKD-EPI)NonAf Random Glucose Calcium Total Bilirubin AST ALT Alkaline Phosphatase Total Protein Albumin Syphilis Serology COVID-19 (JUANY) Not detected Last Vital Signs Temp Pulse Resp BP Pulse Ox 97.8 F 84 18 106/76 99 05/05/20 08:30 05/05/20 08:30 05/05/20 08:30 05/05/20 08:30 05/05/20 08:30 Home Medication List Medication Instructions Recorded Confirmed Type Quetiapine Fumarate [Seroquel -] 150 mg PO HS 03/17/18 05/02/20 History Active Medications Generic Name Dose Route Start Last Admin Trade Name Freq PRN Reason Stop Dose Admin Acetaminophen 650 mg 05/02/20 13:59 Tylenol - PO Q6H PRN PAIN LEVEL 4 - 6 Acetaminophen 650 mg 05/02/20 13:59 Tylenol - PO Q6H PRN FEVER Al Hydroxide/Mg Hydroxide 30 ml 05/02/20 13:59 Mylanta Oral Suspension - PO Q6H PRN DYSPEPSIA Amlodipine Besylate 10 mg 05/03/20 10:00 05/04/20 10:18 Norvasc - PO 10 mg DAILY MATT Administration Bismuth Subsalicylate 30 ml 05/02/20 13:59 05/04/20 18:52 Pepto-Bismol Liquid - PO 30 ml Q1H PRN Administration DIARRHEA Chlordiazepoxide HCl 10 mg 05/05/20 00:00 Librium - PO 05/06/20 00:00 Q4H PRN WITHDRAWAL(CONT SUBST) Chlordiazepoxide HCl 10 mg 05/06/20 05:00 Librium - PO 05/06/20 05:01 ONCE@0500 ONE Chlordiazepoxide HCl 10 mg 05/05/20 05:00 05/05/20 06:11 Librium - PO 05/05/20 17:01 10 mg Q12H MATT Administration Eucalyptus/Menthol/Phenol/Sorbitol 1 each 05/02/20 13:59 Cepastat Lozenge - MM 05/08/20 13:59 Q4H PRN SORE THROAT Hydroxyzine Pamoate 25 mg 05/02/20 14:00 05/05/20 06:11 Vistaril - PO 05/08/20 13:59 25 mg Q4HWA MATT Administration Ibuprofen 400 mg 05/02/20 13:59 Motrin - PO Q6H PRN PAIN LEVEL 1 - 3 Lactic Acid 1 applic 05/02/20 14:02 Lac-Hydrin 12 TP BID PRN DRY SKIN Magnesium Citrate 300 ml 05/02/20 13:59 Citroma - PO Q48H PRN CONSTIPATION Magnesium Hydroxide 30 ml 05/02/20 13:59 Milk Of Magnesia - PO PRN PRN CONSTIPATION Melatonin 5 mg 05/02/20 22:00 05/04/20 22:11 Melatonin PO Not Given HS MATT Methocarbamol 500 mg 05/02/20 13:59 Robaxin - PO 05/08/20 13:59 Q6H PRN MUSCLE SPASMS Nicotine 21 mg 05/02/20 14:15 05/04/20 10:18 Nicoderm Patch - TD Not Given DAILY MATT Nicotine Polacrilex 2 mg 05/02/20 13:59 Nicorette Gum - BUC Q2H PRN NICOTINE REPLACEMENT RX Ondansetron HCl 4 mg 05/02/20 13:59 Zofran Odt - SL 05/08/20 14:01 Q8H PRN Nausea/Vomiting Pantoprazole Sodium 40 mg 05/03/20 10:00 05/04/20 10:18 Protonix - PO 40 mg DAILY MATT Administration Multivit/Folic Acid/Iron 1 tab 05/03/20 10:00 05/04/20 10:18 Vitamins (Sjr) - PO 1 tab DAILY MATT Administration Quetiapine Fumarate 150 mg 05/03/20 22:00 05/04/20 22:09 Seroquel - PO 150 mg HS MATT Administration Quetiapine Fumarate 50 mg 05/03/20 12:30 05/04/20 10:18 Seroquel - PO 50 mg DAILY MATT Administration Thiamine HCl 100 mg 05/02/20 22:00 05/04/20 22:09 Vitamin B1 - PO 100 mg HS MATT Administration Assessment: 05/05/20 10:15 1. Alcohol Detox, Benzo detox. Onn Librium, final day. 2. Cocaine detox Plan: 1. Alcohol Detox--Tomorrow will be last day of Librium protocol. Will discharge tomorrow.
[2020-05-05] MEDS: LOPERAMIDE HCL 2 MG CAPSULE PO PRN ×2 (11:09→19:26)
[2020-05-05] MEDS: THIAMINE HCL 100 MG TABLET (FP) PO SCH (22:16)
[2020-05-05] MEDS: MELATONIN 5 MG TABLETS PO SCH (22:16)
[2020-05-06] MEDS ORDERED: chlordiazePOXIDE HCL 10 MG CAPSULE PO SCH (05:00)
[2020-05-06] MEDS ORDERED: chlordiazePOXIDE HCL 10 MG CAPSULE PO ONE (05:00)
[2020-05-06] MEDS: hydrOXYzine PAMOATE 25 MG CAPSULE (FP) PO SCH (07:00)
[2020-05-06 08:59] VITALS: BP 106/64; PULSE 73; TEMP 97.2
[2020-05-06] MEDS: amLODIPine BESYLATE 10 MG TABLET (FP) PO SCH (09:16)
[2020-05-06] MEDS: PANTOPRAZOLE 40 MG TABLET PO SCH (09:16)
--- NOTE | 2020-05-06 14:50 | DS ---
[facility] Detox Discharge Summary Admission Date: 05/02/20 Discharge Date: 05/06/20 - History Present History: Alcohol Dependence, Cannabis Dependence, Cocaine Dependence Additional Comments: Pt is medically cleared and discharged today. Pt completed the detox protocol. Pt is encouraged to follow-up with an outpatient CD program and also to follow- up with his PMD which he verbalized understanding. Pt is alert and oriented x3 and in no acute respiratory distress, Full ROM, and ambulatory. Pertinent Past History: h/o HTN, GERD, alcohol, cocaine, cannabis use disorder. - Physical Exam Results Vital Signs: Vital Signs Temperature 97.2 F L 05/06/20 08:31 Pulse Rate 73 05/06/20 08:31 Respiratory Rate 18 05/06/20 08:31 Blood Pressure 106/64 05/06/20 08:31 O2 Sat by Pulse Oximetry (%) 99 05/06/20 08:31 Vital Signs 05/06/20 08:31 Temperature 97.2 F L Pulse Rate 73 Respiratory 18 Rate Blood Pressure 106/64 O2 Sat by Pulse 99 Oximetry (%) Laboratory Last Values WBC 3.9 K/mm3 (4.0-10.0) L 05/02/20 13:50 RBC 4.77 M/mm3 (4.00-5.60) 05/02/20 13:50 Hgb 14.3 GM/dL (11.7-16.9) 05/02/20 13:50 Hct 43.6 % (35.4-49) 05/02/20 13:50 MCV 91.3 fl (80-96) 05/02/20 13:50 MCH 29.9 pg (25.7-33.7) 05/02/20 13:50 MCHC 32.7 g/dl (32.0-35.9) 05/02/20 13:50 RDW 15.6 % (11.9-15.9) 05/02/20 13:50 Plt Count 249 K/MM3 (134-434) 05/02/20 13:50 MPV 8.2 fl (7.5-11.1) 05/02/20 13:50 Sodium 140 mmol/L (136-145) 05/02/20 13:50 Potassium 3.7 mmol/L (3.5-5.1) 05/02/20 13:50 Chloride 103 mmol/L (98-107) 05/02/20 13:50 Carbon Dioxide 28 mmol/L (21-32) 05/02/20 13:50 Anion Gap 9 MMOL/L (8-16) 05/02/20 13:50 BUN 8.7 mg/dL (7-18) 05/02/20 13:50 Creatinine 0.9 mg/dL (0.55-1.3) 05/02/20 13:50 Est GFR (CKD-EPI)AfAm 107.97 05/02/20 13:50 Est GFR (CKD-EPI)NonAf 93.16 05/02/20 13:50 Random Glucose 76 mg/dL (74-106) 05/02/20 13:50 Calcium 8.9 mg/dL (8.5-10.1) 05/02/20 13:50 Total Bilirubin 1.0 mg/dL (0.2-1) 05/02/20 13:50 AST 28 U/L (15-37) 05/02/20 13:50 ALT 41 U/L (13-61) 05/02/20 13:50 Alkaline Phosphatase 63 U/L (45-117) 05/02/20 13:50 Total Protein 7.9 g/dl (6.4-8.2) 05/02/20 13:50 Albumin 4.4 g/dl (3.4-5.0) 05/02/20 13:50 Syphilis Serology Non-reactive (NONREACTIVE) 05/02/20 13:50 COVID-19 (JUANY) Not detected (Not Detected) 05/02/20 14:20 Labs noted. Pertinent Admission Physical Exam Findings: withdrawal symptoms. - Treatment Hospital Course: Detox Protocol Followed, Detoxed Safely, Responded well, Discharged Condition Good - Medication Discharge Medications: Ambulatory Orders Quetiapine Fumarate [Seroquel -] 150 mg PO HS 03/17/18 Amlodipine Besylate [Norvasc -] 10 mg PO DAILY 30 Days #30 tablet 07/16/19 Pantoprazole Sodium [Protonix -] 40 mg PO DAILY #30 tablet.ec 07/16/19 Naloxone HCl [Narcan] 4 mg NS ASDIR PRN #1 spray 03/05/20 - Diagnosis (1) Alcohol dependence with uncomplicated withdrawal Status: Acute (2) Cocaine dependence, uncomplicated Status: Acute (3) Nicotine dependence Status: Acute Qualifiers: Nicotine product type: cigarettes Substance use status: in withdrawal Qualified Code(s): F17.213 - Nicotine dependence, cigarettes, with withdrawal (4) Opioid dependence Status: Chronic (5) Opioid dependence with withdrawal Status: Acute (6) Essential hypertension Status: Chronic (7) GERD (gastroesophageal reflux disease) Status: Chronic Qualifiers: Esophagitis presence: without esophagitis Qualified Code(s): K21.9 - Gastro-esophageal reflux disease without esophagitis - AMA Did Patient Leave Against Medical Advice: No
[2020-05-07] MEDS ORDERED: chlordiazePOXIDE HCL 10 MG CAPSULE PO ONE (05:00)
== END 2020-05-06 09:23 | disposition home or self-care (01) | DRG 773 ==
LOC: YASAS 13:00 → Y3N 14:08
PROVIDERS: ADMIT Allergy & Immunology; ATTEND Allergy & Immunology
PROC: HZ2ZZZZ Detoxification Services for Substance Abuse Treatment (ICD-10-PCS; principal; 2020-05-02)
DX: F11.23 Opioid dependence with withdrawal (principal); F10.230 Alcohol dependence with withdrawal, uncomplicated; F13.230 Sedative, hypnotic or anxiolytic dependence with withdrawal, uncomplicated; F14.20 Cocaine dependence, uncomplicated; F12.20 Cannabis dependence, uncomplicated; F17.213 Nicotine dependence, cigarettes, with withdrawal; F19.24 Other psychoactive substance dependence with psychoactive substance-induced mood disorder; I10 Essential (primary) hypertension; K21.9 Gastro-esophageal reflux disease without esophagitis; G47.00 Insomnia, unspecified; Z88.0 Allergy status to penicillin; Z91.013 Allergy to seafood; Z91.018 Allergy to other foods; Z86.69 Personal history of other diseases of the nervous system and sense organs; Z59.0 Homelessness
CPT/HCPCS: 36415; 71045-TC-FY; 80053; 85027; 86780; U0003

== ENCOUNTER 2020-07-12 09:46 | Inpatient (IN) | payer OTHER ==
--- OUTSIDE RECORDS SUMMARY | 2020-07-12 10:01 | XMS ---
:1960 [address] [facility] Support Name Relationship Address Phone UE Unavailable Unavailable Unavailable GUDELIA RUSSELL [place], [place] GUDELIA RUSSELL Other [place] Unavailable [place], [place] Re-disclosure Warning The records that you are about to access may contain information from federally- assisted alcohol or drug abuse programs. If such information is present, then the following federally mandated warning applies: This information has been disclosed to you from records protected by federal confidentiality rules (42 CFR part 2). The federal rules prohibit you from making any further disclosure of this information unless further disclosure is expressly permitted by the written consent of the person to whom it pertains or as otherwise permitted by 42 CFR part 2. A general authorization for the release of medical or other information is NOT sufficient for this purpose. The Federal rules restrict any use of the information to criminally investigate or prosecute any alcohol or drug abuse patient.The records that you are about to access may contain highly sensitive health information, the redisclosure of which is protected by Article 27-F of the [facility] Public Health law. If you continue you may haveaccess to information: Regarding HIV / AIDS; Provided by facilities licensed or operated by the [facility] Office of Mental Health; or Provided by the [facility] Office for People With Developmental Disabilities. If such information is present, then the following [facility] mandated warning applies: This information has been disclosed to you from confidential records which are protected by state law. State law prohibits you from making any further disclosure of this information without the specific written consent of the person to whom it pertains, or as otherwise permitted by law. Any unauthorized further disclosure in violation of state law may result in a fine or detention sentence or both. A general authorization for the release of medical or other information is NOT sufficient authorization for further disclosure. Insurance Providers Payer name Policy type Policy ID Covered Covered democrat's Policy P abilio / Coverage democrat ID relationship to [place] Inf ormation type [place] HEALTH [id number] SP [id number] [employer] [id number] SP [id number] FIRST Results ID Date Data Source [id number] 06/26/2020 10:48:00 AM EDT [facility] Name Value Range Interpretation Description Data Sup porting Code Source(s) Document(s ) [id number] [facility] W(Nasal) Reportable This lab was ordered by [facility] and reported by [facility]. ID Date Data Source [id number] 05/02/2020 02:20:00 PM EDT [facility] Name Value Range Interpretation Description Data Sup porting Code Source(s) Document(s ) SARS [facility] coronavirus 2 RNA This lab was ordered by [facility] and reported by [facility]. ID Date Data Source [id number] 04/21/2020 10:57:00 AM EDT [facility] Name Value Range Interpretation Description Data Sup porting Code Source(s) Document(s ) SARS [facility] Coronavirus 2 RNA Presence Respiratory Specimen JUANY Probe Detection This lab was ordered by [facility] an d reported by [facility]. ID Date Data Source [id number] 03/28/2020 11:18:00 AM EDT [facility] Name Value Range Interpretation Description Data Sup porting Code Source(s) Document(s ) [id number] [facility] W(Nasal) Reportable This lab was ordered by [facility] and reported by [facility]. ID Date Data Source [id number] 03/02/2020 11:30:00 AM EDT [facility] Name Value Range Interpretation Description Data Sup porting Code Source(s) Document(s ) SARS [facility] CORONAVIRUS 2 RNA This lab was ordered by [facility] and reported by [facility]. Procedure
--- NOTE | 2020-07-12 10:02 | BHS.RME ---
Substance Use & Tx History - Substance Use History Alcohol Substance amount: one liter Vodka Frequency of use: Daily Substance route: Oral Date of Last Use: 07/12/20 Heroin Substance amount: 2-3 bags Frequency of use: Daily Substance route: Inhalation (ex: sniffing or snorting) Date of Last Use: 07/07/20 Other Opiates/Synthetics Substance amount: street methadone 30 mg Frequency of use: Less than 3 times per week Substance route: Oral Date of Last Use: 07/07/20 - Last Treatment Date of last treatment: May 022019 Where was last treatment: Detox Physical/Psych/Mental Status - Behavior General Behavior: Decreased activity Eye Contact: Normal - Cooperativeness Cooperativeness: Cooperative - Thinking Thought Processes: Tight Thought content: Future oriented - Physical Health Problems Is patient presently having any pain?: No Does patient presently have any injuries (include location): No Does patient currently have a fever: No COWS - Scale Resting Pulse: 1= RI 81-100 Sweatin= Chills/Flushing Restless Observation: 1= Difficult to Sit Still Pupil Size: 0= Normal to Room Light Bone or Joint Aches: 0= None Runny Nose/ Eye Tearin= None GI Upset > 30mins: 1= Stomach Cramp Tremor Observation: 2= Slight Tremor Visible Yawning Observation: 0= None Anxiety or Irritability: 1=Feels Anxious/Irritable Goose Flesh Skin: 0=Smooth Skin COWS Score: 7 CIWA Nausea/Vomitin Muscle Tremors: 4-Moderate,w/Arms Extend Anxiety: 3 Agitation: 1-Slight > Activity Paroxysmal Sweats: 1-Minimal Palms Moist Orientation: 0-Oriented Tacttile Disturbances: 0-None Auditory Disturbances: 0-None Visual Disturbances: 0-None Headache: 0-None Present CIWA-Ar Total Score: 12
[2020-07-12 10:34] VITALS: BMI 23.0
--- NOTE | 2020-07-12 10:40 | HP ---
"COWS - Scale Resting Pulse: 1= WI 81-100 Sweatin= Chills/Flushing Restless Observation: 1= Difficult to Sit Still Pupil Size: 0= Normal to Room Light Bone or Joint Aches: 0= None Runny Nose/ Eye Tearin= None GI Upset > 30mins: 1= Stomach Cramp Tremor Observation: 2= Slight Tremor Visible Yawning Observation: 0= None Anxiety or Irritability: 1=Feels Anxious/Irritable Goose Flesh Skin: 0=Smooth Skin COWS Score: 7 CIWA Score Nausea/Vomitin Muscle Tremors: 4-Moderate,w/Arms Extend Anxiety: 3 Agitation: 1-Slight > Activity Paroxysmal Sweats: 1-Minimal Palms Moist Orientation: 0-Oriented Tacttile Disturbances: 0-None Auditory Disturbances: 0-None Visual Disturbances: 0-None Headache: 0-None Present CIWA-Ar Total Score: 12 - Admission Criteria OASAS Guidelines: Admission for Medically Managed Detox: Requires at least one of the followin. CIWA greater than 12 2. Seizures within the past 24 hours 3. Delirium tremens within the past 24 hours 4. Hallucinations within the past 24 hours 5. Acute intervention needed for co occurring medical disorder 6. Acute intervention needed for co occurring psychiatric disorder 7. Severe withdrawal that cannot be handled at a lower level of care (continued vomiting, continued diarrhea, abnormal vital signs) requiring intravenous medication and/or fluids 8. Admitting History and Physical - Admission Chief Complaint: Mr. Willams is a 60 yo man who presents to [facility] requesting admission to detox for alcohol use. History of Present Illness: Mr. Willams is a 60 yo man who presents to [facility] requesting admission to detox for alcohol use. He was last admitted her in April and relapsed within 7 days of discharge. PMH: HTN, Acid reflux, Alopecia PSH: None Psych: Insomnia/Depressoin on Seroquel SOC: homeless Legal: none Substance Use History Alcohol Substance amount: one liter Vodka Frequency of use: Daily Substance route: Oral Date of Last Use: 07/12/20 Seizure: one year ago Blackout: yes, last was 3 days ago Eyeopener: yes Heroin Substance amount: 2-3 bags Frequency of use: Daily Substance route: Inhalation (ex: sniffing or snorting) Date of Last Use: 07/07/20 No hx of OD Has Narcan Other Opiates/Synthetics Substance amount: street methadone 30 mg Frequency of use: Less than 3 times per week Substance route: Oral Date of Last Use: 07/07/20 Cocaine: powder and crack: $60/week, last use 4 days ago Benzo: Xanax 1-2 sticks daily, last use 2 days ago, began use age 26 y Nicotine: one pack per day since age 15 y - Last Treatment Date of last treatment: May 02-2019 Where was last treatment: Detox Edy Willams, 1960 Search Date: 07/12/2020 10:53:52 AM The Drug Utilization Report below displays all of the controlled substance prescriptions, if any, that your patient has filled in the last twelve months. The information displayed on this report is compiled from pharmacy submissions to the Department, and accurately reflects the information as submitted by the pharmacies. This report was requested by: Beverly Hubbard | Reference #: [id number] There are no results for the search terms that you entered. History Source: Patient Limitations to Obtaining History: No Limitations - Past Medical History Cardiovascular: Yes: HTN Gastrointestinal: Yes: GERD Psych: Yes: Depression - Past Surgical History Past Surgical History: Yes: None - Smoking History Smoking history: Current every day smoker Have you smoked in the past 12 months: Yes Aproximately how many cigarettes per day: 30 - Alcohol/Substance Use Hx Alcohol Use: Yes (1/5 of vodka daily) Number of Drinks Daily: 10 History of Substance Use: reports: Cocaine, Heroin, Marijuana - Social History ADL: Independent Occupation: dispatcher, unemployed currently History of Recent Travel: No Admission [facility] Allergies/Adverse Reactions: Allergies Allergy/AdvReac Type Severity Reaction Status Date / Time Fish Containing Products Allergy Severe Rash Verified 07/12/20 10:51 penicillin V [Penicillin V] Allergy Intermediate Hives Verified 07/12/20 10:51 Pork/Porcine Containing Allergy Mild Nausea Verified 07/12/20 10:51 Products Exam Limitations: No Limitations - Ebola screening Have you traveled outside of the country in the last 21 days: No Have you been sick,other than usual withdrawal symptoms: No Do you have a fever: No - Review of Systems Constitutional: Unintentional Wgt. Loss (10 lbs in one month) EENT: reports: No Symptoms Reported Respiratory: reports: No Symptoms reported Cardiac: reports: No Symptoms Reported GI: reports: Nausea : reports: No Symptoms Reported Musculoskeletal: reports: No Symptoms Reported Integumentary: reports: Other (lifelong alopecia) Neuro: reports: No Symptoms reported Hematology: reports: No Symptoms Reported Psychiatric: reports: Anxious, Depressed (no SI) Patient History - Patient Medical History Hx Anemia: No Hx Asthma: No Hx Chronic Obstructive Pulmonary Disease (COPD): No Hx Cancer: No Hx Cardiac Disorders: No Hx Congestive Heart Failure: No Hx Hypertension: Yes Hx Hypercholesterolemia: No Hx Pacemaker: No HX Cerebrovascular Accident: No Hx Seizures: No Hx Dementia: No Hx Diabetes: No Hx Gastrointestinal Disorders: No Hx Liver Disease: No Hx Genitourinary Disorders: No Hx Sexually Transmitted Disorders: No Hx Renal Disease (ESRD): No Hx Thyroid Disease: No Hx Human Immunodeficiency Virus (HIV): No Hx Hepatitis C: No Hx Depression: Yes Hx Suicide Attempt: No Hx Bipolar Disorder: No Hx Schizophrenia: No - Patient Surgical History Past Surgical History: Yes Hx Neurologic Surgery: No Hx Cataract Extraction: No Hx Cardiac Surgery: No Hx Lung Surgery: No Hx Breast Surgery: No Hx Breast Biopsy: No Hx Abdominal Surgery: No Hx Appendectomy: No Hx Cholecystectomy: No Hx Genitourinary Surgery: No Hx Section: No Hx Orthopedic Surgery: No Other Surgical History: removal of GI polyps in 1999 Anesthesia Reaction: No - PPD History Date: 09/29/90 Results: CXR neg 04/26/19 - Smoking Cessation Smoking history: Current every day smoker Have you smoked in the past 12 months: Yes Aproximately how many cigarettes per day: 20 Cigars Per Day: 0 Hx Chewing Tobacco Use: No Initiated information on smoking cessation: Yes 'Breaking Loose' booklet given: 07/12/20 Admission Physical Exam [facility] - Vital Signs Vital Signs: Vital Signs - 24 hr 07/12/20 10:31 Temperature 97.4 F L Pulse Rate 84 Respiratory 18 Rate Blood Pressure 159/97 - Physical General Appearance: Yes: No Apparent Distress, Nourished, Tremorous, Anxious HEENTM: Yes: EOMI, Hearing grossly Normal, Normocephalic, Normal Voice Respiratory: Yes: Lungs Clear, No Respiratory Distress, No Accessory Muscle Use Neck: Yes: Within Normal Limits, Supple Breast: Yes: Breast Exam Deferred Cardiology: Yes: Regular Rhythm, Regular Rate Abdominal: Yes: Normal Bowel Sounds, Non Tender, Flat, Soft Genitourinary: Yes: Other (deferred) Back: Yes: Normal Inspection Musculoskeletal: Yes: Gait Steady Extremities: Yes: Normal Inspection, Non-Tender, Other (dry skin left elbow, right forearm. Right ear superficial scrape, pt states abrasion occurred last night, no sign of infection) Neurological: Yes: Alert, Normal Response Integumentary: Yes: Normal Color, Dry, Warm - Diagnostic (1) Opioid use disorder Current Visit: Yes Status: Acute (2) Alcohol dependence with uncomplicated withdrawal Current Visit: Yes Status: Acute (3) Nicotine dependence Current Visit: Yes Status: Acute Qualifiers: Nicotine product type: cigarettes Substance use status: uncomplicated Qualified Code(s): F17.210 - Nicotine dependence, cigarettes, uncomplicated (4) Sedative/hypnotic withdrawal without complication Current Visit: Yes Status: Acute (5) Cannabis dependence Current Visit: Yes Status: Chronic (6) Cocaine dependence Current Visit: Yes Status: Chronic Qualifiers: Substance use status: uncomplicated Qualified Code(s): F14.20 - Cocaine dependence, uncomplicated (7) Essential hypertension Current Visit: Yes Status: Chronic (8) GERD (gastroesophageal reflux disease) Current Visit: Yes Status: Chronic Qualifiers: Esophagitis presence: without esophagitis Qualified Code(s): K21.9 - Gastro-esophageal reflux disease without esophagitis (9) Insomnia Current Visit: Yes Status: Chronic Qualifiers: Insomnia type: unspecified Qualified Code(s): G47.00 - Insomnia, unspecified (10) Anxiety and depression Current Visit: Yes Status: Chronic Cleared for Admission [facility] - Detox or Rehab [facility] Level of Care: Medically Managed Detox Regimen/Protocol: Librium Breathalyzer - Breathalyzer Breathalyzer: 0.031 Urine Drug Screen - Test Device Lot number: [id number] Expiration date: 01/04/22 - Control Is test valid?: Yes - Results Drug screen NEGATIVE: No Urine drug screen results: THC-Marijuana, ANGIE-Cocaine, MTD-Methadone, BZO- Benzodiazepines Inpatient Rehab Admission - Rehab Decision to Admit Inpatient rehab admission?: No"
--- OUTSIDE RECORDS SUMMARY | 2020-07-12 10:48 | XMS ---
:1960 Author Organization [facility] Support Name Relationship Address Phone UE Unavailable Unavailable Unavailable GUDELIA RUSSELL [place], [place] GUDELIA RUSSELL Other [place] Unavailable [place], [place] Re-disclosure Warning The records that [...] is protected by Article 27-F of the [facility] Public Health law. If you continue you may haveaccess to information: Regarding HIV / AIDS; Provided by facilities licensed or operated by the [facility] Office of Mental Health; or Provided by the [facility] Office for People With Developmental Disabilities. If such information is present, then the following [facility] mandated warning applies: This information has been [...] law may result in a fine or long-term sentence or both. A general authorization for the release of medical or other information is NOT sufficient authorization for further disclosure. Insurance Providers Payer name Policy type Policy ID Covered Covered green party's Policy P abilio / Coverage green party ID relationship to [place] Inf ormation type [place] HEALTH [id number] SP [id number] [employer] [id number] SP [id number] FIRST Results ID Date Data Source [id number] 06/26/2020 10:48:00 AM EDT [facility] Name Value Range Interpretation Description Data Sup porting Code Source(s) Document(s ) [id number] [facility] W(Nasal) Reportable This lab was ordered by [facility] and reported by [facility]. ID Date Data Source [id number] 05/02/2020 02:20:00 PM EDT [facility] Name Value Range Interpretation Description Data Sup porting Code Source(s) Document(s ) SARS [facility] coronavirus 2 RNA This lab was ordered by [facility] and reported by [facility]. ID Date Data Source [id number] 04/21/2020 10:57:00 AM EDT [facility] Name Value Range Interpretation Description Data Sup porting Code Source(s) Document(s ) SARS [facility] Coronavirus 2 RNA Presence Respiratory Specimen JUANY Probe Detection This lab was ordered by [facility] an d reported by [facility]. ID Date Data Source [id number] 03/28/2020 11:18:00 AM EDT [facility] Name Value Range Interpretation Description Data Sup porting Code Source(s) Document(s ) [id number] [facility] W(Nasal) Reportable This lab was ordered by [facility] and reported by [facility]. ID Date Data Source [id number] 03/02/2020 11:30:00 AM EDT [facility] Name Value Range Interpretation Description Data Sup porting Code Source(s) Document(s ) SARS [facility] CORONAVIRUS 2 RNA This lab was ordered by [facility] and reported by [facility]. Procedure
[2020-07-12] MEDS ORDERED: NICOTINE POLACRILEX 2 MG GUM BUC PRN (10:49)
[2020-07-12] MEDS ORDERED: MAG HYDROX/AL HYDROX/SIMETH 30 ML UNIT-DOSE CUP PO PRN (10:49)
[2020-07-12] MEDS ORDERED: MAGNESIUM CITRATE 300 ML BOTTLE PO PRN (10:49)
[2020-07-12] MEDS ORDERED: METHOCARBAMOL 500 MG TABLET PO PRN (10:49)
[2020-07-12] MEDS ORDERED: chlordiazePOXIDE HCL 25 MG CAPSULE PO PRN (10:49)
[2020-07-12] MEDS ORDERED: ONDANSETRON *ODT* 4 MG TABLET SL PRN (10:49)
[2020-07-12] MEDS ORDERED: ACETAMINOPHEN 325 MG TABLET (FP) PO PRN ×2 (10:49)
[2020-07-12] MEDS ORDERED: MAGNESIUM HYDROX 2400MG/30ML ORAL SUSPENSION 30 ML CUP PO PRN (10:49)
[2020-07-12] MEDS ORDERED: MENTHOL/PHENOL 1 EACH UD MM PRN (10:49)
[2020-07-12] MEDS ORDERED: BISMUTH SUBSALICYLATE 262 MG/15 ML BTL PO PRN (10:49)
[2020-07-12] MEDS ORDERED: IBUPROFEN 400 MG TABLET (FP) PO PRN (10:49)
[2020-07-12] MEDS ORDERED: hydrOXYzine PAMOATE 25 MG CAPSULE (FP) PO PRN (11:08)
[2020-07-12] MEDS: chlordiazePOXIDE HCL 25 MG CAPSULE PO SCH ×3 (11:31→23:30)
[2020-07-12] MEDS: amLODIPine BESYLATE 10 MG TABLET (FP) PO SCH (11:31)
[2020-07-12 12:47] LABS: HEMOGLOBIN 14.2 GM/dL (11.7-16.9); MCH 29.8 pg (25.7-33.7); MCHC 33.1 g/dl (32.0-35.9); MEAN CELL VOLUME 90.1 fl (80-96); MEAN PLT VOLUME 7.7 fl (7.5-11.1); PLATELET COUNT 301 K/MM3 (134-434); RBC 4.77 M/mm3 (4.00-5.60); RDW 15.9 % (11.9-15.9); WHITE BLOOD COUNT 4.6 K/mm3 (4.0-10.0)
[2020-07-12 12:56] LABS: POTASSIUM 3.4 mmol/L (3.5-5.1)
[2020-07-12 13:04] LABS: ALBUMIN 4.2 g/dl (3.4-5.0); BLOOD UREA NITROGEN 5.5 mg/dL (7-18); CALCIUM 9.2 mg/dL (8.5-10.1); CREATININE 0.8 mg/dL (0.55-1.3); TOT PROT 7.8 g/dl (6.4-8.2)
[2020-07-12 13:05] LABS: BILIRUBIN,TOTAL 0.9 mg/dL (0.2-1)
[2020-07-12] MEDS ORDERED: hydrOXYzine PAMOATE 25 MG CAPSULE (FP) PO SCH (14:00)
--- NOTE | 2020-07-12 14:07 | CONSULT ---
[facility] Psychiatric Consult - Data Date of interview: 07/12/20 Admission source: Self-referred Identifying data: Mr Willams is a 60 years old single Black male, father of a 31 years old son, unemployed receiving food stamp, homeless seeking detox treatment for alcohol, cocaine, benzodiazepine and cannabis Substance Abuse History: Reports history of alcohol, cocaine, xanax and marijuanause. Refer to addiction counselor's summary for further information Medical History: Significant for GERD, hypertension, PPD+, history of withdrawal seizures and surgery for removal of intestinal polyps (1999). Smokes cigarettes 1 ppd Psychiatric History: Patient is known for multiple previous admissions to this facility. He reports being diagnosed with MDD though on previous admission he reported being diagnosed with Bipolar Disorder. He reports one previous psychiatric hospitalization at [facility] in March 2020. Reports no affiliation with OPD care and has been off medications(Seroquel 50 mg/day & 150 mg/hs) since running out of supply of 30 day supply provided to him on discharge from this facility on 05/06/20. Denies previous suicide attempt. At present, denies experiencing psychotic, manic symptoms, S/H ideations. However, reports feeling depressed and sleeping poorly. Insists on taking Seroquel 150 mg/hs Physical/Sexual Abuse/Trauma History: Denies history of physical or sexual abuse as well as DV relationship. Reportedly he served in the [employer] from to , receiving honorable discharge. Was [place]. Mental Status Exam - Mental Status Exam Alert and Oriented to: Time, Place, Person Cognitive Function: Fair Patient Appearance: Well Groomed Mood: Depressed Affect: Appropriate Speech Pattern: Clear Voice Loudness: Normal Thought Process: Intact, Goal Oriented Thought Disorder: Not Present Hallucinations: Denies Suicidal Ideation: Denies Homicidal Ideation: Denies Sleep: Poorly Appetite: Poor Muscle strength/Tone: Normal Gait/Station: Normal Psychiatric Findings - Problem List ([place] 1, 2,3) (1) Mood disorder Current Visit: No Status: Chronic (2) Bipolar disorder Current Visit: No Status: Ruled-out Comment: As per history and records. (3) MDD (major depressive disorder) Current Visit: Yes Status: Ruled-out (4) Substance induced mood disorder Current Visit: No Status: Acute (5) Substance-induced sleep disorder Current Visit: Yes Status: Acute (6) Alcohol dependence with uncomplicated withdrawal Current Visit: Yes Status: Acute (7) Opioid use disorder Current Visit: Yes Status: Acute (8) Cocaine dependence Current Visit: Yes Status: Chronic Qualifiers: Substance use status: uncomplicated Qualified Code(s): F14.20 - Cocaine dependence, uncomplicated (9) Sedative/hypnotic withdrawal without complication Current Visit: Yes Status: Acute (10) Cannabis dependence Current Visit: Yes Status: Acute (11) Nicotine dependence Current Visit: Yes Status: Acute Qualifiers: Nicotine product type: cigarettes Substance use status: uncomplicated Qualified Code(s): F17.210 - Nicotine dependence, cigarettes, uncomplicated (12) Essential hypertension Current Visit: Yes Status: Chronic (13) GERD (gastroesophageal reflux disease) Current Visit: Yes Status: Chronic Qualifiers: Esophagitis presence: without esophagitis Qualified Code(s): K21.9 - Gastro-esophageal reflux disease without esophagitis - Initial Treatment Plan Initial Treatment Plan: 1) Resume Seroquel 150 mg po HS. 2) Continue inpatient detoxification
[2020-07-12] MEDS: QUEtiapine FUMARATE 50 MG TABLET PO SCH (22:29)
[2020-07-12] MEDS: MELATONIN 5 MG TABLETS PO SCH (22:30)
[2020-07-12] MEDS: THIAMINE HCL 100 MG TABLET (FP) PO SCH (22:30)
[2020-07-13] MEDS: chlordiazePOXIDE HCL 25 MG CAPSULE PO SCH ×4 (05:25→23:35)
--- NOTE | 2020-07-13 08:58 | PN ---
S CIWA - CIWA Score Nausea/Vomitin Muscle Tremors: 3 Anxiety: 3 Agitation: 2 Paroxysmal Sweats: No Perspiration Orientation: 0-Oriented Tacttile Disturbances: 1-Very Mild Itch/Numbness Auditory Disturbances: 0-None Visual Disturbances: 0-None Headache: 2-Mild CIWA-Ar Total Score: 13 S Progress Note (SOAP) Subjective: alert,irritable,anxious,interrupted sleep,nausea,aching pain in the body Objective: 07/13/20 13:25 Vital Signs Temperature 97.8 F 07/13/20 08:45 Pulse Rate 72 07/13/20 08:45 Respiratory Rate 18 07/13/20 08:45 Blood Pressure 119/77 07/13/20 08:45 O2 Sat by Pulse Oximetry (%) 97 07/13/20 08:45 Laboratory Results - last 24 hr 07/12/20 10:30 COVID-19 (JUANY) Not detected 07/13/20 13:26 Laboratory Last Values WBC 4.6 K/mm3 (4.0-10.0) 07/12/20 10:30 RBC 4.77 M/mm3 (4.00-5.60) 07/12/20 10:30 Hgb 14.2 GM/dL (11.7-16.9) 07/12/20 10:30 Hct 43.0 % (35.4-49) 07/12/20 10:30 MCV 90.1 fl (80-96) 07/12/20 10:30 MCH 29.8 pg (25.7-33.7) 07/12/20 10:30 MCHC 33.1 g/dl (32.0-35.9) 07/12/20 10:30 RDW 15.9 % (11.9-15.9) 07/12/20 10:30 Plt Count 301 K/MM3 (134-434) D 07/12/20 10:30 MPV 7.7 fl (7.5-11.1) 07/12/20 10:30 Sodium 139 mmol/L (136-145) 07/12/20 10:30 Potassium 3.4 mmol/L (3.5-5.1) L 07/12/20 10:30 Chloride 104 mmol/L (98-107) 07/12/20 10:30 Carbon Dioxide 27 mmol/L (21-32) 07/12/20 10:30 Anion Gap 8 MMOL/L (8-16) 07/12/20 10:30 BUN 5.5 mg/dL (7-18) L 07/12/20 10:30 Creatinine 0.8 mg/dL (0.55-1.3) 07/12/20 10:30 Est GFR (CKD-EPI)AfAm 113.33 07/12/20 10:30 Est GFR (CKD-EPI)NonAf 97.78 07/12/20 10:30 Random Glucose 100 mg/dL (74-106) 07/12/20 10:30 Calcium 9.2 mg/dL (8.5-10.1) 07/12/20 10:30 Total Bilirubin 0.9 mg/dL (0.2-1) 07/12/20 10:30 AST 20 U/L (15-37) 07/12/20 10:30 ALT 32 U/L (13-61) 07/12/20 10:30 Alkaline Phosphatase 66 U/L (45-117) 07/12/20 10:30 Total Protein 7.8 g/dl (6.4-8.2) 07/12/20 10:30 Albumin 4.2 g/dl (3.4-5.0) 07/12/20 10:30 Syphilis Serology Non-reactive (NONREACTIVE) 07/12/20 10:30 COVID-19 (JUANY) Not detected (Not Detected) 07/12/20 10:30 Assessment: 07/13/20 13:26 withdrawal symptom Plan: continue detox librium regimen,k is 3.4,to give kdur 20 meq daily for 3 days,repeat k in am
[2020-07-13] MEDS: PRENATAL VITAMINS W/ FOLIC ACID TABLET (FP) PO SCH (10:18)
[2020-07-13] MEDS: amLODIPine BESYLATE 10 MG TABLET (FP) PO SCH (10:19)
[2020-07-13] MEDS: NICOTINE 7 MG/24 HOURS TOPICAL PATCH TD SCH (10:19)
[2020-07-13] MEDS: POTASSIUM CHLORIDE TABS 20 MEQ TABLET.ER (FP) PO SCH (10:19)
[2020-07-13] MEDS: PANTOPRAZOLE 40 MG TABLET PO SCH (10:19)
[2020-07-13] MEDS ORDERED: LOPERAMIDE HCL 2 MG CAPSULE PO ONE (17:24)
--- NOTE | 2020-07-13 17:25 | PN ---
[facility] Progress Note Note: pt requesting meds for diarrhea , does not want pepto-bismol Vital Signs - 24 hr 07/12/20 07/13/20 07/13/20 20:16 05:20 08:45 Temperature 97.8 F 97.8 F 97.8 F Pulse Rate 83 64 72 Respiratory 18 16 18 Rate Blood Pressure 125/83 120/74 119/77 O2 Sat by Pulse 95 98 97 Oximetry (%) 07/13/20 07/13/20 12:28 16:43 Temperature 98.0 F 98.4 F Pulse Rate 64 81 Respiratory 18 18 Rate Blood Pressure 119/66 134/84 O2 Sat by Pulse 98 98 Oximetry (%) P : Imodium ordered x once
[2020-07-13] MEDS: QUEtiapine FUMARATE 50 MG TABLET PO SCH (22:10)
[2020-07-13] MEDS: THIAMINE HCL 100 MG TABLET (FP) PO SCH (22:10)
[2020-07-13] MEDS: MELATONIN 5 MG TABLETS PO SCH (22:10)
[2020-07-14] MEDS: chlordiazePOXIDE HCL 25 MG CAPSULE PO SCH ×4 (05:21→22:01)
--- NOTE | 2020-07-14 10:01 | PN ---
[facility] CIWA - CIWA Score Nausea/Vomitin-Mild Nausea/No Vomiting Muscle Tremors: 2 Anxiety: 2 Agitation: 2 Paroxysmal Sweats: No Perspiration Orientation: 0-Oriented Tacttile Disturbances: 1-Very Mild Itch/Numbness Auditory Disturbances: 0-None Visual Disturbances: 0-None Headache: 2-Mild CIWA-Ar Total Score: 10 S Progress Note (SOAP) Subjective: alert,irritable,anxious,interrupted sleep,having diarrhea,aching pain,no vomit ing,nausea Objective: 07/14/20 10:00 Vital Signs Temperature 97.3 F L 07/14/20 09:31 Pulse Rate 77 07/14/20 09:31 Respiratory Rate 18 07/14/20 09:31 Blood Pressure 106/72 07/14/20 09:31 O2 Sat by Pulse Oximetry (%) 97 07/14/20 09:31 Assessment: 07/14/20 10:00 withdrawal symptom Plan: continue detox librium regimen,k dur 20 meq po daily,repat k on sun 07/16/20
[2020-07-14] MEDS: PRENATAL VITAMINS W/ FOLIC ACID TABLET (FP) PO SCH (10:23)
[2020-07-14] MEDS: PANTOPRAZOLE 40 MG TABLET PO SCH (10:24)
[2020-07-14] MEDS: POTASSIUM CHLORIDE TABS 20 MEQ TABLET.ER (FP) PO SCH (10:24)
[2020-07-14] MEDS: NICOTINE 7 MG/24 HOURS TOPICAL PATCH TD SCH (10:24)
[2020-07-14] MEDS: amLODIPine BESYLATE 10 MG TABLET (FP) PO SCH (15:13)
[2020-07-14] MEDS: QUEtiapine FUMARATE 50 MG TABLET PO SCH (22:01)
[2020-07-14] MEDS: THIAMINE HCL 100 MG TABLET (FP) PO SCH (22:01)
[2020-07-14] MEDS: MELATONIN 5 MG TABLETS PO SCH (22:01)
[2020-07-15] MEDS ORDERED: chlordiazePOXIDE HCL 10 MG CAPSULE PO PRN
[2020-07-15] MEDS: chlordiazePOXIDE HCL 10 MG CAPSULE PO SCH ×4 (05:46→22:15)
[2020-07-15] MEDS: NICOTINE 7 MG/24 HOURS TOPICAL PATCH TD SCH (10:20)
[2020-07-15] MEDS: PANTOPRAZOLE 40 MG TABLET PO SCH (10:21)
[2020-07-15] MEDS: amLODIPine BESYLATE 10 MG TABLET (FP) PO SCH (10:21)
[2020-07-15] MEDS: POTASSIUM CHLORIDE TABS 20 MEQ TABLET.ER (FP) PO SCH (10:21)
[2020-07-15] MEDS: PRENATAL VITAMINS W/ FOLIC ACID TABLET (FP) PO SCH (10:21)
--- NOTE | 2020-07-15 18:17 | PN ---
S CIWA - CIWA Score Nausea/Vomitin-No Nausea/No Vomiting Muscle Tremors: 3 Anxiety: 3 Agitation: 3 Paroxysmal Sweats: No Perspiration Orientation: 0-Oriented Tacttile Disturbances: 0-None Auditory Disturbances: 0-None Visual Disturbances: 1-Very Mild Sensitivity Headache: 0-None Present CIWA-Ar Total Score: 10 [facility] Progress Note (SOAP) Subjective: Tremors, Anxious, Restless. Objective: Patient A & O X 3, Observed Ambulating on Detox Unit Unassisted. In No Acute Distress. 07/15/20 18:14 Vital Signs Temperature 97.8 F 07/15/20 16:22 Pulse Rate 76 07/15/20 16:22 Respiratory Rate 18 07/15/20 16:22 Blood Pressure 131/84 07/15/20 16:22 O2 Sat by Pulse Oximetry (%) 99 07/15/20 16:22 Laboratory Tests 07/12/20 07/12/20 07/12/20 10:30 10:30 10:30 WBC 4.6 RBC 4.77 Hgb 14.2 Hct 43.0 MCV 90.1 MCH 29.8 MCHC 33.1 RDW 15.9 Plt Count 301 D MPV 7.7 Sodium 139 Potassium 3.4 L Chloride 104 Carbon Dioxide 27 Anion Gap 8 BUN 5.5 L Creatinine 0.8 Est GFR (CKD-EPI)AfAm 113.33 Est GFR (CKD-EPI)NonAf 97.78 Random Glucose 100 Calcium 9.2 Total Bilirubin 0.9 AST 20 ALT 32 Alkaline Phosphatase 66 Total Protein 7.8 Albumin 4.2 Syphilis Serology Non-reactive COVID-19 (JUANY) 07/12/20 10:30 WBC RBC Hgb Hct MCV MCH MCHC RDW Plt Count MPV Sodium Potassium Chloride Carbon Dioxide Anion Gap BUN Creatinine Est GFR (CKD-EPI)AfAm Est GFR (CKD-EPI)NonAf Random Glucose Calcium Total Bilirubin AST ALT Alkaline Phosphatase Total Protein Albumin Syphilis Serology COVID-19 (JUANY) Not detected Lab Results noted. Assessment: 07/15/20 18:15 WITHDRAWAL SYMPTOMS. HYPOKALEMIA. Plan: Continue Detox. Continue K-Dur for low Potassium level noted on Detox Admission laboratory assessment. Repeat Potassium level to be drawn tomorrow AM.
[2020-07-15] MEDS: QUEtiapine FUMARATE 50 MG TABLET PO SCH (22:15)
[2020-07-15] MEDS: MELATONIN 5 MG TABLETS PO SCH (22:15)
[2020-07-15] MEDS: THIAMINE HCL 100 MG TABLET (FP) PO SCH (22:15)
[2020-07-16] MEDS ORDERED: chlordiazePOXIDE HCL 10 MG CAPSULE PO SCH (05:00)
[2020-07-16] MEDS: NICOTINE 7 MG/24 HOURS TOPICAL PATCH TD SCH (09:19)
[2020-07-16] MEDS: amLODIPine BESYLATE 10 MG TABLET (FP) PO SCH (09:21)
[2020-07-16] MEDS: PRENATAL VITAMINS W/ FOLIC ACID TABLET (FP) PO SCH (09:21)
[2020-07-16] MEDS: PANTOPRAZOLE 40 MG TABLET PO SCH (09:21)
[2020-07-16 09:55] VITALS: BP 117/87; PULSE 79; TEMP 97.3
--- NOTE | 2020-07-16 11:59 | PN ---
[facility] CIWA - CIWA Score Nausea/Vomitin-No Nausea/No Vomiting Muscle Tremors: None Anxiety: 1-Mildly Anxious Agitation: 0-Normal Activity Paroxysmal Sweats: 2 Orientation: 0-Oriented Tacttile Disturbances: 0-None Auditory Disturbances: 0-None Visual Disturbances: 0-None Headache: 0-None Present CIWA-Ar Total Score: 3 [facility] Progress Note (SOAP) Subjective: Complaints of mild anxiety and sweats. Objective: 07/16/20 11:58 Vital Signs 07/16/20 07/16/20 06:17 09:08 Temperature 97.8 F 97.3 F L Pulse Rate 81 79 Respiratory 20 18 Rate Blood Pressure 125/75 117/87 O2 Sat by Pulse 100 100 Oximetry (%) Laboratory Last Values WBC 4.6 K/mm3 (4.0-10.0) 07/12/20 10:30 RBC 4.77 M/mm3 (4.00-5.60) 07/12/20 10:30 Hgb 14.2 GM/dL (11.7-16.9) 07/12/20 10:30 Hct 43.0 % (35.4-49) 07/12/20 10:30 MCV 90.1 fl (80-96) 07/12/20 10:30 MCH 29.8 pg (25.7-33.7) 07/12/20 10:30 MCHC 33.1 g/dl (32.0-35.9) 07/12/20 10:30 RDW 15.9 % (11.9-15.9) 07/12/20 10:30 Plt Count 301 K/MM3 (134-434) D 07/12/20 10:30 MPV 7.7 fl (7.5-11.1) 07/12/20 10:30 Sodium 139 mmol/L (136-145) 07/12/20 10:30 Potassium 3.4 mmol/L (3.5-5.1) L 07/12/20 10:30 Chloride 104 mmol/L (98-107) 07/12/20 10:30 Carbon Dioxide 27 mmol/L (21-32) 07/12/20 10:30 Anion Gap 8 MMOL/L (8-16) 07/12/20 10:30 BUN 5.5 mg/dL (7-18) L 07/12/20 10:30 Creatinine 0.8 mg/dL (0.55-1.3) 07/12/20 10:30 Est GFR (CKD-EPI)AfAm 113.33 07/12/20 10:30 Est GFR (CKD-EPI)NonAf 97.78 07/12/20 10:30 Random Glucose 100 mg/dL (74-106) 07/12/20 10:30 Calcium 9.2 mg/dL (8.5-10.1) 07/12/20 10:30 Total Bilirubin 0.9 mg/dL (0.2-1) 07/12/20 10:30 AST 20 U/L (15-37) 07/12/20 10:30 ALT 32 U/L (13-61) 07/12/20 10:30 Alkaline Phosphatase 66 U/L (45-117) 07/12/20 10:30 Total Protein 7.8 g/dl (6.4-8.2) 07/12/20 10:30 Albumin 4.2 g/dl (3.4-5.0) 07/12/20 10:30 Syphilis Serology Non-reactive (NONREACTIVE) 07/12/20 10:30 COVID-19 (JUANY) Not detected (Not Detected) 07/12/20 10:30 Labs noted. Assessment: 07/16/20 11:58 Alert and oriented x3, in no acute respiratory distress. Full ROM, ambulating in unit without any assistance. Skin warm to touch without lesions. Minimal withdrawal symptoms. Plan: Continue detox protocol. D/C in AM.
--- NOTE | 2020-07-16 14:05 | DS ---
[facility] Detox Discharge Summary Admission Date: 07/12/20 - History Present History: Alcohol Dependence, Cannabis Dependence, Cocaine Dependence, Opioid Dependence Additional Comments: Patient for discharge tomorrow, but wants to leave now. Patient stable for discharge today. Alert and oriented x3, in no acute respiratory distress. Full ROM, ambulating in unit without any assistance. Skin warm to touch without lesions. Encouraged to followup with aftercare. Pertinent Past History: History of HTN, GERD, heroin, alcohol, benzo,cocaine and nicotine use disorder. - Physical Exam Results Vital Signs: Vital Signs Temperature 97.3 F L 07/16/20 09:08 Pulse Rate 79 07/16/20 09:08 Respiratory Rate 18 07/16/20 09:08 Blood Pressure 117/87 07/16/20 09:08 O2 Sat by Pulse Oximetry (%) 100 07/16/20 09:08 Vital Signs 07/16/20 07/16/20 06:17 09:08 Temperature 97.8 F 97.3 F L Pulse Rate 81 79 Respiratory 20 18 Rate Blood Pressure 125/75 117/87 O2 Sat by Pulse 100 100 Oximetry (%) Laboratory Last Values WBC 4.6 K/mm3 (4.0-10.0) 07/12/20 10:30 RBC 4.77 M/mm3 (4.00-5.60) 07/12/20 10:30 Hgb 14.2 GM/dL (11.7-16.9) 07/12/20 10:30 Hct 43.0 % (35.4-49) 07/12/20 10:30 MCV 90.1 fl (80-96) 07/12/20 10:30 MCH 29.8 pg (25.7-33.7) 07/12/20 10:30 MCHC 33.1 g/dl (32.0-35.9) 07/12/20 10:30 RDW 15.9 % (11.9-15.9) 07/12/20 10:30 Plt Count 301 K/MM3 (134-434) D 07/12/20 10:30 MPV 7.7 fl (7.5-11.1) 07/12/20 10:30 Sodium 139 mmol/L (136-145) 07/12/20 10:30 Potassium 3.9 mmol/L (3.5-5.1) 07/16/20 07:00 Chloride 104 mmol/L (98-107) 07/12/20 10:30 Carbon Dioxide 27 mmol/L (21-32) 07/12/20 10:30 Anion Gap 8 MMOL/L (8-16) 07/12/20 10:30 BUN 5.5 mg/dL (7-18) L 07/12/20 10:30 Creatinine 0.8 mg/dL (0.55-1.3) 07/12/20 10:30 Est GFR (CKD-EPI)AfAm 113.33 07/12/20 10:30 Est GFR (CKD-EPI)NonAf 97.78 07/12/20 10:30 Random Glucose 100 mg/dL (74-106) 07/12/20 10:30 Calcium 9.2 mg/dL (8.5-10.1) 07/12/20 10:30 Total Bilirubin 0.9 mg/dL (0.2-1) 07/12/20 10:30 AST 20 U/L (15-37) 07/12/20 10:30 ALT 32 U/L (13-61) 07/12/20 10:30 Alkaline Phosphatase 66 U/L (45-117) 07/12/20 10:30 Total Protein 7.8 g/dl (6.4-8.2) 07/12/20 10:30 Albumin 4.2 g/dl (3.4-5.0) 07/12/20 10:30 Syphilis Serology Non-reactive (NONREACTIVE) 07/12/20 10:30 COVID-19 (JUANY) Not detected (Not Detected) 07/12/20 10:30 Labs noted. Pertinent Admission Physical Exam Findings: Withdrawal symptoms. - Treatment Hospital Course: Detox Protocol Followed, Detoxed Safely, Responded well, Discharged Condition Good - Medication Discharge Medications: Ambulatory Orders Quetiapine Fumarate [Seroquel -] 150 mg PO HS 03/17/18 Amlodipine Besylate [Norvasc -] 10 mg PO DAILY 30 Days #30 tablet 07/16/19 Pantoprazole Sodium [Protonix -] 40 mg PO DAILY #30 tablet.ec 07/16/19 Naloxone HCl [Narcan] 4 mg NS ASDIR PRN #1 spray 03/05/20 - Diagnosis (1) Alcohol dependence with uncomplicated withdrawal Status: Acute (2) Cannabis dependence Status: Chronic (3) Cocaine dependence, uncomplicated Status: Chronic (4) Nicotine dependence Status: Chronic Qualifiers: Nicotine product type: cigarettes Substance use status: uncomplicated Qualified Code(s): F17.210 - Nicotine dependence, cigarettes, uncomplicated (5) Opioid dependence with withdrawal Status: Acute (6) Cocaine dependence Status: Chronic Qualifiers: Substance use status: uncomplicated Qualified Code(s): F14.20 - Cocaine dependence, uncomplicated (7) Essential hypertension Status: Chronic (8) GERD (gastroesophageal reflux disease) Status: Chronic Qualifiers: Esophagitis presence: without esophagitis Qualified Code(s): K21.9 - Gastro-esophageal reflux disease without esophagitis - AMA Did Patient Leave Against Medical Advice: No
[2020-07-17] MEDS ORDERED: chlordiazePOXIDE HCL 10 MG CAPSULE PO ONE (05:00)
== END 2020-07-16 11:59 | disposition home or self-care (01) | DRG 773 ==
LOC: YASAS 09:46 → Y6N 10:43
PROVIDERS: ADMIT Allergy & Immunology; ATTEND Allergy & Immunology
PROC: HZ2ZZZZ Detoxification Services for Substance Abuse Treatment (ICD-10-PCS; principal; 2020-07-12)
DX: F10.230 Alcohol dependence with withdrawal, uncomplicated (principal); F11.23 Opioid dependence with withdrawal; F13.230 Sedative, hypnotic or anxiolytic dependence with withdrawal, uncomplicated; F14.20 Cocaine dependence, uncomplicated; F12.20 Cannabis dependence, uncomplicated; F17.210 Nicotine dependence, cigarettes, uncomplicated; F39 Unspecified mood [affective] disorder; F19.282 Other psychoactive substance dependence with psychoactive substance-induced sleep disorder; F19.24 Other psychoactive substance dependence with psychoactive substance-induced mood disorder; F41.9 Anxiety disorder, unspecified; F32.9 Major depressive disorder, single episode, unspecified; G47.00 Insomnia, unspecified; E87.6 Hypokalemia; I10 Essential (primary) hypertension; K21.9 Gastro-esophageal reflux disease without esophagitis; L65.9 Nonscarring hair loss, unspecified; Z56.0 Unemployment, unspecified; Z88.0 Allergy status to penicillin; Z91.013 Allergy to seafood; Z91.018 Allergy to other foods; Z59.0 Homelessness
CPT/HCPCS: 36415; 80053; 84132; 85027; 86780; C9803; U0003

== ENCOUNTER 2020-09-25 07:41 | Inpatient (IN) | payer OTHER ==
[2020-09-25 08:26] VITALS: BMI 21.7
[2020-09-25] MEDS ORDERED: chlordiazePOXIDE HCL 25 MG CAPSULE PO PRN (09:08)
[2020-09-25] MEDS ORDERED: IBUPROFEN 400 MG TABLET (FP) PO PRN (09:08)
[2020-09-25] MEDS ORDERED: NICOTINE POLACRILEX 2 MG GUM BUC PRN (09:08)
[2020-09-25] MEDS ORDERED: MENTHOL/PHENOL 1 EACH UD MM PRN (09:08)
[2020-09-25] MEDS ORDERED: ONDANSETRON *ODT* 4 MG TABLET SL PRN (09:08)
[2020-09-25] MEDS ORDERED: BISMUTH SUBSALICYLATE 262 MG/15 ML BTL PO PRN (09:08)
[2020-09-25] MEDS ORDERED: MAGNESIUM HYDROX 2400MG/30ML ORAL SUSPENSION 30 ML CUP PO PRN (09:08)
[2020-09-25] MEDS ORDERED: METHOCARBAMOL 500 MG TABLET PO PRN (09:08)
[2020-09-25] MEDS ORDERED: MAG HYDROX/AL HYDROX/SIMETH 30 ML UNIT-DOSE CUP PO PRN (09:08)
[2020-09-25] MEDS ORDERED: ACETAMINOPHEN 325 MG TABLET (FP) PO PRN ×2 (09:08)
[2020-09-25] MEDS ORDERED: MAGNESIUM CITRATE 300 ML BOTTLE PO PRN (09:08)
[2020-09-25] MEDS: PRENATAL VITAMINS W/ FOLIC ACID TABLET (FP) PO SCH (10:05)
[2020-09-25] MEDS: chlordiazePOXIDE HCL 25 MG CAPSULE PO SCH ×3 (10:05→22:26)
[2020-09-25] MEDS: hydrOXYzine PAMOATE 25 MG CAPSULE (FP) PO SCH ×4 (10:06→22:26)
[2020-09-25] MEDS: amLODIPine BESYLATE 10 MG TABLET (FP) PO SCH (11:02)
[2020-09-25] MEDS: PANTOPRAZOLE 40 MG TABLET PO SCH (11:02)
[2020-09-25 14:49] LABS: HEMATOCRIT 44.7 % (35.4-49); MCH 30.5 pg (25.7-33.7); MCHC 33.5 g/dl (32.0-35.9); MEAN CELL VOLUME 91.1 fl (80-96); MEAN PLT VOLUME 7.6 fl (7.5-11.1); PLATELET COUNT 306 K/MM3 (134-434); WHITE BLOOD COUNT 3.7 K/mm3 (4.0-10.0)
[2020-09-25 14:55] LABS: ALBUMIN 4.3 g/dl (3.4-5.0); CALCIUM 9.5 mg/dL (8.5-10.1)
[2020-09-25 14:57] LABS: BLOOD UREA NITROGEN 8.9 mg/dL (7-18)
[2020-09-25 15:00] LABS: BILIRUBIN,TOTAL 1.1 mg/dL (0.2-1); CREATININE 0.9 mg/dL (0.55-1.3); TOT PROT 7.7 g/dl (6.4-8.2)
[2020-09-25] MEDS: THIAMINE HCL 100 MG TABLET (FP) PO SCH (22:26)
[2020-09-25] MEDS: QUEtiapine FUMARATE 50 MG TABLET PO SCH (22:26)
[2020-09-25] MEDS: MELATONIN 5 MG TABLETS PO SCH (23:51)
[2020-09-26] MEDS: chlordiazePOXIDE HCL 25 MG CAPSULE PO SCH ×4 (05:22→22:17)
[2020-09-26] MEDS: hydrOXYzine PAMOATE 25 MG CAPSULE (FP) PO SCH ×5 (05:23→22:17)
[2020-09-26] MEDS: PANTOPRAZOLE 40 MG TABLET PO SCH (10:05)
[2020-09-26] MEDS: amLODIPine BESYLATE 10 MG TABLET (FP) PO SCH (10:05)
[2020-09-26] MEDS: PRENATAL VITAMINS W/ FOLIC ACID TABLET (FP) PO SCH (10:08)
[2020-09-26] MEDS: QUEtiapine FUMARATE 50 MG TABLET PO SCH (22:16)
[2020-09-26] MEDS: MELATONIN 5 MG TABLETS PO SCH (22:16)
[2020-09-26] MEDS: THIAMINE HCL 100 MG TABLET (FP) PO SCH (22:17)
[2020-09-27] MEDS: chlordiazePOXIDE HCL 25 MG CAPSULE PO SCH ×4 (05:42→22:18)
[2020-09-27] MEDS: hydrOXYzine PAMOATE 25 MG CAPSULE (FP) PO SCH ×5 (05:42→22:17)
[2020-09-27] MEDS: PANTOPRAZOLE 40 MG TABLET PO SCH (10:08)
[2020-09-27] MEDS: amLODIPine BESYLATE 10 MG TABLET (FP) PO SCH (10:10)
[2020-09-27] MEDS: PRENATAL VITAMINS W/ FOLIC ACID TABLET (FP) PO SCH (10:10)
[2020-09-27] MEDS: QUEtiapine FUMARATE 50 MG TABLET PO SCH (22:15)
[2020-09-27] MEDS: THIAMINE HCL 100 MG TABLET (FP) PO SCH (22:17)
[2020-09-27] MEDS: MELATONIN 5 MG TABLETS PO SCH (22:17)
[2020-09-28] MEDS ORDERED: chlordiazePOXIDE HCL 10 MG CAPSULE PO PRN
[2020-09-28] MEDS: chlordiazePOXIDE HCL 10 MG CAPSULE PO SCH ×4 (05:27→22:06)
[2020-09-28] MEDS: hydrOXYzine PAMOATE 25 MG CAPSULE (FP) PO SCH ×5 (05:27→21:39)
[2020-09-28 09:21] LABS: BASO % 0.8 % (0-2.0); EOS % 3.8 % (0-4.5); HEMATOCRIT 39.9 % (35.4-49); HEMOGLOBIN 13.2 GM/dL (11.7-16.9); LYMPH % 44.9 % (8-40); MCH 30.1 pg (25.7-33.7); MEAN CELL VOLUME 91.1 fl (80-96); MEAN PLT VOLUME 7.5 fl (7.5-11.1); MONO % 11.7 % (3.8-10.2); NEUT % 38.8 % (42.8-82.8); PLATELET COUNT 245 K/MM3 (134-434); RBC 4.39 M/mm3 (4.00-5.60); RDW 15.7 % (11.9-15.9); WHITE BLOOD COUNT 3.2 K/mm3 (4.0-10.0)
[2020-09-28] MEDS: PANTOPRAZOLE 40 MG TABLET PO SCH (10:11)
[2020-09-28] MEDS: PRENATAL VITAMINS W/ FOLIC ACID TABLET (FP) PO SCH (10:16)
[2020-09-28] MEDS: amLODIPine BESYLATE 10 MG TABLET (FP) PO SCH (10:17)
[2020-09-28] MEDS: QUEtiapine FUMARATE 50 MG TABLET PO SCH ×2 (21:39→23:14)
[2020-09-28] MEDS: MELATONIN 5 MG TABLETS PO SCH (21:39)
[2020-09-28] MEDS: THIAMINE HCL 100 MG TABLET (FP) PO SCH (22:07)
[2020-09-29] MEDS ORDERED: chlordiazePOXIDE HCL 10 MG CAPSULE PO SCH (05:00)
[2020-09-29] MEDS: hydrOXYzine PAMOATE 25 MG CAPSULE (FP) PO SCH ×2 (05:45→10:31)
[2020-09-29 09:14] VITALS: BP 146/84; PULSE 79; TEMP 98.1
[2020-09-29] MEDS: amLODIPine BESYLATE 10 MG TABLET (FP) PO SCH (10:23)
[2020-09-29] MEDS: PRENATAL VITAMINS W/ FOLIC ACID TABLET (FP) PO SCH (10:23)
[2020-09-29] MEDS: PANTOPRAZOLE 40 MG TABLET PO SCH (10:24)
[2020-09-30] MEDS ORDERED: chlordiazePOXIDE HCL 10 MG CAPSULE PO ONE (05:00)
== END 2020-09-29 12:09 | disposition home or self-care (01) | DRG 773 ==
LOC: YASAS 07:41 → Y6N 09:03
PROVIDERS: ADMIT Allergy & Immunology; ATTEND Allergy & Immunology
PROC: HZ2ZZZZ Detoxification Services for Substance Abuse Treatment (ICD-10-PCS; principal; 2020-09-25)
DX: F11.23 Opioid dependence with withdrawal (principal); F10.230 Alcohol dependence with withdrawal, uncomplicated; F14.20 Cocaine dependence, uncomplicated; F12.20 Cannabis dependence, uncomplicated; F17.210 Nicotine dependence, cigarettes, uncomplicated; F19.282 Other psychoactive substance dependence with psychoactive substance-induced sleep disorder; F19.24 Other psychoactive substance dependence with psychoactive substance-induced mood disorder; F39 Unspecified mood [affective] disorder; F41.9 Anxiety disorder, unspecified; F32.9 Major depressive disorder, single episode, unspecified; I10 Essential (primary) hypertension; K21.9 Gastro-esophageal reflux disease without esophagitis; R76.11 Nonspecific reaction to tuberculin skin test without active tuberculosis; Z86.69 Personal history of other diseases of the nervous system and sense organs; Z91.013 Allergy to seafood; Z91.018 Allergy to other foods; Z56.0 Unemployment, unspecified; Z59.0 Homelessness
CPT/HCPCS: 36415; 80053; 85025; 85027; 86780; C9803; U0003

== ENCOUNTER 2020-12-10 15:58 | Inpatient (IN) | payer OTHER ==
[2020-12-10] MEDS ORDERED: ACETAMINOPHEN 325 MG TABLET (FP) PO PRN ×2 (16:58)
[2020-12-10] MEDS ORDERED: MENTHOL/PHENOL 1 EACH UD MM PRN (16:58)
[2020-12-10] MEDS ORDERED: METHOCARBAMOL 500 MG TABLET PO PRN (16:58)
[2020-12-10] MEDS ORDERED: ONDANSETRON *ODT* 4 MG TABLET SL PRN (16:58)
[2020-12-10] MEDS ORDERED: MAGNESIUM CITRATE 300 ML BOTTLE PO PRN (16:58)
[2020-12-10] MEDS ORDERED: IBUPROFEN 400 MG TABLET (FP) PO PRN (16:58)
[2020-12-10] MEDS ORDERED: MAGNESIUM HYDROX 2400MG/30ML ORAL SUSPENSION 30 ML CUP PO PRN (16:58)
[2020-12-10] MEDS ORDERED: NICOTINE POLACRILEX 2 MG GUM BUC PRN (16:58)
[2020-12-10] MEDS ORDERED: BISMUTH SUBSALICYLATE 524 MG/30 ML UD PO PRN (16:58)
[2020-12-10 17:09] VITALS: BMI 22.6
[2020-12-10] MEDS: diazePAM 5 MG TABLET PO PRN (19:08)
[2020-12-10] MEDS: THIAMINE HCL 100 MG TABLET (FP) PO SCH (22:33)
[2020-12-10] MEDS: diazePAM 5 MG TABLET PO SCH (22:33)
[2020-12-10] MEDS: MELATONIN 5 MG TABLETS PO SCH (23:00)
[2020-12-10] MEDS: MAG HYDROX/AL HYDROX/SIMETH 30 ML UNIT-DOSE CUP PO PRN (23:01)
[2020-12-11] MEDS: diazePAM 5 MG TABLET PO SCH ×4 (06:18→22:03)
[2020-12-11] MEDS: PRENATAL VITAMINS W/ FOLIC ACID TABLET (FP) PO SCH (10:22)
[2020-12-11] MEDS: PANTOPRAZOLE 40 MG TABLET PO SCH (10:22)
[2020-12-11] MEDS: amLODIPine BESYLATE 10 MG TABLET (FP) PO SCH (10:22)
[2020-12-11] MEDS: NICOTINE 14 MG/24 HOURS TOPICAL PATCH TD SCH (10:22)
[2020-12-11] MEDS ORDERED: NAPHAZOLINE/PHENIRAMINE OPHTHALMIC 15 ML BOTTLE OU PRN (12:04)
[2020-12-11 12:55] LABS: HEMATOCRIT 39.6 % (35.4-49); MCH 30.6 pg (25.7-33.7); MCHC 32.8 g/dl (32.0-35.9); MEAN CELL VOLUME 93.4 fl (80-96); MEAN PLT VOLUME 7.9 fl (7.5-11.1); PLATELET COUNT 227 K/MM3 (134-434); RBC 4.24 M/mm3 (4.00-5.60); RDW 14.3 % (11.9-15.9); WHITE BLOOD COUNT 2.9 K/mm3 (4.0-10.0)
[2020-12-11 13:05] LABS: CALCIUM 8.7 mg/dL (8.5-10.1)
[2020-12-11 13:06] LABS: ALBUMIN 3.7 g/dl (3.4-5.0); BLOOD UREA NITROGEN 9.9 mg/dL (7-18)
[2020-12-11 13:09] LABS: CREATININE 0.8 mg/dL (0.55-1.3)
[2020-12-11 13:11] LABS: BILIRUBIN,TOTAL 0.8 mg/dL (0.2-1); TOT PROT 6.7 g/dl (6.4-8.2)
[2020-12-11] MEDS: diazePAM 5 MG TABLET PO PRN (13:44)
[2020-12-11] MEDS ORDERED: LIDOCAINE 5% TOPICAL PATCH TP ONE (14:19)
[2020-12-11] MEDS: THIAMINE HCL 100 MG TABLET (FP) PO SCH (22:03)
[2020-12-11] MEDS: MELATONIN 5 MG TABLETS PO SCH (22:03)
[2020-12-11] MEDS: LIDOCAINE PATCH REMOVAL MC SCH (22:03)
[2020-12-11] MEDS: QUEtiapine FUMARATE 50 MG TABLET PO SCH (22:03)
[2020-12-12] MEDS: diazePAM 5 MG TABLET PO SCH ×3 (05:39→21:40)
[2020-12-12] MEDS: LIDOCAINE 5% TOPICAL PATCH TP SCH (10:23)
[2020-12-12] MEDS: NICOTINE 14 MG/24 HOURS TOPICAL PATCH TD SCH (10:23)
[2020-12-12] MEDS: QUEtiapine FUMARATE 50 MG TABLET PO SCH ×2 (10:23→21:41)
[2020-12-12] MEDS: PANTOPRAZOLE 40 MG TABLET PO SCH (10:23)
[2020-12-12] MEDS: PRENATAL VITAMINS W/ FOLIC ACID TABLET (FP) PO SCH (10:23)
[2020-12-12] MEDS: amLODIPine BESYLATE 10 MG TABLET (FP) PO SCH (10:23)
[2020-12-12] MEDS: LORATADINE 10 MG TABLET PO SCH (14:39)
[2020-12-12] MEDS: MAG HYDROX/AL HYDROX/SIMETH 30 ML UNIT-DOSE CUP PO PRN (14:40)
[2020-12-12] MEDS ORDERED: QUEtiapine FUMARATE 25 MG TABLET PO ONE (15:25)
[2020-12-12] MEDS: LIDOCAINE PATCH REMOVAL MC SCH (21:42)
[2020-12-12] MEDS: MELATONIN 5 MG TABLETS PO SCH (21:43)
[2020-12-12] MEDS: THIAMINE HCL 100 MG TABLET (FP) PO SCH (22:18)
[2020-12-13] MEDS: diazePAM 5 MG TABLET PO SCH ×2 (06:06→17:53)
[2020-12-13] MEDS: LORATADINE 10 MG TABLET PO SCH (10:09)
[2020-12-13] MEDS: amLODIPine BESYLATE 10 MG TABLET (FP) PO SCH (10:09)
[2020-12-13] MEDS: PANTOPRAZOLE 40 MG TABLET PO SCH (10:09)
[2020-12-13] MEDS: QUEtiapine FUMARATE 50 MG TABLET PO SCH ×2 (10:10→22:33)
[2020-12-13] MEDS: LIDOCAINE 5% TOPICAL PATCH TP SCH (10:10)
[2020-12-13] MEDS: PRENATAL VITAMINS W/ FOLIC ACID TABLET (FP) PO SCH (10:10)
[2020-12-13] MEDS: NICOTINE 14 MG/24 HOURS TOPICAL PATCH TD SCH (11:01)
[2020-12-13 14:42] LABS: BASO % 0.6 % (0-2.0); EOS % 3.5 % (0-4.5); HEMATOCRIT 39.6 % (35.4-49); HEMOGLOBIN 12.9 GM/dL (11.7-16.9); LYMPH % 45.6 % (8-40); MCH 30.4 pg (25.7-33.7); MCHC 32.6 g/dl (32.0-35.9); MEAN CELL VOLUME 93.4 fl (80-96); MEAN PLT VOLUME 8.1 fl (7.5-11.1); MONO % 7.2 % (3.8-10.2); NEUT % 43.1 % (42.8-82.8); PLATELET COUNT 238 K/MM3 (134-434); RBC 4.24 M/mm3 (4.00-5.60); RDW 14.6 % (11.9-15.9); WHITE BLOOD COUNT 3.2 K/mm3 (4.0-10.0)
[2020-12-13 14:47] LABS: POTASSIUM 3.7 mmol/L (3.5-5.1)
[2020-12-13 14:54] LABS: CALCIUM 9.3 mg/dL (8.5-10.1); CREATININE 0.7 mg/dL (0.55-1.3)
[2020-12-13 14:55] LABS: ALBUMIN 3.8 g/dl (3.4-5.0); BLOOD UREA NITROGEN 12.2 mg/dL (7-18)
[2020-12-13 14:56] LABS: BILIRUBIN,TOTAL 0.2 mg/dL (0.2-1); TOT PROT 6.9 g/dl (6.4-8.2)
[2020-12-13] MEDS ORDERED: hydrOXYzine PAMOATE 25 MG CAPSULE (FP) PO ONE (18:20)
[2020-12-13] MEDS: MELATONIN 5 MG TABLETS PO SCH (22:34)
[2020-12-13] MEDS: THIAMINE HCL 100 MG TABLET (FP) PO SCH (22:34)
[2020-12-13] MEDS: LIDOCAINE PATCH REMOVAL MC SCH (22:34)
[2020-12-14] MEDS ORDERED: diazePAM 5 MG TABLET PO ONE (06:00)
[2020-12-14] MEDS: PRENATAL VITAMINS W/ FOLIC ACID TABLET (FP) PO SCH (09:39)
[2020-12-14] MEDS: QUEtiapine FUMARATE 50 MG TABLET PO SCH (09:39)
[2020-12-14] MEDS: LORATADINE 10 MG TABLET PO SCH (09:39)
[2020-12-14] MEDS: NICOTINE 14 MG/24 HOURS TOPICAL PATCH TD SCH (09:39)
[2020-12-14] MEDS: PANTOPRAZOLE 40 MG TABLET PO SCH (09:39)
[2020-12-14] MEDS: LIDOCAINE 5% TOPICAL PATCH TP SCH (09:39)
[2020-12-14] MEDS: amLODIPine BESYLATE 10 MG TABLET (FP) PO SCH (09:39)
[2020-12-14 09:40] VITALS: BP 152/95; PULSE 98; TEMP 98.4
== END 2020-12-14 08:58 | disposition home or self-care (01) | DRG 775 ==
LOC: YASAS 15:58 → Y3N 17:58
PROVIDERS: ADMIT Allergy & Immunology; ATTEND Allergy & Immunology
PROC: HZ2ZZZZ Detoxification Services for Substance Abuse Treatment (ICD-10-PCS; principal; 2020-12-10)
DX: F10.230 Alcohol dependence with withdrawal, uncomplicated (principal); F17.210 Nicotine dependence, cigarettes, uncomplicated; F19.280 Other psychoactive substance dependence with psychoactive substance-induced anxiety disorder; F19.282 Other psychoactive substance dependence with psychoactive substance-induced sleep disorder; F19.24 Other psychoactive substance dependence with psychoactive substance-induced mood disorder; G47.00 Insomnia, unspecified; I10 Essential (primary) hypertension; K21.9 Gastro-esophageal reflux disease without esophagitis; M54.5 Low back pain; Z86.59 Personal history of other mental and behavioral disorders; Z88.0 Allergy status to penicillin; Z91.018 Allergy to other foods; Z59.0 Homelessness; Z56.0 Unemployment, unspecified
CPT/HCPCS: 36415; 80053; 85025; 85027; 86780; C9803; U0003

== ENCOUNTER 2021-01-31 13:45 | Inpatient (IN) | payer OTHER ==
[2021-01-31 14:42] VITALS: BMI 22.1
[2021-01-31] MEDS ORDERED: IBUPROFEN 400 MG TABLET (FP) PO PRN (18:56)
[2021-01-31] MEDS ORDERED: MAG HYDROX/AL HYDROX/SIMETH 30 ML UNIT-DOSE CUP PO PRN (18:56)
[2021-01-31] MEDS ORDERED: NICOTINE POLACRILEX 2 MG GUM BUC PRN (18:56)
[2021-01-31] MEDS ORDERED: MAGNESIUM HYDROX 2400MG/30ML ORAL SUSPENSION 30 ML CUP PO PRN (18:56)
[2021-01-31] MEDS ORDERED: BISMUTH SUBSALICYLATE 524 MG/30 ML UD PO PRN (18:56)
[2021-01-31] MEDS ORDERED: MAGNESIUM CITRATE 300 ML BOTTLE PO PRN (18:56)
[2021-01-31] MEDS ORDERED: ACETAMINOPHEN 325 MG TABLET (FP) PO PRN ×2 (18:56)
[2021-01-31] MEDS ORDERED: ONDANSETRON *ODT* 4 MG TABLET SL PRN (18:56)
[2021-01-31] MEDS ORDERED: chlordiazePOXIDE HCL 25 MG CAPSULE PO PRN (18:56)
[2021-01-31] MEDS ORDERED: cloNIDine HCL 0.1 MG TABLET PO PRN (18:56)
[2021-01-31] MEDS ORDERED: NALOXONE (NARCAN) HCL 4 MG/0.1 ML SPRAY NS PRN (18:56)
[2021-01-31] MEDS ORDERED: METHOCARBAMOL 500 MG TABLET PO PRN (18:56)
[2021-01-31] MEDS ORDERED: MENTHOL/PHENOL 1 EACH UD MM PRN (18:56)
[2021-01-31] MEDS ORDERED: METHADONE HCL 10 MG TABLET (FOR DETOX USE ONLY) PO ONE (19:09)
[2021-01-31] MEDS: chlordiazePOXIDE HCL 25 MG CAPSULE PO SCH (22:31)
[2021-01-31] MEDS: THIAMINE HCL 100 MG TABLET (FP) PO SCH (22:31)
[2021-01-31] MEDS: MELATONIN 5 MG TABLETS PO SCH (22:33)
[2021-02-01] MEDS: chlordiazePOXIDE HCL 25 MG CAPSULE PO SCH ×4 (05:36→22:41)
[2021-02-01] MEDS ORDERED: METHADONE HCL 10 MG TABLET (FOR DETOX USE ONLY) PO ONE (10:00)
[2021-02-01] MEDS: amLODIPine BESYLATE 10 MG TABLET (FP) PO SCH (10:23)
[2021-02-01] MEDS: PRENATAL VITAMINS W/ FOLIC ACID TABLET (FP) PO SCH (10:23)
[2021-02-01] MEDS: NICOTINE 21 MG/24 HOURS TOPICAL PATCH TD SCH (10:23)
[2021-02-01] MEDS: PANTOPRAZOLE 40 MG TABLET PO SCH (10:23)
[2021-02-01] MEDS ORDERED: IBUPROFEN 600 MG TABLET (FP) PO PRN (11:11)
[2021-02-01] MEDS ORDERED: METHOCARBAMOL 750 MG TAB PO ONE (11:15)
[2021-02-01 11:50] LABS: HEMATOCRIT 39.9 % (35.4-49); HEMOGLOBIN 13.5 GM/dL (11.7-16.9); MCH 30.8 pg (25.7-33.7); MCHC 33.7 g/dl (32.0-35.9); MEAN CELL VOLUME 91.2 fl (80-96); MEAN PLT VOLUME 7.5 fl (7.5-11.1); PLATELET COUNT 237 K/MM3 (134-434); RBC 4.38 M/mm3 (4.00-5.60); RDW 14.4 % (11.9-15.9); WHITE BLOOD COUNT 3.5 K/mm3 (4.0-10.0)
[2021-02-01 11:59] LABS: ALBUMIN 4.2 g/dl (3.4-5.0); BILIRUBIN,TOTAL 0.4 mg/dL (0.2-1); BLOOD UREA NITROGEN 12.7 mg/dL (7-18); TOT PROT 7.5 g/dl (6.4-8.2)
[2021-02-01 12:00] LABS: CREATININE 0.8 mg/dL (0.55-1.3)
[2021-02-01 12:20] LABS: SICKLE CELL SCREEN NEGATIVE (NEGATIVE)
[2021-02-01] MEDS: LIDOCAINE 5% TOPICAL PATCH TP SCH (13:36)
[2021-02-01] MEDS: METHYL SALICYLATE/MENTHOL OINT 30 GM TUBE TP SCH ×2 (13:36→22:42)
[2021-02-01] MEDS: QUEtiapine FUMARATE 50 MG TABLET PO SCH (22:41)
[2021-02-01] MEDS: MELATONIN 5 MG TABLETS PO SCH (22:43)
[2021-02-01] MEDS: LIDOCAINE PATCH REMOVAL MC SCH (22:43)
[2021-02-01] MEDS: THIAMINE HCL 100 MG TABLET (FP) PO SCH (22:43)
[2021-02-02] MEDS: chlordiazePOXIDE HCL 25 MG CAPSULE PO SCH ×4 (06:31→22:50)
[2021-02-02] MEDS ORDERED: METHADONE HCL 10 MG TABLET (FOR DETOX USE ONLY) PO ONE (10:00)
[2021-02-02] MEDS: PRENATAL VITAMINS W/ FOLIC ACID TABLET (FP) PO SCH (11:08)
[2021-02-02] MEDS: amLODIPine BESYLATE 10 MG TABLET (FP) PO SCH (11:09)
[2021-02-02] MEDS: PANTOPRAZOLE 40 MG TABLET PO SCH (11:09)
[2021-02-02] MEDS: LIDOCAINE 5% TOPICAL PATCH TP SCH (11:14)
[2021-02-02] MEDS: NICOTINE 21 MG/24 HOURS TOPICAL PATCH TD SCH (11:14)
[2021-02-02] MEDS: METHYL SALICYLATE/MENTHOL OINT 30 GM TUBE TP SCH ×2 (11:14→23:10)
[2021-02-02] MEDS: THIAMINE HCL 100 MG TABLET (FP) PO SCH (22:48)
[2021-02-02] MEDS: QUEtiapine FUMARATE 50 MG TABLET PO SCH (22:48)
[2021-02-02] MEDS: MELATONIN 5 MG TABLETS PO SCH (22:49)
[2021-02-02] MEDS: LIDOCAINE PATCH REMOVAL MC SCH (23:11)
[2021-02-03] MEDS ORDERED: chlordiazePOXIDE HCL 10 MG CAPSULE PO PRN
[2021-02-03] MEDS: chlordiazePOXIDE HCL 10 MG CAPSULE PO SCH ×4 (05:59→22:49)
[2021-02-03 08:06] LABS: SARS-CoV-2 NAA Not Detected (Not Detected)
[2021-02-03] MEDS ORDERED: METHADONE HCL 5 MG TABLET (FOR DETOX USE ONLY) ONE (09:13)
[2021-02-03] MEDS ORDERED: METHADONE HCL 10 MG TABLET (FOR DETOX USE ONLY) ONE (09:13)
[2021-02-03] MEDS ORDERED: METHADONE (DETOX) 10 MG, METHADONE (DETOX) 5 MG PO ONE (10:00)
[2021-02-03] MEDS: amLODIPine BESYLATE 10 MG TABLET (FP) PO SCH (10:11)
[2021-02-03] MEDS: PRENATAL VITAMINS W/ FOLIC ACID TABLET (FP) PO SCH (10:11)
[2021-02-03] MEDS: NICOTINE 21 MG/24 HOURS TOPICAL PATCH TD SCH (10:13)
[2021-02-03] MEDS: METHYL SALICYLATE/MENTHOL OINT 30 GM TUBE TP SCH ×2 (10:14→22:51)
[2021-02-03] MEDS: PANTOPRAZOLE 40 MG TABLET PO SCH (10:14)
[2021-02-03] MEDS: LIDOCAINE 5% TOPICAL PATCH TP SCH (10:14)
[2021-02-03] MEDS: LORATADINE 10 MG TABLET PO SCH (14:36)
[2021-02-03] MEDS: MELATONIN 5 MG TABLETS PO SCH (22:48)
[2021-02-03] MEDS: QUEtiapine FUMARATE 50 MG TABLET PO SCH (22:48)
[2021-02-03] MEDS: THIAMINE HCL 100 MG TABLET (FP) PO SCH (22:48)
[2021-02-03] MEDS: LIDOCAINE PATCH REMOVAL MC SCH (22:51)
[2021-02-04] MEDS: chlordiazePOXIDE HCL 10 MG CAPSULE PO SCH ×2 (05:57→17:15)
[2021-02-04] MEDS ORDERED: METHADONE HCL 10 MG TABLET (FOR DETOX USE ONLY) PO ONE (10:00)
[2021-02-04] MEDS: hydrOXYzine PAMOATE 25 MG CAPSULE (FP) PO PRN ×2 (10:36→17:13)
[2021-02-04] MEDS: PRENATAL VITAMINS W/ FOLIC ACID TABLET (FP) PO SCH (10:36)
[2021-02-04] MEDS: amLODIPine BESYLATE 10 MG TABLET (FP) PO SCH (10:36)
[2021-02-04] MEDS: LORATADINE 10 MG TABLET PO SCH (10:36)
[2021-02-04] MEDS: LIDOCAINE 5% TOPICAL PATCH TP SCH (10:36)
[2021-02-04] MEDS: PANTOPRAZOLE 40 MG TABLET PO SCH (10:36)
[2021-02-04] MEDS: NICOTINE 21 MG/24 HOURS TOPICAL PATCH TD SCH (10:36)
[2021-02-04] MEDS: METHYL SALICYLATE/MENTHOL OINT 30 GM TUBE TP SCH ×2 (10:37→22:22)
[2021-02-04] MEDS ORDERED: QUEtiapine FUMARATE 25 MG TABLET ONE (20:49)
[2021-02-04 21:14] VITALS: BP 120/55
[2021-02-04] MEDS: THIAMINE HCL 100 MG TABLET (FP) PO SCH (22:21)
[2021-02-04] MEDS: QUEtiapine FUMARATE 50 MG TABLET PO SCH (22:21)
[2021-02-04] MEDS: MELATONIN 5 MG TABLETS PO SCH (22:23)
[2021-02-04] MEDS: LIDOCAINE PATCH REMOVAL MC SCH (22:23)
[2021-02-05] MEDS ORDERED: chlordiazePOXIDE HCL 10 MG CAPSULE PO ONE (05:00)
[2021-02-05] MEDS ORDERED: METHADONE HCL 5 MG TABLET (FOR DETOX USE ONLY) PO ONE (06:00)
[2021-02-05 07:07] VITALS: PULSE 79; TEMP 99.3
[2021-02-05] MEDS: amLODIPine BESYLATE 10 MG TABLET (FP) PO SCH (09:15)
[2021-02-05] MEDS: PANTOPRAZOLE 40 MG TABLET PO SCH (09:15)
[2021-02-05] MEDS: LORATADINE 10 MG TABLET PO SCH (09:15)
[2021-02-05] MEDS: PRENATAL VITAMINS W/ FOLIC ACID TABLET (FP) PO SCH (09:17)
[2021-02-05] MEDS: METHYL SALICYLATE/MENTHOL OINT 30 GM TUBE TP SCH (09:17)
[2021-02-05] MEDS: LIDOCAINE 5% TOPICAL PATCH TP SCH (09:17)
[2021-02-05] MEDS: NICOTINE 21 MG/24 HOURS TOPICAL PATCH TD SCH (09:17)
== END 2021-02-05 09:45 | disposition home or self-care (01) | DRG 773 ==
LOC: YASAS 13:45 → Y6N 19:21
PROVIDERS: ADMIT Allergy & Immunology; ATTEND Allergy & Immunology
PROC: HZ2ZZZZ Detoxification Services for Substance Abuse Treatment (ICD-10-PCS; principal; 2021-01-31)
DX: F11.23 Opioid dependence with withdrawal (principal); F10.230 Alcohol dependence with withdrawal, uncomplicated; F14.20 Cocaine dependence, uncomplicated; F12.20 Cannabis dependence, uncomplicated; F17.210 Nicotine dependence, cigarettes, uncomplicated; F19.24 Other psychoactive substance dependence with psychoactive substance-induced mood disorder; F32.9 Major depressive disorder, single episode, unspecified; I10 Essential (primary) hypertension; K21.9 Gastro-esophageal reflux disease without esophagitis; M54.5 Low back pain; G89.29 Other chronic pain; Z59.0 Homelessness; Z88.0 Allergy status to penicillin; Z91.018 Allergy to other foods
CPT/HCPCS: 36415; 80053; 85027; 85660; 86780; C9803; U0003; U0005

== ENCOUNTER 2021-04-15 19:16 | Inpatient (IN) | payer OTHER ==
[2021-04-15 20:53] VITALS: BMI 22.3
[2021-04-15] MEDS ORDERED: NICOTINE POLACRILEX 2 MG GUM BUC PRN (21:43)
[2021-04-15] MEDS ORDERED: METHOCARBAMOL 500 MG TABLET PO PRN (21:43)
[2021-04-15] MEDS ORDERED: MAGNESIUM HYDROX 2400MG/30ML ORAL SUSPENSION 30 ML CUP PO PRN (21:43)
[2021-04-15] MEDS ORDERED: MENTHOL/PHENOL 1 EACH UD MM PRN (21:43)
[2021-04-15] MEDS ORDERED: ACETAMINOPHEN 325 MG TABLET (FP) PO PRN ×2 (21:43)
[2021-04-15] MEDS ORDERED: MAG HYDROX/AL HYDROX/SIMETH 30 ML UNIT-DOSE CUP PO PRN (21:43)
[2021-04-15] MEDS ORDERED: ONDANSETRON *ODT* 4 MG TABLET SL PRN (21:43)
[2021-04-15] MEDS ORDERED: BISMUTH SUBSALICYLATE 524 MG/30 ML PO PRN (21:43)
[2021-04-15] MEDS ORDERED: IBUPROFEN 400 MG TABLET (FP) PO PRN (21:43)
[2021-04-15] MEDS ORDERED: MAGNESIUM CITRATE 300 ML BOTTLE PO PRN (21:43)
[2021-04-15] MEDS: THIAMINE HCL 100 MG TABLET (FP) PO SCH (22:42)
[2021-04-15] MEDS: hydrOXYzine PAMOATE 25 MG CAPSULE (FP) PO SCH (22:42)
[2021-04-15] MEDS: MELATONIN 5 MG TABLETS PO SCH (22:43)
[2021-04-16] MEDS: hydrOXYzine PAMOATE 25 MG CAPSULE (FP) PO SCH ×5 (05:02→22:16)
[2021-04-16] MEDS ORDERED: diazePAM 5 MG TABLET PO ONE (09:14)
[2021-04-16] MEDS ORDERED: cloNIDine HCL 0.1 MG TABLET PO PRN (09:14)
[2021-04-16] MEDS ORDERED: diazePAM 5 MG TABLET PO PRN (09:14)
[2021-04-16] MEDS: PRENATAL VITAMINS W/ FOLIC ACID TABLET (FP) PO SCH (10:09)
[2021-04-16] MEDS: diazePAM 5 MG TABLET PO SCH ×3 (10:09→22:16)
[2021-04-16] MEDS: NICOTINE 21 MG/24 HOURS TOPICAL PATCH TD SCH (10:09)
[2021-04-16] MEDS: PANTOPRAZOLE 20 MG TABLET PO PRN (17:33)
[2021-04-16] MEDS: THIAMINE HCL 100 MG TABLET (FP) PO SCH (22:16)
[2021-04-16] MEDS: QUEtiapine FUMARATE 100 MG TABLET (FP) PO SCH (22:16)
[2021-04-16] MEDS: MELATONIN 5 MG TABLETS PO SCH (22:16)
[2021-04-17] MEDS: hydrOXYzine PAMOATE 25 MG CAPSULE (FP) PO SCH ×5 (06:10→22:12)
[2021-04-17] MEDS: diazePAM 5 MG TABLET PO SCH ×4 (06:11→22:12)
[2021-04-17] MEDS: amLODIPine BESYLATE 10 MG TABLET (FP) PO SCH (10:08)
[2021-04-17] MEDS: PRENATAL VITAMINS W/ FOLIC ACID TABLET (FP) PO SCH (10:08)
[2021-04-17] MEDS: NICOTINE 21 MG/24 HOURS TOPICAL PATCH TD SCH (10:08)
[2021-04-17] MEDS ORDERED: LOPERAMIDE HCL 2 MG CAPSULE PO PRN (10:19)
[2021-04-17] MEDS: LORATADINE 10 MG TABLET PO SCH (10:54)
[2021-04-17 16:15] LABS: CALCIUM 8.8 mg/dL (8.5-10.1)
[2021-04-17 16:16] LABS: ALBUMIN 4.2 g/dl (3.4-5.0); BLOOD UREA NITROGEN 13.9 mg/dL (7-18)
[2021-04-17 16:18] LABS: CREATININE 0.7 mg/dL (0.55-1.3)
[2021-04-17 16:19] LABS: HEMATOCRIT 41.6 % (35.4-49); HEMOGLOBIN 13.5 GM/dL (11.7-16.9); MCH 29.8 pg (25.7-33.7); MCHC 32.4 g/dl (32.0-35.9); MEAN CELL VOLUME 91.9 fl (80-96); MEAN PLT VOLUME 7.6 fl (7.5-11.1); PLATELET COUNT 260 10^3/uL (134-434); RBC 4.52 M/mm3 (4.00-5.60); RDW 15.6 % (11.9-15.9); WHITE BLOOD COUNT 3.2 K/mm3 (4.0-10.0)
[2021-04-17 16:20] LABS: BILIRUBIN,TOTAL 0.3 mg/dL (0.2-1)
[2021-04-17] MEDS ORDERED: MASKS NR ONE (17:35)
[2021-04-17] MEDS: THIAMINE HCL 100 MG TABLET (FP) PO SCH (22:12)
[2021-04-17] MEDS: MELATONIN 5 MG TABLETS PO SCH (22:12)
[2021-04-17] MEDS: QUEtiapine FUMARATE 100 MG TABLET (FP) PO SCH (22:12)
[2021-04-18] MEDS: hydrOXYzine PAMOATE 25 MG CAPSULE (FP) PO SCH ×5 (05:51→22:45)
[2021-04-18] MEDS: diazePAM 5 MG TABLET PO SCH ×3 (05:52→22:46)
[2021-04-18] MEDS: LORATADINE 10 MG TABLET PO SCH (10:16)
[2021-04-18] MEDS: PRENATAL VITAMINS W/ FOLIC ACID TABLET (FP) PO SCH (10:16)
[2021-04-18] MEDS: amLODIPine BESYLATE 10 MG TABLET (FP) PO SCH (10:17)
[2021-04-18] MEDS: NICOTINE 21 MG/24 HOURS TOPICAL PATCH TD SCH (10:17)
[2021-04-18] MEDS: PANTOPRAZOLE 20 MG TABLET PO PRN (18:03)
[2021-04-18] MEDS: MELATONIN 5 MG TABLETS PO SCH (22:45)
[2021-04-18] MEDS: QUEtiapine FUMARATE 100 MG TABLET (FP) PO SCH (22:46)
[2021-04-18] MEDS: THIAMINE HCL 100 MG TABLET (FP) PO SCH (22:46)
[2021-04-19] MEDS: hydrOXYzine PAMOATE 25 MG CAPSULE (FP) PO SCH ×2 (05:33→09:55)
[2021-04-19] MEDS ORDERED: diazePAM 5 MG TABLET PO SCH (06:00)
[2021-04-19 09:47] VITALS: BP 146/90; PULSE 74; TEMP 96.9
[2021-04-19] MEDS: PRENATAL VITAMINS W/ FOLIC ACID TABLET (FP) PO SCH (09:54)
[2021-04-19] MEDS: amLODIPine BESYLATE 10 MG TABLET (FP) PO SCH (09:54)
[2021-04-19] MEDS: NICOTINE 21 MG/24 HOURS TOPICAL PATCH TD SCH (09:55)
[2021-04-19] MEDS: LORATADINE 10 MG TABLET PO SCH (09:55)
[2021-04-20] MEDS ORDERED: diazePAM 5 MG TABLET PO ONE (06:00)
== END 2021-04-19 10:25 | disposition home or self-care (01) | DRG 774 ==
LOC: YASAS 19:16 → Y3N 21:33
PROVIDERS: ADMIT Allergy & Immunology; ATTEND Allergy & Immunology
PROC: HZ2ZZZZ Detoxification Services for Substance Abuse Treatment (ICD-10-PCS; principal; 2021-04-15)
DX: F10.230 Alcohol dependence with withdrawal, uncomplicated (principal); F14.20 Cocaine dependence, uncomplicated; F17.210 Nicotine dependence, cigarettes, uncomplicated; F19.24 Other psychoactive substance dependence with psychoactive substance-induced mood disorder; F41.9 Anxiety disorder, unspecified; F32.9 Major depressive disorder, single episode, unspecified; G47.00 Insomnia, unspecified; I10 Essential (primary) hypertension; K21.9 Gastro-esophageal reflux disease without esophagitis; L65.9 Nonscarring hair loss, unspecified; Z86.69 Personal history of other diseases of the nervous system and sense organs; Z88.0 Allergy status to penicillin; Z91.018 Allergy to other foods; Z91.013 Allergy to seafood
CPT/HCPCS: 36415; 80053; 85027; 86780; C9803; J0735; U0003; U0005

== ENCOUNTER 2021-06-10 14:49 | Inpatient (IN) | payer OTHER ==
[2021-06-10 18:40] VITALS: BMI 22.1
[2021-06-10] MEDS ORDERED: METHOCARBAMOL 500 MG TABLET PO PRN (18:44)
[2021-06-10] MEDS ORDERED: MAG HYDROX/AL HYDROX/SIMETH 30 ML UNIT-DOSE CUP PO PRN (18:44)
[2021-06-10] MEDS ORDERED: hydrOXYzine PAMOATE 25 MG CAPSULE (FP) PO PRN (18:44)
[2021-06-10] MEDS ORDERED: ONDANSETRON *ODT* 4 MG TABLET SL PRN (18:44)
[2021-06-10] MEDS ORDERED: cloNIDine HCL 0.1 MG TABLET PO PRN (18:44)
[2021-06-10] MEDS ORDERED: BISMUTH SUBSALICYLATE 524 MG/30 ML PO PRN (18:44)
[2021-06-10] MEDS ORDERED: methaDONE HCL 10 MG TABLET (FOR DETOX USE ONLY) PO ONE (18:44)
[2021-06-10] MEDS ORDERED: ACETAMINOPHEN 325 MG TABLET (FP) PO PRN (18:44)
[2021-06-10] MEDS ORDERED: MENTHOL/PHENOL 1 EACH UD MM PRN (18:44)
[2021-06-10] MEDS ORDERED: MAGNESIUM HYDROX 2400MG/30ML ORAL SUSPENSION 30 ML CUP PO PRN (18:44)
[2021-06-10] MEDS ORDERED: MAGNESIUM CITRATE 300 ML BOTTLE PO PRN (18:44)
[2021-06-10] MEDS ORDERED: NICOTINE POLACRILEX 2 MG GUM BUC PRN (18:44)
[2021-06-10] MEDS ORDERED: MELATONIN 5 MG TABLETS PO SCH (22:00)
[2021-06-10] MEDS: IBUPROFEN 400 MG TABLET (FP) PO PRN (22:06)
[2021-06-10] MEDS: diazePAM 5 MG TABLET PO SCH (22:07)
[2021-06-10] MEDS: THIAMINE HCL 100 MG TABLET (FP) PO SCH (22:49)
[2021-06-11] MEDS: ACETAMINOPHEN 325 MG TABLET (FP) PO PRN (05:36)
[2021-06-11] MEDS: diazePAM 5 MG TABLET PO SCH ×4 (06:10→22:10)
[2021-06-11] MEDS: PRENATAL VITAMINS W/ FOLIC ACID TABLET (FP) PO SCH (10:33)
[2021-06-11] MEDS: NICOTINE 21 MG/24 HOURS TOPICAL PATCH TD SCH (11:31)
[2021-06-11] MEDS: diazePAM 5 MG TABLET PO PRN (14:08)
[2021-06-11 16:20] LABS: HEMATOCRIT 39.9 % (35.4-49); HEMOGLOBIN 13.3 GM/dL (11.7-16.9); MCH 30.3 pg (25.7-33.7); MCHC 33.4 g/dl (32.0-35.9); MEAN CELL VOLUME 90.6 fl (80-96); MEAN PLT VOLUME 7.3 fl (7.5-11.1); PLATELET COUNT 221 10^3/uL (134-434); RDW 15.8 % (11.9-15.9); WHITE BLOOD COUNT 2.9 K/mm3 (4.0-10.0)
[2021-06-11 16:44] LABS: CALCIUM 8.9 mg/dL (8.5-10.1)
[2021-06-11 16:45] LABS: ALBUMIN 3.7 g/dl (3.4-5.0)
[2021-06-11 16:48] LABS: CREATININE 0.9 mg/dL (0.55-1.3)
[2021-06-11 16:49] LABS: BILIRUBIN,TOTAL 0.6 mg/dL (0.2-1); TOT PROT 6.8 g/dl (6.4-8.2)
[2021-06-11] MEDS: THIAMINE HCL 100 MG TABLET (FP) PO SCH (22:10)
[2021-06-11] MEDS: QUEtiapine FUMARATE 100 MG TABLET (FP) PO SCH (22:10)
[2021-06-12] MEDS: diazePAM 5 MG TABLET PO SCH ×3 (06:56→22:22)
[2021-06-12] MEDS ORDERED: methaDONE HCL 10 MG TABLET (FOR DETOX USE ONLY) PO ONE (10:00)
[2021-06-12] MEDS: NICOTINE 21 MG/24 HOURS TOPICAL PATCH TD SCH (10:28)
[2021-06-12] MEDS: amLODIPine BESYLATE 10 MG TABLET (FP) PO SCH (10:28)
[2021-06-12] MEDS: PRENATAL VITAMINS W/ FOLIC ACID TABLET (FP) PO SCH (10:28)
[2021-06-12] MEDS: PANTOPRAZOLE 40 MG TABLET PO SCH (10:28)
[2021-06-12] MEDS: IBUPROFEN 400 MG TABLET (FP) PO PRN (10:30)
[2021-06-12] MEDS: THIAMINE HCL 100 MG TABLET (FP) PO SCH (22:22)
[2021-06-12] MEDS: QUEtiapine FUMARATE 100 MG TABLET (FP) PO SCH (22:22)
[2021-06-13] MEDS: diazePAM 5 MG TABLET PO SCH ×2 (06:34→17:50)
[2021-06-13] MEDS: diazePAM 5 MG TABLET PO PRN (09:15)
[2021-06-13] MEDS: PRENATAL VITAMINS W/ FOLIC ACID TABLET (FP) PO SCH (10:29)
[2021-06-13] MEDS: amLODIPine BESYLATE 10 MG TABLET (FP) PO SCH (10:30)
[2021-06-13] MEDS: PANTOPRAZOLE 40 MG TABLET PO SCH (10:30)
[2021-06-13] MEDS: NICOTINE 21 MG/24 HOURS TOPICAL PATCH TD SCH (10:31)
[2021-06-13 21:33] VITALS: TEMP 97.1
[2021-06-13] MEDS: THIAMINE HCL 100 MG TABLET (FP) PO SCH (22:39)
[2021-06-13] MEDS: QUEtiapine FUMARATE 100 MG TABLET (FP) PO SCH (22:39)
[2021-06-14] MEDS: ACETAMINOPHEN 325 MG TABLET (FP) PO PRN (00:59)
[2021-06-14] MEDS ORDERED: diazePAM 5 MG TABLET PO ONE (06:00)
[2021-06-14 09:51] VITALS: BP 125/67; PULSE 58
[2021-06-14] MEDS ORDERED: methaDONE HCL 10 MG TABLET (FOR DETOX USE ONLY) PO ONE (10:00)
== END 2021-06-14 09:11 | disposition home or self-care (01) | DRG 773 ==
LOC: YASAS 14:49 → Y3N 21:41 → Y6N 06-11 07:50 → Y3N 06-11 08:05
PROVIDERS: ADMIT Allergy & Immunology; ATTEND Allergy & Immunology
PROC: HZ2ZZZZ Detoxification Services for Substance Abuse Treatment (ICD-10-PCS; principal; 2021-06-10)
DX: F11.23 Opioid dependence with withdrawal (principal); F10.230 Alcohol dependence with withdrawal, uncomplicated; F14.20 Cocaine dependence, uncomplicated; F12.20 Cannabis dependence, uncomplicated; F17.210 Nicotine dependence, cigarettes, uncomplicated; F19.282 Other psychoactive substance dependence with psychoactive substance-induced sleep disorder; F19.24 Other psychoactive substance dependence with psychoactive substance-induced mood disorder; F41.8 Other specified anxiety disorders; G47.00 Insomnia, unspecified; I10 Essential (primary) hypertension; K21.9 Gastro-esophageal reflux disease without esophagitis; Z86.69 Personal history of other diseases of the nervous system and sense organs; Z86.19 Personal history of other infectious and parasitic diseases; Z88.0 Allergy status to penicillin; Z91.013 Allergy to seafood; Z91.018 Allergy to other foods
CPT/HCPCS: 36415; 71046-TC-FY; 80053; 85027; 86780; 93005; 93010; C9803; J0735; U0003; U0005

== ENCOUNTER 2021-08-18 18:04 | Inpatient (IN) | payer OTHER ==
[2021-08-18 18:54] VITALS: BMI 22.4
[2021-08-18] MEDS ORDERED: IBUPROFEN 400 MG TABLET (FP) PO PRN (22:35)
[2021-08-18] MEDS ORDERED: METHOCARBAMOL 500 MG TABLET PO PRN (22:35)
[2021-08-18] MEDS ORDERED: ACETAMINOPHEN 325 MG TABLET (FP) PO PRN ×2 (22:35)
[2021-08-18] MEDS ORDERED: MAGNESIUM CITRATE 300 ML BOTTLE PO PRN (22:35)
[2021-08-18] MEDS ORDERED: ONDANSETRON *ODT* 4 MG TABLET SL PRN (22:35)
[2021-08-18] MEDS ORDERED: MAGNESIUM HYDROX 2400MG/30ML ORAL SUSPENSION 30 ML CUP PO PRN (22:35)
[2021-08-18] MEDS ORDERED: MENTHOL/PHENOL 1 EACH UD MM PRN (22:35)
[2021-08-18] MEDS ORDERED: BISMUTH SUBSALICYLATE 524 MG/30 ML PO PRN (22:35)
[2021-08-18] MEDS ORDERED: NICOTINE POLACRILEX 2 MG GUM BUC PRN (22:35)
[2021-08-18] MEDS ORDERED: MAG HYDROX/AL HYDROX/SIMETH 30 ML UNIT-DOSE CUP PO PRN (22:35)
[2021-08-18] MEDS: diazePAM 5 MG TABLET PO PRN (23:13)
[2021-08-18] MEDS: diazePAM 5 MG TABLET PO SCH (23:49)
[2021-08-19] MEDS: diazePAM 5 MG TABLET PO SCH ×4 (05:51→22:20)
[2021-08-19] MEDS: PRENATAL VITAMINS W/ FOLIC ACID TABLET (FP) PO SCH (10:40)
[2021-08-19] MEDS: FAMOTIDINE 20 MG TABLET PO SCH ×2 (11:13→22:20)
[2021-08-19] MEDS: amLODIPine BESYLATE 10 MG TABLET (FP) PO SCH (11:13)
[2021-08-19] MEDS: LORATADINE 10 MG TABLET PO SCH (11:13)
[2021-08-19] MEDS: NICOTINE 21 MG/24 HOURS TOPICAL PATCH TD SCH (11:14)
[2021-08-19] MEDS: diazePAM 5 MG TABLET PO PRN (14:51)
[2021-08-19] MEDS: THIAMINE HCL 100 MG TABLET (FP) PO SCH (22:20)
[2021-08-19] MEDS: QUEtiapine FUMARATE 100 MG TABLET (FP) PO SCH (22:20)
[2021-08-19] MEDS: MELATONIN 5 MG TABLETS PO SCH (23:03)
[2021-08-20] MEDS: diazePAM 5 MG TABLET PO SCH ×3 (05:53→22:41)
[2021-08-20] MEDS: LORATADINE 10 MG TABLET PO SCH (10:34)
[2021-08-20] MEDS: PRENATAL VITAMINS W/ FOLIC ACID TABLET (FP) PO SCH (10:34)
[2021-08-20] MEDS: FAMOTIDINE 20 MG TABLET PO SCH ×2 (10:34→22:42)
[2021-08-20] MEDS: NICOTINE 21 MG/24 HOURS TOPICAL PATCH TD SCH (10:34)
[2021-08-20] MEDS: amLODIPine BESYLATE 10 MG TABLET (FP) PO SCH (10:34)
[2021-08-20 13:54] LABS: HEMOGLOBIN 13.3 GM/dL (11.7-16.9); MCH 30.5 pg (25.7-33.7); MCHC 33.2 g/dl (32.0-35.9); MEAN CELL VOLUME 92.1 fl (80-96); MEAN PLT VOLUME 7.9 fl (7.5-11.1); PLATELET COUNT 269 10^3/uL (134-434); RBC 4.34 M/mm3 (4.00-5.60); RDW 14.9 % (11.9-15.9); WHITE BLOOD COUNT 3.4 K/mm3 (4.0-10.0)
[2021-08-20 14:05] LABS: ALBUMIN 3.8 g/dl (3.4-5.0); CALCIUM 9.5 mg/dL (8.5-10.1)
[2021-08-20 14:07] LABS: BILIRUBIN,TOTAL 0.4 mg/dL (0.2-1); BLOOD UREA NITROGEN 15.4 mg/dL (7-18); CREATININE 0.9 mg/dL (0.55-1.3)
[2021-08-20 14:09] LABS: TOT PROT 7.1 g/dl (6.4-8.2)
[2021-08-20] MEDS: QUEtiapine FUMARATE 100 MG TABLET (FP) PO SCH (22:40)
[2021-08-20] MEDS: THIAMINE HCL 100 MG TABLET (FP) PO SCH (22:42)
[2021-08-20] MEDS: MELATONIN 5 MG TABLETS PO SCH (22:42)
[2021-08-21] MEDS ORDERED: diazePAM 5 MG TABLET PO SCH (06:00)
[2021-08-21 08:03] VITALS: BP 113/75; PULSE 79; TEMP 97.1
[2021-08-21] MEDS: amLODIPine BESYLATE 10 MG TABLET (FP) PO SCH (09:12)
[2021-08-21] MEDS: FAMOTIDINE 20 MG TABLET PO SCH (09:12)
[2021-08-21] MEDS: LORATADINE 10 MG TABLET PO SCH (09:12)
[2021-08-22] MEDS ORDERED: diazePAM 5 MG TABLET PO ONE (06:00)
== END 2021-08-21 09:30 | disposition home or self-care (01) | DRG 774 ==
LOC: YASAS 18:04 → Y3N 21:17 → Y6N 21:33
PROVIDERS: ADMIT Allergy & Immunology; ATTEND Allergy & Immunology
PROC: HZ2ZZZZ Detoxification Services for Substance Abuse Treatment (ICD-10-PCS; principal; 2021-08-18)
DX: F10.230 Alcohol dependence with withdrawal, uncomplicated (principal); F13.230 Sedative, hypnotic or anxiolytic dependence with withdrawal, uncomplicated; F14.20 Cocaine dependence, uncomplicated; F12.20 Cannabis dependence, uncomplicated; F17.210 Nicotine dependence, cigarettes, uncomplicated; F19.282 Other psychoactive substance dependence with psychoactive substance-induced sleep disorder; F19.24 Other psychoactive substance dependence with psychoactive substance-induced mood disorder; F31.9 Bipolar disorder, unspecified; F41.9 Anxiety disorder, unspecified; G47.00 Insomnia, unspecified; I10 Essential (primary) hypertension; K21.9 Gastro-esophageal reflux disease without esophagitis; Z86.69 Personal history of other diseases of the nervous system and sense organs; Z86.11 Personal history of tuberculosis; Z88.0 Allergy status to penicillin; Z91.018 Allergy to other foods; Z59.00 Homelessness unspecified; Z56.0 Unemployment, unspecified
CPT/HCPCS: 36415; 80053; 85027; 86780; 93005; 93010; C9803; U0003; U0005

== ENCOUNTER 2021-11-27 14:58 | Inpatient (IN) | payer OTHER ==
[2021-11-27] MEDS ORDERED: ONDANSETRON *ODT* 4 MG TABLET SL PRN (15:30)
[2021-11-27] MEDS ORDERED: IBUPROFEN 400 MG TABLET (FP) PO PRN (15:30)
[2021-11-27] MEDS ORDERED: MAGNESIUM CITRATE 300 ML BOTTLE PO PRN (15:30)
[2021-11-27] MEDS ORDERED: ACETAMINOPHEN 325 MG TABLET (FP) PO PRN ×2 (15:30)
[2021-11-27] MEDS ORDERED: LOPERAMIDE HCL 2 MG CAPSULE PO PRN (15:30)
[2021-11-27] MEDS ORDERED: chlordiazePOXIDE HCL 25 MG CAPSULE PO PRN (15:30)
[2021-11-27] MEDS ORDERED: MAGNESIUM HYDROX 2400MG/30ML ORAL SUSPENSION 30 ML CUP PO PRN (15:30)
[2021-11-27] MEDS ORDERED: MAG HYDROX/AL HYDROX/SIMETH 30 ML UNIT-DOSE CUP PO PRN (15:30)
[2021-11-27] MEDS ORDERED: BISMUTH SUBSALICYLATE 524 MG/30 ML PO PRN (15:30)
[2021-11-27] MEDS ORDERED: MENTHOL/PHENOL 1 EACH UD MM PRN (15:30)
[2021-11-27] MEDS ORDERED: METHOCARBAMOL 500 MG TABLET PO PRN (15:30)
[2021-11-27] MEDS ORDERED: NICOTINE 10 MG CARTRIDGE (INHALER) IH PRN (15:30)
[2021-11-27] MEDS ORDERED: PANTOPRAZOLE 40 MG TABLET PO ONE ×2 (18:05→20:30)
[2021-11-27 18:06] VITALS: BMI 22.1
[2021-11-27] MEDS: NICOTINE 14 MG/24 HOURS TOPICAL PATCH TD SCH (19:47)
[2021-11-27] MEDS: chlordiazePOXIDE HCL 25 MG CAPSULE PO SCH ×2 (19:47→22:31)
[2021-11-27] MEDS: PRENATAL VITAMINS W/ FOLIC ACID TABLET (FP) PO SCH (19:48)
[2021-11-27] MEDS: hydrOXYzine PAMOATE 25 MG CAPSULE (FP) PO SCH ×2 (19:48→22:34)
[2021-11-27] MEDS: THIAMINE HCL 100 MG TABLET (FP) PO SCH (22:33)
[2021-11-27] MEDS: MELATONIN 5 MG TABLETS PO SCH (22:34)
[2021-11-28] MEDS: chlordiazePOXIDE HCL 25 MG CAPSULE PO SCH ×4 (05:42→22:06)
[2021-11-28] MEDS: hydrOXYzine PAMOATE 25 MG CAPSULE (FP) PO SCH ×5 (05:42→22:07)
[2021-11-28] MEDS: PRENATAL VITAMINS W/ FOLIC ACID TABLET (FP) PO SCH (10:45)
[2021-11-28] MEDS: NICOTINE 14 MG/24 HOURS TOPICAL PATCH TD SCH (10:45)
[2021-11-28] MEDS: PANTOPRAZOLE 40 MG TABLET PO SCH (10:46)
[2021-11-28] MEDS: amLODIPine BESYLATE 10 MG TABLET (FP) PO SCH (10:46)
[2021-11-28 14:12] LABS: MCH 29.7 pg (25.7-33.7); MCHC 32.5 g/dl (32.0-35.9); MEAN CELL VOLUME 91.4 fl (80-96); MEAN PLT VOLUME 7.7 fl (7.5-11.1); PLATELET COUNT 219 10^3/uL (134-434); RBC 4.37 M/mm3 (4.00-5.60); RDW 15.1 % (11.9-15.9); WHITE BLOOD COUNT 3.5 K/mm3 (4.0-10.0)
[2021-11-28 14:27] LABS: CALCIUM 8.5 mg/dL (8.5-10.1)
[2021-11-28 14:28] LABS: ALBUMIN 3.6 g/dl (3.4-5.0); BLOOD UREA NITROGEN 14.3 mg/dL (7-18)
[2021-11-28 14:31] LABS: CREATININE 0.9 mg/dL (0.55-1.3)
[2021-11-28 14:33] LABS: BILIRUBIN,TOTAL 0.7 mg/dL (0.2-1); TOT PROT 6.3 g/dl (6.4-8.2)
[2021-11-28] MEDS ORDERED: QUEtiapine FUMARATE 100 MG TABLET (FP) PO SCH (22:00)
[2021-11-28] MEDS: THIAMINE HCL 100 MG TABLET (FP) PO SCH (22:06)
[2021-11-28] MEDS: MELATONIN 5 MG TABLETS PO SCH (22:07)
[2021-11-29] MEDS: hydrOXYzine PAMOATE 25 MG CAPSULE (FP) PO SCH ×4 (05:05→18:46)
[2021-11-29] MEDS: chlordiazePOXIDE HCL 25 MG CAPSULE PO SCH ×3 (05:05→18:46)
[2021-11-29] MEDS: amLODIPine BESYLATE 10 MG TABLET (FP) PO SCH (10:40)
[2021-11-29] MEDS: PANTOPRAZOLE 40 MG TABLET PO SCH (10:40)
[2021-11-29] MEDS: PRENATAL VITAMINS W/ FOLIC ACID TABLET (FP) PO SCH (10:40)
[2021-11-29] MEDS: NICOTINE 14 MG/24 HOURS TOPICAL PATCH TD SCH (10:41)
[2021-11-29 17:56] VITALS: BP 143/88; PULSE 66; TEMP 98.3
[2021-11-30] MEDS ORDERED: chlordiazePOXIDE HCL 10 MG CAPSULE PO PRN
[2021-11-30 00:06] LABS: SARS-CoV-2 NAA Not Detected (Not Detected)
[2021-11-30] MEDS ORDERED: chlordiazePOXIDE HCL 10 MG CAPSULE PO SCH (05:00)
[2021-12-01] MEDS ORDERED: chlordiazePOXIDE HCL 10 MG CAPSULE PO SCH (05:00)
[2021-12-02] MEDS ORDERED: chlordiazePOXIDE HCL 10 MG CAPSULE PO ONE (05:00)
== END 2021-11-29 17:20 | disposition left against medical advice (07) | DRG 770 ==
LOC: YASAS 14:58 → Y6N 18:21
PROVIDERS: ADMIT Allergy & Immunology; ATTEND Allergy & Immunology
PROC: HZ2ZZZZ Detoxification Services for Substance Abuse Treatment (ICD-10-PCS; principal; 2021-11-27)
DX: F10.230 Alcohol dependence with withdrawal, uncomplicated (principal); F14.20 Cocaine dependence, uncomplicated; F13.20 Sedative, hypnotic or anxiolytic dependence, uncomplicated; F12.20 Cannabis dependence, uncomplicated; F17.210 Nicotine dependence, cigarettes, uncomplicated; F39 Unspecified mood [affective] disorder; D72.819 Decreased white blood cell count, unspecified; I10 Essential (primary) hypertension; K21.9 Gastro-esophageal reflux disease without esophagitis; Z86.11 Personal history of tuberculosis; Z86.69 Personal history of other diseases of the nervous system and sense organs; Z88.0 Allergy status to penicillin; Z59.00 Homelessness unspecified; Z56.0 Unemployment, unspecified
CPT/HCPCS: 36415; 80053; 85027; 86780; C9803; U0003; U0005

== ENCOUNTER 2022-02-19 22:55 | Inpatient (IN) | payer OTHER ==
[2022-02-19] MEDS ORDERED: MAGNESIUM CITRATE 300 ML BOTTLE PO PRN (23:50)
[2022-02-19] MEDS ORDERED: BENZOCAINE/MENTHOL (CHLORASEPTIC ) LOZENGE MM PRN (23:50)
[2022-02-19] MEDS ORDERED: NICOTINE 10 MG CARTRIDGE (INHALER) IH PRN (23:50)
[2022-02-19] MEDS ORDERED: BISMUTH SUBSALICYLATE 524 MG/30 ML PO PRN (23:50)
[2022-02-19] MEDS ORDERED: ACETAMINOPHEN 325 MG TABLET (FP) PO PRN ×2 (23:50)
[2022-02-19] MEDS ORDERED: LOPERAMIDE HCL 2 MG CAPSULE PO PRN (23:50)
[2022-02-19] MEDS ORDERED: IBUPROFEN 400 MG TABLET (FP) PO PRN (23:50)
[2022-02-19] MEDS ORDERED: MAGNESIUM HYDROX 2400MG/30ML ORAL SUSPENSION 30 ML CUP PO PRN (23:50)
[2022-02-19] MEDS ORDERED: MAG HYDROX/AL HYDROX/SIMETH 30 ML UNIT-DOSE CUP PO PRN (23:50)
[2022-02-19] MEDS ORDERED: ONDANSETRON *ODT* 4 MG TABLET SL PRN (23:50)
[2022-02-19] MEDS ORDERED: METHOCARBAMOL 500 MG TABLET PO PRN (23:50)
[2022-02-19] MEDS ORDERED: DICYCLOMINE HCL 10 MG CAPSULE PO PRN (23:50)
[2022-02-19 23:51] VITALS: BMI 20.9
[2022-02-20] MEDS ORDERED: chlordiazePOXIDE HCL 25 MG CAPSULE PO PRN (02:55)
[2022-02-20] MEDS: hydrOXYzine PAMOATE 25 MG CAPSULE (FP) PO SCH ×5 (05:30→22:10)
[2022-02-20] MEDS: chlordiazePOXIDE HCL 25 MG CAPSULE PO SCH ×4 (05:30→22:07)
[2022-02-20] MEDS: amLODIPine BESYLATE 10 MG TABLET (FP) PO SCH (10:31)
[2022-02-20] MEDS: PRENATAL VITAMINS W/ FOLIC ACID TABLET (FP) PO SCH (10:31)
[2022-02-20] MEDS: LORATADINE 10 MG TABLET PO SCH (10:31)
[2022-02-20] MEDS: PANTOPRAZOLE 40 MG TABLET PO SCH (10:32)
[2022-02-20] MEDS: NICOTINE 21 MG/24 HOURS TOPICAL PATCH TD SCH (10:39)
[2022-02-20 10:55] LABS: HEMATOCRIT 44.2 % (35.4-49); HEMOGLOBIN 14.4 GM/dL (11.7-16.9); MCH 29.7 pg (25.7-33.7); MCHC 32.6 g/dl (32.0-35.9); MEAN CELL VOLUME 91.1 fl (80-96); MEAN PLT VOLUME 7.7 fl (7.5-11.1); PLATELET COUNT 275 10^3/uL (134-434); RBC 4.85 M/mm3 (4.00-5.60); RDW 14.9 % (11.9-15.9); WHITE BLOOD COUNT 3.9 K/mm3 (4.0-10.0)
[2022-02-20 11:07] LABS: CALCIUM 9.1 mg/dL (8.5-10.1)
[2022-02-20 11:08] LABS: ALBUMIN 4.5 g/dl (3.4-5.0); BLOOD UREA NITROGEN 9.2 mg/dL (7-18)
[2022-02-20 11:11] LABS: CREATININE 0.7 mg/dL (0.55-1.3)
[2022-02-20 11:13] LABS: BILIRUBIN,TOTAL 0.7 mg/dL (0.2-1)
[2022-02-20] MEDS ORDERED: QUEtiapine FUMARATE 100 MG TABLET (FP) PO ONE (22:00)
[2022-02-20] MEDS ORDERED: MELATONIN 5 MG TABLETS PO SCH (22:00)
[2022-02-20] MEDS: THIAMINE HCL 100 MG TABLET (FP) PO SCH (22:07)
[2022-02-21] MEDS: chlordiazePOXIDE HCL 25 MG CAPSULE PO SCH ×3 (05:38→19:36)
[2022-02-21] MEDS: hydrOXYzine PAMOATE 25 MG CAPSULE (FP) PO SCH ×5 (05:39→22:14)
[2022-02-21] MEDS: LORATADINE 10 MG TABLET PO SCH (10:26)
[2022-02-21] MEDS: PRENATAL VITAMINS W/ FOLIC ACID TABLET (FP) PO SCH (10:26)
[2022-02-21] MEDS: amLODIPine BESYLATE 10 MG TABLET (FP) PO SCH (10:26)
[2022-02-21] MEDS: PANTOPRAZOLE 40 MG TABLET PO SCH (10:26)
[2022-02-21] MEDS: NICOTINE 21 MG/24 HOURS TOPICAL PATCH TD SCH (10:28)
[2022-02-21] MEDS: THIAMINE HCL 100 MG TABLET (FP) PO SCH (22:14)
[2022-02-21] MEDS: QUEtiapine FUMARATE 50 MG TABLET PO SCH (22:59)
[2022-02-22] MEDS ORDERED: chlordiazePOXIDE HCL 10 MG CAPSULE PO PRN
[2022-02-22] MEDS: chlordiazePOXIDE HCL 10 MG CAPSULE PO SCH ×4 (05:02→22:32)
[2022-02-22] MEDS: hydrOXYzine PAMOATE 25 MG CAPSULE (FP) PO SCH ×5 (05:02→22:31)
[2022-02-22] MEDS ORDERED: PANTOPRAZOLE 40 MG TABLET PO SCH (07:41)
[2022-02-22] MEDS ORDERED: PANTOPRAZOLE 40 MG TABLET PO ONE (07:42)
[2022-02-22] MEDS: LORATADINE 10 MG TABLET PO SCH (10:17)
[2022-02-22] MEDS: amLODIPine BESYLATE 10 MG TABLET (FP) PO SCH (10:17)
[2022-02-22] MEDS: PRENATAL VITAMINS W/ FOLIC ACID TABLET (FP) PO SCH (10:17)
[2022-02-22] MEDS: NICOTINE 21 MG/24 HOURS TOPICAL PATCH TD SCH (10:19)
[2022-02-22] MEDS: chlordiazePOXIDE HCL 25 MG CAPSULE PO SCH (22:14)
[2022-02-22] MEDS: THIAMINE HCL 100 MG TABLET (FP) PO SCH (22:31)
[2022-02-22] MEDS: QUEtiapine FUMARATE 50 MG TABLET PO SCH (23:07)
[2022-02-23] MEDS: hydrOXYzine PAMOATE 25 MG CAPSULE (FP) PO SCH ×5 (05:37→22:12)
[2022-02-23] MEDS: PANTOPRAZOLE 40 MG TABLET PO SCH (05:37)
[2022-02-23] MEDS: chlordiazePOXIDE HCL 10 MG CAPSULE PO SCH ×2 (05:39→19:17)
[2022-02-23] MEDS: PRENATAL VITAMINS W/ FOLIC ACID TABLET (FP) PO SCH (10:18)
[2022-02-23] MEDS: LORATADINE 10 MG TABLET PO SCH (10:19)
[2022-02-23] MEDS: NICOTINE 21 MG/24 HOURS TOPICAL PATCH TD SCH (10:19)
[2022-02-23] MEDS: amLODIPine BESYLATE 10 MG TABLET (FP) PO SCH (10:19)
[2022-02-23] MEDS: THIAMINE HCL 100 MG TABLET (FP) PO SCH (22:12)
[2022-02-23] MEDS: QUEtiapine FUMARATE 50 MG TABLET PO SCH (22:14)
[2022-02-24] MEDS ORDERED: chlordiazePOXIDE HCL 10 MG CAPSULE PO ONE (05:00)
[2022-02-24] MEDS: PANTOPRAZOLE 40 MG TABLET PO SCH (05:15)
[2022-02-24] MEDS: hydrOXYzine PAMOATE 25 MG CAPSULE (FP) PO SCH ×2 (05:15→08:59)
[2022-02-24 06:17] VITALS: TEMP 97.3
[2022-02-24 08:24] VITALS: BP 151/106; PULSE 83
[2022-02-24] MEDS: PRENATAL VITAMINS W/ FOLIC ACID TABLET (FP) PO SCH (08:59)
[2022-02-24] MEDS: amLODIPine BESYLATE 10 MG TABLET (FP) PO SCH (08:59)
[2022-02-24] MEDS: LORATADINE 10 MG TABLET PO SCH (08:59)
[2022-02-24] MEDS: NICOTINE 21 MG/24 HOURS TOPICAL PATCH TD SCH (08:59)
== END 2022-02-24 09:07 | disposition home or self-care (01) | DRG 774 ==
LOC: YASAS 22:55 → Y6N 02-20 01:54
PROVIDERS: ADMIT Allergy & Immunology; ATTEND Surgery
PROC: HZ2ZZZZ Detoxification Services for Substance Abuse Treatment (ICD-10-PCS; principal; 2022-02-20)
DX: F10.230 Alcohol dependence with withdrawal, uncomplicated (principal); F14.20 Cocaine dependence, uncomplicated; F12.20 Cannabis dependence, uncomplicated; F17.210 Nicotine dependence, cigarettes, uncomplicated; I10 Essential (primary) hypertension; K21.9 Gastro-esophageal reflux disease without esophagitis; Z86.11 Personal history of tuberculosis; Z86.69 Personal history of other diseases of the nervous system and sense organs; Z88.0 Allergy status to penicillin; Z91.013 Allergy to seafood; Z91.018 Allergy to other foods; Z56.0 Unemployment, unspecified; Z59.00 Homelessness unspecified
CPT/HCPCS: 36415; 80053; 85027; 86780; 93005; 93010; C9803-CS; U0003; U0005

== ENCOUNTER 2022-04-20 10:32 | Inpatient (IN) | payer OTHER ==
[2022-04-20 14:06] VITALS: BMI 21.7
[2022-04-20] MEDS ORDERED: MAGNESIUM CITRATE 300 ML BOTTLE PO PRN (15:27)
[2022-04-20] MEDS ORDERED: DICYCLOMINE HCL 10 MG CAPSULE PO PRN (15:27)
[2022-04-20] MEDS ORDERED: NICOTINE 10 MG CARTRIDGE (INHALER) IH PRN (15:27)
[2022-04-20] MEDS ORDERED: MAG HYDROX/AL HYDROX/SIMETH 30 ML UNIT-DOSE CUP PO PRN (15:27)
[2022-04-20] MEDS ORDERED: BISMUTH SUBSALICYLATE 524 MG/30 ML PO PRN (15:27)
[2022-04-20] MEDS ORDERED: diazePAM 5 MG TABLET PO PRN (15:27)
[2022-04-20] MEDS ORDERED: ONDANSETRON *ODT* 4 MG TABLET SL PRN (15:27)
[2022-04-20] MEDS ORDERED: IBUPROFEN 600 MG TABLET (FP) PO PRN (15:27)
[2022-04-20] MEDS ORDERED: METHOCARBAMOL 500 MG TABLET PO PRN (15:27)
[2022-04-20] MEDS ORDERED: BENZOCAINE/MENTHOL (CHLORASEPTIC ) LOZENGE MM PRN (15:27)
[2022-04-20] MEDS ORDERED: LOPERAMIDE HCL 2 MG CAPSULE PO PRN (15:27)
[2022-04-20] MEDS ORDERED: diazePAM 5 MG TABLET PO ONE (15:27)
[2022-04-20] MEDS ORDERED: IBUPROFEN 400 MG TABLET (FP) PO PRN (15:27)
[2022-04-20] MEDS ORDERED: MAGNESIUM HYDROX 2400MG/30ML ORAL SUSPENSION 30 ML CUP PO PRN (15:27)
[2022-04-20] MEDS ORDERED: ACETAMINOPHEN 325 MG TABLET (FP) PO PRN ×2 (15:27)
[2022-04-20] MEDS: LORATADINE 10 MG TABLET PO SCH (16:02)
[2022-04-20] MEDS: amLODIPine BESYLATE 10 MG TABLET (FP) PO SCH (16:02)
[2022-04-20] MEDS: NICOTINE 21 MG/24 HOURS TOPICAL PATCH TD SCH (16:03)
[2022-04-20] MEDS: diazePAM 5 MG TABLET PO SCH ×2 (16:03→22:05)
[2022-04-20] MEDS ORDERED: MELATONIN 5 MG TABLETS PO SCH (22:00)
[2022-04-20] MEDS ORDERED: THIAMINE HCL 100 MG TABLET (FP) PO SCH (22:00)
[2022-04-21] MEDS: diazePAM 5 MG TABLET PO SCH ×3 (05:24→17:41)
[2022-04-21 09:07] LABS: ALBUMIN 3.7 g/dl (3.4-5.0); CALCIUM 9.2 mg/dL (8.5-10.1)
[2022-04-21 09:08] LABS: BLOOD UREA NITROGEN 11.8 mg/dL (7-18)
[2022-04-21 09:09] LABS: HEMOGLOBIN 12.7 GM/dL (11.7-16.9); MCH 30.1 pg (25.7-33.7); MCHC 33.4 g/dl (32.0-35.9); MEAN CELL VOLUME 90.1 fl (80-96); PLATELET COUNT 230 10^3/uL (134-434); RBC 4.22 M/mm3 (4.00-5.60); RDW 15.1 % (11.9-15.9); WHITE BLOOD COUNT 3.1 K/mm3 (4.0-10.0)
[2022-04-21 09:11] LABS: CREATININE 0.8 mg/dL (0.55-1.3)
[2022-04-21 09:12] LABS: BILIRUBIN,TOTAL 0.4 mg/dL (0.2-1); TOT PROT 6.6 g/dl (6.4-8.2)
[2022-04-21] MEDS ORDERED: PRENATAL VITAMINS W/ FOLIC ACID TABLET (FP) PO SCH (10:00)
[2022-04-21] MEDS ORDERED: PANTOPRAZOLE 40 MG TABLET PO SCH (10:00)
[2022-04-21] MEDS: LORATADINE 10 MG TABLET PO SCH (10:12)
[2022-04-21] MEDS: NICOTINE 21 MG/24 HOURS TOPICAL PATCH TD SCH (11:58)
[2022-04-21] MEDS: amLODIPine BESYLATE 10 MG TABLET (FP) PO SCH (11:58)
[2022-04-21 16:45] VITALS: RESP 18
[2022-04-21] MEDS ORDERED: SODIUM CHLORIDE NASAL SPRAY 44 ML BOTTLE NS PRN (17:49)
[2022-04-21] MEDS ORDERED: QUEtiapine FUMARATE 25 MG TABLET ONE (20:03)
[2022-04-21 21:19] VITALS: BP 129/83; PULSE 71; TEMP 98
[2022-04-21] MEDS ORDERED: QUEtiapine FUMARATE 50 MG TABLET PO SCH (22:00)
[2022-04-22] MEDS ORDERED: diazePAM 5 MG TABLET PO SCH (06:00)
[2022-04-22] MEDS ORDERED: amLODIPine BESYLATE 10 MG TABLET (FP) PO SCH (10:00)
[2022-04-23] MEDS ORDERED: diazePAM 5 MG TABLET PO SCH (06:00)
[2022-04-24] MEDS ORDERED: diazePAM 5 MG TABLET PO ONE (06:00)
== END 2022-04-21 21:00 | disposition left against medical advice (07) | DRG 770 ==
LOC: YASAS 10:32 → Y6N 15:41
PROVIDERS: ADMIT Allergy & Immunology; ATTEND Surgery
PROC: HZ2ZZZZ Detoxification Services for Substance Abuse Treatment (ICD-10-PCS; principal; 2022-04-20)
DX: F10.230 Alcohol dependence with withdrawal, uncomplicated (principal); F13.230 Sedative, hypnotic or anxiolytic dependence with withdrawal, uncomplicated; F14.20 Cocaine dependence, uncomplicated; F12.20 Cannabis dependence, uncomplicated; F17.210 Nicotine dependence, cigarettes, uncomplicated; F19.282 Other psychoactive substance dependence with psychoactive substance-induced sleep disorder; F39 Unspecified mood [affective] disorder; F32.9 Major depressive disorder, single episode, unspecified; I10 Essential (primary) hypertension; K21.9 Gastro-esophageal reflux disease without esophagitis; M54.50 Low back pain, unspecified; G89.29 Other chronic pain; Z86.11 Personal history of tuberculosis; Z56.0 Unemployment, unspecified; Z91.013 Allergy to seafood; Z91.014 Allergy to mammalian meats
CPT/HCPCS: 36415; 80053; 85027; 86780; 87811; C9803-CS; U0003; U0005

== ENCOUNTER 2022-06-29 08:57 | Inpatient (IN) | payer OTHER ==
[2022-06-29 10:37] VITALS: BMI 22.1
[2022-06-29] MEDS ORDERED: DICYCLOMINE HCL 10 MG CAPSULE PO PRN (11:01)
[2022-06-29] MEDS ORDERED: IBUPROFEN 400 MG TABLET (FP) PO PRN (11:01)
[2022-06-29] MEDS ORDERED: ONDANSETRON *ODT* 4 MG TABLET SL PRN (11:01)
[2022-06-29] MEDS ORDERED: MAG HYDROX/AL HYDROX/SIMETH 30 ML UNIT-DOSE CUP PO PRN (11:01)
[2022-06-29] MEDS ORDERED: MAGNESIUM CITRATE 300 ML BOTTLE PO PRN (11:01)
[2022-06-29] MEDS ORDERED: BISMUTH SUBSALICYLATE 524 MG/30 ML PO PRN (11:01)
[2022-06-29] MEDS ORDERED: IBUPROFEN 600 MG TABLET (FP) PO PRN (11:01)
[2022-06-29] MEDS ORDERED: METHOCARBAMOL 500 MG TABLET PO PRN (11:01)
[2022-06-29] MEDS ORDERED: NICOTINE 10 MG CARTRIDGE (INHALER) IH PRN (11:01)
[2022-06-29] MEDS ORDERED: LOPERAMIDE HCL 2 MG CAPSULE PO PRN (11:01)
[2022-06-29] MEDS ORDERED: ACETAMINOPHEN 325 MG TABLET (FP) PO PRN (11:01)
[2022-06-29] MEDS ORDERED: chlordiazePOXIDE HCL 25 MG CAPSULE PO PRN (11:01)
[2022-06-29] MEDS ORDERED: BENZOCAINE/MENTHOL (CHLORASEPTIC ) LOZENGE MM PRN (11:01)
[2022-06-29] MEDS ORDERED: MAGNESIUM HYDROX 2400MG/30ML ORAL SUSPENSION 30 ML CUP PO PRN (11:01)
[2022-06-29] MEDS ORDERED: ACETAMINOPHEN 325 MG TABLET (FP) ONE (12:48)
[2022-06-29] MEDS ORDERED: chlordiazePOXIDE HCL 25 MG CAPSULE ONE (12:48)
[2022-06-29] MEDS: ACETAMINOPHEN 325 MG TABLET (FP) PO PRN (13:20)
[2022-06-29] MEDS: amLODIPine BESYLATE 10 MG TABLET (FP) PO SCH (14:42)
[2022-06-29] MEDS: PANTOPRAZOLE 40 MG TABLET PO SCH (14:46)
[2022-06-29] MEDS: chlordiazePOXIDE HCL 25 MG CAPSULE PO SCH ×2 (16:45→22:11)
[2022-06-29] MEDS: QUEtiapine FUMARATE 100 MG TABLET (FP) PO SCH (22:10)
[2022-06-29] MEDS: THIAMINE HCL 100 MG TABLET (FP) PO SCH (22:10)
[2022-06-29] MEDS: MELATONIN 5 MG TABLETS PO SCH (22:12)
[2022-06-30] MEDS: chlordiazePOXIDE HCL 25 MG CAPSULE PO SCH ×4 (05:30→22:17)
[2022-06-30] MEDS: PANTOPRAZOLE 40 MG TABLET PO SCH (09:07)
[2022-06-30 10:43] LABS: HEMATOCRIT 39.3 % (35.4-49); HEMOGLOBIN 13.1 GM/dL (11.7-16.9); MCH 30.5 pg (25.7-33.7); MCHC 33.5 g/dl (32.0-35.9); MEAN CELL VOLUME 91.3 fl (80-96); MEAN PLT VOLUME 7.4 fl (7.5-11.1); PLATELET COUNT 189 10^3/uL (134-434); WHITE BLOOD COUNT 2.9 K/mm3 (4.0-10.0)
[2022-06-30] MEDS: amLODIPine BESYLATE 10 MG TABLET (FP) PO SCH (10:49)
[2022-06-30] MEDS: PRENATAL VITAMINS W/ FOLIC ACID TABLET (FP) PO SCH (10:49)
[2022-06-30 10:58] LABS: ALBUMIN 3.5 g/dl (3.4-5.0); CALCIUM 8.9 mg/dL (8.5-10.1)
[2022-06-30 10:59] LABS: BLOOD UREA NITROGEN 11.4 mg/dL (7-18)
[2022-06-30 11:02] LABS: CREATININE 0.6 mg/dL (0.55-1.3)
[2022-06-30 11:03] LABS: BILIRUBIN,TOTAL 0.5 mg/dL (0.2-1); TOT PROT 6.4 g/dl (6.4-8.2)
[2022-06-30] MEDS: LORATADINE 10 MG TABLET PO SCH (13:40)
[2022-06-30] MEDS: QUEtiapine FUMARATE 100 MG TABLET (FP) PO SCH (22:17)
[2022-06-30] MEDS: MELATONIN 5 MG TABLETS PO SCH (22:18)
[2022-06-30] MEDS: THIAMINE HCL 100 MG TABLET (FP) PO SCH (22:19)
[2022-07-01] MEDS: PANTOPRAZOLE 40 MG TABLET PO SCH (06:06)
[2022-07-01] MEDS: chlordiazePOXIDE HCL 25 MG CAPSULE PO SCH ×4 (06:06→22:07)
[2022-07-01] MEDS: PRENATAL VITAMINS W/ FOLIC ACID TABLET (FP) PO SCH (10:35)
[2022-07-01] MEDS: amLODIPine BESYLATE 10 MG TABLET (FP) PO SCH (10:35)
[2022-07-01] MEDS: LORATADINE 10 MG TABLET PO SCH (10:35)
[2022-07-01] MEDS: ACETAMINOPHEN 325 MG TABLET (FP) PO PRN (18:35)
[2022-07-01] MEDS: MELATONIN 5 MG TABLETS PO SCH (22:08)
[2022-07-01] MEDS: THIAMINE HCL 100 MG TABLET (FP) PO SCH (22:08)
[2022-07-01] MEDS: QUEtiapine FUMARATE 100 MG TABLET (FP) PO SCH (22:08)
[2022-07-02] MEDS ORDERED: chlordiazePOXIDE HCL 10 MG CAPSULE PO PRN
[2022-07-02] MEDS: chlordiazePOXIDE HCL 10 MG CAPSULE PO SCH ×4 (05:43→22:09)
[2022-07-02] MEDS: PANTOPRAZOLE 40 MG TABLET PO SCH (05:43)
[2022-07-02] MEDS: LORATADINE 10 MG TABLET PO SCH (10:47)
[2022-07-02] MEDS: PRENATAL VITAMINS W/ FOLIC ACID TABLET (FP) PO SCH (10:47)
[2022-07-02] MEDS: amLODIPine BESYLATE 10 MG TABLET (FP) PO SCH (10:47)
[2022-07-02] MEDS: hydrOXYzine PAMOATE 25 MG CAPSULE (FP) PO PRN (15:28)
[2022-07-02] MEDS: THIAMINE HCL 100 MG TABLET (FP) PO SCH (22:08)
[2022-07-02] MEDS: QUEtiapine FUMARATE 100 MG TABLET (FP) PO SCH (22:09)
[2022-07-02] MEDS: MELATONIN 5 MG TABLETS PO SCH (22:09)
[2022-07-03] MEDS ORDERED: chlordiazePOXIDE HCL 10 MG CAPSULE PO SCH (05:00)
[2022-07-03] MEDS: PANTOPRAZOLE 40 MG TABLET PO SCH (05:49)
[2022-07-03] MEDS: PRENATAL VITAMINS W/ FOLIC ACID TABLET (FP) PO SCH (10:25)
[2022-07-03] MEDS: hydrOXYzine PAMOATE 25 MG CAPSULE (FP) PO PRN (10:26)
[2022-07-03] MEDS: LORATADINE 10 MG TABLET PO SCH (10:26)
[2022-07-03] MEDS: amLODIPine BESYLATE 10 MG TABLET (FP) PO SCH (10:26)
[2022-07-03 10:51] VITALS: RESP 16
[2022-07-03 14:52] VITALS: PULSE 84; TEMP 98.2
[2022-07-03 14:53] VITALS: BP 128/87
[2022-07-04] MEDS ORDERED: chlordiazePOXIDE HCL 10 MG CAPSULE PO ONE (05:00)
== END 2022-07-03 17:02 | disposition home or self-care (01) | DRG 774 ==
LOC: YASAS 08:57 → Y3N 13:48
PROVIDERS: ADMIT Allergy & Immunology; ATTEND Surgery
PROC: HZ2ZZZZ Detoxification Services for Substance Abuse Treatment (ICD-10-PCS; principal; 2022-06-29)
DX: F10.230 Alcohol dependence with withdrawal, uncomplicated (principal); F14.20 Cocaine dependence, uncomplicated; F12.20 Cannabis dependence, uncomplicated; F17.210 Nicotine dependence, cigarettes, uncomplicated; F19.24 Other psychoactive substance dependence with psychoactive substance-induced mood disorder; F41.9 Anxiety disorder, unspecified; F32.A Depression, unspecified; D72.819 Decreased white blood cell count, unspecified; I10 Essential (primary) hypertension; G47.00 Insomnia, unspecified; K21.9 Gastro-esophageal reflux disease without esophagitis; M54.50 Low back pain, unspecified; G89.29 Other chronic pain; Z86.11 Personal history of tuberculosis; Z86.69 Personal history of other diseases of the nervous system and sense organs; Z88.0 Allergy status to penicillin; Z91.014 Allergy to mammalian meats; Z59.00 Homelessness unspecified
CPT/HCPCS: 36415; 71046-TC-FY; 80053; 85027; 86780; C9803-CS; U0003; U0005

== ENCOUNTER 2022-09-08 13:20 | Inpatient (IN) | payer OTHER ==
[2022-09-08 14:23] VITALS: BMI 21.4
[2022-09-08] MEDS ORDERED: IBUPROFEN 400 MG TABLET (FP) PO PRN (15:35)
[2022-09-08] MEDS ORDERED: chlordiazePOXIDE HCL 25 MG CAPSULE PO PRN (15:35)
[2022-09-08] MEDS ORDERED: IBUPROFEN 600 MG TABLET (FP) PO PRN (15:35)
[2022-09-08] MEDS ORDERED: NALOXONE HCL (KLOXXADO) 8 MG SPRAY NS PRN (15:35)
[2022-09-08] MEDS ORDERED: DICYCLOMINE HCL 10 MG CAPSULE PO PRN (15:35)
[2022-09-08] MEDS ORDERED: LOPERAMIDE HCL 2 MG CAPSULE PO PRN (15:35)
[2022-09-08] MEDS ORDERED: BISMUTH SUBSALICYLATE 524 MG/30 ML PO PRN (15:35)
[2022-09-08] MEDS ORDERED: MAGNESIUM HYDROX 2400MG/30ML ORAL SUSPENSION 30 ML CUP PO PRN (15:35)
[2022-09-08] MEDS ORDERED: METHOCARBAMOL 500 MG TABLET PO PRN (15:35)
[2022-09-08] MEDS ORDERED: POLYETHYLENE GLYCOL (HEALTHYLAX) 3350 17 GM PACKET PO PRN (15:35)
[2022-09-08] MEDS ORDERED: ACETAMINOPHEN 325 MG TABLET (FP) PO PRN (15:35)
[2022-09-08] MEDS ORDERED: MAG HYDROX/AL HYDROX/SIMETH 30 ML UNIT-DOSE CUP PO PRN (15:35)
[2022-09-08] MEDS ORDERED: NICOTINE POLACRILEX 2 MG GUM BUC PRN (15:35)
[2022-09-08] MEDS ORDERED: hydrOXYzine PAMOATE 25 MG CAPSULE (FP) PO PRN (15:35)
[2022-09-08] MEDS ORDERED: ONDANSETRON *ODT* 4 MG TABLET SL PRN (15:35)
[2022-09-08] MEDS ORDERED: BENZOCAINE/MENTHOL (CHLORASEPTIC ) LOZENGE MM PRN (15:35)
[2022-09-08] MEDS ORDERED: chlordiazePOXIDE HCL 25 MG CAPSULE PO SCH (17:00)
[2022-09-08] MEDS: chlordiazePOXIDE HCL 25 MG CAPSULE PO SCH ×2 (18:51→23:25)
[2022-09-08] MEDS: MELATONIN 5 MG TABLETS PO SCH (23:24)
[2022-09-08] MEDS: THIAMINE HCL 100 MG TABLET (FP) PO SCH (23:24)
[2022-09-09] MEDS: chlordiazePOXIDE HCL 25 MG CAPSULE PO SCH ×4 (05:21→22:08)
[2022-09-09] MEDS ORDERED: amLODIPine BESYLATE 10 MG TABLET (FP) PO SCH (08:30)
[2022-09-09] MEDS: PANTOPRAZOLE 40 MG TABLET PO SCH (10:18)
[2022-09-09] MEDS: PRENATAL VITAMINS W/ FOLIC ACID TABLET (FP) PO SCH (10:18)
[2022-09-09] MEDS: amLODIPine BESYLATE 10 MG TABLET (FP) PO SCH (10:18)
[2022-09-09 10:32] LABS: HEMATOCRIT 37.6 % (35.4-49); HEMOGLOBIN 12.4 GM/dL (11.7-16.9); MCHC 32.9 g/dl (32.0-35.9); MEAN PLT VOLUME 7.7 fl (7.5-11.1); PLATELET COUNT 261 10^3/uL (134-434); RBC 4.13 M/mm3 (4.00-5.60); RDW 14.9 % (11.9-15.9); WHITE BLOOD COUNT 3.3 K/mm3 (4.0-10.0)
[2022-09-09 11:34] LABS: ALBUMIN 3.6 g/dl (3.4-5.0); CALCIUM 9.3 mg/dL (8.5-10.1)
[2022-09-09 11:38] LABS: CREATININE 0.7 mg/dL (0.55-1.3)
[2022-09-09 11:40] LABS: BILIRUBIN,TOTAL 0.3 mg/dL (0.2-1); TOT PROT 6.5 g/dl (6.4-8.2)
[2022-09-09 17:04] VITALS: RESP 18
[2022-09-09] MEDS: ACETAMINOPHEN 325 MG TABLET (FP) PO PRN (19:48)
[2022-09-09] MEDS ORDERED: QUEtiapine FUMARATE 100 MG TABLET (FP) PO SCH (22:00)
[2022-09-09] MEDS: THIAMINE HCL 100 MG TABLET (FP) PO SCH (22:08)
[2022-09-09] MEDS: MELATONIN 5 MG TABLETS PO SCH (22:59)
[2022-09-10] MEDS: chlordiazePOXIDE HCL 25 MG CAPSULE PO SCH ×2 (05:31→10:24)
[2022-09-10] MEDS: PRENATAL VITAMINS W/ FOLIC ACID TABLET (FP) PO SCH (10:24)
[2022-09-10] MEDS: PANTOPRAZOLE 40 MG TABLET PO SCH (10:24)
[2022-09-10] MEDS: amLODIPine BESYLATE 10 MG TABLET (FP) PO SCH (10:24)
[2022-09-10] MEDS: ACETAMINOPHEN 325 MG TABLET (FP) PO PRN (13:13)
[2022-09-10 16:46] VITALS: BP 116/63; PULSE 69; TEMP 97.5
[2022-09-11] MEDS ORDERED: chlordiazePOXIDE HCL 10 MG CAPSULE PO PRN
[2022-09-11] MEDS ORDERED: chlordiazePOXIDE HCL 10 MG CAPSULE PO SCH (05:00)
[2022-09-12] MEDS ORDERED: chlordiazePOXIDE HCL 10 MG CAPSULE PO SCH (05:00)
[2022-09-13] MEDS ORDERED: chlordiazePOXIDE HCL 10 MG CAPSULE PO ONE (05:00)
== END 2022-09-10 18:00 | disposition left against medical advice (07) | DRG 770 ==
LOC: YASAS 13:20 → Y3N 17:18
PROVIDERS: ADMIT Allergy & Immunology; ATTEND Allergy & Immunology
PROC: HZ2ZZZZ Detoxification Services for Substance Abuse Treatment (ICD-10-PCS; principal; 2022-09-08)
DX: F10.230 Alcohol dependence with withdrawal, uncomplicated (principal); F14.20 Cocaine dependence, uncomplicated; F13.20 Sedative, hypnotic or anxiolytic dependence, uncomplicated; F12.20 Cannabis dependence, uncomplicated; F17.210 Nicotine dependence, cigarettes, uncomplicated; F19.282 Other psychoactive substance dependence with psychoactive substance-induced sleep disorder; F19.24 Other psychoactive substance dependence with psychoactive substance-induced mood disorder; F31.9 Bipolar disorder, unspecified; F41.9 Anxiety disorder, unspecified; G47.00 Insomnia, unspecified; I10 Essential (primary) hypertension; K21.9 Gastro-esophageal reflux disease without esophagitis; M54.50 Low back pain, unspecified; G89.29 Other chronic pain; Z86.11 Personal history of tuberculosis; Z86.19 Personal history of other infectious and parasitic diseases; Z88.0 Allergy status to penicillin; Z59.02 Unsheltered homelessness
CPT/HCPCS: 36415; 80053; 85027; 86780; C9803-CS; U0003; U0005

== ENCOUNTER 2022-11-15 10:22 | Inpatient (IN) | payer OTHER ==
[2022-11-15 10:56] VITALS: BMI 20.7
[2022-11-15] MEDS ORDERED: ONDANSETRON *ODT* 4 MG TABLET SL PRN (13:32)
[2022-11-15] MEDS ORDERED: MAGNESIUM HYDROX 2400MG/30ML ORAL SUSPENSION 30 ML CUP PO PRN (13:32)
[2022-11-15] MEDS ORDERED: ACETAMINOPHEN 325 MG TABLET (FP) PO PRN ×2 (13:32)
[2022-11-15] MEDS ORDERED: DICYCLOMINE HCL 10 MG CAPSULE PO PRN (13:32)
[2022-11-15] MEDS ORDERED: POLYETHYLENE GLYCOL (HEALTHYLAX) 3350 17 GM PACKET PO PRN (13:32)
[2022-11-15] MEDS ORDERED: BISMUTH SUBSALICYLATE 524 MG/30 ML PO PRN (13:32)
[2022-11-15] MEDS ORDERED: LOPERAMIDE HCL 2 MG CAPSULE PO PRN (13:32)
[2022-11-15] MEDS ORDERED: BENZOCAINE/MENTHOL (CHLORASEPTIC ) LOZENGE MM PRN (13:32)
[2022-11-15] MEDS ORDERED: MAG HYDROX/AL HYDROX/SIMETH 30 ML UNIT-DOSE CUP PO PRN (13:32)
[2022-11-15] MEDS ORDERED: IBUPROFEN 400 MG TABLET (FP) PO PRN (13:32)
[2022-11-15] MEDS ORDERED: IBUPROFEN 600 MG TABLET (FP) PO PRN (13:32)
[2022-11-15] MEDS ORDERED: NICOTINE 10 MG CARTRIDGE (INHALER) IH PRN (13:32)
[2022-11-15] MEDS ORDERED: NALOXONE HCL (KLOXXADO) 8 MG SPRAY NS PRN (13:32)
[2022-11-15] MEDS ORDERED: CALAMINE 8% TOPICAL LOTION 177 ML BOTTLE TP PRN (13:38)
[2022-11-15] MEDS ORDERED: PERMETHRIN (NIX CREAM SCALP RINSE) 59 ML 1% BOTTLE TP ONE (14:00)
[2022-11-15] MEDS: NICOTINE 21 MG/24 HOURS TOPICAL PATCH TD SCH (14:11)
[2022-11-15] MEDS: diazePAM 5 MG TABLET PO SCH (14:15)
[2022-11-15] MEDS: METHOCARBAMOL 500 MG TABLET PO PRN (14:15)
[2022-11-15] MEDS: PRENATAL VITAMINS W/ FOLIC ACID TABLET (FP) PO SCH (14:16)
[2022-11-15] MEDS: hydrOXYzine PAMOATE 25 MG CAPSULE (FP) PO PRN (14:17)
[2022-11-15] MEDS: diazePAM 5 MG TABLET PO PRN ×2 (17:39→22:29)
[2022-11-15] MEDS: THIAMINE HCL 100 MG TABLET (FP) PO SCH (22:29)
[2022-11-15] MEDS: MELATONIN 5 MG TABLETS PO SCH (22:30)
[2022-11-16] MEDS: diazePAM 5 MG TABLET PO SCH ×5 (00:04→22:31)
[2022-11-16 10:32] LABS: HEMATOCRIT 36.9 % (35.4-49); HEMOGLOBIN 12.6 GM/dL (11.7-16.9); MCH 31.7 pg (25.7-33.7); MCHC 34.3 g/dl (32.0-35.9); MEAN CELL VOLUME 92.4 fl (80-96); MEAN PLT VOLUME 7.6 fl (7.5-11.1); PLATELET COUNT 226 10^3/uL (134-434); RDW 15.1 % (11.9-15.9)
[2022-11-16 10:55] LABS: BLOOD UREA NITROGEN 15.8 mg/dL (7-18); CALCIUM 9.1 mg/dL (8.5-10.1)
[2022-11-16 10:56] LABS: ALBUMIN 3.5 g/dl (3.4-5.0)
[2022-11-16 10:58] LABS: CREATININE 0.7 mg/dL (0.55-1.3)
[2022-11-16] MEDS: PANTOPRAZOLE 40 MG TABLET PO SCH ×2 (10:58→11:12)
[2022-11-16] MEDS: amLODIPine BESYLATE 10 MG TABLET (FP) PO SCH ×2 (10:58→11:11)
[2022-11-16] MEDS: PRENATAL VITAMINS W/ FOLIC ACID TABLET (FP) PO SCH ×2 (10:58→11:12)
[2022-11-16] MEDS: NICOTINE 21 MG/24 HOURS TOPICAL PATCH TD SCH (10:58)
[2022-11-16 11:00] LABS: BILIRUBIN,TOTAL 0.5 mg/dL (0.2-1); TOT PROT 6.3 g/dl (6.4-8.2)
[2022-11-16] MEDS: diazePAM 5 MG TABLET PO PRN ×2 (17:48→22:27)
[2022-11-16] MEDS: MINERAL OIL/PET HY-PHL TOPICAL OINTMENT 454 GM JAR TP SCH (22:25)
[2022-11-16] MEDS: MELATONIN 5 MG TABLETS PO SCH (22:30)
[2022-11-16] MEDS: QUEtiapine FUMARATE 100 MG TABLET (FP) PO SCH (22:30)
[2022-11-16] MEDS: THIAMINE HCL 100 MG TABLET (FP) PO SCH (22:48)
[2022-11-17] MEDS: diazePAM 5 MG TABLET PO SCH ×2 (05:17→14:11)
[2022-11-17] MEDS ORDERED: PANTOPRAZOLE 40 MG TABLET PO ONE (08:17)
[2022-11-17] MEDS: MINERAL OIL/PET HY-PHL TOPICAL OINTMENT 454 GM JAR TP SCH (10:08)
[2022-11-17] MEDS: LACTULOSE 20 GM/30 ML UDC (FOR ORAL USE ONLY) PO SCH ×4 (10:09→22:26)
[2022-11-17] MEDS: NICOTINE 21 MG/24 HOURS TOPICAL PATCH TD SCH (10:09)
[2022-11-17] MEDS: hydrOXYzine PAMOATE 25 MG CAPSULE (FP) PO PRN (10:09)
[2022-11-17] MEDS: amLODIPine BESYLATE 10 MG TABLET (FP) PO SCH (10:09)
[2022-11-17] MEDS: PRENATAL VITAMINS W/ FOLIC ACID TABLET (FP) PO SCH (10:09)
[2022-11-17] MEDS: METHOCARBAMOL 500 MG TABLET PO PRN (10:09)
[2022-11-17] MEDS: diazePAM 5 MG TABLET PO PRN (17:26)
[2022-11-17] MEDS ORDERED: diazePAM 5 MG TABLET PO SCH (22:00)
[2022-11-17] MEDS: THIAMINE HCL 100 MG TABLET (FP) PO SCH (22:26)
[2022-11-17] MEDS: QUEtiapine FUMARATE 100 MG TABLET (FP) PO SCH (22:28)
[2022-11-17] MEDS: MELATONIN 5 MG TABLETS PO SCH (22:30)
[2022-11-18] MEDS ORDERED: diazePAM 5 MG TABLET PO SCH (06:00)
[2022-11-18] MEDS ORDERED: PANTOPRAZOLE 40 MG TABLET PO SCH (06:00)
[2022-11-18 06:09] VITALS: RESP 18
[2022-11-18 09:37] VITALS: TEMP 97.5
[2022-11-18] MEDS: NICOTINE 21 MG/24 HOURS TOPICAL PATCH TD SCH (10:24)
[2022-11-18] MEDS: LACTULOSE 20 GM/30 ML UDC (FOR ORAL USE ONLY) PO SCH ×2 (10:25→13:20)
[2022-11-18] MEDS: amLODIPine BESYLATE 10 MG TABLET (FP) PO SCH (10:25)
[2022-11-18] MEDS: MINERAL OIL/PET HY-PHL TOPICAL OINTMENT 454 GM JAR TP SCH (10:25)
[2022-11-18] MEDS: PRENATAL VITAMINS W/ FOLIC ACID TABLET (FP) PO SCH (10:26)
[2022-11-18] MEDS: diazePAM 5 MG TABLET PO PRN (10:29)
[2022-11-18 13:07] VITALS: BP 136/89; PULSE 72
[2022-11-19] MEDS ORDERED: diazePAM 5 MG TABLET PO ONE (06:00)
== END 2022-11-18 15:00 | disposition home or self-care (01) | DRG 774 ==
LOC: YASAS 10:22 → Y6N 14:01
PROVIDERS: ADMIT Allergy & Immunology; ATTEND Surgery
PROC: HZ2ZZZZ Detoxification Services for Substance Abuse Treatment (ICD-10-PCS; principal; 2022-11-15)
DX: F10.230 Alcohol dependence with withdrawal, uncomplicated (principal); F13.230 Sedative, hypnotic or anxiolytic dependence with withdrawal, uncomplicated; F14.20 Cocaine dependence, uncomplicated; F12.20 Cannabis dependence, uncomplicated; F17.210 Nicotine dependence, cigarettes, uncomplicated; F19.24 Other psychoactive substance dependence with psychoactive substance-induced mood disorder; F39 Unspecified mood [affective] disorder; F32.9 Major depressive disorder, single episode, unspecified; G47.00 Insomnia, unspecified; I10 Essential (primary) hypertension; K21.9 Gastro-esophageal reflux disease without esophagitis; R79.89 Other specified abnormal findings of blood chemistry; Z86.11 Personal history of tuberculosis; Z86.69 Personal history of other diseases of the nervous system and sense organs; Z88.0 Allergy status to penicillin; Z91.013 Allergy to seafood
CPT/HCPCS: 36415; 80053; 82140; 85027; 86780; 87811; C9803-CS; U0003; U0005

== ENCOUNTER 2023-03-20 13:02 | Inpatient (IN) | payer OTHER ==
[2023-03-20 13:36] VITALS: BMI 21.7
[2023-03-20] MEDS ORDERED: LOPERAMIDE HCL 2 MG CAPSULE PO PRN (15:04)
[2023-03-20] MEDS ORDERED: NICOTINE 10 MG CARTRIDGE (INHALER) IH PRN (15:04)
[2023-03-20] MEDS ORDERED: LORazepam 2 MG TABLET PO ONE (15:04)
[2023-03-20] MEDS ORDERED: guaiFENesin 600 MG TABLET.ER (FP) PO PRN (15:04)
[2023-03-20] MEDS ORDERED: IBUPROFEN 400 MG TABLET (FP) PO PRN (15:04)
[2023-03-20] MEDS ORDERED: IBUPROFEN 600 MG TABLET (FP) PO PRN (15:04)
[2023-03-20] MEDS ORDERED: ACETAMINOPHEN 325 MG TABLET (FP) PO PRN (15:04)
[2023-03-20] MEDS ORDERED: BENZONATATE 200 MG CAPSULE PO PRN (15:04)
[2023-03-20] MEDS ORDERED: POLYETHYLENE GLYCOL (HEALTHYLAX) 3350 17 GM PACKET PO PRN (15:04)
[2023-03-20] MEDS ORDERED: MAG HYDROX/AL HYDROX/SIMETH 30 ML UNIT-DOSE CUP PO PRN (15:04)
[2023-03-20] MEDS ORDERED: MAGNESIUM HYDROX 2400MG/30ML ORAL SUSPENSION 30 ML CUP PO PRN (15:04)
[2023-03-20] MEDS ORDERED: DICYCLOMINE HCL 10 MG CAPSULE PO PRN (15:04)
[2023-03-20] MEDS ORDERED: ONDANSETRON *ODT* 4 MG TABLET SL PRN (15:04)
[2023-03-20] MEDS ORDERED: METHOCARBAMOL 500 MG TABLET PO PRN (15:04)
[2023-03-20] MEDS ORDERED: BENZOCAINE/MENTHOL (CHLORASEPTIC ) LOZENGE MM PRN (15:04)
[2023-03-20] MEDS ORDERED: NALOXONE HCL 0.4 MG/ML VIAL IM PRN (15:04)
[2023-03-20] MEDS ORDERED: NALOXONE HCL (KLOXXADO) 8 MG SPRAY NS PRN (15:04)
[2023-03-20] MEDS ORDERED: LORazepam 1 MG TABLET PO PRN (15:04)
[2023-03-20] MEDS ORDERED: hydrOXYzine PAMOATE 25 MG CAPSULE (FP) PO PRN (15:04)
[2023-03-20] MEDS ORDERED: BISMUTH SUBSALICYLATE 262 MG/15 ML BTL PO PRN (15:04)
[2023-03-20] MEDS: PRENATAL VITAMINS W/ FOLIC ACID TABLET (FP) PO SCH (17:43)
[2023-03-20] MEDS: LORazepam 2 MG TABLET PO SCH ×2 (17:44→22:50)
[2023-03-20] MEDS: NICOTINE 14 MG/24 HOURS TOPICAL PATCH TD SCH (18:20)
[2023-03-20] MEDS: LACTULOSE 20 GM/30 ML UDC (FOR ORAL USE ONLY) PO SCH ×2 (18:25→22:49)
[2023-03-20] MEDS ORDERED: MELATONIN 5 MG TABLETS PO SCH (22:00)
[2023-03-20] MEDS: THIAMINE HCL 100 MG TABLET (FP) PO SCH (22:49)
[2023-03-21] MEDS: LORazepam 2 MG TABLET PO SCH ×4 (05:41→22:11)
[2023-03-21] MEDS: amLODIPine BESYLATE 10 MG TABLET (FP) PO SCH (10:10)
[2023-03-21] MEDS: PRENATAL VITAMINS W/ FOLIC ACID TABLET (FP) PO SCH (10:10)
[2023-03-21] MEDS: PANTOPRAZOLE 40 MG TABLET PO SCH (10:10)
[2023-03-21] MEDS: NICOTINE 14 MG/24 HOURS TOPICAL PATCH TD SCH (10:13)
[2023-03-21] MEDS: LACTULOSE 20 GM/30 ML UDC (FOR ORAL USE ONLY) PO SCH (10:13)
[2023-03-21 10:58] LABS: POTASSIUM 3.4 mmol/L (3.5-5.1)
[2023-03-21 11:02] LABS: HEMATOCRIT 38.5 % (35.4-49); HEMOGLOBIN 12.6 GM/dL (11.7-16.9); MCH 29.4 pg (25.7-33.7); MCHC 32.7 g/dl (32.0-35.9); MEAN CELL VOLUME 89.8 fl (80-96); MEAN PLT VOLUME 7.5 fl (7.5-11.1); PLATELET COUNT 281 10^3/uL (134-434); RBC 4.28 M/mm3 (4.00-5.60); RDW 15.9 % (11.9-15.9); WHITE BLOOD COUNT 4.3 K/mm3 (4.0-10.0)
[2023-03-21 11:06] LABS: CREATININE 0.8 mg/dL (0.55-1.3)
[2023-03-21 11:07] LABS: ALBUMIN 3.5 g/dl (3.4-5.0); BLOOD UREA NITROGEN 11.5 mg/dL (7-18); CALCIUM 9.3 mg/dL (8.5-10.1)
[2023-03-21 11:08] LABS: BILIRUBIN,TOTAL 0.7 mg/dL (0.2-1)
[2023-03-21 11:10] LABS: TOT PROT 6.5 g/dl (6.4-8.2)
[2023-03-21] MEDS ORDERED: POTASSIUM CHLORIDE ORAL LIQUID 20 MEQ/15 ML PO ONE (13:00)
[2023-03-21] MEDS: QUEtiapine FUMARATE 100 MG TABLET (FP) PO SCH (22:11)
[2023-03-21] MEDS: THIAMINE HCL 100 MG TABLET (FP) PO SCH (22:11)
[2023-03-22] MEDS: LORazepam 1 MG TABLET PO SCH ×4 (05:13→22:24)
[2023-03-22] MEDS: NICOTINE 14 MG/24 HOURS TOPICAL PATCH TD SCH (10:23)
[2023-03-22] MEDS: amLODIPine BESYLATE 10 MG TABLET (FP) PO SCH (10:24)
[2023-03-22] MEDS: PANTOPRAZOLE 40 MG TABLET PO SCH (10:24)
[2023-03-22] MEDS: PRENATAL VITAMINS W/ FOLIC ACID TABLET (FP) PO SCH (10:24)
[2023-03-22] MEDS: LACTULOSE 20 GM/30 ML UDC (FOR ORAL USE ONLY) PO SCH ×2 (14:39→22:22)
[2023-03-22] MEDS: THIAMINE HCL 100 MG TABLET (FP) PO SCH (22:23)
[2023-03-22] MEDS: QUEtiapine FUMARATE 100 MG TABLET (FP) PO SCH (22:26)
[2023-03-23] MEDS ORDERED: LORazepam 0.5 MG TABLET PO PRN
[2023-03-23] MEDS: LORazepam 0.5 MG TABLET PO SCH ×4 (04:36→22:55)
[2023-03-23] MEDS: LACTULOSE 20 GM/30 ML UDC (FOR ORAL USE ONLY) PO SCH ×3 (05:41→22:53)
[2023-03-23 05:50] VITALS: RESP 18
[2023-03-23] MEDS: amLODIPine BESYLATE 10 MG TABLET (FP) PO SCH (10:13)
[2023-03-23] MEDS: PANTOPRAZOLE 40 MG TABLET PO SCH (10:13)
[2023-03-23] MEDS: PRENATAL VITAMINS W/ FOLIC ACID TABLET (FP) PO SCH (10:13)
[2023-03-23] MEDS: NICOTINE 14 MG/24 HOURS TOPICAL PATCH TD SCH (10:14)
[2023-03-23 21:01] VITALS: BP 128/84; PULSE 85; TEMP 96.8
[2023-03-23] MEDS: QUEtiapine FUMARATE 100 MG TABLET (FP) PO SCH (22:53)
[2023-03-23] MEDS: THIAMINE HCL 100 MG TABLET (FP) PO SCH (22:54)
[2023-03-24] MEDS ORDERED: LORazepam 0.5 MG TABLET PO ONE (05:00)
== END 2023-03-23 21:44 | disposition left against medical advice (07) | DRG 770 ==
LOC: YASAS 13:02 → Y3N 15:28
PROVIDERS: ADMIT Allergy & Immunology; ATTEND Surgery
PROC: HZ2ZZZZ Detoxification Services for Substance Abuse Treatment (ICD-10-PCS; principal; 2023-03-20)
DX: F10.230 Alcohol dependence with withdrawal, uncomplicated (principal); F13.230 Sedative, hypnotic or anxiolytic dependence with withdrawal, uncomplicated; F12.20 Cannabis dependence, uncomplicated; F17.210 Nicotine dependence, cigarettes, uncomplicated; F19.282 Other psychoactive substance dependence with psychoactive substance-induced sleep disorder; F19.24 Other psychoactive substance dependence with psychoactive substance-induced mood disorder; F41.9 Anxiety disorder, unspecified; F32.9 Major depressive disorder, single episode, unspecified; E72.20 Disorder of urea cycle metabolism, unspecified; I10 Essential (primary) hypertension; K21.9 Gastro-esophageal reflux disease without esophagitis; M54.50 Low back pain, unspecified; G89.29 Other chronic pain; Z86.11 Personal history of tuberculosis
CPT/HCPCS: 36415; 80053; 82140; 83036; 84132; 85027; 86780; 87635; 87811

== ENCOUNTER 2023-07-11 14:18 | Inpatient (IN) | payer OTHER ==
[2023-07-11 15:20] VITALS: BMI 21.7
[2023-07-11] MEDS ORDERED: NICOTINE POLACRILEX 2 MG GUM BUC PRN (18:04)
[2023-07-11] MEDS ORDERED: guaiFENesin 600 MG TABLET.ER (FP) PO PRN (18:04)
[2023-07-11] MEDS ORDERED: NALOXONE HCL 0.4 MG/ML VIAL IM PRN (18:04)
[2023-07-11] MEDS ORDERED: METHOCARBAMOL 500 MG TABLET PO PRN (18:04)
[2023-07-11] MEDS ORDERED: MAG HYDROX/AL HYDROX/SIMETH 30 ML UNIT-DOSE CUP PO PRN (18:04)
[2023-07-11] MEDS ORDERED: BENZONATATE 200 MG CAPSULE PO PRN (18:04)
[2023-07-11] MEDS ORDERED: BISMUTH SUBSALICYLATE 524 MG/30 ML PO PRN (18:04)
[2023-07-11] MEDS ORDERED: NALOXONE HCL (KLOXXADO) 8 MG SPRAY NS PRN (18:04)
[2023-07-11] MEDS ORDERED: ONDANSETRON *ODT* 4 MG TABLET SL PRN (18:04)
[2023-07-11] MEDS ORDERED: POLYETHYLENE GLYCOL (HEALTHYLAX) 3350 17 GM PACKET PO PRN (18:04)
[2023-07-11] MEDS ORDERED: IBUPROFEN 400 MG TABLET (FP) PO PRN (18:04)
[2023-07-11] MEDS ORDERED: LOPERAMIDE HCL 2 MG CAPSULE PO PRN (18:04)
[2023-07-11] MEDS ORDERED: LORazepam 1 MG TABLET PO PRN (18:04)
[2023-07-11] MEDS ORDERED: BENZOCAINE/MENTHOL (CHLORASEPTIC ) LOZENGE MM PRN (18:04)
[2023-07-11] MEDS ORDERED: IBUPROFEN 600 MG TABLET (FP) PO PRN (18:04)
[2023-07-11] MEDS ORDERED: ACETAMINOPHEN 325 MG TABLET (FP) PO PRN (18:04)
[2023-07-11] MEDS ORDERED: MAGNESIUM HYDROX 2400MG/30ML ORAL SUSPENSION 30 ML CUP PO PRN (18:04)
[2023-07-11] MEDS ORDERED: DICYCLOMINE HCL 10 MG CAPSULE PO PRN (18:04)
[2023-07-11] MEDS ORDERED: chlordiazePOXIDE HCL 25 MG CAPSULE PO PRN (18:15)
[2023-07-11] MEDS: chlordiazePOXIDE HCL 25 MG CAPSULE PO SCH (22:32)
[2023-07-11] MEDS: MELATONIN 5 MG TABLETS PO SCH (22:33)
[2023-07-11] MEDS: THIAMINE HCL 100 MG TABLET (FP) PO SCH (22:34)
[2023-07-11] MEDS ORDERED: LORazepam 2 MG TABLET PO SCH (23:00)
[2023-07-12] MEDS: chlordiazePOXIDE HCL 25 MG CAPSULE PO SCH ×4 (05:21→22:11)
[2023-07-12] MEDS ORDERED: PANTOPRAZOLE 40 MG TABLET PO SCH (10:00)
[2023-07-12] MEDS: PRENATAL VITAMINS W/ FOLIC ACID TABLET (FP) PO SCH (10:11)
[2023-07-12] MEDS: amLODIPine BESYLATE 10 MG TABLET (FP) PO SCH (10:11)
[2023-07-12] MEDS: NICOTINE 14 MG/24 HOURS TOPICAL PATCH TD SCH (10:11)
[2023-07-12 12:21] LABS: MCH 30.2 pg (25.7-33.7); MCHC 33.3 g/dl (32.0-35.9); MEAN CELL VOLUME 90.7 fl (80-96); MEAN PLT VOLUME 7.7 fl (7.5-11.1); PLATELET COUNT 246 10^3/uL (134-434); RBC 4.29 M/mm3 (4.00-5.60); RDW 14.2 % (11.9-15.9); WHITE BLOOD COUNT 3.1 K/mm3 (4.0-10.0)
[2023-07-12 12:27] LABS: POTASSIUM 3.7 mmol/L (3.5-5.1)
[2023-07-12 12:33] LABS: CALCIUM 8.6 mg/dL (8.5-10.1)
[2023-07-12 12:34] LABS: ALBUMIN 3.6 g/dl (3.4-5.0); BLOOD UREA NITROGEN 14.2 mg/dL (7-18)
[2023-07-12 12:37] LABS: CREATININE 0.7 mg/dL (0.55-1.3)
[2023-07-12 12:39] LABS: BILIRUBIN,TOTAL 0.8 mg/dL (0.2-1); TOT PROT 6.6 g/dl (6.4-8.2)
[2023-07-12] MEDS: LORATADINE 10 MG TABLET PO SCH (14:19)
[2023-07-12] MEDS: THIAMINE HCL 100 MG TABLET (FP) PO SCH (22:11)
[2023-07-12] MEDS: QUEtiapine FUMARATE 100 MG TABLET (FP) PO SCH (22:11)
[2023-07-12] MEDS: MELATONIN 5 MG TABLETS PO SCH (22:13)
[2023-07-13] MEDS ORDERED: LORazepam 1 MG TABLET PO SCH (05:00)
[2023-07-13] MEDS: chlordiazePOXIDE HCL 25 MG CAPSULE PO SCH ×4 (05:25→22:13)
[2023-07-13] MEDS: PANTOPRAZOLE 40 MG TABLET PO SCH ×2 (05:27→10:09)
[2023-07-13] MEDS: LORATADINE 10 MG TABLET PO SCH (10:09)
[2023-07-13] MEDS: PRENATAL VITAMINS W/ FOLIC ACID TABLET (FP) PO SCH (10:09)
[2023-07-13] MEDS: amLODIPine BESYLATE 10 MG TABLET (FP) PO SCH (10:09)
[2023-07-13] MEDS: NICOTINE 14 MG/24 HOURS TOPICAL PATCH TD SCH (10:10)
[2023-07-13] MEDS: THIAMINE HCL 100 MG TABLET (FP) PO SCH (21:57)
[2023-07-13] MEDS: MELATONIN 5 MG TABLETS PO SCH (21:57)
[2023-07-13] MEDS: QUEtiapine FUMARATE 100 MG TABLET (FP) PO SCH (22:00)
[2023-07-14] MEDS ORDERED: chlordiazePOXIDE HCL 10 MG CAPSULE PO PRN
[2023-07-14] MEDS ORDERED: LORazepam 0.5 MG TABLET PO PRN
[2023-07-14] MEDS ORDERED: LORazepam 0.5 MG TABLET PO SCH (05:00)
[2023-07-14] MEDS: chlordiazePOXIDE HCL 10 MG CAPSULE PO SCH ×4 (05:58→22:11)
[2023-07-14] MEDS: amLODIPine BESYLATE 10 MG TABLET (FP) PO SCH (10:08)
[2023-07-14] MEDS: LORATADINE 10 MG TABLET PO SCH (10:08)
[2023-07-14] MEDS: PRENATAL VITAMINS W/ FOLIC ACID TABLET (FP) PO SCH (10:09)
[2023-07-14] MEDS: PANTOPRAZOLE 40 MG TABLET PO SCH (10:09)
[2023-07-14] MEDS: NICOTINE 14 MG/24 HOURS TOPICAL PATCH TD SCH (10:09)
[2023-07-14] MEDS: hydrOXYzine PAMOATE 25 MG CAPSULE (FP) PO PRN (14:06)
[2023-07-14] MEDS: MELATONIN 5 MG TABLETS PO SCH (22:10)
[2023-07-14] MEDS: QUEtiapine FUMARATE 100 MG TABLET (FP) PO SCH (22:10)
[2023-07-14] MEDS: THIAMINE HCL 100 MG TABLET (FP) PO SCH (22:19)
[2023-07-15] MEDS ORDERED: LORazepam 0.5 MG TABLET PO ONE (05:00)
[2023-07-15] MEDS: chlordiazePOXIDE HCL 10 MG CAPSULE PO SCH ×2 (05:31→18:48)
[2023-07-15] MEDS: PANTOPRAZOLE 40 MG TABLET PO SCH (05:31)
[2023-07-15] MEDS: LORATADINE 10 MG TABLET PO SCH (10:25)
[2023-07-15] MEDS: amLODIPine BESYLATE 10 MG TABLET (FP) PO SCH (10:25)
[2023-07-15] MEDS: PRENATAL VITAMINS W/ FOLIC ACID TABLET (FP) PO SCH (10:25)
[2023-07-15] MEDS: NICOTINE 14 MG/24 HOURS TOPICAL PATCH TD SCH (10:25)
[2023-07-15] MEDS: hydrOXYzine PAMOATE 25 MG CAPSULE (FP) PO PRN (17:16)
[2023-07-15] MEDS ORDERED: chlordiazePOXIDE HCL 10 MG CAPSULE PO ONE (22:00)
[2023-07-15] MEDS: QUEtiapine FUMARATE 100 MG TABLET (FP) PO SCH (22:27)
[2023-07-15] MEDS: THIAMINE HCL 100 MG TABLET (FP) PO SCH (22:39)
[2023-07-15] MEDS: MELATONIN 5 MG TABLETS PO SCH (22:39)
[2023-07-16] MEDS ORDERED: chlordiazePOXIDE HCL 10 MG CAPSULE PO ONE (05:00)
[2023-07-16 06:01] VITALS: TEMP 97.8
[2023-07-16] MEDS: PANTOPRAZOLE 40 MG TABLET PO SCH (06:04)
[2023-07-16] MEDS: amLODIPine BESYLATE 10 MG TABLET (FP) PO SCH (09:04)
[2023-07-16] MEDS: LORATADINE 10 MG TABLET PO SCH (09:04)
[2023-07-16] MEDS: NICOTINE 14 MG/24 HOURS TOPICAL PATCH TD SCH (09:05)
[2023-07-16 09:51] VITALS: BP 143/82; PULSE 69; RESP 17
== END 2023-07-16 09:13 | disposition home or self-care (01) | DRG 774 ==
LOC: YASAS 14:18 → Y3N 18:24
PROVIDERS: ADMIT Allergy & Immunology; ATTEND Surgery
PROC: HZ2ZZZZ Detoxification Services for Substance Abuse Treatment (ICD-10-PCS; principal; 2023-07-11)
DX: F10.230 Alcohol dependence with withdrawal, uncomplicated (principal); F13.230 Sedative, hypnotic or anxiolytic dependence with withdrawal, uncomplicated; F14.20 Cocaine dependence, uncomplicated; F12.20 Cannabis dependence, uncomplicated; F17.210 Nicotine dependence, cigarettes, uncomplicated; F10.282 Alcohol dependence with alcohol-induced sleep disorder; F19.24 Other psychoactive substance dependence with psychoactive substance-induced mood disorder; I10 Essential (primary) hypertension; K21.9 Gastro-esophageal reflux disease without esophagitis; G47.00 Insomnia, unspecified; Z86.11 Personal history of tuberculosis; Z56.0 Unemployment, unspecified; Z59.00 Homelessness unspecified
CPT/HCPCS: 36415; 71046-TC-FY; 80053; 85027; 86780; 87635; 87811

== ENCOUNTER 2023-10-16 10:27 | Inpatient (IN) | payer OTHER ==
[2023-10-16 10:48] VITALS: BMI 21.7
[2023-10-16] MEDS ORDERED: DICYCLOMINE HCL 10 MG CAPSULE PO PRN (11:16)
[2023-10-16] MEDS ORDERED: BISMUTH SUBSALICYLATE 524 MG/30 ML PO PRN (11:16)
[2023-10-16] MEDS ORDERED: ONDANSETRON *ODT* 4 MG TABLET SL PRN (11:16)
[2023-10-16] MEDS ORDERED: METHOCARBAMOL 500 MG TABLET PO PRN (11:16)
[2023-10-16] MEDS ORDERED: POLYETHYLENE GLYCOL (HEALTHYLAX) 3350 17 GM PACKET PO PRN (11:16)
[2023-10-16] MEDS ORDERED: IBUPROFEN 600 MG TABLET (FP) PO PRN (11:16)
[2023-10-16] MEDS ORDERED: MAG HYDROX/AL HYDROX/SIMETH 30 ML UNIT-DOSE CUP PO PRN (11:16)
[2023-10-16] MEDS ORDERED: LOPERAMIDE HCL 2 MG CAPSULE PO PRN (11:16)
[2023-10-16] MEDS ORDERED: BENZONATATE 200 MG CAPSULE PO PRN (11:16)
[2023-10-16] MEDS ORDERED: guaiFENesin 600 MG TABLET.ER (FP) PO PRN (11:16)
[2023-10-16] MEDS ORDERED: MAGNESIUM HYDROX 2400MG/30ML ORAL SUSPENSION 30 ML CUP PO PRN (11:16)
[2023-10-16] MEDS ORDERED: chlordiazePOXIDE HCL 25 MG CAPSULE PO PRN (11:18)
[2023-10-16] MEDS ORDERED: NICOTINE 14 MG/24 HOURS TOPICAL PATCH TD ONE (11:46)
[2023-10-16] MEDS: NICOTINE 14 MG/24 HOURS TOPICAL PATCH TD SCH (11:52)
[2023-10-16] MEDS: chlordiazePOXIDE HCL 25 MG CAPSULE PO SCH ×2 (17:22→22:03)
[2023-10-16] MEDS: ACETAMINOPHEN 325 MG TABLET (FP) PO PRN (17:28)
[2023-10-16] MEDS: QUEtiapine FUMARATE 100 MG TABLET (FP) PO SCH (22:03)
[2023-10-16] MEDS: THIAMINE HCL 100 MG TABLET (FP) PO SCH (22:03)
[2023-10-16] MEDS: LORATADINE 10 MG TABLET PO PRN (22:03)
[2023-10-16] MEDS: MELATONIN 5 MG TABLETS PO SCH (22:09)
[2023-10-17] MEDS: chlordiazePOXIDE HCL 25 MG CAPSULE PO SCH ×4 (05:44→22:12)
[2023-10-17] MEDS ORDERED: PANTOPRAZOLE 40 MG TABLET PO SCH (10:00)
[2023-10-17] MEDS: amLODIPine BESYLATE 10 MG TABLET (FP) PO SCH (10:02)
[2023-10-17] MEDS: PRENATAL VITAMINS W/ FOLIC ACID TABLET (FP) PO SCH (10:02)
[2023-10-17] MEDS: NICOTINE 14 MG/24 HOURS TOPICAL PATCH TD SCH (10:03)
[2023-10-17 10:45] LABS: POTASSIUM 3.7 mmol/L (3.5-5.1)
[2023-10-17 10:46] LABS: HEMATOCRIT 40.2 % (35.4-49); HEMOGLOBIN 13.3 GM/dL (11.7-16.9); MCH 29.9 pg (25.7-33.7); MEAN CELL VOLUME 90.7 fl (80-96); MEAN PLT VOLUME 7.7 fl (7.5-11.1); PLATELET COUNT 248 10^3/uL (134-434); RBC 4.44 M/mm3 (4.00-5.60); RDW 15.1 % (11.9-15.9); WHITE BLOOD COUNT 3.6 K/mm3 (4.0-10.0)
[2023-10-17] MEDS: LORATADINE 10 MG TABLET PO PRN (10:46)
[2023-10-17 10:52] LABS: CALCIUM 8.7 mg/dL (8.5-10.1)
[2023-10-17 10:53] LABS: ALBUMIN 3.8 g/dl (3.4-5.0); BLOOD UREA NITROGEN 8.4 mg/dL (7-18)
[2023-10-17 10:56] LABS: CREATININE 0.7 mg/dL (0.55-1.3)
[2023-10-17 10:58] LABS: BILIRUBIN,TOTAL 0.2 mg/dL (0.2-1); TOT PROT 7.2 g/dl (6.4-8.2)
[2023-10-17] MEDS: ACETAMINOPHEN 325 MG TABLET (FP) PO PRN (17:55)
[2023-10-17] MEDS: QUEtiapine FUMARATE 100 MG TABLET (FP) PO SCH (22:11)
[2023-10-17] MEDS: THIAMINE HCL 100 MG TABLET (FP) PO SCH (22:11)
[2023-10-17] MEDS: MELATONIN 5 MG TABLETS PO SCH (22:13)
[2023-10-18] MEDS: chlordiazePOXIDE HCL 25 MG CAPSULE PO SCH ×4 (05:51→22:35)
[2023-10-18] MEDS: PANTOPRAZOLE 40 MG TABLET PO SCH (05:51)
[2023-10-18] MEDS: amLODIPine BESYLATE 10 MG TABLET (FP) PO SCH (09:49)
[2023-10-18] MEDS: LORATADINE 10 MG TABLET PO SCH (09:49)
[2023-10-18] MEDS: PRENATAL VITAMINS W/ FOLIC ACID TABLET (FP) PO SCH (09:49)
[2023-10-18] MEDS: NICOTINE 14 MG/24 HOURS TOPICAL PATCH TD SCH (09:50)
[2023-10-18] MEDS: BENZOCAINE/MENTHOL (CHLORASEPTIC ) LOZENGE MM PRN ×2 (09:50→22:44)
[2023-10-18] MEDS: IBUPROFEN 400 MG TABLET (FP) PO PRN (18:00)
[2023-10-18] MEDS: QUEtiapine FUMARATE 100 MG TABLET (FP) PO SCH (22:35)
[2023-10-18] MEDS: THIAMINE HCL 100 MG TABLET (FP) PO SCH (22:35)
[2023-10-18] MEDS: MELATONIN 5 MG TABLETS PO SCH (22:35)
[2023-10-18] MEDS: P-EPHED 60MG/TRIPROLIDI 2.5MG TABLET PO PRN (22:44)
[2023-10-19] MEDS ORDERED: chlordiazePOXIDE HCL 10 MG CAPSULE PO PRN
[2023-10-19] MEDS: PANTOPRAZOLE 40 MG TABLET PO SCH (05:54)
[2023-10-19] MEDS: chlordiazePOXIDE HCL 10 MG CAPSULE PO SCH ×4 (05:54→22:50)
[2023-10-19] MEDS: ACETAMINOPHEN 325 MG TABLET (FP) PO PRN (05:58)
[2023-10-19] MEDS: amLODIPine BESYLATE 10 MG TABLET (FP) PO SCH (09:59)
[2023-10-19] MEDS: PRENATAL VITAMINS W/ FOLIC ACID TABLET (FP) PO SCH (09:59)
[2023-10-19] MEDS: NICOTINE 14 MG/24 HOURS TOPICAL PATCH TD SCH (10:00)
[2023-10-19] MEDS: LORATADINE 10 MG TABLET PO SCH (10:00)
[2023-10-19] MEDS: P-EPHED 60MG/TRIPROLIDI 2.5MG TABLET PO PRN (17:34)
[2023-10-19] MEDS: IBUPROFEN 400 MG TABLET (FP) PO PRN (17:35)
[2023-10-19] MEDS: QUEtiapine FUMARATE 100 MG TABLET (FP) PO SCH (22:50)
[2023-10-19] MEDS: THIAMINE HCL 100 MG TABLET (FP) PO SCH (22:50)
[2023-10-20] MEDS: MELATONIN 5 MG TABLETS PO SCH (00:08)
[2023-10-20] MEDS ORDERED: chlordiazePOXIDE HCL 10 MG CAPSULE PO SCH (05:00)
[2023-10-20] MEDS: PANTOPRAZOLE 40 MG TABLET PO SCH (06:00)
[2023-10-20 06:48] VITALS: PULSE 73
[2023-10-20 09:32] VITALS: BP 106/72; RESP 18; TEMP 97.7
[2023-10-20] MEDS: LORATADINE 10 MG TABLET PO SCH (10:46)
[2023-10-20] MEDS: amLODIPine BESYLATE 10 MG TABLET (FP) PO SCH (10:46)
[2023-10-20] MEDS: PRENATAL VITAMINS W/ FOLIC ACID TABLET (FP) PO SCH (10:46)
[2023-10-20] MEDS: NICOTINE 14 MG/24 HOURS TOPICAL PATCH TD SCH (10:46)
[2023-10-21] MEDS ORDERED: chlordiazePOXIDE HCL 10 MG CAPSULE PO ONE (05:00)
== END 2023-10-20 12:50 | disposition home or self-care (01) | DRG 775 ==
LOC: YASAS 10:27 → Y6N 11:28
PROVIDERS: ADMIT Allergy & Immunology; ATTEND Allergy & Immunology
PROC: HZ2ZZZZ Detoxification Services for Substance Abuse Treatment (ICD-10-PCS; principal; 2023-10-16)
DX: F10.230 Alcohol dependence with withdrawal, uncomplicated (principal); F13.230 Sedative, hypnotic or anxiolytic dependence with withdrawal, uncomplicated; F12.20 Cannabis dependence, uncomplicated; F17.210 Nicotine dependence, cigarettes, uncomplicated; F19.280 Other psychoactive substance dependence with psychoactive substance-induced anxiety disorder; F19.282 Other psychoactive substance dependence with psychoactive substance-induced sleep disorder; F19.24 Other psychoactive substance dependence with psychoactive substance-induced mood disorder; Z88.0 Allergy status to penicillin; U07.1 COVID-19; I10 Essential (primary) hypertension; K21.9 Gastro-esophageal reflux disease without esophagitis; Z86.11 Personal history of tuberculosis; Z56.0 Unemployment, unspecified; Z59.00 Homelessness unspecified
CPT/HCPCS: 36415; 80053; 80307; 85027; 86780; 87635; 87811

== ENCOUNTER 2023-12-12 17:20 | Inpatient (IN) | payer OTHER ==
[2023-12-12 19:03] VITALS: BMI 21.4
[2023-12-12] MEDS ORDERED: BENZOCAINE/MENTHOL (CHLORASEPTIC ) LOZENGE MM PRN (20:50)
[2023-12-12] MEDS ORDERED: MAGNESIUM HYDROX 2400MG/30ML ORAL SUSPENSION 30 ML CUP PO PRN (20:50)
[2023-12-12] MEDS ORDERED: POLYETHYLENE GLYCOL (HEALTHYLAX) 3350 17 GM PACKET PO PRN (20:50)
[2023-12-12] MEDS ORDERED: IBUPROFEN 400 MG TABLET (FP) PO PRN (20:50)
[2023-12-12] MEDS ORDERED: NICOTINE POLACRILEX 4 MG GUM BUC PRN (20:50)
[2023-12-12] MEDS ORDERED: DICYCLOMINE HCL 10 MG CAPSULE PO PRN (20:50)
[2023-12-12] MEDS ORDERED: ONDANSETRON *ODT* 4 MG TABLET SL PRN (20:50)
[2023-12-12] MEDS ORDERED: IBUPROFEN 600 MG TABLET (FP) PO PRN (20:50)
[2023-12-12] MEDS ORDERED: ACETAMINOPHEN 325 MG TABLET (FP) PO PRN (20:50)
[2023-12-12] MEDS ORDERED: NALOXONE HCL 0.4 MG/ML VIAL IM PRN (20:50)
[2023-12-12] MEDS ORDERED: NALOXONE HCL (KLOXXADO) 8 MG SPRAY NS PRN (20:50)
[2023-12-12] MEDS ORDERED: BISMUTH SUBSALICYLATE 524 MG/30 ML PO PRN (20:50)
[2023-12-12] MEDS ORDERED: BENZONATATE 200 MG CAPSULE PO PRN (20:50)
[2023-12-12] MEDS ORDERED: guaiFENesin 600 MG TABLET.ER (FP) PO PRN (20:50)
[2023-12-12] MEDS ORDERED: chlordiazePOXIDE HCL 25 MG CAPSULE PO PRN (20:50)
[2023-12-12] MEDS: THIAMINE HCL 100 MG TABLET (FP) PO SCH (22:20)
[2023-12-12] MEDS: chlordiazePOXIDE HCL 25 MG CAPSULE PO SCH (22:20)
[2023-12-12] MEDS: MELATONIN 5 MG TABLETS PO SCH (22:50)
[2023-12-13] MEDS: NICOTINE 21 MG/24 HOURS TOPICAL PATCH TD SCH (10:43)
[2023-12-13] MEDS: PRENATAL VITAMINS W/ FOLIC ACID TABLET (FP) PO SCH (10:44)
[2023-12-13] MEDS: amLODIPine BESYLATE 10 MG TABLET (FP) PO SCH (10:44)
[2023-12-13] MEDS: PANTOPRAZOLE 40 MG TABLET PO SCH (10:44)
[2023-12-13 12:46] LABS: HEMATOCRIT 37.2 % (35.4-49); HEMOGLOBIN 12.5 GM/dL (11.7-16.9); MCH 30.4 pg (25.7-33.7); MCHC 33.6 g/dl (32.0-35.9); MEAN CELL VOLUME 90.4 fl (80-96); PLATELET COUNT 231 10^3/uL (134-434); RBC 4.11 M/mm3 (4.00-5.60); RDW 15.3 % (11.9-15.9); WHITE BLOOD COUNT 3.3 K/mm3 (4.0-10.0)
[2023-12-13 12:52] LABS: CHLORIDE 106 mmol/L (98-107); POTASSIUM 3.6 mmol/L (3.5-5.1); SODIUM 143 mmol/L (136-145)
[2023-12-13 13:03] LABS: BLOOD UREA NITROGEN 12.9 mg/dL (7-18)
[2023-12-13 13:04] LABS: ALBUMIN 3.4 g/dl (3.4-5.0); ANION GAP 8 mmol/L (4-13); CALCIUM 8.8 mg/dL (8.5-10.1); CO2 28 mmol/L (21-32); GLUCOSE,RANDOM 95 mg/dL (74-106)
[2023-12-13 13:07] LABS: CREATININE 0.7 mg/dL (0.55-1.3); SGOT/AST 18 U/L (15-37); SGPT/ALT 22 U/L (13-61)
[2023-12-13 13:09] LABS: TOT PROT 6.5 g/dl (6.4-8.2)
[2023-12-13 13:10] LABS: ALK PHOS 62 U/L (45-117)
[2023-12-13 13:12] LABS: BILIRUBIN,TOTAL 0.6 mg/dL (0.2-1)
[2023-12-13] MEDS: QUEtiapine FUMARATE 100 MG TABLET (FP) PO SCH (22:17)
[2023-12-14] MEDS: chlordiazePOXIDE HCL 25 MG CAPSULE PO SCH (05:16)
[2023-12-14] MEDS: PANTOPRAZOLE 40 MG TABLET PO SCH (07:19)
[2023-12-15] MEDS ORDERED: chlordiazePOXIDE HCL 10 MG CAPSULE PO PRN
[2023-12-15] MEDS: chlordiazePOXIDE HCL 10 MG CAPSULE PO SCH (05:26)
[2023-12-15] MEDS: MAG HYDROX/AL HYDROX/SIMETH 30 ML UNIT-DOSE CUP PO PRN (10:30)
[2023-12-15] MEDS: LOPERAMIDE HCL 2 MG CAPSULE PO PRN (14:11)
[2023-12-15 17:06] VITALS: BP 141/88; PULSE 75; RESP 17; TEMP 97.5
[2023-12-16] MEDS ORDERED: chlordiazePOXIDE HCL 10 MG CAPSULE PO SCH (05:00)
[2023-12-16] MEDS ORDERED: PANTOPRAZOLE 40 MG TABLET PO SCH (07:00)
[2023-12-17] MEDS ORDERED: chlordiazePOXIDE HCL 10 MG CAPSULE PO ONE (05:00)
== END 2023-12-15 17:46 | disposition left against medical advice (07) | DRG 770 ==
LOC: YASAS 17:20 → Y6N 21:22
PROVIDERS: ADMIT Allergy & Immunology; ATTEND Surgery
PROC: HZ2ZZZZ Detoxification Services for Substance Abuse Treatment (ICD-10-PCS; principal; 2023-12-12)
DX: F10.230 Alcohol dependence with withdrawal, uncomplicated (principal); F14.20 Cocaine dependence, uncomplicated; F13.20 Sedative, hypnotic or anxiolytic dependence, uncomplicated; F12.20 Cannabis dependence, uncomplicated; F17.210 Nicotine dependence, cigarettes, uncomplicated; F39 Unspecified mood [affective] disorder; F41.9 Anxiety disorder, unspecified; F32.A Depression, unspecified; I10 Essential (primary) hypertension; M54.50 Low back pain, unspecified; G89.29 Other chronic pain; Z86.11 Personal history of tuberculosis; Z86.69 Personal history of other diseases of the nervous system and sense organs; Z59.00 Homelessness unspecified; Z56.0 Unemployment, unspecified; Z88.0 Allergy status to penicillin
CPT/HCPCS: 36415; 80053; 80305; 80307; 85027; 86780; 87635; 93005; 93010

== ENCOUNTER 2024-01-31 22:41 | Inpatient (IN) | payer OTHER ==
[2024-01-31 23:44] VITALS: BMI 21.7
[2024-02-01] MEDS ORDERED: ONDANSETRON *ODT* 4 MG TABLET SL PRN (03:05)
[2024-02-01] MEDS ORDERED: BENZOCAINE/MENTHOL (CHLORASEPTIC ) LOZENGE MM PRN (03:05)
[2024-02-01] MEDS ORDERED: BENZONATATE 200 MG CAPSULE PO PRN (03:05)
[2024-02-01] MEDS ORDERED: POLYETHYLENE GLYCOL (HEALTHYLAX) 3350 17 GM PACKET PO PRN (03:05)
[2024-02-01] MEDS ORDERED: NICOTINE POLACRILEX 2 MG GUM BUC PRN (03:05)
[2024-02-01] MEDS ORDERED: NALOXONE HCL (KLOXXADO) 8 MG SPRAY NS PRN (03:05)
[2024-02-01] MEDS ORDERED: MAG HYDROX/AL HYDROX/SIMETH 30 ML UNIT-DOSE CUP PO PRN (03:05)
[2024-02-01] MEDS ORDERED: MAGNESIUM HYDROX 2400MG/30ML ORAL SUSPENSION 30 ML CUP PO PRN (03:05)
[2024-02-01] MEDS ORDERED: NALOXONE HCL 0.4 MG/ML VIAL IM PRN (03:05)
[2024-02-01] MEDS ORDERED: BISMUTH SUBSALICYLATE 524 MG/30 ML PO PRN (03:05)
[2024-02-01] MEDS ORDERED: guaiFENesin 600 MG TABLET.ER (FP) PO PRN (03:05)
[2024-02-01] MEDS ORDERED: IBUPROFEN 400 MG TABLET (FP) PO PRN (03:05)
[2024-02-01] MEDS: PRENATAL VITAMINS W/ FOLIC ACID TABLET (FP) PO SCH (09:36)
[2024-02-01] MEDS: amLODIPine BESYLATE 10 MG TABLET (FP) PO SCH (09:40)
[2024-02-01] MEDS: NICOTINE 21 MG/24 HOURS TOPICAL PATCH TD SCH (09:41)
[2024-02-01] MEDS ORDERED: chlordiazePOXIDE HCL 25 MG CAPSULE PO PRN (09:44)
[2024-02-01] MEDS: chlordiazePOXIDE HCL 25 MG CAPSULE PO SCH (10:42)
[2024-02-01] MEDS: hydrOXYzine PAMOATE 25 MG CAPSULE (FP) PO PRN (11:51)
[2024-02-01] MEDS: METHOCARBAMOL 500 MG TABLET PO PRN (11:51)
[2024-02-01] MEDS ORDERED: cloNIDine HCL 0.1 MG TABLET PO PRN (15:25)
[2024-02-01] MEDS: IBUPROFEN 600 MG TABLET (FP) PO PRN (22:21)
[2024-02-01] MEDS: QUEtiapine FUMARATE 100 MG TABLET (FP) PO SCH (22:22)
[2024-02-01] MEDS: MELATONIN 5 MG TABLETS PO SCH (22:23)
[2024-02-01] MEDS: THIAMINE 100 MG TABLET PO SCH (22:23)
[2024-02-02] MEDS: chlordiazePOXIDE HCL 25 MG CAPSULE PO SCH (05:29)
[2024-02-02 09:22] LABS: HEMATOCRIT 38.4 % (35.4-49); HEMOGLOBIN 12.9 GM/dL (11.7-16.9); MCH 30.1 pg (25.7-33.7); MCHC 33.6 g/dl (32.0-35.9); MEAN CELL VOLUME 89.6 fl (80-96); MEAN PLT VOLUME 7.9 fl (7.5-11.1); PLATELET COUNT 214 10^3/uL (134-434); RBC 4.28 M/mm3 (4.00-5.60); RDW 15.7 % (11.9-15.9); WHITE BLOOD COUNT 3.1 K/mm3 (4.0-10.0)
[2024-02-02 09:47] LABS: CALCIUM 9.2 mg/dL (8.5-10.1)
[2024-02-02 09:48] LABS: ALBUMIN 3.7 g/dl (3.4-5.0); BLOOD UREA NITROGEN 17.8 mg/dL (7-18)
[2024-02-02 09:51] LABS: CREATININE 0.7 mg/dL (0.55-1.3)
[2024-02-02 09:52] LABS: TOT PROT 6.6 g/dl (6.4-8.2)
[2024-02-02 09:53] LABS: BILIRUBIN,TOTAL 0.3 mg/dL (0.2-1)
[2024-02-02] MEDS: FAMOTIDINE 20 MG TABLET PO SCH (10:07)
[2024-02-02] MEDS: CARBAMIDE PEROXIDE 6.5% OTIC 15 ML BOTTLE AU SCH (10:35)
[2024-02-02] MEDS: ACETAMINOPHEN 325 MG TABLET (FP) PO PRN (17:24)
[2024-02-02] MEDS: LOPERAMIDE HCL 2 MG CAPSULE PO PRN (19:26)
[2024-02-03] MEDS ORDERED: chlordiazePOXIDE HCL 10 MG CAPSULE PO PRN
[2024-02-03] MEDS: chlordiazePOXIDE HCL 10 MG CAPSULE PO SCH (05:26)
[2024-02-04] MEDS: chlordiazePOXIDE HCL 10 MG CAPSULE PO SCH (05:40)
[2024-02-04 08:59] VITALS: BP 142/87; PULSE 67; RESP 16; TEMP 97.6
[2024-02-05] MEDS ORDERED: chlordiazePOXIDE HCL 10 MG CAPSULE PO ONE (05:00)
== END 2024-02-04 09:03 | disposition home or self-care (01) | DRG 774 ==
LOC: YASAS 22:41 → Y6N 02-01 03:12
PROVIDERS: ADMIT Allergy & Immunology; ATTEND Allergy & Immunology
PROC: HZ2ZZZZ Detoxification Services for Substance Abuse Treatment (ICD-10-PCS; principal; 2024-02-01)
DX: F10.230 Alcohol dependence with withdrawal, uncomplicated (principal); F14.20 Cocaine dependence, uncomplicated; F17.210 Nicotine dependence, cigarettes, uncomplicated; F19.282 Other psychoactive substance dependence with psychoactive substance-induced sleep disorder; F25.9 Schizoaffective disorder, unspecified; F41.9 Anxiety disorder, unspecified; I10 Essential (primary) hypertension; K21.9 Gastro-esophageal reflux disease without esophagitis; H61.23 Impacted cerumen, bilateral; Z86.11 Personal history of tuberculosis; Z88.0 Allergy status to penicillin
CPT/HCPCS: 36415; 80053; 80305; 80307; 85027; 86780; 93005; 93010

== ENCOUNTER 2024-03-19 21:01 | Inpatient (IN) | payer OTHER ==
[2024-03-19 22:01] VITALS: BMI 21.7
[2024-03-19] MEDS ORDERED: POLYETHYLENE GLYCOL (HEALTHYLAX) 3350 17 GM PACKET PO PRN (23:10)
[2024-03-19] MEDS ORDERED: BISMUTH SUBSALICYLATE 524 MG/30 ML PO PRN (23:10)
[2024-03-19] MEDS ORDERED: P-EPHED 60MG/TRIPROLIDI 2.5MG TABLET PO PRN (23:10)
[2024-03-19] MEDS ORDERED: BENZOCAINE/MENTHOL (CHLORASEPTIC ) LOZENGE MM PRN (23:10)
[2024-03-19] MEDS ORDERED: MAGNESIUM HYDROX 2400MG/30ML ORAL SUSPENSION 30 ML CUP PO PRN (23:10)
[2024-03-19] MEDS ORDERED: ONDANSETRON *ODT* 4 MG TABLET SL PRN (23:10)
[2024-03-19] MEDS ORDERED: NICOTINE POLACRILEX 2 MG LOZENGE BC PRN (23:10)
[2024-03-19] MEDS ORDERED: guaiFENesin 600 MG TABLET.ER (FP) PO PRN (23:10)
[2024-03-19] MEDS ORDERED: ACETAMINOPHEN 325 MG TABLET (FP) PO PRN (23:10)
[2024-03-19] MEDS ORDERED: NICOTINE POLACRILEX 2 MG GUM BUC PRN (23:10)
[2024-03-19] MEDS ORDERED: IBUPROFEN 600 MG TABLET (FP) PO PRN (23:10)
[2024-03-19] MEDS ORDERED: BENZONATATE 200 MG CAPSULE PO PRN (23:10)
[2024-03-19] MEDS ORDERED: MAG HYDROX/AL HYDROX/SIMETH 30 ML UNIT-DOSE CUP PO PRN (23:10)
[2024-03-19] MEDS ORDERED: IBUPROFEN 400 MG TABLET (FP) PO PRN (23:10)
[2024-03-19] MEDS ORDERED: LOPERAMIDE HCL 2 MG CAPSULE PO PRN (23:10)
[2024-03-19] MEDS: cloNIDine HCL 0.1 MG TABLET PO ONE (23:51)
[2024-03-20] MEDS: METHOCARBAMOL 500 MG TABLET PO PRN (02:54)
[2024-03-20] MEDS: PANTOPRAZOLE 40 MG TABLET PO SCH (09:24)
[2024-03-20] MEDS: PRENATAL VITAMINS W/ FOLIC ACID TABLET (FP) PO SCH (09:24)
[2024-03-20] MEDS: amLODIPine BESYLATE 10 MG TABLET (FP) PO SCH (09:24)
[2024-03-20] MEDS ORDERED: chlordiazePOXIDE HCL 25 MG CAPSULE PO PRN (11:24)
[2024-03-20] MEDS: chlordiazePOXIDE HCL 25 MG CAPSULE PO SCH (11:36)
[2024-03-20 13:20] LABS: HEMATOCRIT 38.4 % (35.4-49); HEMOGLOBIN 12.7 GM/dL (11.7-16.9); MCH 29.7 pg (25.7-33.7); MCHC 33.1 g/dl (32.0-35.9); MEAN CELL VOLUME 89.7 fl (80-96); MEAN PLT VOLUME 7.5 fl (7.5-11.1); PLATELET COUNT 245 10^3/uL (134-434); RBC 4.28 M/mm3 (4.00-5.60); RDW 15.5 % (11.9-15.9); WHITE BLOOD COUNT 3.3 K/mm3 (4.0-10.0)
[2024-03-20 14:08] LABS: CHLORIDE 104 mmol/L (98-107); POTASSIUM 3.8 mmol/L (3.5-5.1); SODIUM 142 mmol/L (136-145)
[2024-03-20 14:10] LABS: ALBUMIN 3.8 g/dl (3.4-5.0); ANION GAP 6 mmol/L (4-13); BLOOD UREA NITROGEN 10.6 mg/dL (7-18); CALCIUM 8.9 mg/dL (8.5-10.1); CO2 31 mmol/L (21-32); GLUCOSE,RANDOM 68 mg/dL (74-106)
[2024-03-20 14:13] LABS: CREATININE 0.7 mg/dL (0.55-1.3); SGPT/ALT 26 U/L (13-61)
[2024-03-20 14:14] LABS: SGOT/AST 26 U/L (15-37)
[2024-03-20 14:15] LABS: BILIRUBIN,TOTAL 0.7 mg/dL (0.2-1); TOT PROT 6.7 g/dl (6.4-8.2)
[2024-03-20 14:16] LABS: ALK PHOS 54 U/L (45-117)
[2024-03-20] MEDS: THIAMINE 100 MG TABLET PO SCH (22:06)
[2024-03-20] MEDS: MELATONIN 5 MG TABLETS PO SCH (22:06)
[2024-03-20] MEDS: QUEtiapine FUMARATE 100 MG TABLET (FP) PO SCH (22:07)
[2024-03-21] MEDS: chlordiazePOXIDE HCL 10 MG CAPSULE PO SCH (05:17)
[2024-03-22] MEDS: chlordiazePOXIDE HCL 10 MG CAPSULE PO SCH (05:38)
[2024-03-22] MEDS: LORATADINE 10 MG TABLET PO SCH (13:57)
[2024-03-23] MEDS ORDERED: chlordiazePOXIDE HCL 10 MG CAPSULE PO PRN
[2024-03-23] MEDS: chlordiazePOXIDE HCL 10 MG CAPSULE PO ONE (05:42)
[2024-03-23 09:14] VITALS: BP 139/90; PULSE 76; RESP 18; TEMP 98.2
== END 2024-03-23 09:07 | disposition home or self-care (01) | DRG 774 ==
LOC: YASAS 21:01 → Y3N 22:51
PROVIDERS: ADMIT Allergy & Immunology; ATTEND Surgery
PROC: HZ2ZZZZ Detoxification Services for Substance Abuse Treatment (ICD-10-PCS; principal; 2024-03-19)
DX: F10.230 Alcohol dependence with withdrawal, uncomplicated (principal); F13.20 Sedative, hypnotic or anxiolytic dependence, uncomplicated; F14.20 Cocaine dependence, uncomplicated; F12.20 Cannabis dependence, uncomplicated; F17.210 Nicotine dependence, cigarettes, uncomplicated; F19.24 Other psychoactive substance dependence with psychoactive substance-induced mood disorder; F31.9 Bipolar disorder, unspecified; I10 Essential (primary) hypertension; K21.9 Gastro-esophageal reflux disease without esophagitis; M54.50 Low back pain, unspecified; Z86.11 Personal history of tuberculosis; Z56.0 Unemployment, unspecified; Z59.00 Homelessness unspecified
CPT/HCPCS: 36415; 80053; 80305; 80307; 85027; 86780

== ENCOUNTER 2024-05-07 10:14 | Inpatient (IN) | payer OTHER ==
[2024-05-07 10:38] VITALS: BMI 21.4
[2024-05-07] MEDS ORDERED: LOPERAMIDE HCL 2 MG CAPSULE PO PRN (13:36)
[2024-05-07] MEDS ORDERED: NALOXONE HCL 0.4 MG/ML VIAL IM PRN (13:36)
[2024-05-07] MEDS ORDERED: IBUPROFEN 600 MG TABLET (FP) PO PRN (13:36)
[2024-05-07] MEDS ORDERED: MAG HYDROX/AL HYDROX/SIMETH 30 ML UNIT-DOSE CUP PO PRN (13:36)
[2024-05-07] MEDS ORDERED: ONDANSETRON *ODT* 4 MG TABLET SL PRN (13:36)
[2024-05-07] MEDS ORDERED: POLYETHYLENE GLYCOL (HEALTHYLAX) 3350 17 GM PACKET PO PRN (13:36)
[2024-05-07] MEDS ORDERED: NICOTINE POLACRILEX 2 MG GUM BUC PRN (13:36)
[2024-05-07] MEDS ORDERED: BISMUTH SUBSALICYLATE 524 MG/30 ML PO PRN (13:36)
[2024-05-07] MEDS ORDERED: NALOXONE (NARCAN) HCL 4 MG/0.1 ML SPRAY NS PRN (13:36)
[2024-05-07] MEDS ORDERED: MAGNESIUM HYDROX 2400MG/30ML ORAL SUSPENSION 30 ML CUP PO PRN (13:36)
[2024-05-07] MEDS: diazePAM 5 MG TABLET PO SCH (16:59)
[2024-05-07] MEDS: IBUPROFEN 400 MG TABLET (FP) PO PRN (17:00)
[2024-05-07] MEDS: MELATONIN 5 MG TABLETS PO SCH (22:16)
[2024-05-07] MEDS: THIAMINE 100 MG TABLET PO SCH (22:16)
[2024-05-08] MEDS: NICOTINE 21 MG/24 HOURS TOPICAL PATCH TD SCH (10:06)
[2024-05-08] MEDS: PRENATAL VITAMINS W/ FOLIC ACID TABLET (FP) PO SCH (10:08)
[2024-05-08] MEDS: ACETAMINOPHEN 325 MG TABLET (FP) PO PRN (10:08)
[2024-05-08] MEDS ORDERED: PANTOPRAZOLE 40 MG TABLET PO SCH (10:15)
[2024-05-08 10:31] LABS: HEMATOCRIT 41.2 % (35.4-49); HEMOGLOBIN 13.6 GM/dL (11.7-16.9); MCH 30.3 pg (25.7-33.7); MCHC 33.1 g/dl (32.0-35.9); MEAN CELL VOLUME 91.5 fl (80-96); MEAN PLT VOLUME 7.8 fl (7.5-11.1); PLATELET COUNT 233 10^3/uL (134-434); RDW 14.8 % (11.9-15.9); WHITE BLOOD COUNT 3.6 K/mm3 (4.0-10.0)
[2024-05-08 10:34] LABS: POTASSIUM 3.4 mmol/L (3.5-5.1)
[2024-05-08 10:38] LABS: ALBUMIN 3.8 g/dl (3.4-5.0)
[2024-05-08 10:39] LABS: BLOOD UREA NITROGEN 6.1 mg/dL (7-18)
[2024-05-08 10:42] LABS: CREATININE 0.7 mg/dL (0.55-1.3)
[2024-05-08 10:43] LABS: BILIRUBIN,TOTAL 0.6 mg/dL (0.2-1)
[2024-05-08 10:47] LABS: TOT PROT 7.1 g/dl (6.4-8.2)
[2024-05-08] MEDS: amLODIPine BESYLATE 10 MG TABLET (FP) PO SCH (11:05)
[2024-05-08] MEDS: POTASSIUM CHLORIDE ORAL LIQUID 20 MEQ/15 ML PO ONE (14:57)
[2024-05-08] MEDS: guaiFENesin 600 MG TABLET.ER (FP) PO PRN (15:46)
[2024-05-08] MEDS: BENZOCAINE/MENTHOL (CHLORASEPTIC ) LOZENGE MM PRN (20:46)
[2024-05-08] MEDS: QUEtiapine FUMARATE 100 MG TABLET (FP) PO SCH (22:41)
[2024-05-09] MEDS: diazePAM 5 MG TABLET PO SCH (05:30)
[2024-05-09] MEDS: PANTOPRAZOLE 40 MG TABLET PO SCH (09:36)
[2024-05-09] MEDS: BENZONATATE 200 MG CAPSULE PO PRN (14:25)
[2024-05-10] MEDS: diazePAM 5 MG TABLET PO SCH (05:15)
[2024-05-10 06:07] VITALS: RESP 18
[2024-05-10] MEDS: diazePAM 5 MG TABLET PO PRN (09:12)
[2024-05-10] MEDS: LORATADINE 10 MG TABLET PO ONE (12:20)
[2024-05-10 12:50] VITALS: BP 139/84; PULSE 76; TEMP 97.6
[2024-05-11] MEDS ORDERED: diazePAM 5 MG TABLET PO ONE (06:00)
[2024-05-11] MEDS ORDERED: LORATADINE 10 MG TABLET PO SCH (10:00)
== END 2024-05-10 14:45 | disposition home or self-care (01) | DRG 774 ==
LOC: YASAS 10:14 → Y6N 14:05
PROVIDERS: ADMIT Allergy & Immunology; ATTEND Surgery
PROC: HZ2ZZZZ Detoxification Services for Substance Abuse Treatment (ICD-10-PCS; principal; 2024-05-07)
DX: F10.230 Alcohol dependence with withdrawal, uncomplicated (principal); F14.20 Cocaine dependence, uncomplicated; F12.20 Cannabis dependence, uncomplicated; F17.210 Nicotine dependence, cigarettes, uncomplicated; F19.982 Other psychoactive substance use, unspecified with psychoactive substance-induced sleep disorder; I10 Essential (primary) hypertension; K21.9 Gastro-esophageal reflux disease without esophagitis; M54.59 Other low back pain; G89.29 Other chronic pain; Z86.69 Personal history of other diseases of the nervous system and sense organs; Z86.11 Personal history of tuberculosis; Z56.0 Unemployment, unspecified; Z59.00 Homelessness unspecified
CPT/HCPCS: 36415; 80053; 80305; 80307; 84132; 85027; 86780; 93005; 93010

== ENCOUNTER 2024-06-30 13:57 | Inpatient (IN) | payer OTHER ==
[2024-06-30 15:06] VITALS: BMI 21.8
[2024-06-30] MEDS ORDERED: BISMUTH SUBSALICYLATE 524 MG/30 ML PO PRN (15:43)
[2024-06-30] MEDS ORDERED: BENZONATATE 200 MG CAPSULE PO PRN (15:43)
[2024-06-30] MEDS ORDERED: LOPERAMIDE HCL 2 MG CAPSULE PO PRN (15:43)
[2024-06-30] MEDS ORDERED: NICOTINE POLACRILEX 2 MG LOZENGE BC PRN (15:43)
[2024-06-30] MEDS ORDERED: ONDANSETRON *ODT* 4 MG TABLET SL PRN (15:43)
[2024-06-30] MEDS ORDERED: MAGNESIUM HYDROX 2400MG/30ML ORAL SUSPENSION 30 ML CUP PO PRN (15:43)
[2024-06-30] MEDS ORDERED: IBUPROFEN 600 MG TABLET (FP) PO PRN (15:43)
[2024-06-30] MEDS ORDERED: ACETAMINOPHEN 325 MG TABLET (FP) PO PRN (15:43)
[2024-06-30] MEDS ORDERED: IBUPROFEN 400 MG TABLET (FP) PO PRN (15:43)
[2024-06-30] MEDS ORDERED: POLYETHYLENE GLYCOL (HEALTHYLAX) 3350 17 GM PACKET PO PRN (15:43)
[2024-06-30] MEDS ORDERED: NICOTINE POLACRILEX 2 MG GUM BUC PRN (15:43)
[2024-06-30] MEDS ORDERED: MAG HYDROX/AL HYDROX/SIMETH 30 ML UNIT-DOSE CUP ONE (17:32)
[2024-06-30] MEDS ORDERED: diazePAM 5 MG TABLET ONE (17:32)
[2024-06-30] MEDS: MAG HYDROX/AL HYDROX/SIMETH 30 ML UNIT-DOSE CUP PO PRN (17:33)
[2024-06-30] MEDS: diazePAM 5 MG TABLET PO PRN (17:33)
[2024-06-30] MEDS: DICYCLOMINE HCL 10 MG CAPSULE PO PRN (20:03)
[2024-06-30] MEDS: METHOCARBAMOL 500 MG TABLET PO PRN (22:32)
[2024-06-30] MEDS: MELATONIN 5 MG TABLETS PO SCH (22:32)
[2024-06-30] MEDS: THIAMINE 100 MG TABLET PO SCH (22:32)
[2024-06-30] MEDS: diazePAM 5 MG TABLET PO SCH (22:34)
[2024-07-01] MEDS: diazePAM 5 MG TABLET PO SCH (05:27)
[2024-07-01] MEDS: PRENATAL VITAMINS W/ FOLIC ACID TABLET (FP) PO SCH (09:08)
[2024-07-01] MEDS: PANTOPRAZOLE 40 MG TABLET PO SCH (09:08)
[2024-07-01] MEDS: amLODIPine BESYLATE 10 MG TABLET (FP) PO SCH (09:08)
[2024-07-01] MEDS: LORATADINE 10 MG TABLET PO SCH (09:46)
[2024-07-01] MEDS ORDERED: chlordiazePOXIDE HCL 25 MG CAPSULE PO PRN (13:38)
[2024-07-01 15:08] LABS: HEMATOCRIT 41.1 % (35.4-49); HEMOGLOBIN 13.7 GM/dL (11.7-16.9); MCH 30.6 pg (25.7-33.7); MCHC 33.4 g/dl (32.0-35.9); MEAN CELL VOLUME 91.7 fl (80-96); MEAN PLT VOLUME 7.9 fl (7.5-11.1); PLATELET COUNT 200 10^3/uL (134-434); RBC 4.49 M/mm3 (4.00-5.60); RDW 14.9 % (11.9-15.9); WHITE BLOOD COUNT 3.1 K/mm3 (4.0-10.0)
[2024-07-01] MEDS: chlordiazePOXIDE HCL 10 MG CAPSULE PO SCH (17:01)
[2024-07-01 17:05] LABS: CHLORIDE 98 mmol/L (98-107); POTASSIUM 3.5 mmol/L (3.5-5.1); SODIUM 137 mmol/L (136-145)
[2024-07-01 17:10] LABS: ANION GAP 4 mmol/L (4-13); BLOOD UREA NITROGEN 11.3 mg/dL (7-18); CALCIUM 10.4 mg/dL (8.5-10.1); CO2 35 mmol/L (21-32); GLUCOSE,RANDOM 77 mg/dL (74-106)
[2024-07-01 17:14] LABS: CREATININE 0.9 mg/dL (0.55-1.3); SGOT/AST 21 U/L (15-37); SGPT/ALT 26 U/L (13-61)
[2024-07-01 17:16] LABS: BILIRUBIN,TOTAL 1.5 mg/dL (0.2-1); TOT PROT 7.3 g/dl (6.4-8.2)
[2024-07-01 17:17] LABS: ALK PHOS 62 U/L (45-117)
[2024-07-01] MEDS: QUEtiapine FUMARATE 100 MG TABLET (FP) PO SCH (22:09)
[2024-07-01] MEDS: guaiFENesin 600 MG TABLET.ER (FP) PO PRN (22:11)
[2024-07-02] MEDS: chlordiazePOXIDE HCL 10 MG CAPSULE PO SCH (05:55)
[2024-07-02] MEDS ORDERED: diazePAM 5 MG TABLET PO SCH (06:00)
[2024-07-02] MEDS: PANTOPRAZOLE 40 MG TABLET PO SCH (06:40)
[2024-07-02] MEDS: chlordiazePOXIDE HCL 25 MG CAPSULE PO SCH (10:03)
[2024-07-02] MEDS ORDERED: NALOXONE (NYS OPIOID OVERDOSE PROGRAM) 4 MG/0.1 ML SPRAY NS PRN (14:21)
[2024-07-02] MEDS: NALOXONE (NYS OPIOID OVERDOSE PROGRAM) 4 MG/0.1 ML SPRAY NS ONE (15:15)
[2024-07-02] MEDS: BENZOCAINE/MENTHOL (CHLORASEPTIC ) LOZENGE MM PRN (22:25)
[2024-07-03] MEDS ORDERED: diazePAM 5 MG TABLET PO ONE (06:00)
[2024-07-04] MEDS ORDERED: chlordiazePOXIDE HCL 10 MG CAPSULE PO PRN (00:01)
[2024-07-04] MEDS: chlordiazePOXIDE HCL 10 MG CAPSULE PO SCH (05:41)
[2024-07-05] MEDS: chlordiazePOXIDE HCL 10 MG CAPSULE PO SCH (05:57)
[2024-07-05 09:44] VITALS: BP 137/92; PULSE 75; RESP 17; TEMP 97.9
[2024-07-06] MEDS ORDERED: chlordiazePOXIDE HCL 10 MG CAPSULE PO ONE (05:00)
== END 2024-07-05 08:50 | disposition home or self-care (01) | DRG 774 ==
LOC: YASAS 13:57 → Y6N 16:53
PROVIDERS: ADMIT Allergy & Immunology; ATTEND Surgery
PROC: HZ2ZZZZ Detoxification Services for Substance Abuse Treatment (ICD-10-PCS; principal; 2024-06-30)
DX: F10.230 Alcohol dependence with withdrawal, uncomplicated (principal); F13.230 Sedative, hypnotic or anxiolytic dependence with withdrawal, uncomplicated; F14.20 Cocaine dependence, uncomplicated; F12.20 Cannabis dependence, uncomplicated; F17.210 Nicotine dependence, cigarettes, uncomplicated; F19.282 Other psychoactive substance dependence with psychoactive substance-induced sleep disorder; F19.24 Other psychoactive substance dependence with psychoactive substance-induced mood disorder; E83.52 Hypercalcemia; I10 Essential (primary) hypertension; K21.9 Gastro-esophageal reflux disease without esophagitis; Z86.11 Personal history of tuberculosis
CPT/HCPCS: 36415; 80053; 80305; 80307; 82247; 82310; 85027

== ENCOUNTER 2024-10-15 19:00 | Inpatient (IN) | payer OTHER ==
[2024-10-15 19:23] VITALS: BMI 21.7
[2024-10-15] MEDS ORDERED: chlordiazePOXIDE HCL 25 MG CAPSULE PO PRN (19:31)
[2024-10-15] MEDS ORDERED: POLYETHYLENE GLYCOL (HEALTHYLAX) 3350 17 GM PACKET PO PRN (19:32)
[2024-10-15] MEDS ORDERED: LOPERAMIDE HCL 2 MG CAPSULE PO PRN (19:32)
[2024-10-15] MEDS ORDERED: BENZOCAINE/MENTHOL (CHLORASEPTIC ) LOZENGE MM PRN (19:32)
[2024-10-15] MEDS ORDERED: DICYCLOMINE HCL 10 MG CAPSULE PO PRN (19:32)
[2024-10-15] MEDS ORDERED: guaiFENesin 600 MG TABLET.ER (FP) PO PRN (19:32)
[2024-10-15] MEDS ORDERED: NICOTINE POLACRILEX 2 MG GUM BUC PRN (19:32)
[2024-10-15] MEDS ORDERED: BENZONATATE 200 MG CAPSULE PO PRN (19:32)
[2024-10-15] MEDS ORDERED: IBUPROFEN 400 MG TABLET (FP) PO PRN (19:32)
[2024-10-15] MEDS ORDERED: NICOTINE POLACRILEX 2 MG LOZENGE BC PRN (19:32)
[2024-10-15] MEDS ORDERED: ONDANSETRON *ODT* 4 MG TABLET SL PRN (19:32)
[2024-10-15] MEDS ORDERED: BISMUTH SUBSALICYLATE 524 MG/30 ML PO PRN (19:32)
[2024-10-15] MEDS ORDERED: MAG HYDROX/AL HYDROX/SIMETH 30 ML UNIT-DOSE CUP PO PRN (19:32)
[2024-10-15] MEDS ORDERED: IBUPROFEN 600 MG TABLET (FP) PO PRN (19:32)
[2024-10-15] MEDS ORDERED: MAGNESIUM HYDROX 2400MG/30ML ORAL SUSPENSION 30 ML CUP PO PRN (19:32)
[2024-10-15] MEDS: THIAMINE 100 MG TABLET PO SCH (22:42)
[2024-10-15] MEDS: chlordiazePOXIDE HCL 25 MG CAPSULE PO SCH (22:42)
[2024-10-15] MEDS: MELATONIN 5 MG TABLETS PO SCH (22:42)
[2024-10-16 09:25] LABS: HEMATOCRIT 37.9 % (35.4-49); HEMOGLOBIN 12.3 GM/dL (11.7-16.9); MCH 29.6 pg (25.7-33.7); MCHC 32.4 g/dl (32.0-35.9); MEAN CELL VOLUME 91.2 fl (80-96); MEAN PLT VOLUME 7.9 fl (7.5-11.1); PLATELET COUNT 263 10^3/uL (134-434); RBC 4.15 M/mm3 (4.00-5.60); RDW 14.6 % (11.9-15.9)
[2024-10-16 09:27] LABS: CHLORIDE 104 mmol/L (98-107); POTASSIUM 3.6 mmol/L (3.5-5.1); SODIUM 139 mmol/L (136-145)
[2024-10-16 10:04] LABS: SGPT/ALT 20 U/L (13-61)
[2024-10-16] MEDS: PANTOPRAZOLE 40 MG TABLET PO SCH (10:13)
[2024-10-16] MEDS: amLODIPine BESYLATE 10 MG TABLET (FP) PO SCH (10:13)
[2024-10-16] MEDS: PRENATAL VITAMINS W/ FOLIC ACID TABLET (FP) PO SCH (10:13)
[2024-10-16 10:14] LABS: CALCIUM 9.7 mg/dL (8.5-10.1)
[2024-10-16] MEDS: METHOCARBAMOL 500 MG TABLET PO PRN (10:14)
[2024-10-16 10:15] LABS: ALBUMIN 3.6 g/dl (3.4-5.0); ANION GAP 8 mmol/L (4-13); BLOOD UREA NITROGEN 11.4 mg/dL (7-18); CO2 27 mmol/L (21-32); GLUCOSE,RANDOM 107 mg/dL (74-106)
[2024-10-16 10:18] LABS: CREATININE 0.8 mg/dL (0.55-1.3); SGOT/AST 15 U/L (15-37)
[2024-10-16 10:19] LABS: BILIRUBIN,TOTAL 0.9 mg/dL (0.2-1); TOT PROT 6.6 g/dl (6.4-8.2)
[2024-10-16 10:20] LABS: ALK PHOS 58 U/L (45-117)
[2024-10-16] MEDS: QUEtiapine FUMARATE 100 MG TABLET (FP) PO SCH (22:12)
[2024-10-17] MEDS: chlordiazePOXIDE HCL 25 MG CAPSULE PO SCH (05:46)
[2024-10-17] MEDS: ACETAMINOPHEN 325 MG TABLET (FP) PO PRN (11:57)
[2024-10-18] MEDS ORDERED: chlordiazePOXIDE HCL 10 MG CAPSULE PO PRN
[2024-10-18] MEDS: chlordiazePOXIDE HCL 10 MG CAPSULE PO SCH (05:43)
[2024-10-18 16:34] VITALS: BP 126/73; PULSE 66; RESP 16; TEMP 97.7
[2024-10-18] MEDS: NALOXONE (NYS OPIOID OVERDOSE PROGRAM) 4 MG/0.1 ML SPRAY NS SCH (18:15)
[2024-10-19] MEDS ORDERED: chlordiazePOXIDE HCL 10 MG CAPSULE PO SCH (05:00)
[2024-10-19] MEDS ORDERED: NALOXONE (NYS OPIOID OVERDOSE PROGRAM) 4 MG/0.1 ML SPRAY NS SCH (09:00)
[2024-10-20] MEDS ORDERED: chlordiazePOXIDE HCL 10 MG CAPSULE PO ONE (05:00)
== END 2024-10-18 18:24 | disposition home or self-care (01) | DRG 774 ==
LOC: YASAS 19:00 → Y3N 20:05
PROVIDERS: ADMIT Allergy & Immunology; ATTEND Allergy & Immunology
PROC: HZ2ZZZZ Detoxification Services for Substance Abuse Treatment (ICD-10-PCS; principal; 2024-10-15)
DX: F10.230 Alcohol dependence with withdrawal, uncomplicated (principal); F13.230 Sedative, hypnotic or anxiolytic dependence with withdrawal, uncomplicated; F14.20 Cocaine dependence, uncomplicated; F12.20 Cannabis dependence, uncomplicated; F17.210 Nicotine dependence, cigarettes, uncomplicated; F19.282 Other psychoactive substance dependence with psychoactive substance-induced sleep disorder; I10 Essential (primary) hypertension; K21.9 Gastro-esophageal reflux disease without esophagitis; M54.50 Low back pain, unspecified; G89.29 Other chronic pain; Z86.11 Personal history of tuberculosis; Z88.0 Allergy status to penicillin
CPT/HCPCS: 36415; 80053; 80305; 80307; 85027; 86780

== ENCOUNTER 2024-11-25 14:43 | Inpatient (IN) | payer OTHER ==
[2024-11-25] MEDS ORDERED: BENZONATATE 200 MG CAPSULE PO PRN (16:11)
[2024-11-25] MEDS ORDERED: BISMUTH SUBSALICYLATE 524 MG/30 ML PO PRN (16:11)
[2024-11-25] MEDS ORDERED: NALOXONE (NARCAN) HCL 4 MG/0.1 ML SPRAY NS PRN (16:11)
[2024-11-25] MEDS ORDERED: guaiFENesin 600 MG TABLET.ER (FP) PO PRN (16:11)
[2024-11-25] MEDS ORDERED: DICYCLOMINE HCL 10 MG CAPSULE PO PRN (16:11)
[2024-11-25] MEDS ORDERED: ONDANSETRON *ODT* 4 MG TABLET SL PRN (16:11)
[2024-11-25] MEDS ORDERED: MAG HYDROX/AL HYDROX/SIMETH 30 ML UNIT-DOSE CUP PO PRN (16:11)
[2024-11-25] MEDS ORDERED: hydrOXYzine PAMOATE 25 MG CAPSULE (FP) PO PRN (16:11)
[2024-11-25] MEDS ORDERED: LOPERAMIDE HCL 2 MG CAPSULE PO PRN (16:11)
[2024-11-25] MEDS ORDERED: chlordiazePOXIDE HCL 25 MG CAPSULE PO PRN (16:11)
[2024-11-25] MEDS ORDERED: NICOTINE POLACRILEX 4 MG GUM BUC PRN (16:11)
[2024-11-25] MEDS ORDERED: MAGNESIUM HYDROX 2400MG/30ML ORAL SUSPENSION 30 ML CUP PO PRN (16:11)
[2024-11-25] MEDS ORDERED: POLYETHYLENE GLYCOL (HEALTHYLAX) 3350 17 GM PACKET PO PRN (16:11)
[2024-11-25] MEDS ORDERED: IBUPROFEN 400 MG TABLET (FP) PO PRN (16:11)
[2024-11-25] MEDS ORDERED: BENZOCAINE/MENTHOL (CHLORASEPTIC ) LOZENGE MM PRN (16:11)
[2024-11-25 16:20] VITALS: BMI 21.7
[2024-11-25] MEDS ORDERED: chlordiazePOXIDE HCL 25 MG CAPSULE ONE (18:15)
[2024-11-25] MEDS ORDERED: PRENATAL VITAMINS W/ FOLIC ACID TABLET (FP) PO ONE (18:15)
[2024-11-25] MEDS: chlordiazePOXIDE HCL 25 MG CAPSULE PO SCH (18:17)
[2024-11-25] MEDS: PRENATAL VITAMINS W/ FOLIC ACID TABLET (FP) PO SCH (18:18)
[2024-11-25] MEDS: METHOCARBAMOL 500 MG TABLET PO PRN (22:04)
[2024-11-25] MEDS: MELATONIN 5 MG TABLETS PO SCH (22:04)
[2024-11-25] MEDS: THIAMINE 100 MG TABLET PO SCH (22:04)
[2024-11-26] MEDS: PANTOPRAZOLE 40 MG TABLET PO SCH (10:06)
[2024-11-26] MEDS: amLODIPine BESYLATE 10 MG TABLET (FP) PO SCH (10:06)
[2024-11-26] MEDS: IBUPROFEN 600 MG TABLET (FP) PO PRN (11:08)
[2024-11-26 12:46] LABS: HEMATOCRIT 36.4 % (35.4-49); HEMOGLOBIN 12.4 GM/dL (11.7-16.9); MCH 30.4 pg (25.7-33.7); MCHC 33.9 g/dl (32.0-35.9); MEAN CELL VOLUME 89.8 fl (80-96); MEAN PLT VOLUME 7.4 fl (7.5-11.1); PLATELET COUNT 269 10^3/uL (134-434); RBC 4.06 M/mm3 (4.00-5.60); RDW 15.5 % (11.9-15.9); WHITE BLOOD COUNT 4.1 K/mm3 (4.0-10.0)
[2024-11-26 12:47] LABS: CHLORIDE 103 mmol/L (98-107); POTASSIUM 4.1 mmol/L (3.5-5.1); SODIUM 141 mmol/L (136-145)
[2024-11-26 12:51] LABS: CALCIUM 9.1 mg/dL (8.5-10.1)
[2024-11-26 12:52] LABS: ALBUMIN 3.5 g/dl (3.4-5.0); ANION GAP 5 mmol/L (4-13); BLOOD UREA NITROGEN 10.7 mg/dL (7-18); CO2 34 mmol/L (21-32); GLUCOSE,RANDOM 99 mg/dL (74-106)
[2024-11-26 12:55] LABS: CREATININE 0.7 mg/dL (0.55-1.3); SGOT/AST 24 U/L (15-37); SGPT/ALT 26 U/L (13-61)
[2024-11-26 12:57] LABS: BILIRUBIN,TOTAL 0.4 mg/dL (0.2-1); TOT PROT 6.4 g/dl (6.4-8.2)
[2024-11-26 12:58] LABS: ALK PHOS 67 U/L (45-117)
[2024-11-26] MEDS: QUEtiapine FUMARATE 100 MG TABLET (FP) PO SCH (22:04)
[2024-11-27] MEDS: chlordiazePOXIDE HCL 25 MG CAPSULE PO SCH (05:59)
[2024-11-27] MEDS: PANTOPRAZOLE 40 MG TABLET PO SCH (06:30)
[2024-11-27] MEDS: LORATADINE 10 MG TABLET PO SCH (13:21)
[2024-11-27] MEDS: ACETAMINOPHEN 325 MG TABLET (FP) PO PRN (17:22)
[2024-11-28] MEDS ORDERED: chlordiazePOXIDE HCL 10 MG CAPSULE PO PRN
[2024-11-28] MEDS: chlordiazePOXIDE HCL 10 MG CAPSULE PO SCH (05:43)
[2024-11-29] MEDS: chlordiazePOXIDE HCL 10 MG CAPSULE PO SCH (05:40)
[2024-11-29 06:56] VITALS: TEMP 97.1
[2024-11-29 09:14] VITALS: BP 132/82; PULSE 87; RESP 18
[2024-11-30] MEDS ORDERED: chlordiazePOXIDE HCL 10 MG CAPSULE PO ONE (05:00)
== END 2024-11-29 09:05 | disposition home or self-care (01) | DRG 774 ==
LOC: YASAS 14:43 → Y6N 16:59
PROVIDERS: ADMIT Allergy & Immunology; ATTEND Allergy & Immunology
PROC: HZ2ZZZZ Detoxification Services for Substance Abuse Treatment (ICD-10-PCS; principal; 2024-11-25)
DX: F10.230 Alcohol dependence with withdrawal, uncomplicated (principal); F13.230 Sedative, hypnotic or anxiolytic dependence with withdrawal, uncomplicated; F14.20 Cocaine dependence, uncomplicated; F12.20 Cannabis dependence, uncomplicated; F17.210 Nicotine dependence, cigarettes, uncomplicated; F19.282 Other psychoactive substance dependence with psychoactive substance-induced sleep disorder; F19.24 Other psychoactive substance dependence with psychoactive substance-induced mood disorder; F31.9 Bipolar disorder, unspecified; F41.9 Anxiety disorder, unspecified; I10 Essential (primary) hypertension; J30.89 Other allergic rhinitis; K21.9 Gastro-esophageal reflux disease without esophagitis; R76.11 Nonspecific reaction to tuberculin skin test without active tuberculosis; Z88.0 Allergy status to penicillin
CPT/HCPCS: 36415; 71046-TC-FY; 80053; 80305; 80307; 85027; 86780; 93005; 93010

== ENCOUNTER 2025-01-07 19:37 | Inpatient (IN) | payer OTHER ==
[2025-01-07 20:16] VITALS: BMI 21.8
[2025-01-07] MEDS ORDERED: chlordiazePOXIDE HCL 25 MG CAPSULE PO PRN (22:23)
[2025-01-07] MEDS ORDERED: LOPERAMIDE HCL 2 MG CAPSULE PO PRN (22:25)
[2025-01-07] MEDS ORDERED: NICOTINE POLACRILEX 2 MG LOZENGE BC PRN (22:25)
[2025-01-07] MEDS ORDERED: guaiFENesin 600 MG TABLET.ER (FP) PO PRN (22:25)
[2025-01-07] MEDS ORDERED: DICYCLOMINE HCL 10 MG CAPSULE PO PRN (22:25)
[2025-01-07] MEDS ORDERED: ACETAMINOPHEN 325 MG TABLET (FP) PO PRN (22:25)
[2025-01-07] MEDS ORDERED: NICOTINE POLACRILEX 2 MG GUM BUC PRN (22:25)
[2025-01-07] MEDS ORDERED: NALOXONE (NARCAN) HCL 4 MG/0.1 ML SPRAY NS PRN (22:25)
[2025-01-07] MEDS ORDERED: ONDANSETRON *ODT* 4 MG TABLET SL PRN (22:25)
[2025-01-07] MEDS ORDERED: BISMUTH SUBSALICYLATE 524 MG/30 ML PO PRN (22:25)
[2025-01-07] MEDS ORDERED: IBUPROFEN 400 MG TABLET (FP) PO PRN (22:25)
[2025-01-07] MEDS ORDERED: BENZOCAINE/MENTHOL (CHLORASEPTIC ) LOZENGE MM PRN (22:25)
[2025-01-07] MEDS ORDERED: POLYETHYLENE GLYCOL (HEALTHYLAX) 3350 17 GM PACKET PO PRN (22:25)
[2025-01-07] MEDS ORDERED: MAGNESIUM HYDROX 2400MG/30ML ORAL SUSPENSION 30 ML CUP PO PRN (22:25)
[2025-01-07] MEDS ORDERED: BENZONATATE 200 MG CAPSULE PO PRN (22:25)
[2025-01-07] MEDS: chlordiazePOXIDE HCL 25 MG CAPSULE PO SCH (23:43)
[2025-01-07] MEDS ORDERED: chlordiazePOXIDE HCL 25 MG CAPSULE ONE (23:46)
[2025-01-08] MEDS: METHOCARBAMOL 500 MG TABLET PO PRN (00:29)
[2025-01-08] MEDS: hydrOXYzine PAMOATE 25 MG CAPSULE (FP) PO PRN (00:29)
[2025-01-08] MEDS: PRENATAL VITAMINS W/ FOLIC ACID TABLET (FP) PO SCH (10:00)
[2025-01-08] MEDS: amLODIPine BESYLATE 10 MG TABLET (FP) PO SCH (10:00)
[2025-01-08] MEDS: FAMOTIDINE 20 MG TABLET PO SCH (10:00)
[2025-01-08 10:41] LABS: HEMATOCRIT 36.1 % (40.1-51.0); HEMOGLOBIN 11.7 g/dL (13.7-17.5); MCHC 32.4 g/dl (32.3-36.5); MEAN CELL VOLUME 89.6 fl (79.0-92.2); MEAN PLT VOLUME 9.7 fl (9.4-12.4); PLATELET COUNT 270 x10^3/uL (163-337); RDW 14.9 % (12.2-16.4)
[2025-01-08 10:46] LABS: POTASSIUM 3.9 mmol/L (3.5-5.1)
[2025-01-08 10:54] LABS: ALBUMIN 3.3 g/dl (3.4-5.0); BLOOD UREA NITROGEN 9.8 mg/dL (7-18); CALCIUM 8.8 mg/dL (8.5-10.1)
[2025-01-08 10:57] LABS: CREATININE 0.7 mg/dL (0.55-1.3)
[2025-01-08 10:59] LABS: BILIRUBIN,TOTAL 0.2 mg/dL (0.2-1); TOT PROT 6.4 g/dl (6.4-8.2)
[2025-01-08] MEDS: THIAMINE 100 MG TABLET PO SCH (22:46)
[2025-01-08] MEDS: QUEtiapine FUMARATE 100 MG TABLET (FP) PO SCH (22:46)
[2025-01-08] MEDS: MELATONIN 5 MG TABLETS PO SCH (23:09)
[2025-01-09] MEDS: chlordiazePOXIDE HCL 25 MG CAPSULE PO SCH (05:20)
[2025-01-09] MEDS: MAG HYDROX/AL HYDROX/SIMETH 30 ML UNIT-DOSE CUP PO PRN (06:30)
[2025-01-09] MEDS: LORATADINE 10 MG TABLET PO SCH (10:35)
[2025-01-09] MEDS: IBUPROFEN 600 MG TABLET (FP) PO PRN (17:17)
[2025-01-10] MEDS ORDERED: chlordiazePOXIDE HCL 10 MG CAPSULE PO PRN
[2025-01-10] MEDS: chlordiazePOXIDE HCL 10 MG CAPSULE PO SCH (05:37)
[2025-01-10] MEDS: FAMOTIDINE 20 MG TABLET PO SCH (06:21)
[2025-01-10 09:44] VITALS: RESP 18
[2025-01-10 16:56] VITALS: BP 119/75; PULSE 78; TEMP 97.7
[2025-01-11] MEDS ORDERED: chlordiazePOXIDE HCL 10 MG CAPSULE PO SCH (05:00)
[2025-01-12] MEDS ORDERED: chlordiazePOXIDE HCL 10 MG CAPSULE PO ONE (05:00)
== END 2025-01-10 16:57 | disposition home or self-care (01) | DRG 774 ==
LOC: YASAS 19:37 → Y3N 23:19
PROVIDERS: ADMIT Allergy & Immunology; ATTEND Allergy & Immunology
PROC: HZ2ZZZZ Detoxification Services for Substance Abuse Treatment (ICD-10-PCS; principal; 2025-01-07)
DX: F10.230 Alcohol dependence with withdrawal, uncomplicated (principal); F13.20 Sedative, hypnotic or anxiolytic dependence, uncomplicated; F14.20 Cocaine dependence, uncomplicated; F12.20 Cannabis dependence, uncomplicated; F41.9 Anxiety disorder, unspecified; F32.A Depression, unspecified; I10 Essential (primary) hypertension; J30.2 Other seasonal allergic rhinitis; K21.9 Gastro-esophageal reflux disease without esophagitis; M54.50 Low back pain, unspecified; G89.29 Other chronic pain; Z86.11 Personal history of tuberculosis; Z88.0 Allergy status to penicillin
CPT/HCPCS: 36415; 80053; 80305; 80307; 85027; 86780

== ENCOUNTER 2025-04-29 11:39 | Inpatient (IN) | payer OTHER ==
[2025-04-29 11:54] VITALS: BMI 22.1
[2025-04-29] MEDS ORDERED: ONDANSETRON *ODT* 4 MG TABLET SL PRN (12:06)
[2025-04-29] MEDS ORDERED: NALOXONE (NARCAN) HCL 4 MG/0.1 ML SPRAY NS PRN (12:06)
[2025-04-29] MEDS ORDERED: BISMUTH SUBSALICYLATE 524 MG/30 ML PO PRN (12:06)
[2025-04-29] MEDS ORDERED: MAGNESIUM HYDROX 2400MG/30ML ORAL SUSPENSION 30 ML CUP PO PRN (12:06)
[2025-04-29] MEDS ORDERED: POLYETHYLENE GLYCOL (HEALTHYLAX) 3350 17 GM PACKET PO PRN (12:06)
[2025-04-29] MEDS ORDERED: DICYCLOMINE HCL 10 MG CAPSULE PO PRN (12:06)
[2025-04-29] MEDS ORDERED: IBUPROFEN 400 MG TABLET (FP) PO PRN (12:06)
[2025-04-29] MEDS ORDERED: BENZOCAINE/MENTHOL (CHLORASEPTIC ) LOZENGE MM PRN (12:06)
[2025-04-29] MEDS ORDERED: BENZONATATE 200 MG CAPSULE PO PRN (12:06)
[2025-04-29] MEDS ORDERED: IBUPROFEN 600 MG TABLET (FP) PO PRN (12:06)
[2025-04-29] MEDS ORDERED: guaiFENesin 600 MG TABLET.ER (FP) PO PRN (12:06)
[2025-04-29] MEDS ORDERED: MAG HYDROX/AL HYDROX/SIMETH 30 ML UNIT-DOSE CUP PO PRN (12:06)
[2025-04-29] MEDS ORDERED: PRENATAL VITAMINS W/ FOLIC ACID TABLET (FP) PO ONE (12:46)
[2025-04-29] MEDS ORDERED: NICOTINE 14 MG/24 HOURS TOPICAL PATCH TD ONE (12:46)
[2025-04-29] MEDS: PRENATAL VITAMINS W/ FOLIC ACID TABLET (FP) PO SCH (12:48)
[2025-04-29] MEDS: NICOTINE 14 MG/24 HOURS TOPICAL PATCH TD SCH (12:48)
[2025-04-29] MEDS: THIAMINE 100 MG TABLET PO SCH (22:40)
[2025-04-29] MEDS: QUEtiapine FUMARATE 100 MG TABLET (FP) PO SCH (22:40)
[2025-04-29] MEDS: METHOCARBAMOL 500 MG TABLET PO PRN (22:40)
[2025-04-29] MEDS: MELATONIN 5 MG TABLETS PO SCH (22:41)
[2025-04-30] MEDS: ACETAMINOPHEN 325 MG TABLET (FP) PO PRN (05:40)
[2025-04-30] MEDS: hydrOXYzine PAMOATE 25 MG CAPSULE (FP) PO PRN (10:06)
[2025-04-30] MEDS: FAMOTIDINE 20 MG TABLET PO SCH (10:33)
[2025-04-30] MEDS: amLODIPine BESYLATE 10 MG TABLET (FP) PO SCH (10:33)
[2025-05-01] MEDS: LORATADINE 10 MG TABLET PO SCH (12:11)
[2025-05-01] MEDS: LOPERAMIDE HCL 2 MG CAPSULE PO PRN (23:01)
[2025-05-02 09:22] VITALS: BP 125/81; PULSE 67; RESP 16; TEMP 97.7
== END 2025-05-02 09:24 | disposition home or self-care (01) | DRG 774 ==
LOC: YASAS 11:39 → Y6N 12:38
PROVIDERS: ADMIT Allergy & Immunology; ATTEND Allergy & Immunology
PROC: HZ2ZZZZ Detoxification Services for Substance Abuse Treatment (ICD-10-PCS; principal; 2025-04-29)
DX: F10.230 Alcohol dependence with withdrawal, uncomplicated (principal); I10 Essential (primary) hypertension; K21.9 Gastro-esophageal reflux disease without esophagitis; M54.50 Low back pain, unspecified; F17.210 Nicotine dependence, cigarettes, uncomplicated; F13.20 Sedative, hypnotic or anxiolytic dependence, uncomplicated; F14.20 Cocaine dependence, uncomplicated
CPT/HCPCS: 36415; 80307